=== PATIENT | female | born 1965 | race Caucasian/White ===

== ENCOUNTER → 2017-07-05 | Outpatient (CLI) | payer OTHER ==
[~2017-07-05] MED LIST: AZIT250T PO; CHOL20007 PO; FERROFOOD PO; KRIL1CAP7 PO; MTR600X PO; OXYC5TAB PO; PROB1TAB16 PO; THY/30 PO; [UNRECOGNIZED DRUG - OTHER] PO; [UNRECOGNIZED DRUG - OTHER] PO
[2017-07-05 14:08] LABS: CHOLESTEROL/HDL RATIO 2.6; THYROID STIMULATING HORMONE 2.28 uIu/ml (0.300-4.500)
== END | disposition home or self-care (01) ==
LOC: C.LABBC 11:18
PROVIDERS: ATTEND Physician Assistant Medical
DX: Z00.00 Encounter for general adult medical examination without abnormal findings (principal); E03.9 Hypothyroidism, unspecified; E06.3 Autoimmune thyroiditis; E04.2 Nontoxic multinodular goiter

== ENCOUNTER 2024-01-28 09:20 | Inpatient (IN) ==
--- NOTE | 2024-01-28 09:41 | Emergency Department Note ---
Impression & Plan Atrial fibrillation with rapid ventricular response, Anemia, Atrial flutter ED Provider Note NAME: DAHLIA WONG AGE: 58 SEX: F : 1965 ARRIVES VIA: Ambulance INFORMANT: [Patient][, ] ED PROVIDER(S): [Isaiah Dominique MD] CHIEF COMPLAINT: Elevated heart rate MEDICAL DECISION MAKING: Patient presents due to concern for palpitations and elevated heart rate. Patient was noted to be in a likely atrial flutter. IV was established and blood work was obtained. Patient was ordered Cardizem bolus and IV fluids. The patient did appear to have improvement in symptoms briefly but then returned to tachycardic likely flutter. Patient's blood work showed a normal white count mild anemia hemoglobin of 10. Patient does have known history of fibroids but states that she does not have any active bleeding denies any bright red blood per rectum or melenic stool. Platelet count is unremarkable with normal kidney function. Mild hyponatremia at 134. Magnesium normal. Patient's LFTs are unremarkable with negative troponin TSH is elevated but free T4 normal. Patient was started on a diltiazem drip and I did speak with the on-call hospital service Dr. Trevino and the patient was admitted to the medicine service. Current [id number] score of 1. Critical Care: I have personally spent 75 minutes of critical care time in direct management of this patient. This includes bedside care, interpretation of diagnostic studies, and testing, discussion with consultants, patient, and family members, and other require inpatient management activities. This 75 minutes is in excess of all separately billable procedures. Discussion w/ other healthcare providers: Dr. Trevino inpatient medicine service Prior /Outside records reviewed: [none] Differential diagnosis: Premature contractions, electrolyte abnormality, cardiac dysrhythmia, thyroid dysfunction, infection, toxicologic, anxiety among others were considered. Diagnostics, as interpreted by me: ECG: Possible atrial flutter rate of 159 with normal QRS and normal axis. No ST elevations. Repeat EKG interpreted by myself A-fib with RVR rate of 108, normal QRS, normal axis no ST elevations. Cardiac monitoring: An order was placed for continuous cardiac monitoring. The monitor shows a rate of 155 with tachycardic and regular rhythm. [Patient was placed on pulse oximetry] Medical decision rules: [id number] score Imaging studies: [I informally interpreted the patient's CT of the abdomen pelvis which does not show obvious bowel obstruction with formal report to follow.] [] HPI: [facility] Patient was reportedly presenting due to concern for elevated heart rate. Patient denies any chest pains or shortness of breath. Patient denies any recent medication changes. Patient did think that her heart rate was up as well as her blood pressure as she did have some associated palpitations. Patient does admit to being up all last night and has not slept in about 28 hours. Patient did receive some Zofran and route due to some nausea. Patient states that she is on antibiotics for a recent foot infection. Patient denies any chest pains or shortness of breath. Patient denies any known history of arrhythmia. PAST MEDICAL HISTORY: [See Below] PAST SURGICAL HISTORY: [See Below] SOCIAL HISTORY: [See Below] HOME MEDICATIONS: [See Below] ALLERGIES: [See Below] VITALS: [See Below] PHYSICAL EXAMINATION: GENERAL: NAD, non-toxic. EYE EXAM: Normal conjunctiva. PERRL, no anisocoria and EOM's grossly intact w/o pain. OROPHARYNX: Moist mucus membranes, grossly normal dentition. NECK: Trachea midline, no stridor. [Supple, no nuchal rigidity, no adenopathy, non-tender. No signs of meningismus. FROM of the neck with good chin to chest and neck extension.] LUNGS: Clear to auscultation. Normal chest wall mechanics. HEART: NSR, no MRG. ABDOMEN: Abdomen soft, non-tender, no masses, no rebound or guarding. BACK: No CVA TTP. SKIN: No rashes and no bruising. UPPER EXTREMITIES: Upper extremities are grossly normal. LOWER EXTREMITIES: Grossly normal, no edema. NEURO EXAM: A&O x3, cranial nerves II-XII grossly intact, normal speech, moves all 4 extremities. Past Med/Surg History Problem List (Updated 01/31/24 @ 17:46 by Isaiah Dominique MD) Atrial flutter (Acute) Atrial fibrillation with rapid ventricular response (Acute) Fever Patent foramen ovale PAF (paroxysmal atrial fibrillation) Acute on chronic anemia New onset atrial flutter Depression Fibroid (Acute) Hypothyroid (Acute) Thyroid nodule (Acute) Bronchitis (Acute) Goiter (Acute) Iron deficiency anemia (Acute) Abnormal uterine bleeding (AUB) Anemia (Acute) Elevated troponin (Acute) Fibroid uterus Left sided numbness (Acute 07/08/14) Paresthesia (Acute) Surgical History History of total abdominal hysterectomy History of induced Family History Father Amyotrophic lateral sclerosis Mother Colorectal cancer DCIS (ductal carcinoma in situ) Breast cancer Brother Multiple sclerosis Sister Multiple sclerosis Grandmother (Maternal) Diabetes Grandfather (Maternal) Lung cancer Denies family history of Ovarian cancer Social History Smoking Status: Never smoker Second Hand Exposure: No; Do You Dip or Chew Tobacco: No; Hx Alcohol Use: No Hx Substance Use: No Preferred Language: Korean Communication Ability: Effective Visual Impairment: Limited Hearing Ability: Normal Enrollment Nurse Required: No Beliefs That Will Affect Care: None marital status: Single Current Living Situation: Alone current occupational status: unemployed How many Children do You have: 0 Childhood Exposure to Second-Hand Smoke: Yes Diet: gluten free caffeine: Yes Dental Care, Regularly: No Physical Activity Frequency: 5-6 Times per Week Seatbelt Use: always Sunscreen Use: No Gender Identity: Male Assistive Devices: Glasses Assistive Devices Comment: glasses are not with pt Allergies Allergies Allergy/AdvReac Type Severity Reaction Status Date / Time acetaminophen [From Tylenol] Allergy Unknown Makes me Unverified 01/28/24 12:22 feel loopy and out of sorts corn Allergy Unknown CORN Verified 01/28/24 12:22 SENSITIVITY-FACE PUFFY,TIRED,GAINS WT gluten Allergy Unknown WHEAT Verified 01/28/24 12:22 SENSITIVITY-WT GAIN, PUFFY FACE ibuprofen [From Advil] Allergy Unknown Makes me Unverified 01/28/24 12:22 feel loopy and out of sorts levothyroxine Allergy Unknown HEART Verified 01/28/24 12:22 PALPITATIONS peanut Allergy Unknown HIVES, Verified 01/28/24 12:22 FACIAL SWELLING,LIPS AND TONGUE penicillin V Allergy Unknown Unknown Unverified 01/28/24 12:22 soy Allergy Unknown SOY Verified 01/28/24 12:22 SENSITIVITY-PUFFY FACE WT GAIN naproxen AdvReac Intermediate Disorientat Verified 01/28/24 12:22 ion NSAIDS (Non-Steroidal AdvReac Unknown Disorientat Unverified 01/28/24 12:22 Anti-Inflamma ion Home Meds Home Medications Medication Instructions Recorded Confirmed acetaminophen 325 mg tablet 650 mg PO Q6H PRN Pain 01/28/24 01/28/24 (Tylenol) calcium carbonate 1,000 mg PO TID PRN Gastric 01/28/24 01/28/24 Distress cephalexin 250 mg capsule 250 mg PO Q8H 01/28/24 01/28/24 diphenhydramine HCl 50 mg capsule 50 mg PO HS psychosis 01/28/24 01/28/24 diphenhydramine HCl 50 mg capsule 50 mg PO Q8H PRN EPS 01/28/24 01/28/24 docusate sodium 100 mg capsule 200 mg PO DAILY hard stools 01/28/24 01/28/24 (Colace) multivitamin with minerals 1 tab PO DAILY Poor intake 01/28/24 01/28/24 olanzapine 5 mg disintegrating 15 mg PO BID 01/28/24 01/28/24 tablet Previous Rx's Medication Instructions Recorded epinephrine 0.3 mg/0.3 mL 0.3 ml IM ONCE PRN anaphylaxis #2 10/03/23 injection, auto-injector ea digoxin 125 mcg (0.125 mg) tablet 0.125 mg PO DAILY@1600 #30 tabs 01/30/24 (Digitek) metoprolol succinate 50 mg 50 mg PO DAILY #30 tabs 01/30/24 tablet,extended release 24 hr Results & Data (ED) Vital Signs Vital Signs - 24 hr 01/28/24 09:09 Temperature 36.6 C Temperature Source Oral Pulse Rate 156 H Pulse Rhythm Regular Pulse Strength Strong Respiratory Rate 22 Respiratory Effort / Characteristics Non-Labored Spontaneous Respiratory Depth Normal Respiratory Pattern Regular Blood Pressure 103/63 Blood Pressure Mean 76 Blood Pressure Position Sitting Pulse Oximetry 96 Oxygen Delivery Method Room Air Sepsis Recent Fever Within 48 Hours No Sepsis New/Unexplained Change in Mental Status No Sepsis Action Taken by Nursing No Action Required Home Medications Current Medication List: was personally reviewed by me Laboratory Data Attestation: I reviewed the patient's lab results. 01/31/24 05:59 01/31/24 05:59 Lab Results 01/28/24 01/28/24 01/28/24 Range/Units 09:40 11:38 11:49 WBC 8.55 (4.8-10.8) K/ul RBC 3.39 L (4.20-5.40) M/uL Hgb 10.1 L 10.3 L (12.0-16.0) g/dl POC Hgb 10.5 L (12.0-16.0) g/dl Hct 30.3 L 31.2 L (37.0-47.0) % POC Hct 31 L (37-47) % MCV 89.4 (80.0-100.0) fL MCH 29.8 (25.0-34.0) pg MCHC 33.3 (32.0-36.0) g/dL RDW Std Deviation 49.3 H (36.4-46.3) fL RDW Coeff of Guillermo 15.0 H (11.5-14.5) % Plt Count 356 (130-400) K/uL MPV 9.2 L (9.4-12.4) fL Immature Gran % (Auto) 1.2 % Neut % (Auto) 65.5 % Lymph % (Auto) 10.6 % Winston % (Auto) 8.4 % Eos % (Auto) 13.2 % Baso % (Auto) 1.1 % Neut # (Auto) 5.60 (1.40-6.50) K/uL Lymph # (Auto) 0.91 L (1.20-3.40) K/uL Winston # (Auto) 0.72 H (0.11-0.59) K/uL Eos # (Auto) 1.13 H (0.00-0.50) K/uL Baso # (Auto) 0.09 (0.00-0.20) K/uL Immature Gran # (Auto) 0.10 (0.01-0.20) K/uL PT 10.9 (9.0-12.0) Seconds INR 1.0 (0.9-1.1) APTT 27 (21-31) Seconds PTT Ratio 1.0 POC Sodium 135 (135-144) mmol/L Sodium 134 L (136-145) mmol/L POC Potassium 4.0 (3.3-5.0) mmol/L Potassium 4.0 (3.5-5.1) mmol/L POC Chloride 101 (101-112) mmol/L Chloride 101 (98-107) mmol/L Carbon Dioxide 26 (21-32) mmol/L POC Total CO2 23 L (24-31) mmol/L Anion Gap 7 (3-11) POC Anion Gap 16.0 (16-25) mmol/L POC BUN 11 (7-18) mg/dl BUN 13 (6-23) mg/dl Creatinine 0.79 (0.6-1.2) mg/dl POC Creatinine 0.8 (0.6-1.3) mg/dl Est Cr Clr Drug Dosing 81.4 ml/min Est GFR ( Amer) 94.3 ml/min Est GFR (Non-Af Amer) 81.4 ml/min BUN/Creatinine Ratio 16.5 (10-20) Glucose 101 H (70-99(Fasting)) mg/dl POC Glucose (other) 90 (70-99) mg/dl Calcium 9.0 (8.6-10.3) mg/dl POC Ioniz Calcium Karthikeyan 1.23 (1.12-1.32) mmol/l Magnesium 1.9 (1.7-2.4) mg/dl Iron 40 (35-150) mcg/dl TIBC 220 L (250-450) mcg/dl Unsaturated IBC 180 (155-355) mcg/dl Transferrin % Sat 18 (15-50) % Ferritin 61.7 (8-388) ng/ml Total Bilirubin 0.4 (0.2-1.0) mg/dl AST 13 (13-39) U/L ALT 17 (7-52) U/L Alkaline Phosphatase 79 (34-104) U/L Troponin I High Sens 10.1 (0-14) pg/ml Total Protein 5.7 L (6.0-8.3) gm/dl Albumin 3.1 L (3.4-5.0) gm/dl Globulin 2.6 (2.5-4.0) gm/dl Albumin/Globulin Ratio 1.2 (0.9-2) Vitamin B12 340 (180-914) pg/ml Folate 10.62 (>5.38) ng/ml TSH 6.580 H (0.300-4.500) uIu/ml Free T4 1.18 (0.61-1.60) ng/dl Blood Type A Positive Antibody Screen NEGATIVE Crossmatch See Detail Administered Medications Acetaminophen (Acetaminophen 325 Mg Tab) 650 mg PO Q4H PRN PRN Reason: pain or fever Stop: 02/28/24 19:40 Last Admin: 01/31/24 04:52 Dose: 650 mg Documented By: Admin: 01/30/24 18:22 Dose: 650 mg Documented By: Admin: 01/30/24 05:07 Dose: 650 mg Documented By: ENID Dextrose (Dextrose 50% 50 Ml Syringe) 25 - 50 ml IV UD PRN; Protocol PRN Reason: Hypoglycemia Protocol Stop: 02/27/24 17:45 Last Admin: 01/28/24 17:59 Dose: 25 ml Documented By: SHERLYN Amiodarone HCl/Dextrose (Nexterone / D5w) 360 mg in 200 mls @ 33.333 mls/hr IV ONE ONE Stop: 01/31/24 18:10 Last Admin: 01/31/24 12:27 Dose: 1 mg/min, 33.3 mls/hr Documented By: AIDEN Co-signed By: ANAYELI Metoprolol Tartrate (Metoprolol Tartrate 1 Mg/Ml Vial) 5 mg IV Q4 PRN PRN Reason: sbp > 185, dbp >95, HR >120 Stop: 02/28/24 07:51 Last Admin: 01/31/24 00:52 Dose: 5 mg Documented By: Admin: 01/30/24 00:38 Dose: 5 mg Documented By: ENID Metoprolol Tartrate (Metoprolol Tartrate 25 Mg Tab) 25 mg PO BID [facility] Stop: 02/28/24 20:59 Last Admin: 01/31/24 08:29 Dose: 25 mg Documented By: Admin: 01/30/24 19:56 Dose: 25 mg Documented By: Admin: 01/30/24 08:45 Dose: 25 mg Documented By: Admin: 01/29/24 19:48 Dose: 25 mg Documented By: JARED Olanzapine (Olanzapine Zydis 5 Mg Orally Dis. Tab) 15 mg PO BID [facility] Stop: 02/27/24 20:59 Last Admin: 01/31/24 08:29 Dose: 15 mg Documented By: Admin: 01/30/24 19:56 Dose: 15 mg Documented By: Admin: 01/30/24 08:45 Dose: 15 mg Documented By: Admin: 01/29/24 19:48 Dose: 15 mg Documented By: Admin: 01/29/24 08:08 Dose: 15 mg Documented By: Admin: 01/28/24 21:34 Dose: 15 mg Documented By: PJ Discontinued Medications Acetaminophen (Acetaminophen 325 Mg Tab) 650 mg PO NOW STA Stop: 01/28/24 22:11 Last Admin: 01/28/24 22:25 Dose: 650 mg Documented By: PJ Acetaminophen (Acetaminophen 325 Mg Tab) Confirm Administered Dose 650 mg .ROUTE .STK-MED ONE Stop: 01/29/24 19:47 Last Admin: 01/29/24 19:47 Dose: 650 mg Documented By: JARED Digoxin (Digoxin 0.125 Mg Tab) 0.25 mg PO NOW STA Stop: 01/28/24 12:55 Last Admin: 01/28/24 13:13 Dose: Not Given Documented By: RODDY Digoxin (Digoxin 0.125 Mg Tab) 0.125 mg PO DAILY@1600 ANAY Stop: 02/28/24 15:59 Last Admin: 01/30/24 16:46 Dose: 0.125 mg Documented By: Admin: 01/29/24 16:38 Dose: 0.125 mg Documented By: VIRIDIANA Diltiazem HCl (Diltiazem Hcl 5 Mg/Ml 5 Ml Vial) 20 mg IV NOW STA Stop: 01/28/24 10:26 Last Admin: 01/28/24 10:54 Dose: 20 mg Documented By: RODDY Co-signed By: DEREK Sodium Chloride (Nss) 1,000 mls @ 999 mls/hr IV .Q1H1M STA Stop: 01/28/24 11:08 Last Infusion: 01/28/24 13:16 Dose: Infused Documented By: Admin: 01/28/24 10:54 Dose: 999 mls/hr Documented By: RODDY Diltiazem HCl 125 mg/ Dextrose 125 mls @ 0 mls/hr IV .Q0M ANAY; Protocol Stop: 02/27/24 11:14 Last Titration: 01/29/24 07:00 Dose: Infused Documented By: VIRIDIANA Co-signed By: PJ Titration: 01/28/24 12:29 Dose: 0 mg/hr, 0 mls/hr Documented By: MONICA Co-signed By: TEZ Admin: 01/28/24 11:26 Dose: 5 mg/hr, 5 mls/hr Documented By: MONICA Co-signed By: ANNE Digoxin 250 mcg/ Syringe 10 mls @ 2 mls/min IV NOW STA Stop: 01/28/24 14:05 Last Admin: 01/28/24 15:31 Dose: 2 mls/min Documented By: ASHIA Dextrose/Lactated Ringer's (D5w And Lactated Ringers) 1,000 mls @ 80 mls/hr IV .[id number] ANAY Stop: 02/27/24 17:59 Last Infusion: 01/29/24 14:50 Dose: Infused Documented By: Admin: 01/29/24 06:18 Dose: 80 mls/hr Documented By: Infusion: 01/29/24 06:18 Dose: Infused Documented By: Admin: 01/28/24 17:53 Dose: 80 mls/hr Documented By: SHERLYN Digoxin 250 mcg/ Syringe 10 mls @ 2 mls/min IV Q6H ANAY Stop: 01/29/24 08:34 Last Admin: 01/29/24 07:29 Dose: 2 mls/min Documented By: Admin: 01/29/24 04:32 Dose: 2 mls/min Documented By: Admin: 01/28/24 20:42 Dose: 2 mls/min Documented By: PJ Azithromycin 500 mg/ Dextrose 255 mls @ 127.5 mls/hr IV Q24H ANAY Stop: 02/05/24 21:32 Last Infusion: 01/31/24 00:39 Dose: Infused Documented By: Admin: 01/30/24 22:26 Dose: 127.5 mls/hr Documented By: Infusion: 01/30/24 01:26 Dose: Infused Documented By: Admin: 01/29/24 22:51 Dose: 127.5 mls/hr Documented By: ALJeniffer Ceftriaxone Sodium (Rocephin) 2,000 mg in 50 mls @ 100 mls/hr IV Q24H ANAY Stop: 02/05/24 21:44 Last Infusion: 01/31/24 01:17 Dose: Infused Documented By: Admin: 01/31/24 00:41 Dose: 100 mls/hr Documented By: Infusion: 01/29/24 22:51 Dose: Infused Documented By: Admin: 01/29/24 22:05 Dose: 100 mls/hr Documented By: JARED Amiodarone HCl/Dextrose (Nexterone / D5w) 150 mg in 100 mls @ 600 mls/hr IV NOW STA Stop: 01/31/24 09:00 Last Admin: 01/31/24 09:46 Dose: Not Given Documented By: AIDEN Magnesium Sulfate/Dextrose (Magnesium Sulfate / D5w) 1 gm in 100 mls @ 50 mls/hr IV ONE ONE Stop: 01/31/24 11:15 Last Infusion: 01/31/24 12:57 Dose: Infused Documented By: Admin: 01/31/24 09:47 Dose: 50 mls/hr Documented By: AIDEN Amiodarone HCl/Dextrose (Nexterone / D5w) 150 mg in 100 mls @ 600 mls/hr IV NOW STA Stop: 01/31/24 12:10 Last Infusion: 01/31/24 17:30 Dose: Infused Documented By: AIDEN Co-signed By: ANAYELI Admin: 01/31/24 12:12 Dose: 600 mls/hr Documented By: AIDEN Co-signed By: BARBI Ioversol (Optiray 320 125ml) 120 ml IV ONCE ONE Stop: 01/28/24 14:35 Last Admin: 01/28/24 14:41 Dose: 120 ml Documented By: KATARZYNA Ioversol (Optiray 320 125ml) 112 ml IV ONCE ONE Stop: 01/31/24 10:10 Last Admin: 01/31/24 10:09 Dose: 112 ml Documented By: XIMENA Metoprolol Tartrate (Metoprolol Tartrate 25 Mg Tab) 12.5 mg PO NOW ONE Stop: 01/29/24 13:46 Last Admin: 01/29/24 14:33 Dose: 12.5 mg Documented By: VIRIDIANA Miscellaneous (Stat Iv Infusion Titration Per Protocol) 1 each N/A NOW STA Stop: 01/28/24 11:13 Last Admin: 01/28/24 13:14 Dose: Not Given Documented By: SWLesley Imaging Data Radiologist's Impression: Abdomen CTA 01/28/24 12:00 CT angio abdomen w con CLINICAL HISTORY: abdominal pain, hgb 15-->10 TECHNIQUE: Multidetector row helical CT of the abdomen was performed, following intravenous administration of iodinated contrast. No oral contrast was administered. Automated dose lowering techniques and/or adjustment according to patient size were utilized for this exam. Coronal and sagittal reformations were obtained. MIP and 3D volume rendered reconstructions were obtained. Helical axial images of the abdomen were obtained. CT DOSE: 386.86 mGy.cm Comparison: Comparison is made to ultrasound abdomen 02/16/2023 FINDINGS: Lower chest: Bibasilar atelectasis versus scarring is seen. Cardiomegaly is partially seen. Interlobular septal thickening may represent interstitial Liver: Hepatic cysts are seen. Gallbladder and biliary tree: No calcified gallstones. Normal caliber wall. No intra- or extrahepatic biliary ductal dilation. Pancreas: Unremarkable, no focal lesions. Spleen: Unremarkable. Adrenals: Unremarkable. Kidneys and ureters: Unremarkable. Bowel: Unremarkable. Lymph nodes Retroperitoneal: Unremarkable. Mesenteric: Unremarkable. Peritoneum: Normal. Vessels: Unremarkable. Abdominal wall: Unremarkable. Bones: Degenerative changes in the visualized spine. IMPRESSION: No acute abnormality and in particular no evidence of hematoma in this patient with falling hematocrit. ACT 112: Negative or not required by law. Electronically signed by: Yobany Smith M.D. 01/28/2024 3:04 PM Discharge Plan Visit Data Chief Complaint: Tachycardia Stated Complaint: TACHYCARDIA ED Provider: Isaiah Dominique Discharge Problem: Atrial fibrillation with rapid ventricular response, Anemia, Atrial flutter Patient Disposition: Admitted As Inpatient Discharge Instructions Interventions: ED Discharge Assessment Last Done: 01/28/24 18:31 Discharge Problem: Anemia Qualifiers: Anemia type: unspecified type Qualified Code(s): D64.9 - Anemia, unspecified Atrial flutter Qualifiers: Atrial flutter type: unspecified Qualified Code(s): I48.92 - Unspecified atrial flutter
[2024-01-28 10:20] LABS: Basophils # (auto) 0.09 K/uL (0.00-0.20); Basophils % (auto) 1.1 %; Eosinophils # (auto) 1.13 K/uL (0.00-0.50); Eosinophils % (auto) 13.2 %; Hematocrit (blood only) 30.3 % (37.0-47.0); Hemoglobin 10.1 g/dl (12.0-16.0); Immature Granulocytes % (auto) 1.2 %; Lymphocytes # (auto) 0.91 K/uL (1.20-3.40); Lymphocytes % (auto) 10.6 %; Mean Corpuscular Hemoglobin 29.8 pg (25.0-34.0); Mean Corpuscular Hgb Conc 33.3 g/dL (32.0-36.0); Mean Corpuscular Volume 89.4 fL (80.0-100.0); Mean Platelet Volume 9.2 fL (9.4-12.4); Monocytes # (auto) 0.72 K/uL (0.11-0.59); Monocytes % (auto) 8.4 %; Neutrophils % (auto) 65.5 %; Platelet Count 356 K/uL (130-400); RDW Standard Deviation 49.3 fL (36.4-46.3); Red Blood Count 3.39 M/uL (4.20-5.40); White Blood Count 8.55 K/ul (4.8-10.8)
[2024-01-28 10:36] LABS: Albumin Globulin Ratio 1.2 (0.9-2); Albumin Level 3.1 gm/dl (3.4-5.0); BUN Creatinine Ratio 16.5 (10-20); Bilirubin,Total 0.4 mg/dl (0.2-1.0); Creatinine Clr Calc Pharmacy 81.4 ml/min; Est GFR (African American) 94.3 ml/min; Est GFR (Non-African American) 81.4 ml/min; Globulin 2.6 gm/dl (2.5-4.0); Magnesium 1.9 mg/dl (1.7-2.4); Total Protein 5.7 gm/dl (6.0-8.3)
[2024-01-28 10:44] LABS: Troponin I High Sensitivity 10.1 pg/ml (0-14)
[2024-01-28 10:46] LABS: Partial Thromboplastin Time 27 Seconds (21-31); Prothrombin Time 10.9 Seconds (9.0-12.0)
[2024-01-28 10:51] LABS: Thyroid Stimulating Hormone 6.58 uIu/ml (0.300-4.500)
[2024-01-28] MEDS: SODIUM CHLORIDE 0.9% 1,000 ML IV STA (10:54)
[2024-01-28] MEDS: dilTIAZem HCl 5 MG/ML 5 ML VIAL IV STA (10:54)
[2024-01-28] MEDS: dilTIAZem HCL 125 MG in DEXTROSE 5% 100 ML IV SCH (11:26)
[2024-01-28 11:28] LABS: T4 Free Thyroxine 1.18 ng/dl (0.61-1.60)
[2024-01-28] MEDS ORDERED: SODIUM CHLORIDE 0.9% 250 ML IV PRN ×2 (11:31→12:01)
--- NOTE | 2024-01-28 11:39 | History & Physical Report ---
Date of Service January 28, 2024 Assessment & Plan (1) New onset atrial flutter: Plan: New onset atrial flutter Patient has had palpitations since earlier this morning and was found to have a heart rate of the 150s while at the [facility]. No prior history of a flutter/a trial fibrillation Denies sleep apnea. Has history of hypothyroidism, free T4 is normal on admission. Magnesium is 1.9. Does not use tobacco or alcohol products. Denies other substance use No chest pain, chest pressure. No lightheadedness dizziness, syncope, presyncope. Troponin is normal. EKG suspicious for 2-1 flutter Anticoagulation contraindicated in the setting of tensional bleeding/acute hemoglobin drop Patient received 20 mg of diltiazem followed by gtt. at 5. Hypotensive in the 90s on this and rate transiently improved to 110s increased back to 150s. Will treat potential anemia with 1 unit of transfusion and transition to digoxin due to hypotension. Cardiology is consulted, did discuss with cards and are aware of new onset atrial flutter and underlying anemia Will pursue digoxin load. To 50 mcg ordered. May give an additional 250 mcg on repeat followed by 250 mcg every 6 hours up to 3 doses; if heart rate decreases below 110 hold and transition to once daily dosing. Echo pending. No history of cardiomyopathy/CHF/GA, has had bilateral lower extremity lymphedema worse in the last month however has had no shortness of breath, orthopnea, or history of pulmonary edema Free T4 is normal Addendum: - Pt converted to nsr ~1300hrs on monitor. While EKG pending to confirm patient did convert back to A-fib which was captured on next EKG. Has intermittently transitioned from apparent sinus on rhythm strip to A-fib with varying rates from [id number]. BP remains improved following blood transfusion. Digoxin load continued (2) Acute on chronic anemia: Plan: Past history of iron deficiency anemia related to abnormal uterine bleeding with fibroids. She had a hysterectomy 8 years ago with no bleeding since Endorses some bilateral low right greater than left abdominal discomfort in the last day. No rebound/guarding. No melena, hematochezia, hematemesis and BUN is normal. No epigastric pain Hemoglobin acutely decreased from 151 month ago down to 10.1. [id number] H&H was repeated which confirms hemoglobin 10.1 as patient is tachycardic, hypotensive with attempted rate control in the ER, and has had a acute hemoglobin drop of 5 points compared to baseline 1 month ago risks/benefits of empiric transfusion with hemoglobin greater than 8 were discussed. On shared decision making and due to hypotension will transfuse 1 unit of blood for potential symptomatic anemia while CTA and lab work is completed. H&H to be repeated after 1 unit is complete. Ferritin, transferrin saturation, TIBC, UIBC, B12, folate ordered Addendum: CT angiography of the pelvis does not show any acute abnormality/bleeding/hematoma. Patient's blood pressure normalized following bl ood transfusion. H&H trended. (3) Hypothyroid: Plan: Free T4 is normal Plan Chronic/resolved issues: Recent cellulitis: Patient completed 5 days of antibiotics with Keflex no signs of ongoing cellulitis at time of admission. Follow clinically History of depression: Olanzapine continued. Patient feels she is doing well and improved prior to coming to the hospital. No SI/HI. DVT prophylaxis: SCDs, pharmacal prophylaxis contraindicated while evaluating for potential bleeding Diet: N.p.o. Disposition: PCU Code Status: Full code. She reports that unfortunately most of her family has in the last few years. In the event of a catastrophe she would want her surrogate decision maker to be a [id number] Jacquelyn Polanco. She does not know the number of the top of her head and her cell phone is at the [facility], Jacquelyn lives in [place] and has a 505 area code. Will attempt to have phone dropped off so we can clarify a next contact phone number. History of Present Illness Primary Care Provider: DO Jen Gates is a 58-year-old female with a past medical history of iron deficiency anemia, leg edema, abnormal uterine bleeding with fibroids, hypothyroidism, depression, and left-sided paresthesias presented to the ER with hypotension and tachycardia approximately 150 bpm suspected to be due to 1 atrial flutter on EKG. patient is hypotensive and tachycardic on reassessment, has received 20 mg of Cardizem and subsequent Cardizem gtt. at 5 mg/h while in the ER. Last hemoglobin 1 month ago was 15, hemoglobin on admission 10.1. Jen is seen at the bedside. She reports she was at the [facility] after being seen for depression with psychotic features 1 months ago and was actually doing very well. She reports that she was evaluated this morning for palpitations and was found to have a heart rate in the 150s and was referred to the ER. She denies chest pain, chest pressure, lightheadedness, dizziness, syncope, presyncope, noticeable change in fatigue. She has had some lower extremity swelling which improves putting her legs up but has not had any orthopnea. She has not had any bleeding to her knowledge, and specifically denies black/bloody bowel movements, vomiting. She has had a little right lower quadrant abdominal discomfort today which she attributed to having to pee. After voiding 1800 cc she reports she continues to have a little bit of pain in her right lower abdomen. Otherwise denies pain. Denies falls. He is not on any aspirin or blood thinners. She has been on an antibiotic (Keflex) for cellulitis in the last week. She reports her legs are little bit red bilaterally, but are not tender or warm. She has not had fever, chills, sweats. s/p hysterectomy 8 years ago for uterine bleeding/fibroids. No vaginal or rectal bleedign since Bowel movements have been soft, dark brown. nothing tarry or black. Mild abdominal discomfor previously from urinary retention in the past month, but that resolved. No abdominal pain currently. BP normal 1teens-140s, is not usually low for her No chest pain at any point. Endorses palpitations new since today. No chest pressure. No shortness of breath Has been at the [facility] and has not noticed any fatigue or unusual dyspnea on exertion. Iron deficient in the past, has not had problems in several years. Eats lots of red meat. Medical History: Reviewed Medications: Reviewed Surgical History: Reviewed Family history: Reviewed Allergies: Reviewed Social History: No tobacco/etoh use Code Status: Full code. She reports that unfortunately most of her family has in the last few years. In the event of a catastrophe she would want her surrogate decision maker to be a [id number] Jacquelyn Polanco. She does not know the number of the top of her head and her cell phone is at the [facility], Jacquelyn lives in [place] and has a 505 area code. Will attempt to have phone dropped off so we can clarify a next contact phone number. Allergies Allergy/AdvReac Type Severity Reaction Status Date / Time acetaminophen [From Tylenol] Allergy Unknown Makes me Unverified 01/28/24 12:22 feel loopy and out of sorts corn Allergy Unknown CORN Verified 01/28/24 12:22 SENSITIVITY-FACE PUFFY,TIRED,GAINS WT gluten Allergy Unknown WHEAT Verified 01/28/24 12:22 SENSITIVITY-WT GAIN, PUFFY FACE ibuprofen [From Advil] Allergy Unknown Makes me Unverified 01/28/24 12:22 feel loopy and out of sorts levothyroxine Allergy Unknown HEART Verified 01/28/24 12:22 PALPITATIONS peanut Allergy Unknown HIVES, Verified 01/28/24 12:22 FACIAL SWELLING,LIPS AND TONGUE penicillin V Allergy Unknown Unknown Unverified 01/28/24 12:22 soy Allergy Unknown SOY Verified 01/28/24 12:22 SENSITIVITY-PUFFY FACE WT GAIN naproxen AdvReac Intermediate Disorientat Verified 01/28/24 12:22 ion NSAIDS (Non-Steroidal AdvReac Unknown Disorientat Unverified 01/28/24 12:22 Anti-Inflamma ion Home Medications Medication Instructions Recorded Confirmed Type epinephrine 0.3 mg/0.3 mL 0.3 ml IM ONCE PRN anaphylaxis #2 10/03/23 01/28/24 Rx injection, auto-injector ea acetaminophen 325 mg tablet 650 mg PO Q6H PRN Pain 01/28/24 01/28/24 History (Tylenol) calcium carbonate 1,000 mg PO TID PRN Gastric 01/28/24 01/28/24 History Distress cephalexin 250 mg capsule 250 mg PO Q8H 01/28/24 01/28/24 History diphenhydramine HCl 50 mg capsule 50 mg PO HS psychosis 01/28/24 01/28/24 History diphenhydramine HCl 50 mg capsule 50 mg PO Q8H PRN EPS 01/28/24 01/28/24 History docusate sodium 100 mg capsule 200 mg PO DAILY hard stools 01/28/24 01/28/24 History (Colace) multivitamin with minerals 1 tab PO DAILY Poor intake 01/28/24 01/28/24 History olanzapine 5 mg disintegrating 15 mg PO BID 01/28/24 01/28/24 History tablet Past Med/Surg History Problem List Acute on chronic anemia New onset atrial flutter Depression Fibroid (Acute) Hypothyroid (Acute) Thyroid nodule (Acute) Bronchitis (Acute) Goiter (Acute) Iron deficiency anemia (Acute) Abnormal uterine bleeding (AUB) Anemia Elevated troponin (Acute) Fibroid uterus Left sided numbness (Acute 07/08/14) Paresthesia (Acute) Surgical History History of total abdominal hysterectomy History of induced Family History Father Amyotrophic lateral sclerosis Mother Colorectal cancer DCIS (ductal carcinoma in situ) Breast cancer Brother Multiple sclerosis Sister Multiple sclerosis Grandmother (Maternal) Diabetes Grandfather (Maternal) Lung cancer Denies family history of Ovarian cancer Social History Smoking Status: Never smoker Second Hand Exposure: No; Do You Dip or Chew Tobacco: No; Hx Alcohol Use: No Hx Substance Use: No Preferred Language: Azerbaijani Communication Ability: Effective Visual Impairment: Limited Hearing Ability: Normal marital status: Single Current Living Situation: Alone current occupational status: unemployed How many Children do You have: 0 Feels Safe at Home: Declines to Answer Childhood Exposure to Second-Hand Smoke: Yes Diet: gluten free caffeine: Yes Dental Care, Regularly: No Physical Activity Frequency: 5-6 Times per Week Seatbelt Use: always Sunscreen Use: No Gender Identity: Male Assistive Devices: Glasses Physical Exam Physical Exam: General: A&Ox3. NAD. Cooperative. Slight pallor. HEENT: Atraumatic, normocephalic. Vision/hearing grossly intact Pulm: CTAB A&P. -wheezes, -rales, -rhonchi. Symmetrical chest rise. No increased work of breathing. No respiratory distress. Cardiac: tachycardic, irir. -mrg. Radial pulses intact and symmetrical. Abdominal: Mild TTP RLQ and R suprapubic TTP. No rebound/guarding. No contusions .No CVA tenderness. No retroperitoneal hematoma Ext: Bilateral lower extremity pitting edema 2+. Mild bilateral erythema without tenderness/warmth. Right lateral fifth digit with healing ulceration, no purulence/discharge/warmth/tenderness. Results & Data Results & Data Vital Signs (Past 12 Hours) Vital Signs Temp Pulse Resp BP Pulse Ox O2 Del Method 01/28/24 11:26 94/63 L 01/28/24 11:26 154 H 17 98 01/28/24 11:07 99/63 L 01/28/24 11:07 100 H 14 98 01/28/24 11:01 91/57 L 01/28/24 11:01 94 H 24 99 01/28/24 11:00 91/60 L 01/28/24 11:00 159 H 26 H 99 01/28/24 10:30 96/63 L 01/28/24 10:30 153 H 19 99 01/28/24 10:29 90/61 L 01/28/24 10:29 152 H 24 100 01/28/24 10:21 126 H 01/28/24 10:05 160 H 01/28/24 10:00 91/54 L 01/28/24 10:00 120 H 19 97 01/28/24 09:56 162 H 21 98 01/28/24 09:30 96 Room Air 01/28/24 09:09 36.6 C 156 H 22 103/63 96 Room Air PG Care Time/CCT Total # of Minutes Spent Total Time Spent with Patient: Total time spent is greater than 50% in coordination of care (as documented) at patient's floor/unit and/or counseling patient: Coding Level of Care Code 82498 INT INP/OBS CARE 3/75MIN Diagnoses New onset atrial flutter I48.92 Acute on chronic anemia D64.9 Hypothyroid E03.9
[2024-01-28 11:40] LABS: Appearance Urine Clear (Clear); Bilirubin Urine Negative (Negative); Blood Urine Negative (Negative); Color Urine Yellow; Glucose Urine UA Negative (Negative); Ketones Urine Negative (Negative); Leukocyte Esterase Urine Negative (Negative); Nitrite Urine Negative (Negative); Protein Urine Negative (Negative); Specific Gravity Urine 1.005 (1.000-1.030); Urobilinogen Urine Negative (Negative); pH Urine 6.5 (4.5-7.5)
[2024-01-28 12:01] LABS: Hematocrit (blood only) 31.2 % (37.0-47.0); Hemoglobin 10.3 g/dl (12.0-16.0)
[2024-01-28 12:02] LABS: iSTAT Creatinine 0.8 mg/dl (0.6-1.3); iSTAT Hemoglobin 10.5 g/dl (12.0-16.0); iSTAT Ionized Calcium 1.23 mmol/l (1.12-1.32)
[2024-01-28 12:38] LABS: Ferritin 61.7 ng/ml (8-388)
[2024-01-28 12:44] LABS: Folate (Folic Acid),Ser orPlas 10.62 ng/ml (>5.38)
[2024-01-28] MEDS: DIGOXIN 0.125 MG TAB PO STA (13:13)
[2024-01-28] MEDS: STAT IV Infusion **Titration per Protocol STA (13:14)
[2024-01-28] MEDS: OPTIRAY 320 125ml IV ONE (14:41)
--- NOTE | 2024-01-28 15:05 | CT Scan Report ---
CT angio abdomen w con CLINICAL HISTORY: abdominal pain, hgb 15-->10 TECHNIQUE: Multidetector row helical CT of the abdomen was performed, following intravenous administr ation of iodinated contrast. No oral contrast was administered. Automated dose lowering techniques an d/or adjustment according to patient size were utilized for this exam. Coronal and sagittal reformati ons were obtained. MIP and 3D volume rendered reconstructions were obtained. Helical axial images of the abdomen were obtained. CT DOSE: 386.86 mGy.cm Comparison: Comparison is made to ultrasound abdomen 02/16/2023 FINDINGS: Lower chest: Bibasilar atelectasis versus scarring is seen. Cardiomegaly is partially seen. Interlob ular septal thickening may represent interstitial Liver: Hepatic cysts are seen. Gallbladder and biliary tree: No calcified gallstones. Normal caliber wall. No intra- or extrahepatic biliary ductal dilation. Pancreas: Unremarkable, no focal lesions. Spleen: Unremarkable. Adrenals: Unremarkable. Kidneys and ureters: Unremarkable. Bowel: Unremarkable. Lymph nodes Retroperitoneal: Unremarkable. Mesenteric: Unremarkable. Peritoneum: Normal. Vessels: Unremarkable. Abdominal wall: Unremarkable. Bones: Degenerative changes in the visualized spine. IMPRESSION: No acute abnormality and in particular no evidence of hematoma in this patient with falling hematocri t. ACT 112: Negative or not required by law. Electronically signed by: Yobany Smith M.D. 01/28/2024 3:04 PM
[2024-01-28] MEDS: DIGOXIN 250 MCG in SYRINGE 9 ML IV STA (15:31)
--- NOTE | 2024-01-28 15:32 | XCELERA ---
[id number]
--- NOTE | 2024-01-28 16:12 | Electrocardiogram Report ---
Test Reason : Blood Pressure : / mmHG Vent. Rate : 159 BPM Atrial Rate : 318 BPM P-R Int : 000 ms QRS Dur : 076 ms QT Int : 288 ms P-R-T Axes : 256 -13 -02 degrees QTc Int : 468 ms Probable Sinus tachycardia Septal infarct , age undetermined Nonspecific ST abnormality Abnormal ECG When compared with ECG of 15-DEC-2023 22:36, Vent. rate has increased BY 66 BPM Septal infarct is now Present ST now depressed in Inferior leads Confirmed by Hiren Alva ([id number]) on 01/28/2024 4:11:32 PM Referred By: REFERRED SELF Confirmed By:Hiren Alva
--- NOTE | 2024-01-28 16:25 | Electrocardiogram Report ---
Test Reason : Blood Pressure : / mmHG Vent. Rate : 154 BPM Atrial Rate : 308 BPM P-R Int : 000 ms QRS Dur : 068 ms QT Int : 238 ms P-R-T Axes : 242 -13 015 degrees QTc Int : 381 ms Probable Sinus tachycardia Septal infarct (cited on or before 28-JAN-2024) Abnormal ECG When compared with ECG of 28-JAN-2024 09:27, (unconfirmed) No significant change was found Confirmed by Hiren Alva ([id number]) on 01/28/2024 4:24:35 PM Referred By: REFERRED SELF Confirmed By:Hiren Alva
--- NOTE | 2024-01-28 16:35 | Electrocardiogram Report ---
Test Reason : Blood Pressure : / mmHG Vent. Rate : 111 BPM Atrial Rate : 000 BPM P-R Int : 000 ms QRS Dur : 080 ms QT Int : 312 ms P-R-T Axes : 000 -17 023 degrees QTc Int : 424 ms Atrial fibrillation with rapid ventricular response Abnormal ECG When compared with ECG of 28-JAN-2024 13:33, (unconfirmed) No significant change was found Confirmed by Hiren Alva ([id number]) on 01/28/2024 4:35:29 PM Referred By: REFERRED SELF Confirmed By:Hiren Alva
[2024-01-28] MEDS: D5W AND LACTATED RINGERS 1,000 ML IV SCH (17:53)
[2024-01-28] MEDS: DEXTROSE 50% 50 ML SYRINGE IV PRN (17:59)
[2024-01-28] MEDS: DIGOXIN 250 MCG in SYRINGE 9 ML IV SCH (20:42)
[2024-01-28] MEDS: OLANZapine ZYDIS 5 MG ORALLY DIS. TAB PO SCH (21:34)
[2024-01-28] MEDS: ACETAMINOPHEN 325 MG TAB PO STA (22:25)
[2024-01-29 07:50] LABS: Basophils # (auto) 0.07 K/uL (0.00-0.20); Basophils % (auto) 1.1 %; Eosinophils # (auto) 0.73 K/uL (0.00-0.50); Eosinophils % (auto) 11.6 %; Hematocrit (blood only) 35.1 % (37.0-47.0); Hemoglobin 11.6 g/dl (12.0-16.0); Immature Granulocytes # (auto) 0.06 K/uL (0.01-0.20); Lymphocytes # (auto) 0.63 K/uL (1.20-3.40); Mean Corpuscular Hemoglobin 30.1 pg (25.0-34.0); Mean Corpuscular Volume 91.2 fL (80.0-100.0); Mean Platelet Volume 9.2 fL (9.4-12.4); Neutrophils # (auto) 4.28 K/uL (1.40-6.50); Neutrophils % (auto) 68.3 %; Platelet Count 321 K/uL (130-400); RDW Coefficient of Variation 15.3 % (11.5-14.5); RDW Standard Deviation 50.7 fL (36.4-46.3); Red Blood Count 3.85 M/uL (4.20-5.40); White Blood Count 6.27 K/ul (4.8-10.8)
--- NOTE | 2024-01-29 07:56 | Hospitalist Progress Note ---
Date of Service January 29, 2024 Assessment & Plan (1) New onset atrial flutter: Plan: New onset atrial flutter RVR No prior history of a flutter/atrial fibrillation Currently is an inpatient at the [facility] History of hypothyroidism, free T4 is normal on admission. Magnesium is 1.9. Does not use tobacco or alcohol products. Denies other substance use No chest pain, Troponin is normal. EKG suspicious for 2-1 flutter Anticoagulation contraindicated in the setting of acute hemoglobin drop, did receive one unit and had appropriate rise in hgb, no continued active bleedind suspected Patient received 20 mg of diltiazem followed by gtt. at 5. with subsequent Hypotension, transition to digoxin due to hypotension. Cardiology is consulted, will try to add in some doses of metoprolol Echo shows preserved EF, suspected PFO, no RWMA , has had bilateral lower extremity lymphedema worse in the last month however has had no shortness of breath, orthopnea, or history of pulmonary edema Free T4 is normal (2) Acute on chronic anemia: Plan: Past history of iron deficiency anemia related to abnormal uterine bleeding with fibroids. She had a hysterectomy 8 years ago with no bleeding since Hemoglobin acutely decreased from 151 month ago down to 10.1. risks/benefits of empiric transfusion with hemoglobin greater than 8 were discussed. Did transfuse 1 unit of blood for potential symptomatic anemia CT abdomen and pelvis without acute abnormalities . IRon, B12, folate normal (3) Hypothyroid: Plan: Free T4 is normal (4) Depression: Plan: History of depression: Olanzapine continued. Patient feels she is doing well and improved prior to coming to the hospital. No SI/HI. Plan DVT prophylaxis: SCDs, pharmacal prophylaxis contraindicated while evaluating for potential bleeding Code Status: Full code. She reports that unfortunately most of her family has in the last few years. In the event of a catastrophe she would want her surrogate decision maker to be a [id number] Jacquelyn Polanco. Admission and Anticipated Discharge Date Admission Date: January 28, 2024 Subjective intermittent conversion to nsr, with digoxin and metoprolol low grade temp and blood pressure is controlled Physical Exam Physical Exam: Pt without distress, no cardiac murmurs, lungs diminshed Results & Data Results & Data Vital Signs (Past 12 Hours) Vital Signs Temp Pulse Resp BP Pulse Ox O2 Del Method 01/29/24 07:29 135 H 01/29/24 04:32 130 H 01/29/24 04:07 98.2 F 16 99/62 L 97 Room Air 01/28/24 23:29 99.7 F H 16 91/47 L 94 Room Air 01/28/24 22:46 94 H 01/28/24 21:56 100.2 F H 01/28/24 21:40 101.3 F H 01/28/24 20:42 145 H Laboratory Results reviewed cbc reviewed chemistry PG Care Time/CCT Total # of Minutes Spent Total Time Spent with Patient: Total time spent is greater than 50% in coordination of care (as documented) at patient's floor/unit and/or counseling patient: Coding Level of Care Code 26353 SUB INP/OBS CARE 3/50MIN Diagnoses New onset atrial flutter I48.92 Acute on chronic anemia D64.9 Hypothyroid E03.9 Depression F32.A
[2024-01-29 08:21] LABS: BUN Creatinine Ratio 11.1 (10-20); Calcium 8.8 mg/dl (8.6-10.3); Creatinine Clr Calc Pharmacy 87.2 ml/min; Est GFR (African American) 105.5 ml/min; Potassium 4.3 mmol/L (3.5-5.1)
--- NOTE | 2024-01-29 13:15 | Cardiology Consultation ---
Date of Consultation January 29, 2024 Assessment & Plan (1) PAF (paroxysmal atrial fibrillation): -paroxysms noted on telemetry. -presenting rhythm may have been atrial flutter with 2-1 conduction (versus sinus tachycardia). -consider low-dose beta-blockade. -CHADSVasc score is 1 for gender. -long-term anticoagulation not indicated until she turns 63. (2) Patent foramen ovale: -suspected on echocardiogram currently, and back in June 2014. -no therapy indicated at this time. History of Present Illness Attending Physician: Spencer Rao MD History of Present Illness Mrs. Rey is a 58-year-old female admitted yesterday with new onset atrial dysrhythmias. This consultation was ordered to assist in her cardiac management. The patient's recent history began yesterday while an inpatient at the [facility]. She complained of sustained palpitations and she was found have a heart rate of 150 beats per minute. An ambulance was summoned and she was brought to the emergency room for further evaluation. On arrival here, the initial EKG revealed a tachycardia at 159 beats per minute and the rhythm was felt to be sinus tachycardia versus atrial flutter. A 2nd tracing was similar at a heart rate of 154 beats per minute. A 3rd tracing done 2 hours later noted atrial fibrillation with a rapid ventricular response of 108 beats per minute. The patient has noted intermittent episodes sinus rhythm and atrial fibrillation since her admission. She does recall feeling intermittent palpitations numerous times over the last several years. She has never been diagnosed with an atrial dysrhythmia previously. Currently, patient is resting comfortably in bed and without complaints. Past medical and surgical history 1. Paroxysmal atrial fibrillation-January 2024 2. Of iron deficiency anemia 3. Depression 4. Unspecified psychosis 5. Uterine fibroids 6. Total abdominal hysterectomy-2016 Social history Single, lives alone No tobacco alcohol Family history No early coronary artery disease Review of systems A 10 point review of systems was undertaken and negative except that described above. Allergies Allergy/AdvReac Type Severity Reaction Status Date / Time acetaminophen [From Tylenol] Allergy Unknown Makes me Unverified 01/28/24 12:22 feel loopy and out of sorts corn Allergy Unknown CORN Verified 01/28/24 12:22 SENSITIVITY-FACE PUFFY,TIRED,GAINS WT gluten Allergy Unknown WHEAT Verified 01/28/24 12:22 SENSITIVITY-WT GAIN, PUFFY FACE ibuprofen [From Advil] Allergy Unknown Makes me Unverified 01/28/24 12:22 feel loopy and out of sorts levothyroxine Allergy Unknown HEART Verified 01/28/24 12:22 PALPITATIONS peanut Allergy Unknown HIVES, Verified 01/28/24 12:22 FACIAL SWELLING,LIPS AND TONGUE penicillin V Allergy Unknown Unknown Unverified 01/28/24 12:22 soy Allergy Unknown SOY Verified 01/28/24 12:22 SENSITIVITY-PUFFY FACE WT GAIN naproxen AdvReac Intermediate Disorientat Verified 01/28/24 12:22 ion NSAIDS (Non-Steroidal AdvReac Unknown Disorientat Unverified 01/28/24 12:22 Anti-Inflamma ion Home Medications Medication Instructions Recorded Confirmed Type epinephrine 0.3 mg/0.3 mL 0.3 ml IM ONCE PRN anaphylaxis #2 10/03/23 01/28/24 Rx injection, auto-injector ea acetaminophen 325 mg tablet 650 mg PO Q6H PRN Pain 01/28/24 01/28/24 History (Tylenol) calcium carbonate 1,000 mg PO TID PRN Gastric 01/28/24 01/28/24 History Distress cephalexin 250 mg capsule 250 mg PO Q8H 01/28/24 01/28/24 History diphenhydramine HCl 50 mg capsule 50 mg PO HS psychosis 01/28/24 01/28/24 History diphenhydramine HCl 50 mg capsule 50 mg PO Q8H PRN EPS 01/28/24 01/28/24 History docusate sodium 100 mg capsule 200 mg PO DAILY hard stools 01/28/24 01/28/24 History (Colace) multivitamin with minerals 1 tab PO DAILY Poor intake 01/28/24 01/28/24 History olanzapine 5 mg disintegrating 15 mg PO BID 01/28/24 01/28/24 History tablet Patient History Surgical History History of total abdominal hysterectomy History of induced Family History Father Amyotrophic lateral sclerosis Mother Colorectal cancer DCIS (ductal carcinoma in situ) Breast cancer Brother Multiple sclerosis Sister Multiple sclerosis Grandmother (Maternal) Diabetes Grandfather (Maternal) Lung cancer Denies family history of Ovarian cancer Social History Smoking Status: Never smoker Second Hand Exposure: No; Do You Dip or Chew Tobacco: No; Hx Alcohol Use: No Hx Substance Use: No Preferred Language: Telugu Communication Ability: Effective Visual Impairment: Limited Hearing Ability: Normal Letterpress Setter Required: No Beliefs That Will Affect Care: None marital status: Single Current Living Situation: Alone current occupational status: unemployed How many Children do You have: 0 Childhood Exposure to Second-Hand Smoke: Yes Diet: gluten free caffeine: Yes Dental Care, Regularly: No Physical Activity Frequency: 5-6 Times per Week Seatbelt Use: always Sunscreen Use: No Gender Identity: Male Assistive Devices: Glasses Assistive Devices Comment: glasses are not with pt Physical Exam Physical Exam: In general this is a well-developed well-nourished white female in no acute distress. HEENT exam is negative. Neck is supple with full carotid upstrokes. There are no carotid bruits. Jugular venous pressure is flat at 90. There is no thyromegaly. Cardiovascular exam reveals a regular rhythm with a normal S1 and S2. No S3, S4, or murmurs are noted. Lungs are clear without rales, rhonchi, or wheezes. Abdomen is soft and nontender without bruits. Extremities reveal intact radial artery and posterior tibial pulses bilaterally. There is no peripheral edema. Results & Data Vital Signs (Past 12 Hours) Vital Signs Temp Pulse Pulse Resp BP Pulse Ox O2 Del Method 01/29/24 11:15 37.5 C 86 18 107/67 97 Room Air 01/29/24 08:00 101 H 01/29/24 07:56 37.1 C 113 H 18 102/63 94 Room Air 01/29/24 07:29 135 H 01/29/24 04:32 130 H 01/29/24 04:07 36.8 C 16 99/62 L 97 Room Air Laboratory Results CBC reveals a Hemoglobin of 11.6, hematocrit 35.1, white count 6.3, and platelet count 321 1000. Electrolytes note a sodium of 137, potassium 4.3, chloride 106, bicarb 27, BUN 8, creatinine 0.72, and glucose of 87. Magnesium level is 1.9. Free T4 is normal at 1.18. Diagnostic Findings Echocardiogram notes normal ventricular systolic function with ejection fraction of 60-65%. There was mild tricuspid regurgitation and suspected PFO. Compared with study performed in June 2014, no significant change. EKGs are described above. 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 PG Care Time/CCT Total # of Minutes Spent Total Time Spent with Patient: Total time spent is greater than 50% in coordination of care (as documented) at patient's floor/unit and/or counseling patient: Coding Level of Care Code 27994 IN/OBS CONSULT LVL 4,60M Diagnoses PAF (paroxysmal atrial fibrillation) I48.0 Patent foramen ovale Q21.12
[2024-01-29] MEDS: METOPROLOL TARTRATE 25 MG TAB PO ONE (14:33)
--- NOTE | 2024-01-29 16:28 | Electrocardiogram Report ---
Test Reason : Blood Pressure : / mmHG Vent. Rate : 108 BPM Atrial Rate : 000 BPM P-R Int : 000 ms QRS Dur : 076 ms QT Int : 328 ms P-R-T Axes : 000 -09 026 degrees QTc Int : 439 ms Atrial fibrillation with rapid ventricular response Low voltage QRS Abnormal ECG When compared with ECG of 28-JAN-2024 11:21, Atrial fibrillation has replaced Sinus rhythm Confirmed by Hiren Alva ([id number]) on 01/29/2024 4:28:00 PM Referred By: REFERRED SELF Confirmed By:Hiren Alva
--- NOTE | 2024-01-29 16:28 | Electrocardiogram Report ---
Test Reason : Blood Pressure : / mmHG Vent. Rate : 087 BPM Atrial Rate : 087 BPM P-R Int : 162 ms QRS Dur : 080 ms QT Int : 334 ms P-R-T Axes : 066 -22 048 degrees QTc Int : 401 ms Normal sinus rhythm Normal ECG When compared with ECG of 28-JAN-2024 16:01, Sinus rhythm has replaced Atrial fibrillation Confirmed by Hiren Alva ([id number]) on 01/29/2024 4:28:13 PM Referred By: REFERRED SELF Confirmed By:Hiren Alva
[2024-01-29] MEDS: DIGOXIN 0.125 MG TAB PO SCH (16:38)
[2024-01-29] MEDS: ACETAMINOPHEN 325 MG TAB ONE (19:47)
[2024-01-29] MEDS: METOPROLOL TARTRATE 25 MG TAB PO SCH (19:48)
--- NOTE | 2024-01-29 21:16 | Communication Note ---
Date of Service: January 29, 2024 Notified at 1930 that patient had developed a fever (38.8 C). Of note, patient had fever last evening as well (38.5 C) which resolved with Tylenol. Patient examined at bedside. She notes that she feels warm, but denies chills. She denies dyspnea or pleuritic pain. She denies cough, rhinorrhea, or PND. Patient is noted to have no history of asthma or COPD. Vitals indicate persistent O2 saturations of 91-92% on room air. Patient remains tachycardic in NSR. Physical exam indicative of bilateral lower lobe crackles, right moreso than left, with scattered inspiratory wheezing throughout the right lobe only. Heart regular rate and rhythm (but noted to have been in A Fib on telemetry within the last hour). CXR obtained, and concerning for RLL PNA. Aware that patient's plan was to discharge to [facility] tomorrow. Patient with known penicillin allergy. Will start empiric treatment with third generation cephalosporin via IV (Ceftriaxone 1 g daily for 5-7 days) and macrolide via IV (Azithromycin 500 mg daily for 3 -5 days). Supplemental O2 at 2L via NC provided to support O2 saturation of 95%. MRSA nares ordered. Procal added to AM labs. Could transition to Cefdinir and Azithromycin PO as outpatient upon discharge. Potential exists that patient's new onset A Fib is driven by acute infection. Of note, patient has significant lower extremity edema, which is noted by patient to be chronic, she has been told she has lymphedema in the past. No evidence of JVD on examination, patient appears otherwise euvolemic. LVEF on 01/27 preserved. No acute need for diuresis at this time. Resident Activity Tracking Resident Involvement: Resident Care Provided Care Provided: Adult Hospital Medicine (Night)
[2024-01-29] MEDS ORDERED: cefTRIAXone SODIUM 1,000 MG/50 ML BAG IV SCH (21:45)
[2024-01-29] MEDS: cefTRIAXone SODIUM 2,000 MG/50 ML BAG IV SCH (22:05)
[2024-01-29] MEDS: AZITHROMYCIN 500 MG in DEXTROSE 5% 250 ML IV SCH (22:51)
[2024-01-30] MEDS: METOPROLOL TARTRATE 1 MG/ML VIAL IV PRN (00:38)
[2024-01-30] MEDS: ACETAMINOPHEN 325 MG TAB PO PRN (05:07)
[2024-01-30 07:20] LABS: Hematocrit (blood only) 33.7 % (37.0-47.0); Hemoglobin 11.3 g/dl (12.0-16.0); Mean Corpuscular Hgb Conc 33.5 g/dL (32.0-36.0); Mean Corpuscular Volume 89.4 fL (80.0-100.0); Mean Platelet Volume 9.1 fL (9.4-12.4); Platelet Count 280 K/uL (130-400); RDW Coefficient of Variation 14.9 % (11.5-14.5); RDW Standard Deviation 49.1 fL (36.4-46.3); Red Blood Count 3.77 M/uL (4.20-5.40); White Blood Count 5.26 K/ul (4.8-10.8)
--- NOTE | 2024-01-30 07:22 | XRay Report ---
XR chest 1V portable HISTORY: 58 years-old Female fever, crackles on exam acute shortness breath with fever COMPARISON: 12/15/2023 TECHNIQUE: AP view of the chest FINDINGS: Cardiac silhouette is enlarged. Pulmonary vascular congestion with interstitial coarsening. Small ple ural effusions with mild bibasilar consolidation. No pneumothorax. Bones appear grossly intact. IMPRESSION: 1. Cardiomegaly with pulmonary edema. 2. Small pleural effusions with mild bibasilar consolidation likely representing atelectasis. ACT 112: Negative or not required by law. The above report was generated using voice recognition software. It may contain grammatical, syntax o r spelling errors. Electronically signed by: Darren Villatoro M.D. 01/30/2024 7:20 AM
[2024-01-30 07:39] LABS: BUN Creatinine Ratio 13.9 (10-20); Calcium 8.4 mg/dl (8.6-10.3); Creatinine Clr Calc Pharmacy 87.7 ml/min; Est GFR (African American) 105.5 ml/min; Magnesium 1.9 mg/dl (1.7-2.4); Potassium 4.1 mmol/L (3.5-5.1)
[2024-01-30 07:57] LABS: Basophils # (auto) 0.07 K/uL (0.00-0.20); Basophils % (auto) 1.3 %; Eosinophils # (auto) 0.38 K/uL (0.00-0.50); Eosinophils % (auto) 7.2 %; Immature Granulocytes % (auto) 1.9 %; Lymphocytes # (auto) 0.62 K/uL (1.20-3.40); Lymphocytes % (auto) 11.8 %; Monocytes % (auto) 5.7 %; Neutrophils # (auto) 3.79 K/uL (1.40-6.50); Neutrophils % (auto) 72.1 %
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
[2024-01-31 07:06] LABS: Hematocrit (blood only) 36.7 % (37.0-47.0); Hemoglobin 12.3 g/dl (12.0-16.0); Mean Corpuscular Hemoglobin 29.8 pg (25.0-34.0); Mean Corpuscular Hgb Conc 33.5 g/dL (32.0-36.0); Mean Corpuscular Volume 88.9 fL (80.0-100.0); Mean Platelet Volume 9.4 fL (9.4-12.4); Platelet Count 263 K/uL (130-400); RDW Coefficient of Variation 15.1 % (11.5-14.5); Red Blood Count 4.13 M/uL (4.20-5.40); White Blood Count 5.28 K/ul (4.8-10.8)
[2024-01-31 07:31] LABS: BUN Creatinine Ratio 16.4 (10-20); Calcium 8.4 mg/dl (8.6-10.3); Creatinine Clr Calc Pharmacy 86.5 ml/min; Est GFR (African American) 103.8 ml/min; Est GFR (Non-African American) 89.5 ml/min; Potassium 4.2 mmol/L (3.5-5.1)
[2024-01-31 07:43] LABS: Basophils # (auto) 0.06 K/uL (0.00-0.20); Basophils % (auto) 1.1 %; Eosinophils # (auto) 0.42 K/uL (0.00-0.50); Immature Granulocytes # (auto) 0.11 K/uL (0.01-0.20); Immature Granulocytes % (auto) 2.1 %; Monocytes # (auto) 0.36 K/uL (0.11-0.59); Monocytes % (auto) 6.8 %; Neutrophils # (auto) 3.43 K/uL (1.40-6.50)
[2024-01-31] MEDS ORDERED: 0.2 MICRON FILTER SET 1 EACH IV STA ×2 (08:51→12:01)
[2024-01-31] MEDS ORDERED: STAT IV Infusion **Titration per Protocol STA ×2 (08:51→12:01)
[2024-01-31] MEDS ORDERED: AMIODARONE IV BOLUS & DRIP IV STA ×2 (08:51→12:01)
[2024-01-31] MEDS: AMIODARONE / D5W 150 MG/100 ML BAG IV STA ×2 (09:46→12:12)
[2024-01-31] MEDS: MAGNESIUM SULFATE / D5W 1 GM/100 ML BAG IV ONE (09:47)
[2024-01-31] MEDS: OPTIRAY 320 125ml IV ONE (10:09)
--- NOTE | 2024-01-31 11:03 | CT Scan Report ---
CT angio chest PE protocol CT DOSE: 326.83 mGy.cm HISTORY: 58 years-old Female with PE. Acute shortness of breath TECHNIQUE: Multiple CTA images of the chest were obtained after the intravenous administration of 112 ml Optiray. Coronal and sagittal MIPS were obtained from the axial data set and were submitted for review. All measurements were obtained according to NASCET criteria. A dose lowering technique was u tilized adhering to the principles of ALARA. COMPARISON: Chest radiograph of same day FINDINGS: CTA: Moderate cardiomegaly. Trace pericardial effusion. No thoracic aortic aneurysm or dissection. No pulm onary emboli identified. CT CHEST: Multinodular thyroid with nodules on the left measuring up to 1.8 cm. There is diffuse body wall and mediastinal edema. Nonspecific mediastinal and hilar lymphadenopathy with subcarinal lymph node measu ring up to 1.3 cm in short axis. No pneumothorax. Intralobular and bronchial wall thickening with dependent bibasilar groundglass and consolidative opacities. Low clinical suspicion fissural nodules measure up to 5 mm within the right middle lobe suggestive of lymph nodes. Mild left basilar predominant mucous plugging. No acute upper abdominal abnormality identified. The spleen and liver appear prominent in size. Proba ble cysts of the left hepatic lobe, 7 mm. No acute fracture. IMPRESSION: 1. No pulmonary emboli identified. 2. Cardiomegaly with interstitial pulmonary edema redemonstrated. 3. Small pleural effusions with dependent bibasilar consolidation again noted favoring atelectasis. P neumonia could appear similarly. 4. Nonspecific mediastinal and hilar lymphadenopathy. ACT 112: Negative or not required by law. The above report was generated using voice recognition software. It may contain grammatical, syntax o r spelling errors. Electronically signed by: Darren Villatoro M.D. 01/31/2024 11:00 AM
[2024-01-31] MEDS: AMIODARONE / D5W 360 MG/200 ML BAG IV ONE (12:27)
--- NOTE | 2024-01-31 12:49 | XRay Report ---
SINGLE VIEW CHEST CLINICAL HISTORY: Cough FINDINGS: An AP, portable, upright chest radiograph is compared to study dated 01/29/2024. The heart i s enlarged. There is mild pulmonary vascular congestion. There are small pleural effusions with depen dent consolidation. No pneumothorax is seen. The skeletal structures are osteopenic. The bony thorax is grossly intact. IMPRESSION: 1. Cardiomegaly with pulmonary vascular congestion. 2. Small pleural effusions with dependent consolidation ACT 112: Negative or not required by law. Electronically signed by: Dustin Newman M.D. 01/31/2024 12:47 PM
[2024-01-31 12:56] LABS: Appearance Urine Clear (Clear); Bacteria Urine Automated None Seen (None Seen); Bilirubin Urine Negative (Negative); Blood Urine Negative (Negative); Cast Urine Automated 0-2 /lpf (0-2); Color Urine Yellow; Epithelial Cell Urine Auto 0-2 /hpf (0-2); Glucose Urine UA Negative (Negative); Ketones Urine Negative (Negative); Leukocyte Esterase Urine Negative (Negative); Nitrite Urine Negative (Negative); Protein Urine Trace (Negative); Specific Gravity Urine > 1.045 (1.000-1.030); Urobilinogen Urine Negative (Negative); WBC Urine Automated 0-5 /hpf (0-5)
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
[2024-01-31] MEDS ORDERED: AMIODARONE / D5W 360 MG/200 ML BAG IV SCH (15:00)
[2024-01-31] MEDS ORDERED: DIGOXIN 0.125 MG TAB PO SCH (16:00)
[2024-01-31] MEDS: AMIODARONE / D5W 360 MG/200 ML BAG IV SCH (18:03)
[2024-01-31] MEDS: DOXYCYCLINE HYCLATE 100 MG CAP PO SCH (21:58)
[2024-02-01] MEDS: METOPROLOL SUCC 25MG EXT REL TAB PO SCH (09:25)
--- NOTE | 2024-02-01 12:41 | Psychiatric Consultation ---
Date of Consultation February 01, 2024 Impression / Recommendations Impression Diagnostically consistent with unspecified mood disorder, no clear psychosis endorsed on assessment today but don't doubt this was likely present before titration of olanzapine given her self-report and [facility] documentation. Much of her history remains unclear, including why she has a guardian and why office is aging is involved, unclear if this is due to long standing primary psychotic disorder or if she has other underlying conditions that impair her decision making and ability to independently care for her needs for which psychiatric treatment is not accepted to resolve. Quite tangential so suspect there may be a component of lukas though also appears this is likely improving with olanzapine. Agree with use of olanzapine, she is above FDA recommended maximum dosage of 20mg, however QTc is <500ms and studies have shown that many individuals can tolerate and benefit from higher doses of olanzapine. Agree with plan for return to inpatient psychiatric treatment at the [facility] once medically stable. Acute risk of self-harm is low given denial of SI and agreeable to continuing with inpatient psychiatric treatment once medically stable. Overall, I spent a total of 60 minutes with this case including review of chart records, review of labwork, review of EKG QTc, direct evaluation of the patient at bedside, counseling the patient, discussion with the psychiatric liason during clinical rounds and documentation in the electronic health record. (1) Depression: (2) Unspecified mood [affective] disorder: (3) Atrial flutter: Atrial flutter type: unspecified Qualified Code(s): I48.92 - Unspecified atrial flutter Plan -Continue olanzapine as ordered. -Agree with plan for return to [facility] for inpatient psychiatric treatment once medically stable and she is agreeable to this Psych History Identifying Data 58 yo woman with a legal guardian, her [id number], and a history of depression, unspecified psychosis, and admitted medically from [facility], where she had been for the last month, for new onset atrial flutter. Psychiatry consulted for "prior SI". Chief Complaint "I'm more exasperated than usual"". History of Present Illness Jen was admitted medically after developing new onset aflutter while receiving inpatient psychiatric treatment at the [facility] for about the last month. Unclear why she was admitted to the [facility] but seems it may have been on a 302 commitment due to concern for depression with SI? vs psychosis?. Diagnosis listed on transfer documents from the [facility] notes: "unspecified psychosis, generalized depression". ED notes report poor sleep at times while at the [facility] and while there she was started on olanzapine which she has found very helpful. She recalls her [id number] having concerns about her suddenly deciding to auction off her house but believes her concern was due to her selecting an auction agency rather than a relator the family knows. History and recent symptoms are challenged by her propensity to weave current information with events from the past. She is very tangential and has been documenting notes about everything that happens each day in an almost stream of consciousness type manner. Appears plan has been for her to return to the [facility] once medically stable for further psychiatric treatment. Per CM notes, office of aging has been involved (unclear why). Jen feels the olanzapine has been very helpful for her mood and denies any current side effects. She describes history of significant trauma. Hospitalized psychiatrically one other time, in 2001 at [facility] following a suicide attempt via acetaminophen overdose. She reports being treated at the [facility] for major depression and confirms that she still feels depressed but denies SI. She expresses additional feelings of exasperation, attributing them to others not understanding her situation. She details the stress related to selling her house through an auction, which was a necessity due to having no close relatives alive. She cannot tell me why her [id number] was appointed as her guardian or when this occurred. She admits to occasional difficulty in distinguishing reality.She also discusses her living situation post-house sale and her plans to purchase another house using the proceeds. She feels capable of living alone, as she has managed household tasks independently all her life. Her sleep is described as variable, with some nights being restless. She has been seeing Mechelle Hopper for therapy since August. Allergies Allergy/AdvReac Type Severity Reaction Status Date / Time acetaminophen [From Tylenol] Allergy Unknown Makes me Unverified 01/28/24 12:22 feel loopy and out of sorts corn Allergy Unknown CORN Verified 01/28/24 12:22 SENSITIVITY-FACE PUFFY,TIRED,GAINS WT gluten Allergy Unknown WHEAT Verified 01/28/24 12:22 SENSITIVITY-WT GAIN, PUFFY FACE ibuprofen [From Advil] Allergy Unknown Makes me Unverified 01/28/24 12:22 feel loopy and out of sorts levothyroxine Allergy Unknown HEART Verified 01/28/24 12:22 PALPITATIONS peanut Allergy Unknown HIVES, Verified 01/28/24 12:22 FACIAL SWELLING,LIPS AND TONGUE penicillin V Allergy Unknown Unknown Unverified 01/28/24 12:22 soy Allergy Unknown SOY Verified 01/28/24 12:22 SENSITIVITY-PUFFY FACE WT GAIN naproxen AdvReac Intermediate Disorientat Verified 01/28/24 12:22 ion NSAIDS (Non-Steroidal AdvReac Unknown Disorientat Unverified 01/28/24 12:22 Anti-Inflamma ion Home Medications Medication Instructions Recorded Confirmed Type epinephrine 0.3 mg/0.3 mL 0.3 ml IM ONCE PRN anaphylaxis #2 10/03/23 01/28/24 Rx injection, auto-injector ea acetaminophen 325 mg tablet 650 mg PO Q6H PRN Pain 01/28/24 01/28/24 History (Tylenol) calcium carbonate 1,000 mg PO TID PRN Gastric 01/28/24 01/28/24 History Distress cephalexin 250 mg capsule 250 mg PO Q8H 01/28/24 01/28/24 History diphenhydramine HCl 50 mg capsule 50 mg PO HS psychosis 01/28/24 01/28/24 History diphenhydramine HCl 50 mg capsule 50 mg PO Q8H PRN EPS 01/28/24 01/28/24 History docusate sodium 100 mg capsule 200 mg PO DAILY hard stools 01/28/24 01/28/24 History (Colace) multivitamin with minerals 1 tab PO DAILY Poor intake 01/28/24 01/28/24 History olanzapine 5 mg disintegrating 15 mg PO BID 01/28/24 01/28/24 History tablet digoxin 125 mcg (0.125 mg) tablet 0.125 mg PO DAILY@1600 #30 tabs 01/30/24 Rx (Digitek) metoprolol succinate 50 mg 50 mg PO DAILY #30 tabs 01/30/24 Rx tablet,extended release 24 hr Patient History Surgical History History of total abdominal hysterectomy History of induced Family History Father Amyotrophic lateral sclerosis Mother Colorectal cancer DCIS (ductal carcinoma in situ) Breast cancer Brother Multiple sclerosis Sister Multiple sclerosis Grandmother (Maternal) Diabetes Grandfather (Maternal) Lung cancer Denies family history of Ovarian cancer Social History Smoking Status: Never smoker Second Hand Exposure: No; Do You Dip or Chew Tobacco: No; Hx Alcohol Use: No Hx Substance Use: No Preferred Language: Scottish Communication Ability: Effective Visual Impairment: Limited Hearing Ability: Normal [employer] Required: No Beliefs That Will Affect Care: None marital status: Single Current Living Situation: Alone current occupational status: unemployed How many Children do You have: 0 Childhood Exposure to Second-Hand Smoke: Yes Diet: gluten free caffeine: Yes Dental Care, Regularly: No Physical Activity Frequency: 5-6 Times per Week Seatbelt Use: always Sunscreen Use: No Gender Identity: Male Assistive Devices: Glasses Assistive Devices Comment: glasses are not with pt Physical Exam 2 Psychiatric: Orientation: alert and oriented x 3 Apperance: appropriately dressed and appropriately groomed Eye Contact: good eye contact Motor Behavior: no abnormal motor movements Speech: normal rate/rhythm/volume of speech Affect: + labile affect Mood: + depressed mood and + anxious mood Thought Process: + tangential thought process Thought Content: + preoccupation and reality based without delusions Suicidal Thoughts: denies suicidal thoughts, denies suicidal plan and denies suicidal intent Homicidal Thoughts: denies homicidal thoughts Hallucinations: no auditory hallucinations and no visual hallucinations Cognition: recent memory grossly intact, remote memory grossly intact, attention grossly intact and language grossly intact Insight: + limited insight Judgment: + limited judgement Vital Signs (Past 24 Hours): Last Vital Signs Temp 37.0 C 02/01/24 11:26 Pulse 123 H 02/01/24 11:26 Resp 20 02/01/24 11:26 BP 102/66 02/01/24 11:26 Pulse Ox 96 02/01/24 11:26 O2 Del Method Room Air 02/01/24 11:26 O2 Flow Rate 2 02/01/24 02:56 Results & Data (PSY) Medications Administered Acetaminophen (Acetaminophen 325 Mg Tab) 650 mg PO Q4H PRN PRN Reason: pain or fever Stop: 02/28/24 19:40 Last Admin: 01/31/24 04:52 Dose: 650 mg Documented By: Admin: 01/30/24 18:22 Dose: 650 mg Documented By: Admin: 01/30/24 05:07 Dose: 650 mg Documented By: ENID Dextrose (Dextrose 50% 50 Ml Syringe) 25 - 50 ml IV UD PRN; Protocol PRN Reason: Hypoglycemia Protocol Stop: 02/27/24 17:45 Last Admin: 01/28/24 17:59 Dose: 25 ml Documented By: SHERLYN Doxycycline Hyclate (Doxycycline Hyclate 100 Mg Cap) 100 mg PO BID ANAY Stop: 02/07/24 20:59 Last Admin: 02/01/24 09:25 Dose: 100 mg Documented By: Admin: 01/31/24 21:58 Dose: 100 mg Documented By: RADHA Amiodarone HCl/Dextrose (Nexterone / D5w) 360 mg in 200 mls @ 16.667 mls/hr IV .Q12H [facility] Stop: 03/01/24 18:14 Last Admin: 02/01/24 06:03 Dose: 0.5 mg/min, 16.7 mls/hr Documented By: RADHA Co-signed By: TARYN Infusion: 02/01/24 06:02 Dose: Infused Documented By: RADHA Co-signed By: TARYN Admin: 01/31/24 18:03 Dose: 0.5 mg/min, 16.7 mls/hr Documented By: AIDEN Co-signed By: ANAYELI Metoprolol Succinate (Metoprolol Succ 25mg Ext Rel Tab) 25 mg PO QAM [facility] Stop: 03/02/24 08:59 Last Admin: 02/01/24 09:25 Dose: 25 mg Documented By: VIRIDIANA Metoprolol Tartrate (Metoprolol Tartrate 1 Mg/Ml Vial) 5 mg IV Q4 PRN PRN Reason: sbp > 185, dbp >95, HR >120 Stop: 02/28/24 07:51 Last Admin: 01/31/24 00:52 Dose: 5 mg Documented By: Admin: 01/30/24 00:38 Dose: 5 mg Documented By: ENID Olanzapine (Olanzapine Zydis 5 Mg Orally Dis. Tab) 15 mg PO BID ANAY Stop: 02/27/24 20:59 Last Admin: 02/01/24 09:25 Dose: 15 mg Documented By: Admin: 01/31/24 21:59 Dose: 15 mg Documented By: Admin: 01/31/24 08:29 Dose: 15 mg Documented By: Admin: 01/30/24 19:56 Dose: 15 mg Documented By: Admin: 01/30/24 08:45 Dose: 15 mg Documented By: Admin: 01/29/24 19:48 Dose: 15 mg Documented By: ALJeniffer Admin: 01/29/24 08:08 Dose: 15 mg Documented By: VIRIDIANA(2) Admin: 01/28/24 21:34 Dose: 15 mg Documented By: ASM Coding Level of Care Code 46795 IN/OBS CONSULT LVL 4,60M Diagnoses Depression F32.A Unspecified mood [affective] disorder F39 Atrial flutter I48.92 Atrial flutter type: unspecified
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
--- NOTE | 2024-02-02 11:36 | Cardiology Progress Note ---
Date of Service February 02, 2024 Assessment & Plan (1) Atrial fibrillation with rapid ventricular response: (2) Anticoagulation adequate: Plan 1. Atrial fibrillation: Probably of recent onset although perhaps she had asymptomatic episodes in the past. I cannot tell if it is really symptomatic, it probably is at times. On her current regimen she has fairly good control of her arrhythmia considering the brief duration of amiodarone therapy. Options include rate control (which could be problematic with her blood pressure but could be tried) versus rhythm control. She is on IV amiodarone, she is relatively young to be on long-term amiodarone but it may not be unreasonable for the time being. At this point I think we should transition her to oral amiodarone, I would like to overlap for 24 hours. Since she is having breakthrough on amiodarone I do not know that other antiarrhythmics would be very effective. Ablation is a possibility but I would not do that as yet. Pulmonary vein isolation to control A-fib would be a possibility, or AV block and a pacemaker although that would not be preferred. These would be future considerations. 2. Anticoagulation: Agree that she probably does not need long-term anticoagulation, currently she is not anticoagulated. Admission and Anticipated Discharge Date Admission Date: January 28, 2024 Subjective Events of this admission reviewed. She seems to have developed paroxysmal atrial fibrillation although she could have had it before and it may not have been discovered. She notes that her heart rate is fast at times but does not seem to have much in the way of other symptoms, although she does have some fluid retention and has not been on a diuretic. At the moment she is resting in bed and tells me that her heart rate is fast (although it is not). She is on IV amiodarone and seems to be tolerating it well, she has been on IV amiodarone for 2 days I believe. Physical Exam Physical Exam: Constitutional: Alert, cooperative and in no distress. Pulmonary: Clear to auscultation bilaterally. Cardiac: Regular rhythm with no murmur, gallop or rub. Abdomen: Soft, nontender with normal bowel sounds. Extremities: Trace bilateral edema although her legs look heavy. Skin: No rash, ecchymoses or petechiae. Results & Data Vital Signs (Past 12 Hours) Vital Signs Temp Pulse Resp BP Pulse Ox O2 Del Method O2 Flow Rate 02/02/24 11:15 36.6 C 70 18 132/81 98 Nasal Cannula 2 02/02/24 08:28 36.7 C 70 20 101/61 93 Room Air 02/02/24 04:34 36.7 C 66 18 96/58 L 97 Room Air Laboratory Results Intake and Output 02/01/24 02/02/24 02/02/24 22:59 06:59 14:59 Intake Total 695.668 / 1567.718 872.05 / 1567.718 Output Total 750 / 3700 1300 / 3700 500 / 500 Balance -54.332 / -2132.282 -427.95 / -2132.282 -500 / -500 Intake: IV 195.668 / 387.718 192.05 / 387.718 Amiodarone / D5w 360 mg In 200 195.668 / 387.718 192.05 / 387.718 ml @ 0.5 MG/MIN 16.667 mls/hr IV .Q12H [facility] Rx#:[id number] Oral 500 / 1180 680 / 1180 Output: Urine 750 / 3700 1300 / 3700 500 / 500 Other: Weight 81.5 kg Weight Measurement Method Built in [facility] Diagnostic Findings Telemetry: Sinus rhythm for the most part since yesterday, occasional brief episodes of atrial fibrillation, not much since nighttime. PG Care Time/CCT Total # of Minutes Spent Total Time Spent with Patient: Total time spent is greater than 50% in coordination of care (as documented) at patient's floor/unit and/or counseling patient: Coding Level of Care Code 87886 SUB INP/OBS CARE 2/35MIN Diagnoses Atrial fibrillation with rapid ventricular response I48.91 Anticoagulation adequate Z79.01
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
[2024-02-02] MEDS: AMIODARONE 200 MG TAB PO SCH (17:01)
--- NOTE | 2024-02-03 08:52 | Cardiology Progress Note ---
Date of Service February 03, 2024 Assessment & Plan (1) Atrial fibrillation with rapid ventricular response: (2) Anticoagulation adequate: Plan 1. Atrial fibrillation: She also appears to have had atrial flutter at the time of admission. He seems to be doing well on metoprolol and amiodarone. I think she could be safely discharged on oral amiodarone in her current dose of metoprolol succinate. I will continue amiodarone 400 mg twice daily for another week and then reduce the dose to 200 mg daily. In the long run she may be a good candidate for catheter based therapy. Both a CTI and PVI ablation. This can be addressed in the outpatient setting. 2. Anticoagulation: Low chads Vasc score. No anticoagulation indicated. Admission and Anticipated Discharge Date Admission Date: January 28, 2024 Subjective This morning the patient claims to be feeling well. She has not noticed any additional palpitations. She denies breathing difficulty. She has been ambulatory around her room and the [facility]erson. She did not report any specific symptoms other than feeling tired. Review of Systems Review of Systems: Per HPI Physical Exam Physical Exam: Constitutional: Alert, cooperative and in no distress. Pulmonary: Clear to auscultation bilaterally. Cardiac: Regular rhythm with no murmur, gallop or rub. Extremities: No cyanosis or clubbing. Skin: No rash, ecchymoses or petechiae. Results & Data Vital Signs (Past 12 Hours) Vital Signs Temp Pulse Pulse Pulse Resp BP Pulse Ox 02/03/24 07:20 36.9 C 58 L 18 106/67 100 02/03/24 03:00 36.5 C 60 18 116/65 97 02/02/24 22:45 36.7 C 62 18 115/67 95 02/02/24 22:00 64 O2 Del Method O2 Flow Rate 02/03/24 07:20 Room Air 02/03/24 03:00 Nasal Cannula 2 02/02/24 22:45 Room Air 02/02/24 22:00 Diagnostic Findings Dated 01/28/2024: Normal LV systolic function with ejection fraction of 60-65%. Probable PFO. No significant valvular heart disease PG Care Time/CCT Total # of Minutes Spent Total Time Spent with Patient: Total time spent is greater than 50% in coordination of care (as documented) at patient's floor/unit and/or counseling patient: Coding Level of Care Code 49006 SUB INP/OBS CARE 235MIN Diagnoses Atrial fibrillation with rapid ventricular response I48.91 Anticoagulation adequate Z79.01
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
[2024-02-04] MEDS: AMIODARONE / D5W 360 MG/200 ML BAG IV ONE (02:25)
[2024-02-04 07:43] LABS: BUN Creatinine Ratio 16.9 (10-20); Calcium 8.8 mg/dl (8.6-10.3); Creatinine Clr Calc Pharmacy 88.9 ml/min; Est GFR (African American) 107.3 ml/min; Est GFR (Non-African American) 92.6 ml/min; Magnesium 1.9 mg/dl (1.7-2.4); Potassium 4.2 mmol/L (3.5-5.1)
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
[2024-02-05 06:47] LABS: Hematocrit (blood only) 36.9 % (37.0-47.0); Hemoglobin 12.2 g/dl (12.0-16.0); Mean Corpuscular Hemoglobin 29.5 pg (25.0-34.0); Mean Corpuscular Hgb Conc 33.1 g/dL (32.0-36.0); Mean Corpuscular Volume 89.3 fL (80.0-100.0); Mean Platelet Volume 9.9 fL (9.4-12.4); Platelet Count 395 K/uL (130-400); RDW Coefficient of Variation 14.8 % (11.5-14.5); RDW Standard Deviation 49.3 fL (36.4-46.3); Red Blood Count 4.13 M/uL (4.20-5.40); White Blood Count 7.79 K/ul (4.8-10.8)
[2024-02-05 06:59] LABS: BUN Creatinine Ratio 18.2 (10-20); Creatinine Clr Calc Pharmacy 95.6 ml/min; Est GFR (African American) 111.3 ml/min; Magnesium 1.9 mg/dl (1.7-2.4); Potassium 4.4 mmol/L (3.5-5.1)
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
[2024-02-06] MEDS: AMIODARONE 200 MG TAB PO SCH (07:55)
[2024-02-06 08:00] LABS: BUN Creatinine Ratio 10.7 (10-20); Calcium 8.9 mg/dl (8.6-10.3); Creatinine Clr Calc Pharmacy 72.2 ml/min; Est GFR (African American) 87.6 ml/min; Est GFR (Non-African American) 75.5 ml/min; Magnesium 2.1 mg/dl (1.7-2.4); Potassium 4.5 mmol/L (3.5-5.1)
--- NOTE | 2024-02-06 10:18 | Psychiatric Progress Note ---
Date of Service February 06, 2024 Impression / Recommendations Impression 58 yo woman with history of depression and likely past episodes of lukas admitted medically for aflutter/afib which has now resolved. Diagnostically she continues to demonstrate symptoms of acute lukas with tangential thought process, flight of ideas, extensive note writing and drawing. She is taking her medications. Collateral information from office of aging notable for no current guardianship, previously this was due to need for brief emergency guardianship related to sale of her house per [facility]. She is expected to get a significant sum of money from selling her home that can be used to secure new housing once she is psychiatrically stable per [facility]. Seems office of aging has been involved due to her age of >58. No current symptoms or known evidence nor history of any type of neurocognitive disorder. Given ongoing symptoms of acute lukas she is in need of inpatient psychiatric treatment and is voluntary for this and medically stable so bed search is ongoing. She is agreeable to medication changes for lukas and consents to this. Given olanzapine dose is optimized will start Depakote for additional mood stabilization. Baseline labs of CBC with diff, LFTs, electrolytes reviewed and stable for Depakote trial. Acute risk of self-harm is low given denial of SI and agreeable to continuing with inpatient psychiatric treatment. Overall, I spent a total of 45 minutes with this case including review of chart records, review of labwork, review of EKG QTc, direct evaluation of the patient at bedside, counseling the patient, discussion with the psychiatric liason during clinical rounds, discussion with hospitalist provider, ordering medication and documentation in the electronic health record. (1) Bipolar I disorder with lukas: Plan -Voluntary for inpatient psychiatric hospitalization, bed search ongoing -May not leave AMA as would likely meet 302 criteria due to acute lukas with concerns for ability to care for her basic needs -Continue olanzapine 15mg BID (will switch from ODT to po) -Start Depakote DR laurent (selected over ER due to her peanut allergy and other hospital formulary depakote options have peanut oil) 500mg HS Interval History Identifying Information 58 yo woman with a history of depression, unspecified psychosis, and admitted medically from [facility], where she had been for the last month, for new onset atrial flutter. Psychiatry consulted for recommendations. Chief Complaint "I'm quite good". Subjective Subjective Patient was seen & assessed and interval progress reviewed. No behavioral issues, has been pleasant with providers and RNs. Continues be adherent with scheduled olanzapine and denies any side effects from this. She is agreeable to further medication adjustments. She understands she is now medically stable, is agreeable with taking her cardiac medications for her HR, and is agreeable to ongoing inpatient psychiatric treatment once a facility is found. She shows us various note pages and coloring pages she has completed for various providers and staff. Shows evidence of significant flight of ideas, clanging, tangential. Yesterday told psychiatric liason she wishes to adopt a child. Physical Exam Psychiatric Orientation: alert and oriented x 3 Apperance: appropriately dressed and appropriately groomed Eye Contact: good eye contact Motor Behavior: no abnormal motor movements Speech: + abnormal rate/rhythm/volume of speech (rapid but interruptable) Affect: + elated affect Mood: no depressed mood and no anxious mood Thought Process: + tangential thought process, + flight of ideas and + clanging Thought Content: + preoccupation and reality based without delusions Suicidal Thoughts: denies suicidal thoughts, denies suicidal plan and denies suicidal intent Homicidal Thoughts: denies homicidal thoughts Hallucinations: no auditory hallucinations and no visual hallucinations Cognition: recent memory grossly intact, remote memory grossly intact, attention grossly intact and language grossly intact Insight: + limited insight Judgment: + limited judgement Vital Signs (Past 24 Hours) Last Vital Signs Temp 36.6 C 02/06/24 07:38 Pulse 57 L 02/06/24 07:38 Resp 18 02/06/24 07:38 BP 125/74 02/06/24 07:38 Pulse Ox 98 02/06/24 07:38 O2 Del Method Room Air 02/06/24 07:38 O2 Flow Rate 2 02/03/24 03:00 Results & Data ([facility]) Laboratory Results Laboratory Results - last 24 hr 02/06/24 07:17 Sodium 139 Potassium 4.5 Chloride 105 Carbon Dioxide 30 Anion Gap 4 BUN 9 Creatinine 0.84 Est Cr Clr Drug Dosing 72.2 Est GFR ( Amer) 87.6 Est GFR (Non-Af Amer) 75.5 BUN/Creatinine Ratio 10.7 Glucose 81 Calcium 8.9 Magnesium 2.1 Current Inpatient Medications Current Inpatient Medications: Current Inpatient Medications Acetaminophen (Acetaminophen 325 Mg Tab) 650 mg PO Q4H PRN PRN Reason: pain or fever Stop: 02/28/24 19:40 Last Admin: 01/31/24 04:52 Dose: 650 mg Amiodarone HCl (Amiodarone 200 Mg Tab) 400 mg PO 0800 [facility] Stop: 03/07/24 07:59 Last Admin: 02/06/24 07:55 Dose: 400 mg Dextrose (Dextrose 50% 50 Ml Syringe) 25 - 50 ml IV UD PRN; Protocol PRN Reason: Hypoglycemia Protocol Stop: 02/27/24 17:45 Last Admin: 01/28/24 17:59 Dose: 25 ml Doxycycline Hyclate (Doxycycline Hyclate 100 Mg Cap) 100 mg PO BID [facility] Stop: 02/07/24 20:59 Last Admin: 02/06/24 07:56 Dose: 100 mg Metoprolol Succinate (Metoprolol Succ 25mg Ext Rel Tab) 25 mg PO QAM [facility] Stop: 03/02/24 08:59 Last Admin: 02/06/24 07:56 Dose: 25 mg Metoprolol Tartrate (Metoprolol Tartrate 1 Mg/Ml Vial) 5 mg IV Q4 PRN PRN Reason: sbp > 185, dbp >95, HR >120 Stop: 02/28/24 07:51 Last Admin: 01/31/24 00:52 Dose: 5 mg Olanzapine (Olanzapine Zydis 5 Mg Orally Dis. Tab) 15 mg PO BID [facility] Stop: 02/27/24 20:59 Last Admin: 02/06/24 07:57 Dose: 15 mg
--- NOTE | 2024-02-06 16:15 | Cardiology Progress Note ---
Date of Service February 06, 2024 Assessment & Plan (1) Atrial fibrillation with rapid ventricular response: (2) Anticoagulation adequate: Plan 1. Atrial fibrillation: She also appears to have had atrial flutter at the time of admission. Continuing on amiodarone and metoprolol. Metoprolol dose to be reduced gradually over the next few weeks to a target dose of 200 mg daily. In the long run she may be a good candidate for catheter based therapy. Both a CTI and PVI ablation. This can be addressed in the outpatient setting. 2. Anticoagulation: Low chads Vasc score. No anticoagulation indicated. 3. Bradycardia: No symptoms. Adequate heart rate response with activity. There was some concern about two-to-one heart block. However, do not think there is any evidence of heart block. Twelve lead EKG can be obtained for evaluation. Admission and Anticipated Discharge Date Admission Date: January 28, 2024 Subjective This afternoon the patient claimed he feeling well. She reported ambulating around her room as well as around the anderson. She did not report any sense of palpitation or dizziness. Review of Systems Review of Systems: Per HPI Physical Exam Physical Exam: Constitutional: Alert, cooperative and in no distress. Normal respiratory effort Extremities: No cyanosis or clubbing. Skin: No rash, ecchymoses or petechiae. Results & Data Vital Signs (Past 12 Hours) Vital Signs Temp Pulse Resp BP Pulse Ox O2 Del Method 02/06/24 15:10 36.8 C 150 H 18 125/76 98 Room Air 02/06/24 11:22 36.4 C L 53 L 18 127/68 97 Room Air 02/06/24 07:38 36.6 C 57 L 18 125/74 98 Room Air Laboratory Results Abnormal Lab Results 02/06/24 07:17 Sodium 139 Potassium 4.5 Chloride 105 Carbon Dioxide 30 Anion Gap 4 BUN 9 Creatinine 0.84 Est Cr Clr Drug Dosing 72.2 Est GFR ( Amer) 87.6 Est GFR (Non-Af Amer) 75.5 BUN/Creatinine Ratio 10.7 Glucose 81 Calcium 8.9 Magnesium 2.1 PG Care Time/CCT Total # of Minutes Spent Total Time Spent with Patient: Total time spent is greater than 50% in coordination of care (as documented) at patient's floor/unit and/or counseling patient: Coding Level of Care Code 90259 SUB INP/OBS CARE 2/35MIN Diagnoses Atrial fibrillation with rapid ventricular response I48.91 Anticoagulation adequate Z79.01
[2024-02-06] MEDS: DIVALPROEX SODIUM SPRINKLE/DEL-REL 125 MG CAP PO SCH (20:43)
[2024-02-06] MEDS: OLANZapine 5 MG TABLET PO SCH (20:45)
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
[2024-02-07 07:19] LABS: Hematocrit (blood only) 36.5 % (37.0-47.0); Hemoglobin 11.6 g/dl (12.0-16.0); Mean Corpuscular Hgb Conc 31.8 g/dL (32.0-36.0); Mean Corpuscular Volume 91.3 fL (80.0-100.0); Mean Platelet Volume 9.9 fL (9.4-12.4); Platelet Count 423 K/uL (130-400); RDW Coefficient of Variation 15.1 % (11.5-14.5); RDW Standard Deviation 50.6 fL (36.4-46.3); White Blood Count 7.34 K/ul (4.8-10.8)
[2024-02-07 07:49] LABS: BUN Creatinine Ratio 13.8 (10-20); Calcium 9.1 mg/dl (8.6-10.3); Creatinine Clr Calc Pharmacy 70.3 ml/min; Est GFR (African American) 83.9 ml/min; Est GFR (Non-African American) 72.4 ml/min; Potassium 4.2 mmol/L (3.5-5.1)
--- NOTE | 2024-02-07 08:24 | Electrocardiogram Report ---
Test Reason : Blood Pressure : / mmHG Vent. Rate : 054 BPM Atrial Rate : 054 BPM P-R Int : 216 ms QRS Dur : 092 ms QT Int : 352 ms P-R-T Axes : 041 -24 027 degrees QTc Int : 333 ms Poor data quality, interpretation may be adversely affected Sinus bradycardia with 1st degree A-V block Abnormal ECG When compared with ECG of 28-JAN-2024 18:19, [place] interval has increased Vent. rate has decreased BY 33 BPM Confirmed by Kenyon Elena ([id number]) on 02/07/2024 8:24:18 AM Referred By: REFERRED SELF Confirmed By:Kenyon Elena
[2024-02-07 16:32] VITALS: RESP 18
[2024-02-07 19:59] VITALS: TEMP 97.7; O2SAT 98
[2024-02-07 21:26] VITALS: BP 131/81; PULSE 59
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
== END 2024-02-07 21:27 | DRG 309 ==
LOC: ED 09:20 → 2S 16:13 → SUATTDRO 16:13 → 2S 18:31

== ENCOUNTER 2024-09-26 11:40 | Observation (INO) ==
[2024-09-26 13:14] LABS: Basophils # (auto) 0.04 K/uL (0.00-0.20); Basophils % (auto) 1.2 %; Eosinophils # (auto) 0.09 K/uL (0.00-0.50); Eosinophils % (auto) 2.6 %; Hematocrit (blood only) 34.2 % (37.0-47.0); Hemoglobin 11.5 g/dl (12.0-16.0); Immature Granulocytes # (auto) 0.01 K/uL (0.01-0.20); Immature Granulocytes % (auto) 0.3 %; Lymphocytes # (auto) 0.86 K/uL (1.20-3.40); Lymphocytes % (auto) 24.9 %; Mean Corpuscular Hemoglobin 32.9 pg (25.0-34.0); Mean Corpuscular Hgb Conc 33.6 g/dL (32.0-36.0); Mean Corpuscular Volume 97.7 fL (80.0-100.0); Mean Platelet Volume 10.3 fL (9.4-12.4); Monocytes # (auto) 0.39 K/uL (0.11-0.59); Monocytes % (auto) 11.3 %; Neutrophils # (auto) 2.07 K/uL (1.40-6.50); Neutrophils % (auto) 59.7 %; Platelet Count 149 K/uL (130-400); RDW Coefficient of Variation 12.8 % (11.5-14.5); White Blood Count 3.46 K/ul (4.8-10.8)
[2024-09-26 13:26] LABS: Appearance Urine Clear (Clear); Bacteria Urine Automated None Seen (None Seen); Bilirubin Urine Negative (Negative); Blood Urine Negative (Negative); Cast Urine Automated 0-2 /lpf (0-2); Color Urine Yellow; Epithelial Cell Urine Auto 0-2 /hpf (0-2); Glucose Urine UA Negative (Negative); Ketones Urine Trace (Negative); Leukocyte Esterase Urine 1+ (Negative); Nitrite Urine Negative (Negative); Protein Urine Negative (Negative); RBC Urine Automated 0-2 /hpf (0-2); Specific Gravity Urine 1.034 (1.000-1.030); Urobilinogen Urine Negative (Negative)
[2024-09-26 13:27] LABS: Albumin Globulin Ratio 1.5 (0.9-2); Albumin Level 3.2 gm/dl (3.4-5.0); BUN Creatinine Ratio 15.3 (10-20); Bilirubin,Total 0.4 mg/dl (0.2-1.0); Calcium 8.8 mg/dl (8.6-10.3); Globulin 2.2 gm/dl (2.5-4.0); Magnesium 1.8 mg/dl (1.7-2.4); Potassium 3.8 mmol/L (3.5-5.1); Total Protein 5.4 gm/dl (6.0-8.3)
--- NOTE | 2024-09-26 13:37 | Emergency Department Note ---
Impression & Plan Gait instability, Weakness ED Provider Note NAME: DAHLIA WONG AGE: 59 SEX: F : 1965 ARRIVES VIA: Ambulance INFORMANT: Patient, ED PROVIDER(S): Taina Sloan MD CHIEF COMPLAINT: Gait instability HPI: This is a 59-year-old female presenting for gait instability. Patient has had significant difficulty with ambulating over the past few weeks. She notes she is in urinary incontinence for the past 6 months. She notes she fell yesterday after being discharged here and was seen for weakness and back pain. She had CT imaging of her head on 09/20 for dizziness as well as CT ab/pelvis yesterday. These all revealed no acute findings. Patient continues to fall at home. ROS: See above HPI for pertinent positives & negatives. A total of 10 systems reviewed and were otherwise negative. PAST MEDICAL HISTORY: See Below PAST SURGICAL HISTORY: See Below FAMILY HISTORY: See Below SOCIAL HISTORY: See Below HOME MEDICATIONS: See Below ALLERGIES: See Below VITALS: See Below PHYSICAL EXAMINATION: General: resting comfortably in no acute distress Head: Normocephalic and atraumatic Eyes: Normal inspection, extraocular muscles intact Ear, nose, throat: Normal external exam Neck: Normal range of motion Respiratory: lungs clear to auscultation bilaterally Cardiovascular: Regular rate/rhythm, no murmur GI: soft, nontender, no guarding or rebound Extremities: nontender, moves all extremities Neuro: The patient awake and alert, appropriately conversive, no focal deficits, symmetric faces, shuffling gait, somewhat left leaning otherwise no cranial nerve deficits or motor weakness in any 1 extremity Skin: Warm, dry, and intact MEDICAL DECISION MAKING: This is a 59-year-old female present for gait instability and falls we will do head CT to evaluate for fall. The CT of the head neck to assess for dissection/LVO -Patient at this time his head longstanding history of instability but acutely worsening and now unable to care for self at home due to multiple falls. She was just here last evening with negative workup. -Patient is comfortable with admission at this time -CT head, CTA head and neck reveals no acute intracranial process -Bloodwork is reviewed showing no significant leukocytosis, anemia, electrolyte or creatinine abnormality -Will admit for instability, PT and further workup. -Discussed care with Dr. Trevino for admission Differential diagnosis: Stroke, CVA, spinal stenosis, dissection, Diagnostics interpreted by me: ECG: ECG independently interpreted by me with sinus bradycardia rate of 50, normal axis, normal PA, normal QRS, normal QTc, no ST segment elevations consistent with STEMI criteria Cardiac Monitoring: An order was placed for continuous cardiac monitoring. The monitor shows a rate of 49 with sinus bradycardia rhythm. Past Med/Surg History Problem List (Updated 09/26/24 @ 15:38 by Taina Sloan MD) Weakness (Acute) Gait instability (Acute) Weakness Lumbar strain (Acute) Dehydration (Acute) Dizziness (Acute) Dehydration (Acute) Dizziness (Acute) White matter abnormality on MRI of brain On amiodarone therapy Atrial fibrillation Bipolar I disorder with lukas Anticoagulation adequate Unspecified mood [affective] disorder Atrial flutter (Acute) Atrial fibrillation with rapid ventricular response (Acute) Fever Patent foramen ovale PAF (paroxysmal atrial fibrillation) Acute on chronic anemia New onset atrial flutter Depression Paresthesia (Acute) Left sided numbness (Acute 07/08/14) Fibroid uterus Elevated troponin (Acute) Anemia (Acute) Abnormal uterine bleeding (AUB) Iron deficiency anemia (Acute) Goiter (Acute) Bronchitis (Acute) Thyroid nodule (Acute) Hypothyroid (Acute) Fibroid (Acute) Medical History MRI of brain abnormal ? abnormal: Results known: some spots on white matter ? aging or inactive MS per pt. Upcoming Neuro Jul 06 2024. Had MRI to rule out MS. Pt reports family hx MS. Unspecified mood [affective] disorder just the bipolar depression per pt. Elevated troponin level pt not sure if this was in her hx. Denies hx [place]. 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 Bipolar 1 disorder History of migraine hx migraines. Left sided numbness hx - told complex migraine. Quickly resolved after d/c use of liquid b 12 and red dye per pt. [facility]. Ventricular septal defect dx 2001. PFO (patent foramen ovale) pt never heard this term. History of atrial flutter First episode January or February 2024 during psych hospitalization. Pt reports she doesn't think entirely resolved. Dr Ndiaye upcoming May 05 2024. History of atrial fibrillation first episode occured January or February 2024 during psych hospitalization. Pt reports she doesn't feel this is totally resolved. Dr. Ndiaye 05/05/24. Hypothyroid Multiple thyroid nodules Bronchitis hx Snores History of bronchitis Surgical History H/O colonoscopy 04/23/24, repeat 5 years in 2028 History of elective x2 History of total abdominal hysterectomy Family History Father Amyotrophic lateral sclerosis Mother Colorectal cancer DCIS (ductal carcinoma in situ) Breast cancer Brother Multiple sclerosis Prostate cancer Sister Multiple sclerosis Grandmother (Maternal) Diabetes Grandfather (Maternal) Lung cancer Denies family history of Ovarian cancer Social History Smoking Status: Never smoker Second Hand Exposure: No; Do You Dip or Chew Tobacco: No; Hx Alcohol Use: No Hx Substance Use: No Preferred Language: Citizen Of [place] Communication Ability: Effective Visual Impairment: No Limitations Hearing Ability: Normal In Service Educator Required: No Beliefs That Will Affect Care: None marital status: Single Current Living Situation: Alone and Homeless Current Living Situation Comment: current transitional housing current occupational status: unemployed How many Children do You have: 0 Feels Safe at Home: Yes Childhood Exposure to Second-Hand Smoke: Yes Diet: low carbohydrate caffeine: Yes Dental Care, Regularly: No Physical Activity Frequency: 5-6 Times per Week Seatbelt Use: always Sunscreen Use: No Gender Identity: Male Assistive Devices: None Allergies Allergies Allergy/AdvReac Type Severity Reaction Status Date / Time levothyroxine Allergy Unknown HEART Verified 09/08/24 13:31 PALPITATIONS peanut Allergy Unknown HIVES, Verified 09/08/24 13:31 FACIAL SWELLING,LIPS AND TONGUE penicillin V Allergy Unknown pt does Verified 09/08/24 13:31 not know reaction acetaminophen [From Tylenol] AdvReac Unknown Makes me Verified 09/08/24 13:31 feel loopy and out of sorts ibuprofen [From Advil] AdvReac Unknown Makes me Verified 09/08/24 13:31 feel loopy and out of sorts naproxen AdvReac Unknown Disorientat Verified 09/08/24 13:31 ion NSAIDS (Non-Steroidal AdvReac Unknown Disorientat Verified 09/08/24 13:31 Anti-Inflamma ion Home Meds Home Medications Medication Instructions Recorded Confirmed divalproex 500 mg tablet,extended 1,500 mg PO HS 03/06/24 09/26/24 release 24 hr epinephrine 0.3 mg/0.3 mL 0.3 ml IM ONCE PRN Anaphylaxis 09/20/24 09/26/24 injection, auto-injector risperidone 2 mg tablet 2 mg PO HS 09/20/24 09/26/24 trazodone 50 mg tablet 25 - 50 mg PO DAILY 09/26/24 09/26/24 Previous Rx's Medication Instructions Recorded amiodarone 100 mg tablet 100 mg PO DAILY #90 tabs 09/03/24 Results & Data (ED) Vital Signs Vital Signs - 24 hr 09/26/24 11:44 09/26/24 11:49 09/26/24 12:00 Temperature 36.7 C Temperature Source Oral Pulse Rate 57 L Pulse Rate from SpO2 Sensor Respiratory Rate 16 Respiratory Effort / Characteristics Non-Labored Spontaneous Respiratory Depth Normal Respiratory Pattern Regular Blood Pressure 123/60 123/60 97/61 L Blood Pressure Mean 80 81 68 Pulse Oximetry 96 Oxygen Delivery Method Room Air Sepsis Recent Fever Within 48 Hours No Sepsis New/Unexplained Change in Mental Status N/A Sepsis Action Taken by Nursing No Action Required 09/26/24 12:08 09/26/24 12:18 09/26/24 12:21 Temperature Temperature Source Pulse Rate 52 L 50 L 52 L Pulse Rate from SpO2 Sensor 50 L 51 L Respiratory Rate 11 L 12 Respiratory Effort / Characteristics Respiratory Depth Respiratory Pattern Blood Pressure Blood Pressure Mean Pulse Oximetry 96 97 Oxygen Delivery Method Sepsis Recent Fever Within 48 Hours Sepsis New/Unexplained Change in Mental Status Sepsis Action Taken by Nursing 09/26/24 12:30 09/26/24 12:33 09/26/24 12:39 Temperature Temperature Source Pulse Rate 51 L 51 L Pulse Rate from SpO2 Sensor 51 L Respiratory Rate 11 L Respiratory Effort / Characteristics Respiratory Depth Respiratory Pattern Blood Pressure 100/60 Blood Pressure Mean 75 Pulse Oximetry 96 96 Oxygen Delivery Method Room Air Sepsis Recent Fever Within 48 Hours Sepsis New/Unexplained Change in Mental Status Sepsis Action Taken by Nursing 09/26/24 13:21 09/26/24 13:57 09/26/24 14:00 Temperature Temperature Source Pulse Rate 48 L 54 L Pulse Rate from SpO2 Sensor 48 L 54 L Respiratory Rate 14 Respiratory Effort / Characteristics Respiratory Depth Respiratory Pattern Blood Pressure 110/60 Blood Pressure Mean 88 Pulse Oximetry 98 100 Oxygen Delivery Method Sepsis Recent Fever Within 48 Hours Sepsis New/Unexplained Change in Mental Status Sepsis Action Taken by Nursing 09/26/24 14:00 09/26/24 14:00 09/26/24 14:09 Temperature Temperature Source Pulse Rate 52 L 51 L Pulse Rate from SpO2 Sensor 52 L 51 L Respiratory Rate 15 14 Respiratory Effort / Characteristics Respiratory Depth Respiratory Pattern Blood Pressure 110/60 Blood Pressure Mean 88 Pulse Oximetry 96 98 Oxygen Delivery Method Sepsis Recent Fever Within 48 Hours Sepsis New/Unexplained Change in Mental Status Sepsis Action Taken by Nursing 09/26/24 14:30 09/26/24 14:39 09/26/24 14:57 Temperature Temperature Source Pulse Rate 52 L 50 L Pulse Rate from SpO2 Sensor 52 L 50 L Respiratory Rate 11 L 15 Respiratory Effort / Characteristics Respiratory Depth Respiratory Pattern Blood Pressure 105/73 Blood Pressure Mean 80 Pulse Oximetry 97 99 Oxygen Delivery Method Sepsis Recent Fever Within 48 Hours Sepsis New/Unexplained Change in Mental Status Sepsis Action Taken by Nursing 09/26/24 15:00 09/26/24 15:03 Temperature Temperature Source Pulse Rate 49 L Pulse Rate from SpO2 Sensor 50 L Respiratory Rate 16 Respiratory Effort / Characteristics Respiratory Depth Respiratory Pattern Blood Pressure 114/76 Blood Pressure Mean 86 Pulse Oximetry 98 Oxygen Delivery Method Sepsis Recent Fever Within 48 Hours Sepsis New/Unexplained Change in Mental Status Sepsis Action Taken by Nursing Laboratory Data 09/26/24 11:50 09/26/24 11:50 Lab Results 09/26/24 09/26/24 09/26/24 Range/Units 11:50 12:44 13:03 WBC 3.46 L (4.8-10.8) K/ul RBC 3.50 L (4.20-5.40) M/uL Hgb 11.5 L (12.0-16.0) g/dl Hct 34.2 L (37.0-47.0) % MCV 97.7 (80.0-100.0) fL MCH 32.9 (25.0-34.0) pg MCHC 33.6 (32.0-36.0) g/dL RDW Std Deviation 46.0 (36.4-46.3) fL RDW Coeff of Guillermo 12.8 (11.5-14.5) % Plt Count 149 (130-400) K/uL MPV 10.3 (9.4-12.4) fL Immature Gran % (Auto) 0.3 % Neut % (Auto) 59.7 % Lymph % (Auto) 24.9 % Haakon % (Auto) 11.3 % Eos % (Auto) 2.6 % Baso % (Auto) 1.2 % Neut # (Auto) 2.07 (1.40-6.50) K/uL Lymph # (Auto) 0.86 L (1.20-3.40) K/uL Haakon # (Auto) 0.39 (0.11-0.59) K/uL Eos # (Auto) 0.09 (0.00-0.50) K/uL Baso # (Auto) 0.04 (0.00-0.20) K/uL Immature Gran # (Auto) 0.01 (0.01-0.20) K/uL Sodium 138 (136-145) mmol/L Potassium 3.8 (3.5-5.1) mmol/L Chloride 105 (98-107) mmol/L Carbon Dioxide 27 (21-32) mmol/L Anion Gap 6 (3-11) BUN 15 (6-23) mg/dl Creatinine 0.98 (0.6-1.2) mg/dl Est Cr Clr Drug Dosing 62.0 ml/min eGFR 65.67 BUN/Creatinine Ratio 15.3 (10-20) Glucose 115 H (70-99(Fasting)) mg/dl Lactate 1.8 (0.4-2.0) mmol/L Calcium 8.8 (8.6-10.3) mg/dl Magnesium 1.8 (1.7-2.4) mg/dl Total Bilirubin 0.4 (0.2-1.0) mg/dl AST 18 (13-39) U/L ALT 10 (7-52) U/L Alkaline Phosphatase 30 L (34-104) U/L Total Protein 5.4 L (6.0-8.3) gm/dl Albumin 3.2 L (3.4-5.0) gm/dl Globulin 2.2 L (2.5-4.0) gm/dl Albumin/Globulin Ratio 1.5 (0.9-2) TSH 6.254 H (0.300-4.500) uIu/ml Urine Color Yellow Urine Appearance Clear (Clear) Urine pH 6.0 (4.5-7.5) Ur Specific [place] 1.034 H (1.000-1.030) Urine Protein Negative (Negative) Urine Glucose (UA) Negative (Negative) Urine Ketones Trace H (Negative) Urine Blood Negative (Negative) Urine Nitrite Negative (Negative) Urine Bilirubin Negative (Negative) Urine Urobilinogen Negative (Negative) Ur Leukocyte Esterase 1+ H (Negative) Urine WBC (Auto) 11-20 H (0-5) /hpf Urine RBC (Auto) 0-2 (0-2) /hpf U Hyaline Cast (Auto) 0-2 (0-2) /lpf U Epithel Cells (Auto) 0-2 (0-2) /hpf Urine Bacteria (Auto) None Seen (None Seen) Administered Medications Discontinued Medications Ioversol (Optiray 320 125ml) 112 ml IV ONCE ONE Stop: 09/26/24 13:55 Last Admin: 09/26/24 13:54 Dose: 112 ml Documented By: XIMENA Imaging Data Radiologist's Impression: Chest X-Ray 09/26/24 12:37 EXAM: X-ray chest one-view portable CLINICAL HISTORY: Weakness PRIORS: 09/20/2024 TECHNIQUE: PA and lateral views chest FINDINGS: The chest is well-expanded. No airspace consolidation, effusion or congestive changes. Heart size is normal. No pneumothorax. Trachea is patent. Osseous structures demonstrate no acute abnormality. No radiopaque foreign body. IMPRESSION: No plain film evidence of an acute cardiopulmonary process. Electronically signed by Tish Shrestha 09-26-2024 2:[address] 09/26/24 13:[address] without contrast CT angiogram of the neck CT angiogram of the brain with contrast Provided History: Neuro deficit Comparison: None Technique: HEAD CT: Using multidetector thin collimation helical acquisition technique, axial, coronal and sagittal CT images from the skull base to the vertex were obtained without intravenous contrast. HEAD and NECK CTA: During rapid bolus intravenous injection of nonionic contrast material, axial images were obtained using thin collimation multidetector helical technique from the base of the neck through the Vertex of vertex of the head. This CT angiogram data was reconstructed at thin intervals with mild overlap. 3D reconstructions were obtained. The axial source images, multiplanar reformations, 3D reconstructions in both maximum intensity projection display and volume rendered models were reviewed. Dose reduction techniques were achieved by using automatic exposure control and/or adjustment of mA and/or kV according to patient size and/or use of iterative reconstruction technique. Findings: Head CT: There is no intracranial hemorrhage, mass effect, or midline shift. Duque/white matter differentiation in both cerebral hemispheres is preserved. Ventricles are proportionate to the cerebral sulci. Head CTA demonstrates no aneurysm or stenosis of the major intracranial arteries. Neck CTA demonstrates no stenosis of the major cervical arteries. The origins of the great vessels from the aortic arch are patent. The normal distal right internal carotid artery measures 5 mm. The normal distal left internal carotid artery measures 5 mm. No mass is noted within the visualized portions of the cervical soft tissues or lung apices. Impression: 1. Head CTA demonstrates no aneurysm or stenosis of the major intracranial arteries, 2. Neck CTA demonstrates no stenosis of the major cervical arteries. 3. No intracranial hemorrhage on the noncontrast head CT. The study was analyzed using artificial intelligence software for large vessel occlusion detection. Electronically signed by Anastacio Castellon 09-26-2024 2:15 PM Head CTA 09/26/24 13:[address] without contrast CT angiogram of the neck CT angiogram of the brain with contrast Provided History: Neuro deficit Comparison: None Technique: HEAD CT: Using multidetector thin collimation helical acquisition technique, axial, coronal and sagittal CT images from the skull base to the vertex were obtained without intravenous contrast. HEAD and NECK CTA: During rapid bolus intravenous injection of nonionic contrast material, axial images were obtained using thin collimation multidetector helical technique from the base of the neck through the Vertex of vertex of the head. This CT angiogram data was reconstructed at thin intervals with mild overlap. 3D reconstructions were obtained. The axial source images, multiplanar reformations, 3D reconstructions in both maximum intensity projection display and volume rendered models were reviewed. Dose reduction techniques were achieved by using automatic exposure control and/or adjustment of mA and/or kV according to patient size and/or use of iterative reconstruction technique. Findings: Head CT: There is no intracranial hemorrhage, mass effect, or midline shift. Duque/white matter differentiation in both cerebral hemispheres is preserved. Ventricles are proportionate to the cerebral sulci. Head CTA demonstrates no aneurysm or stenosis of the major intracranial arteries. Neck CTA demonstrates no stenosis of the major cervical arteries. The origins of the great vessels from the aortic arch are patent. The normal distal right internal carotid artery measures 5 mm. The normal distal left internal carotid artery measures 5 mm. No mass is noted within the visualized portions of the cervical soft tissues or lung apices. Impression: 1. Head CTA demonstrates no aneurysm or stenosis of the major intracranial arteries, 2. Neck CTA demonstrates no stenosis of the major cervical arteries. 3. No intracranial hemorrhage on the noncontrast head CT. The study was analyzed using artificial intelligence software for large vessel occlusion detection. Electronically signed by Anastacio Castellon 09-26-2024 2:15 PM Neck CTA 09/26/24 13:[address] without contrast CT angiogram of the neck CT angiogram of the brain with contrast Provided History: Neuro deficit Comparison: None Technique: HEAD CT: Using multidetector thin collimation helical acquisition technique, axial, coronal and sagittal CT images from the skull base to the vertex were obtained without intravenous contrast. HEAD and NECK CTA: During rapid bolus intravenous injection of nonionic contrast material, axial images were obtained using thin collimation multidetector helical technique from the base of the neck through the Vertex of vertex of the head. This CT angiogram data was reconstructed at thin intervals with mild overlap. 3D reconstructions were obtained. The axial source images, multiplanar reformations, 3D reconstructions in both maximum intensity projection display and volume rendered models were reviewed. Dose reduction techniques were achieved by using automatic exposure control and/or adjustment of mA and/or kV according to patient size and/or use of iterative reconstruction technique. Findings: Head CT: There is no intracranial hemorrhage, mass effect, or midline shift. Duque/white matter differentiation in both cerebral hemispheres is preserved. Ventricles are proportionate to the cerebral sulci. Head CTA demonstrates no aneurysm or stenosis of the major intracranial arteries. Neck CTA demonstrates no stenosis of the major cervical arteries. The origins of the great vessels from the aortic arch are patent. The normal distal right internal carotid artery measures 5 mm. The normal distal left internal carotid artery measures 5 mm. No mass is noted within the visualized portions of the cervical soft tissues or lung apices. Impression: 1. Head CTA demonstrates no aneurysm or stenosis of the major intracranial arteries, 2. Neck CTA demonstrates no stenosis of the major cervical arteries. 3. No intracranial hemorrhage on the noncontrast head CT. The study was analyzed using artificial intelligence software for large vessel occlusion detection. Electronically signed by Anastacio Casetllon 09-26-2024 2:15 PM Discharge Plan Visit Data Chief Complaint: Back Injury/Pain Stated Complaint: BACK DISCOMFORT, ARM WEAKNESS, DIFF AMBULATION ED Provider: Taina Sloan Discharge Problem: Gait instability, Weakness Forms Stand Alone Forms: My [facility] Prescriptions Prescriptions: No Action amiodarone 100 mg tablet 100 mg PO DAILY Qty: 90 3RF divalproex 500 mg tablet extended release 24 hr 1,500 mg PO HS risperidone 2 mg tablet 2 mg PO HS epinephrine 0.3 mg/0.3 mL auto-injector 0.3 ml IM ONCE PRN (Reason: Anaphylaxis) trazodone 50 mg tablet 25 - 50 mg PO DAILY Referrals Referrals: Spencer Saeed DO [Primary Care Provider] -
[2024-09-26 13:42] LABS: Thyroid Stimulating Hormone 6.254 uIu/ml (0.300-4.500)
[2024-09-26] MEDS: OPTIRAY 320 125ml IV ONE (13:54)
--- NOTE | 2024-09-26 14:04 | XRay Report ---
EXAM: X-ray chest one-view portable CLINICAL HISTORY: Weakness PRIORS: 09/20/2024 TECHNIQUE: PA and lateral views chest FINDINGS: The chest is well-expanded. No airspace consolidation, effusion or congestive changes. Heart size is normal. No pneumothorax. Trachea is patent. Osseous structures demonstrate no acute abnormality. No radiopaque foreign body. IMPRESSION: No plain film evidence of an acute cardiopulmonary process. Electronically signed by Tish Shrestha 09-26-2024 2:04 PM
--- NOTE | 2024-09-26 14:05 | History & Physical Report ---
Date of Service September 26, 2024 Assessment & Plan (1) Weakness: Plan: Traci is a 59-year-old female with a history of bipolar 1 disorder, ambulatory dysfunction, A-fib not on anticoagulation due to multiple falls generally in sinus and on amiodarone who presents with multiple falls, difficulty rolling in bed, and deconditioning. She does not have focal neurologic symptoms however due to recurrent falls, multiple ER visits, and easy fatigue has been record for PT/OT and possible placement evaluation. On admitting examination she does not have any abnormalities on neurologic examination however does fatigue easily Ambulatory dysfunction Prior MRI 04/2024: Few tiny punctate T2 hyperintensity seen in white matter? Demyelinating lesions versus chronic microvascular ischemic disease. No abnormal enhancement suggestive of active demyelination at that time. No acute findings CThead, CTAhead and neck: No acute findings On exam patient has 5/5 upper and lower extremity strength, no focal neurologic deficits and neurologic exam is normal. She is easily fatigued and has some evidence of deconditioning, no acute indication for repeat MRI PT/OT/CM consulted Bipolar 1 Continue risperidone Resting tremor but no obvious EPS Continue divalproex. takes this for mood, no hx seizure. A-fib Not on anticoagulation due to multiple falls EKG: Sinus bradycardia Continue amiodarone DVT prophylaxis: Lovenox Disposition: MSO Diet: Regular CODE STATUS: Full code (2) Atrial fibrillation: (3) Bipolar I disorder with lukas: History of Present Illness Primary Care Provider: Spencer Saeed DO Traci is a 59-year-old female with a past medical history of atrial flutter/A- fib with RVR, bipolar 1 with lukas, hypothyroidism, ANAY presents to the ER with gait instability, difficulty ambulating for several weeks, urinary incontinence x 6 months, and falls after being recently evaluated and discharged 09/25. She has had progressive back pain. She is recommended for admission for evaluation of ambulatory dysfunction with multiple falls at home and PT/OT Traci reports she sleeps laying on her side and feel she gets stuck in awkward positions, and has been having progressive fatigue and difficulty walking. Denies focal extremity or one sided weakness, but feels globally weak and like she has difficulty walking and has to 'lurch' to walk. No vision change. No sensory change. No aphasia or dysphagia. Did have a fall last night due to weakness. No syncope/presyncope. Just felt to weak, and 'tipped over.' Feels weak in both arms and both legs, and notes her progressive arm weakness makes it hard to adjust herself in bed No chest pain No chest pressure No fevers No chills No sweats No nausea/vomiting No dysuria Back is TTP ~T6. +Mild musclular tension. Medical History: Reviewed Medications: Reviewed Surgical History: Reviewed Family history: Reviewed Allergies: Reviewed Social History: Reviewed Code Status: Full Allergies Allergy/AdvReac Type Severity Reaction Status Date / Time levothyroxine Allergy Unknown HEART Verified 09/08/24 13:31 PALPITATIONS peanut Allergy Unknown HIVES, Verified 09/08/24 13:31 FACIAL SWELLING,LIPS AND TONGUE penicillin V Allergy Unknown pt does Verified 09/08/24 13:31 not know reaction acetaminophen [From Tylenol] AdvReac Unknown Makes me Verified 09/08/24 13:31 feel loopy and out of sorts ibuprofen [From Advil] AdvReac Unknown Makes me Verified 09/08/24 13:31 feel loopy and out of sorts naproxen AdvReac Unknown Disorientat Verified 09/08/24 13:31 ion NSAIDS (Non-Steroidal AdvReac Unknown Disorientat Verified 09/08/24 13:31 Anti-Inflamma ion Home Medications Medication Instructions Recorded Confirmed Type divalproex 500 mg tablet,extended 1,500 mg PO HS 03/06/24 09/26/24 History release 24 hr amiodarone 100 mg tablet 100 mg PO DAILY #90 tabs 09/03/24 09/26/24 Rx epinephrine 0.3 mg/0.3 mL 0.3 ml IM ONCE PRN Anaphylaxis 09/20/24 09/26/24 History injection, auto-injector risperidone 2 mg tablet 2 mg PO HS 09/20/24 09/26/24 History trazodone 50 mg tablet 25 - 50 mg PO DAILY 09/26/24 09/26/24 History Past Med/Surg History Problem List (Updated 09/26/24 @ 15:24 by Inocente Trevion MD) Weakness Lumbar strain (Acute) Dehydration (Acute) Dizziness (Acute) Dehydration (Acute) Dizziness (Acute) White matter abnormality on MRI of brain On amiodarone therapy Atrial fibrillation Bipolar I disorder with lukas Anticoagulation adequate Unspecified mood [affective] disorder Atrial flutter (Acute) Atrial fibrillation with rapid ventricular response (Acute) Fever Patent foramen ovale PAF (paroxysmal atrial fibrillation) Acute on chronic anemia New onset atrial flutter Depression Paresthesia (Acute) Left sided numbness (Acute 07/08/14) Fibroid uterus Elevated troponin (Acute) Anemia (Acute) Abnormal uterine bleeding (AUB) Iron deficiency anemia (Acute) Goiter (Acute) Bronchitis (Acute) Thyroid nodule (Acute) Hypothyroid (Acute) Fibroid (Acute) Medical History MRI of brain abnormal ? abnormal: Results known: some spots on white matter ? aging or inactive MS per pt. Upcoming Neuro Jul 06 2024. Had MRI to rule out MS. Pt reports family hx MS. Unspecified mood [affective] disorder just the bipolar depression per pt. Elevated troponin level pt not sure if this was in her hx. Denies hx MO. 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 Bipolar 1 disorder History of migraine hx migraines. Left sided numbness hx - told complex migraine. Quickly resolved after d/c use of liquid b 12 and red dye per pt. History of psychiatric hospitalization December - February [facility] and [facility]. Ventricular septal defect dx 2001. PFO (patent foramen ovale) pt never heard this term. History of atrial flutter First episode January or February 2024 during psych hospitalization. Pt reports she doesn't think entirely resolved. Dr Ndiaye upcoming May 05 2024. History of atrial fibrillation first episode occured January or February 2024 during psych hospitalization. Pt reports she doesn't feel this is totally resolved. Dr. Ndiaye 05/05/24. Hypothyroid Multiple thyroid nodules Bronchitis hx Snores History of bronchitis Surgical History H/O colonoscopy 04/23/24, repeat 5 years in 2028 History of elective x2 History of total abdominal hysterectomy Family History Father Amyotrophic lateral sclerosis Mother Colorectal cancer DCIS (ductal carcinoma in situ) Breast cancer Brother Multiple sclerosis Prostate cancer Sister Multiple sclerosis Grandmother (Maternal) Diabetes Grandfather (Maternal) Lung cancer Denies family history of Ovarian cancer Social History Smoking Status: Never smoker Second Hand Exposure: No; Do You Dip or Chew Tobacco: No; Hx Alcohol Use: No Hx Substance Use: No Preferred Language: Vietnamese Communication Ability: Effective Visual Impairment: No Limitations Hearing Ability: Normal Government Gauger Required: No Beliefs That Will Affect Care: None marital status: Single Current Living Situation: Alone and Homeless Current Living Situation Comment: current transitional housing current occupational status: unemployed How many Children do You have: 0 Feels Safe at Home: Yes Childhood Exposure to Second-Hand Smoke: Yes Diet: low carbohydrate caffeine: Yes Dental Care, Regularly: No Physical Activity Frequency: 5-6 Times per Week Seatbelt Use: always Sunscreen Use: No Gender Identity: Male Assistive Devices: None Physical Exam Physical Exam: General: A&Ox3. NAD. Cooperative. HEENT: Normocephalic.. Small abrasion on lip/nose. Pulm: CTAB A&P. -wheezes, -rales, -rhonchi. Symmetrical chest rise. No increased work of breathing. No respiratory distress. Cardiac: RRR, -mrg. Radial pulses intact and symmetrical. Abdominal: Nontender, nondistended, soft. BS present. CRANIAL NERVES: II: Pupils equal and reactive, no relative afferent pupillary defect, no VF cuts III, IV, : EOM intact, no gaze preference or deviation, no nystagmus. V: normal sensation in V1, V2, and V3 segments bilaterally VII: no asymmetry, no nasolabial fold flattening VIII: normal hearing to speech IX, X: normal palatal elevation, no uvular deviation XI: 5/5 head turn and 5/5 shoulder shrug bilaterally XII: midline tongue protrusion MOTOR: RUE: 5/5 Shoulder internal rotation, external rotation, flexion, extension, abduction, adduction 5/5 Elbow flexion/extension, wrist flexi on/extension 5/5 ring conductor strength, finger flexion/extens ion, interosseus LUE: 5/5 Shoulder internal rotation, external rotation, flexion, extension, a bduction, adduction 5/5 Elbow flexion/extension, wrist flexi on/extension 5/5 ring conductor strength, finger flexion/extens ion, interosseus RLE: 5/5 to hip flexion, knee flexion/extensi on, ankle dorsiflexion/plantarflexion LLE: 5/5 to hip flexion, knee flexion/extensi on, ankle dorsiflexion/plantarflexion SENSORY: Normal to touch in upper and lower extremities without deficit or asymmetry Results & Data Results & Data Vital Signs (Past 12 Hours) Vital Signs Temp Pulse Resp BP Pulse Ox O2 Del Method 09/26/24 14:00 52 L 15 96 09/26/24 14:00 110/60 09/26/24 13:57 54 L 100 09/26/24 13:21 48 L 14 98 09/26/24 12:39 51 L 96 Room Air 09/26/24 12:33 51 L 11 L 96 09/26/24 12:30 100/60 09/26/24 12:21 52 L 12 97 09/26/24 12:18 50 L 11 L 96 09/26/24 12:08 52 L 09/26/24 12:00 97/61 L 09/26/24 11:49 36.7 C 57 L 16 123/60 96 Room Air 09/26/24 11:44 123/60 PG Care Time/CCT Total # of Minutes Spent Total Time Spent with Patient: Total time spent is greater than 50% in coordination of care (as documented) at patient's floor/unit and/or counseling patient: Coding Level of Care Code 76266 INT INP/OBS CARE 2/55MIN Diagnoses Weakness R53.1 Atrial fibrillation I48.91 Bipolar I disorder with lukas F31.10
--- NOTE | 2024-09-26 14:16 | CT Scan Report ---
Head CT without contrast CT angiogram of the neck CT angiogram of the brain with contrast Provided History: Neuro deficit Comparison: None Technique: HEAD CT: Using multidetector thin collimation helical acquisition technique, axial, coronal and sagittal CT images from the skull base to the vertex were obtained without intravenous contrast. HEAD and NECK CTA: During rapid bolus intravenous injection of nonionic contrast material, axial images were obtained using thin collimation multidetector helical technique from the base of the neck through the Vertex of vertex of the head. This CT angiogram data was reconstructed at thin intervals with mild overlap. 3D reconstructions were obtained. The axial source images, multiplanar reformations, 3D reconstructions in both maximum intensity projection display and volume rendered models were reviewed. Dose reduction techniques were achieved by using automatic exposure control and/or adjustment of mA and/or kV according to patient size and/or use of iterative reconstruction technique. Findings: Head CT: There is no intracranial hemorrhage, mass effect, or midline shift. Duque/white matter differentiation in both cerebral hemispheres is preserved. Ventricles are proportionate to the cerebral sulci. Head CTA demonstrates no aneurysm or stenosis of the major intracranial arteries. Neck CTA demonstrates no stenosis of the major cervical arteries. The origins of the great vessels from the aortic arch are patent. The normal distal right internal carotid artery measures 5 mm. The normal distal left internal carotid artery measures 5 mm. No mass is noted within the visualized portions of the cervical soft tissues or lung apices. Impression: 1. Head CTA demonstrates no aneurysm or stenosis of the major intracranial arteries, 2. Neck CTA demonstrates no stenosis of the major cervical arteries. 3. No intracranial hemorrhage on the noncontrast head CT. The study was analyzed using artificial intelligence software for large vessel occlusion detection. Electronically signed by Anastacio Castellon 09-26-2024 2:15 PM
[2024-09-26 16:16] LABS: T4 Free Thyroxine 1.23 ng/dl (0.61-1.60)
[2024-09-26] MEDS ORDERED: ACETAMINOPHEN 325 MG TAB PO PRN (17:24)
[2024-09-26] MEDS ORDERED: POLYETHYLENE (MIRALAX) 17 GM PACK PO PRN (17:24)
[2024-09-26] MEDS ORDERED: ONDANSETRON INJ 2 MG/ML 2 ML VIAL IV PRN (17:24)
[2024-09-26] MEDS: LEVOTHYROXINE SODIUM 25 MCG TABLET PO SCH (18:02)
[2024-09-26] MEDS: ENOXAPARIN INJ 40 MG/0.4 ML SYR SQ SCH (18:38)
[2024-09-26] MEDS: DIVALPROEX EXTENDED RELEASE 500 MG TAB PO SCH (21:02)
[2024-09-26] MEDS: risperiDONE 2 MG TABLET PO SCH (21:03)
[2024-09-26] MEDS ORDERED: Nursing to Pharmacy Communication SCH (21:15)
[2024-09-27 06:34] LABS: Basophils # (auto) 0.05 K/uL (0.00-0.20); Basophils % (auto) 1.2 %; Eosinophils # (auto) 0.11 K/uL (0.00-0.50); Eosinophils % (auto) 2.7 %; Hematocrit (blood only) 34.2 % (37.0-47.0); Hemoglobin 11.4 g/dl (12.0-16.0); Immature Granulocytes # (auto) 0.01 K/uL (0.01-0.20); Immature Granulocytes % (auto) 0.2 %; Lymphocytes % (auto) 38.6 %; Mean Corpuscular Hemoglobin 32.9 pg (25.0-34.0); Mean Corpuscular Hgb Conc 33.3 g/dL (32.0-36.0); Mean Corpuscular Volume 98.8 fL (80.0-100.0); Mean Platelet Volume 10.2 fL (9.4-12.4); Monocytes # (auto) 0.39 K/uL (0.11-0.59); Monocytes % (auto) 9.4 %; Neutrophils # (auto) 1.98 K/uL (1.40-6.50); Neutrophils % (auto) 47.9 %; Platelet Count 152 K/uL (130-400); RDW Coefficient of Variation 12.9 % (11.5-14.5); RDW Standard Deviation 46.6 fL (36.4-46.3); Red Blood Count 3.46 M/uL (4.20-5.40); White Blood Count 4.14 K/ul (4.8-10.8)
[2024-09-27 06:41] LABS: BUN Creatinine Ratio 14.9 (10-20); Calcium 8.7 mg/dl (8.6-10.3); Creatinine Clr Calc Pharmacy 62.2 ml/min; Potassium 3.9 mmol/L (3.5-5.1)
--- NOTE | 2024-09-27 07:24 | Electrocardiogram Report ---
Test Reason : Blood Pressure : */* mmHG Vent. Rate : 50 BPM Atrial Rate : 50 BPM P-R Int : 182 ms QRS Dur : 88 ms QT Int : 428 ms P-R-T Axes : 32 -2 28 degrees QTcB Int : 390 ms Sinus bradycardia Nonspecific T wave abnormality Abnormal ECG When compared with ECG of 25-Sep-2024 19:22, No significant change was found Confirmed by Anastacio Ramos ([id number]) on 09/27/2024 7:24:15 AM Referred By: REFERRED SELF Confirmed By: Anastacio Ramos
[2024-09-27] MEDS: AMIODARONE 200 MG TAB PO SCH (08:44)
[2024-09-27] MEDS ORDERED: traZODone HCL 50 MG TAB PO SCH (09:00)
--- NOTE | 2024-09-27 14:27 | Hospitalist Progress Note ---
Date of Service September 27, 2024 Assessment & Plan (1) Weakness: Plan: Traci is a 59-year-old female with a history of bipolar 1 disorder, ambulatory dysfunction, A-fib not on anticoagulation due to multiple falls generally in sinus and on amiodarone who presents with multiple falls, difficulty rolling in bed, and deconditioning. She does not have focal neurologic symptoms however due to recurrent falls, multiple ER visits, and easy fatigue has been record for PT/OT and possible placement evaluation. On admitting examination she does not have any abnormalities on neurologic examination however does fatigue easily Ambulatory dysfunction,? Deconditioning +/-. Prior MRI 04/2024: Few tiny punctate T2 hyperintensity seen in white matter? Demyelinating lesions versus chronic microvascular ischemic disease. No abnormal enhancement suggestive of active demyelination at that time. No acute findings CThead, CTAhead and neck: No acute findings On exam patient has 5/5 upper and lower extremity strength, no focal neurologic deficits and neurologic exam is normal. She is easily fatigued and has some evidence of deconditioning, no acute indication for repeat MRI PT/OT/CM consulted, pending evaluation Due to ongoing weakness patient not feel safe yet for return home and is pending physical therapy evaluations Bradycardia Patient with bradycardia overnight, borderline hypotension. Amiodarone has been held. Denies any B/presyncope but has not been up to ambulate yet with PT. No lightheadedness/dizziness/chest pain at time of assessment Bipolar 1 Continue risperidone Resting tremor but no obvious EPS Continue divalproex. takes this for mood, no hx seizure. A-fib Not on anticoagulation due to multiple falls EKG: Sinus bradycardia Amiodarone temporarily held as noted. Once rate improves will increase by 50%. No heart block noted DVT prophylaxis: Lovenox Disposition: MSO Diet: Regular CODE STATUS: Full code (2) Atrial fibrillation: (3) Bipolar I disorder with lukas: Admission and Anticipated Discharge Date Admission Date: September 26, 2024 Subjective Remains fatigued, bradycardic overnight. Borderline hypotensive. Tolerating a diet at time of assessment. Amiodarone was to be cut by half, this is held for bradycardia with borderline hypotension. Patient denies chest pain, chest pressure, fever, chills, sweats but feels globally weak and tired without focal extremity weakness/sensory change. Denies lightheadedness, CV, presyncope but has not yet been up to work with PT Physical Exam Physical Exam: General: Awakens easily at the bedside. Flat affect. Cooperative HEENT: Normocephalic.. Small abrasion on lip/nose. Pulm: CTAB A&P. -wheezes, -rales, -rhonchi. Symmetrical chest rise. No increased work of breathing. No respiratory distress. Cardiac: RRR, -mrg. Radial pulses intact and symmetrical. Abdominal: Nontender, nondistended, soft. BS present. Results & Data Results & Data Vital Signs (Past 12 Hours) Vital Signs Temp Pulse Resp BP Pulse Ox O2 Del Method 09/27/24 07:36 36.4 C L 48 L 14 101/60 94 Room Air PG Care Time/CCT Total # of Minutes Spent Total Time Spent with Patient: Total time spent is greater than 50% in coordination of care (as documented) at patient's floor/unit and/or counseling patient: Coding Level of Care Code 11826 SUB INP/OBS CARE 2/35MIN Diagnoses Weakness R53.1 Atrial fibrillation I48.91 Bipolar I disorder with lukas F31.10
[2024-09-27] MEDS: SODIUM CHLORIDE 0.9% 1,000 ML IV ONE (17:37)
[2024-09-27] MEDS: traZODone HCL 50 MG TAB PO SCH (20:32)
[2024-09-28 06:34] LABS: Basophils # (auto) 0.03 K/uL (0.00-0.20); Basophils % (auto) 0.7 %; Eosinophils # (auto) 0.08 K/uL (0.00-0.50); Eosinophils % (auto) 1.8 %; Hemoglobin 12.2 g/dl (12.0-16.0); Immature Granulocytes # (auto) 0.01 K/uL (0.01-0.20); Immature Granulocytes % (auto) 0.2 %; Lymphocytes % (auto) 38.8 %; Mean Corpuscular Hemoglobin 33.1 pg (25.0-34.0); Mean Corpuscular Hgb Conc 33.9 g/dL (32.0-36.0); Mean Corpuscular Volume 97.6 fL (80.0-100.0); Mean Platelet Volume 9.9 fL (9.4-12.4); Monocytes # (auto) 0.38 K/uL (0.11-0.59); Monocytes % (auto) 8.7 %; Neutrophils # (auto) 2.18 K/uL (1.40-6.50); Neutrophils % (auto) 49.8 %; Platelet Count 162 K/uL (130-400); RDW Coefficient of Variation 12.9 % (11.5-14.5); RDW Standard Deviation 46.2 fL (36.4-46.3); Red Blood Count 3.69 M/uL (4.20-5.40); White Blood Count 4.38 K/ul (4.8-10.8)
[2024-09-28 06:52] LABS: BUN Creatinine Ratio 12.5 (10-20); Calcium 8.9 mg/dl (8.6-10.3); Creatinine Clr Calc Pharmacy 66.5 ml/min; Potassium 4.1 mmol/L (3.5-5.1)
[2024-09-28 07:22] VITALS: RESP 16
[2024-09-28] MEDS: AMIODARONE 200 MG TAB PO SCH (10:28)
--- NOTE | 2024-09-28 13:02 | Discharge Summary ---
Discharge Summary Date of Service September 29, 2024 Principal Dx & Hospital Course #1 = Principal Diagnosis (1) Weakness: Traci is a 59-year-old female with a history of bipolar 1 disorder, ambulatory dysfunction, A-fib not on anticoagulation due to multiple falls generally in sinus and on amiodarone who presents with multiple falls, difficulty rolling in bed, and deconditioning. She does not have focal neurologic symptoms however due to recurrent falls, multiple ER visits, and easy fatigue has been record for PT/OT and possible placement evaluation. On admitting examination she does not have any abnormalities on neurologic examination however does fatigue easily. in the ER she was noted to have bradycardia with intact but slightly impaired chronotropic response overnight. Her amiodarone was held and both resting heart rate and chronotropic response increased. If symptoms improved, her blood pressure was normal x 24 hours, and she was seen by PT/OT and was recommended for return home with home health services. Rehab was not recommended. she was discharged to resume amiodarone at half dose (50 mg) after holding for another day, then follow-up with her PCP for further care. Her mood symptoms were stable on divalproex and risperidone. She was in sinus rhythm during admission To do as outpatient: 1. Follow-up with PCP, reassessment of heart rates and further adjustment of amiodarone as needed. Dose was decreased to 50 mg on discharge. Heart rate 70s60s on discharge, greatly improved 2. Home health services (2) Atrial fibrillation: (3) Bipolar I disorder with lukas: Admission HPI Per Admitting Provider Traci is a 59-year-old female with a past medical history of atrial flutter/A- fib with RVR, bipolar 1 with lukas, hypothyroidism, ANAY presents to the ER with gait instability, difficulty ambulating for several weeks, urinary incontinence x 6 months, and falls after being recently evaluated and discharged 09/25. She has had progressive back pain. She is recommended for admission for evaluation of ambulatory dysfunction with multiple falls at home and PT/OT Traci reports she sleeps laying on her side and feel she gets stuck in awkward positions, and has been having progressive fatigue and difficulty walking. Denies focal extremity or one sided weakness, but feels globally weak and like she has difficulty walking and has to 'lurch' to walk. No vision change. No sensory change. No aphasia or dysphagia. Did have a fall last night due to weakness. No syncope/presyncope. Just felt to weak, and 'tipped over.' Feels weak in both arms and both legs, and notes her progressive arm weakness makes it hard to adjust herself in bed No chest pain No chest pressure No fevers No chills No sweats No nausea/vomiting No dysuria Back is TTP ~T6. +Mild musclular tension. Medical History: Reviewed Medications: Reviewed Surgical History: Reviewed Family history: Reviewed Allergies: Reviewed Social History: Reviewed Code Status: Full Discharge Exam General: A&Ox3. NAD. Cooperative. HEENT: Atraumatic, normocephalic. Vision/hearing intact Pulm: CTAB A&P. -wheezes, -rales, -rhonchi. Symmetrical chest rise. No increased work of breathing. No respiratory distress. Cardiac: Rate 60s. , -mrg. Radial pulses intact and symmetrical. Abdominal: Nontender, nondistended, soft. BS present. Discharge Plan Discharge Items Patient Disposition: Home - Home Health Services Reason For Visit: WEAKNESS Discharge Diagnosis: Weakness, bradycardia Activity: Resume your previous activity Non-emergency contact: Primary Care Provider Call non-emergency contact if: you have any medication questions, your symptoms worsen and your pain is not controlled Follow-up/Referrals: Spencer Saeed DO [Primary Care Provider] - 10/05/24 9:30 am Diet: Regular Addtl Attending Provider Instructions: You are seen in the hospital for weakness. Your heart rate was noted to be slow while in the hospital, this improved after holding your amiodarone. Amiodarone can slow down your heart rate, and you would good strength ambulating with PT after this was helped. This does help control your history of A-fib.Your blood pressure was stable and was normal at time of discharge. When you return home you may resume taking amiodarone 50 mg daily on 09/30/2024. A follow-up appointment for you with your primary care provider for additional adjustments as needed is being scheduled. If you develop any new or worsening symptoms including fever, chills, sweats, chest pain, chest pressure, difficulty breathing, uncontrolled nausea/vomiting, rash, wheezing, passing out or nearly passing out, bleeding, black/bloody bowel movements, or other new or concerning symptoms please call your primary care physician, or call 911 for re-evaluation in the emergency department if you are very concerned. Pending Studies at Discharge: No Stand-Alone Forms: My [facility], Smoking Cessation Medications and DC Order Prescriptions: New amiodarone 200 mg Tablet 50 mg PO DAILY Qty: 30 0RF Continued divalproex 500 mg tablet extended release 24 hr 1,500 mg PO HS risperidone 2 mg tablet 2 mg PO HS epinephrine 0.3 mg/0.3 mL auto-injector 0.3 ml IM ONCE PRN (Reason: Anaphylaxis) trazodone 50 mg tablet 25 - 50 mg PO DAILY Discontinued amiodarone 100 mg tablet 100 mg PO DAILY Qty: 90 3RF Admission Data Admit Date/Time: 09/26/24 15:29 Attending Provider: Inocente Trevino Admit Provider: Inocente Trevino Primary Care Provider: Spencer Saeed Other Providers: Inocente Trevino Other Interventions: Discharge Summary Assessment (RN) Last Done: 09/29/24 09:56 Hospital Stay Data Consultations 09/26/24 14:19 ED Decision to Admit Stat Diagnostic Imagining Performed 09/26/24 13:19 CT head/brain wo con Stat 09/26/24 13:31 CTA head w con [CT angio head w con] Stat CTA neck with con [CT angio neck with con] Stat Discharge Instructions Given to Patient (Per Discharging Provider) You are seen in the hospital for weakness. Your heart rate was noted to be slow while in the hospital, this improved after holding your amiodarone. Amiodarone can slow down your heart rate, and you would good strength ambulating with PT after this was helped. This does help control your history of A-fib.Your blood pressure was stable and was normal at time of discharge. When you return home you may resume taking amiodarone 50 mg daily on 09/30/2024. A follow-up appointment for you with your primary care provider for additional adjustments as needed is being scheduled. If you develop any new or worsening symptoms including fever, chills, sweats, chest pain, chest pressure, difficulty breathing, uncontrolled nausea/vomiting, rash, wheezing, passing out or nearly passing out, bleeding, black/bloody bowel movements, or other new or concerning symptoms please call your primary care physician, or call 911 for re-evaluation in the emergency department if you are very concerned. Total Time Total Time Spent Total Time Spent (In Minutes): Time spend day of discharge 40 minutes including direct patient care, documentation, review of labs and images, and coordination of care. Coding Level of Care Code 60355 INP/OBS DISCH >30 MIN Diagnoses Weakness R53.1 Atrial fibrillation I48.91 Bipolar I disorder with lukas F31.10
--- NOTE | 2024-09-28 17:20 | Hospitalist Progress Note ---
Date of Service September 28, 2024 Assessment & Plan (1) Weakness: Plan: Traci is a 59-year-old female with a history of bipolar 1 disorder, ambulatory dysfunction, A-fib not on anticoagulation due to multiple falls generally in sinus and on amiodarone who presents with multiple falls, difficulty rolling in bed, and deconditioning. She does not have focal neurologic symptoms however due to recurrent falls, multiple ER visits, and easy fatigue has been record for PT/OT and possible placement evaluation. On admitting examination she does not have any abnormalities on neurologic examination however does fatigue easily. Patient was unable to access her apartment [place] and he was not able to be located with her belongings. Attempts to contact her manager web application unsuccessful, as she is not able to access a safe home environment evening of the holiday discharge subsequently held for following morning. She remains stable at the bedside, pulse 50s with chronotropic response. (2) Atrial fibrillation: (3) Bipolar I disorder with lukas: Admission and Anticipated Discharge Date Admission Date: September 26, 2024 Subjective Seen the bedside. Energy improved. No specific complaints today. Was set up for discharge and with outpatient follow-up. Patient's apartment keys were not able to be located with security, and on attempts to contact her apartment complex they are closed for the holiday and patient has no way to access her home apartment. Unsuccessful in obtaining access if the evening at 5 PM, DC held until the following morning. Physical Exam Physical Exam: General: A&Ox3. NAD. Cooperative. HEENT: Atraumatic, normocephalic. Vision/hearing intact Pulm: CTAB A&P. -wheezes, -rales, -rhonchi. Symmetrical chest rise. No increased work of breathing. No respiratory distress. Cardiac: Rate 50-60s. , -mrg. Radial pulses intact and symmetrical. Abdominal: Nontender, nondistended, soft. BS present. Results & Data Results & Data Vital Signs (Past 12 Hours) Vital Signs Temp Pulse Pulse Resp BP BP Pulse Ox 09/28/24 15:37 36.5 C 51 L 52 L 16 130/78 145/82 H 97 09/28/24 07:21 36.5 C 52 L 16 130/78 97 O2 Del Method 09/28/24 15:37 09/28/24 07:21 Room Air PG Care Time/CCT Total # of Minutes Spent Total Time Spent with Patient: Total time spent is greater than 50% in coordination of care (as documented) at patient's floor/unit and/or counseling patient: Coding Level of Care Code 68293 SUB INP/OBS CARE 2/35MIN Diagnoses Weakness R53.1 Atrial fibrillation I48.91 Bipolar I disorder with lukas F31.10
[2024-09-29 07:12] LABS: Basophils # (auto) 0.03 K/uL (0.00-0.20); Basophils % (auto) 0.7 %; Eosinophils # (auto) 0.06 K/uL (0.00-0.50); Eosinophils % (auto) 1.4 %; Hematocrit (blood only) 34.1 % (37.0-47.0); Hemoglobin 11.6 g/dl (12.0-16.0); Immature Granulocytes # (auto) 0.01 K/uL (0.01-0.20); Immature Granulocytes % (auto) 0.2 %; Lymphocytes # (auto) 1.88 K/uL (1.20-3.40); Mean Corpuscular Hemoglobin 33.1 pg (25.0-34.0); Mean Corpuscular Volume 97.4 fL (80.0-100.0); Mean Platelet Volume 9.9 fL (9.4-12.4); Monocytes # (auto) 0.42 K/uL (0.11-0.59); Monocytes % (auto) 9.8 %; Neutrophils # (auto) 1.87 K/uL (1.40-6.50); Neutrophils % (auto) 43.9 %; Platelet Count 160 K/uL (130-400); RDW Coefficient of Variation 12.8 % (11.5-14.5); RDW Standard Deviation 45.9 fL (36.4-46.3); White Blood Count 4.27 K/ul (4.8-10.8)
[2024-09-29 07:35] VITALS: BP 114/74; PULSE 61; TEMP 98.6; O2SAT 97
[2024-09-29 07:57] LABS: BUN Creatinine Ratio 18.9 (10-20); Creatinine Clr Calc Pharmacy 61.6 ml/min; Potassium 4.1 mmol/L (3.5-5.1)
== END 2024-09-29 11:41 | disposition home health service (06) ==
LOC: 3E 11:40 → ED 11:40 → 3E 17:15

== ENCOUNTER 2024-10-04 12:11 | Inpatient (IN) ==
--- OUTSIDE RECORDS SUMMARY | 2024-10-04 12:15 | External Medical Summary | Summary of Care ---
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 Name Role Phone Kortney Olivo MD Primary Care Provider [phone] Encounter Details Date Type Department Care Team (Late st Contact Info) Description 09/28/2024 Population Health External Data Unspecified Department Allergies Active Allergy Reactions Criticality Noted Date Comments Naproxen Sodium Other (Please comment) 03/02/2013 Headache and disorientation Peanut-Containing Drug Products Edema face/lips/tongue High 02/07/2024 documented as of this encounter (statuses as of 09/28/2024) Medications IRON 66 MG PO TABS two pills by mouth daily Active MAGNESIUM 500 MG PO TABS one pill by mouth daily Active FISH OIL 1200 MG PO CAPS two pills by mouth daily Active EPINEPHrine 0.3 MG/0.3ML Injection Solution Auto-injector (Autoinjector) Inject 0.3 mg into a large muscle as needed (anaphylaxis). For a severe reaction: Inject in outer thigh following instructions on package and go to the Emergency room. Active Amiodarone HCl 200 MG Oral Tablet (Cordarone) Take 1 Tablet by mouth daily with breakfast. 30 Tablet 4 Active Metoprolol Succinate ER 25 MG Oral Tablet Extended Release 24 Hour (toPROL XL) Take 1 Tablet by mouth in the morning. 30 Tablet 4 Active Vitamin D3 25 MCG (1000 UT) Oral Tablet (Vitamin D3) Take 1 Tablet by mouth in the morning. 30 Tablet 4 Active Divalproex Sodium ER 500 MG Oral Tablet Extended Release 24 Hour (Depakote ER) Take 3 Tablets by mouth every night at bedtime. 48 Tablet 4 Active risperiDONE 3 MG Oral Tablet (Risperdal) Take 1 Tablet by mouth every night at bedtime. 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 Atrial flutter 02/08/2024 Lymphedema 02/08/2024 Chronic anemia 02/08/2024 Bipolar 1 disorder 02/08/2024 documented as of this encounter (statuses as of 09/28/2024) Resolved Problems Problem Noted Date Diagnosed Date Resolved Date Isabel 02/08/2024 02/27/2024 documented as of this encounter (statuses as of 09/28/2024) Social History Tobacco Use Types Packs/Day Years Used Date Smoking Tobacco: Never Smokeless Tobacco: Never Alcohol Use Standard Drinks/Week Comments No 0 (1 standard drink = 0.6 oz pur e alcohol) Personal Safety Answer Date Recorded Do you feel unsafe or have concerns for your saf ety? Yes 02/07/2024 Do you have concerns for you r family's safety? (Household - for ages 0-17 years) Not on file 02/07/2024 Utilities Answer Date Recorded Do you have trouble paying y our heating, water, or electric bill? Yes 02/07/2024 Is your family able to pay t he heat, water, or electric bill? (Household - for ages 0-17 years) Not on file 02/07/2024 Does your family have access to good internet? (Household - for ages 0-17 years) Not on file 02/07/2024 Transportation Needs Answer Date Record ed READ ONLY Do you have troubl e getting a ride to medical visits or work? Sometimes True 02/07/2024 Does your family have a hard time getting a ride to doctors visits? (Household - for ages 0-17 years) Not on file 02/07/2024 Has lack of transportation k ept you from medical appointments, meetings, work, or from getting things needed for daily living? Check all that apply. (Adult - for ages 18 years and over) Not on file 02/07/2024 Do you (or your family) have trouble finding or paying for a ride (transportation)? (Household - for ages 0-17 years) Not on file 02/07/2024 Housing Stability Answer Date Recorded Do you currently live in a s helter or have no steady place to sleep at night? (Adult - for ages 18 years and over) Not on file 02/07/2024 READ ONLY Do you think you a re at risk of becoming homeless? Yes 02/07/2024 Does your family worry about paying for your home or becoming homeless? (Household - for ages 0-17 years) Not on file 0 02/07/2024 Are you homeless or worried that you might be in the future? (Adult - for ages 18 years and over) Not on file Are you (or your family) swapnil eless or worried that you might be in the future? (Household - for ages 0-17 years) Not on file Food Insecurity Answer Date Recorded Do you need food for this week? Yes 02/07/2024 Are you able to get enough f ood for your family? (Household - for ages 0-17 years) Not on file 02/07/2024 Does your family need food t his week? (Household - for ages 0-17 years) Not on file 02/07/2024 Do you always have enough fo od for your family? (Household - for ages 0-17 years) Not on file 02/07/2024 Comments No Sex and Gender Information Value Date Recorded Sex Assigned at Not on file Legal Sex Female 5:11 AM EST Gender Identity Not on file Sexual Orientation Not on file documented as of this encounter Plan of Treatment Health Maintenance Due Date Last Done Comments HIV Screening 1978 Hepatitis C Screening 1981 Pap Smear 1984 Cervical Cancer Screening 1993 HPV/Co-Test 1993 Mammogram 2003 Cologuard 2008 Colonoscopy 2008 Colorectal Cancer Screening 2008 Fecal Occult Blood Test 2008 Sigmoidoscopy 2008 Pneumococcal Vaccine: 50+ Years (1 of 1 - PCV) 2013 Zoster Vaccines (1 of 2) 2013 COVID-19 Vaccine (3 - 2023-2 5 season) 2024 02/09/2021, 01/17/2021 Influenza Vaccine (FLU shot) (#1) 2024 DTap/Tdap Vaccines (2 - Td o r Tdap) 06/19/2026 06/19/2016 Diabetes Screening 02/06/2027 02/07/2024, 02/07/2024 Lipid Panel 02/06/2029 02/07/2024 HPV (Gardasil) Vaccine Aged Out No lo nger eligible based on patient's age to complete this topic Hepatitis B Vaccine Aged Out No longe r eligible based on patient's age to complete this topic MENINGOCOCCAL (MENACTRA/MENVEO) Aged Out No longer eligible b ased on patient's age to complete this topic documented as of this encounter Medical Devices Not on filedocumented as of this encounter Advance Directives * Full Code (Latest Code Status on File) Date Activated Date Inactivated Comments 02/07/2024 11:16 PM 02/28/2024 2:37 PM This order reflects the patients wishes and were consensually agreed upon. Question Answer Comments Discussion of Advance Directives occurred with: Patient Does the patient have a Living Will? No Does the patient have Health Care Power of Attor otis? No Care Teams Brim Stretching 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 Relationship Specialty Start Date End Date Kortney Olivo MD PCP - General Internal Medicine 01/25/14 documented as of this encounter
[2024-10-04 13:31] LABS: Basophils # (auto) 0.03 K/uL (0.00-0.20); Basophils % (auto) 0.6 %; Eosinophils # (auto) 0.01 K/uL (0.00-0.50); Eosinophils % (auto) 0.2 %; Hematocrit (blood only) 38.1 % (37.0-47.0); Hemoglobin 13.1 g/dl (12.0-16.0); Immature Granulocytes # (auto) 0.01 K/uL (0.01-0.20); Immature Granulocytes % (auto) 0.2 %; Lymphocytes # (auto) 1.13 K/uL (1.20-3.40); Lymphocytes % (auto) 23.9 %; Mean Corpuscular Hemoglobin 33.1 pg (25.0-34.0); Mean Corpuscular Hgb Conc 34.4 g/dL (32.0-36.0); Mean Corpuscular Volume 96.2 fL (80.0-100.0); Mean Platelet Volume 10.1 fL (9.4-12.4); Monocytes # (auto) 0.44 K/uL (0.11-0.59); Monocytes % (auto) 9.3 %; Neutrophils # (auto) 3.11 K/uL (1.40-6.50); Neutrophils % (auto) 65.8 %; Platelet Count 163 K/uL (130-400); RDW Coefficient of Variation 12.8 % (11.5-14.5); RDW Standard Deviation 45.5 fL (36.4-46.3); Red Blood Count 3.96 M/uL (4.20-5.40); White Blood Count 4.73 K/ul (4.8-10.8)
[2024-10-04 13:33] LABS: Appearance Urine Clear (Clear); Bilirubin Urine Negative (Negative); Blood Urine Negative (Negative); Color Urine Yellow; Glucose Urine UA Negative (Negative); Ketones Urine 1+ (Negative); Leukocyte Esterase Urine Negative (Negative); Nitrite Urine Negative (Negative); Protein Urine Negative (Negative); Specific Gravity Urine 1.024 (1.000-1.030); Urobilinogen Urine Negative (Negative)
[2024-10-04 13:43] LABS: Albumin Globulin Ratio 1.6 (0.9-2); Albumin Level 3.6 gm/dl (3.4-5.0); BUN Creatinine Ratio 24.1 (10-20); Bilirubin,Total 0.5 mg/dl (0.2-1.0); Calcium 9.2 mg/dl (8.6-10.3); Creatinine Clr Calc Pharmacy 51.9 ml/min; Globulin 2.3 gm/dl (2.5-4.0); Potassium 4.4 mmol/L (3.5-5.1); Total Protein 5.9 gm/dl (6.0-8.3)
[2024-10-04 13:47] LABS: Acetaminophen < 3 ug/ml (10-30); Salicylate < 3.0 mg/dl (3.0-30)
[2024-10-04 13:59] LABS: Thyroid Stimulating Hormone 4.019 uIu/ml (0.300-4.500)
[2024-10-04 14:12] LABS: Amphetamines+Metham, Urine Neg (Neg); Barbiturates, Urine Neg (Neg); Benzodiazepine, Urine Neg (Neg); Cocaine, Urine Neg (Neg); Fentanyl, Urine Neg (Neg); MDMA (Ecstacy), Urine Pos (Neg); Marijuana, Urine Neg (Neg); Methadone, Urine Neg (Neg); Opiate, Urine Neg (Neg); Phencyclidine, Urine Neg (Neg)
--- NOTE | 2024-10-04 14:16 | Emergency Department Note ---
Impression & Plan Episode of generalized weakness, Adult failure to thrive ED Provider Note NAME: DAHLIA WONG AGE: 59 SEX: F : 1965 ARRIVES VIA: Ambulance INFORMANT: Patient, ED PROVIDER(S): Hiren Navarro DO CHIEF COMPLAINT: Weakness HPI: The patient is a 59-year-old female who lives at home. She is manage at home through [facility]. She has been to our facility multiple times recently for various complaints such as weakness as well as falling. The patient has a follow-up appoint with her doctor tomorrow. Her case management rn was trying to call her to check on her to make sure she was going to go for this appointment. She did not answer the phone. The police were called and sent to the home for a wellness check. They found the house in disarray. They do not feel the patient is able to care for herself. She was sent to the emergency department for further evaluation. There was a 302 petition sworn out by police. ROS: See above HPI for pertinent positives & negatives. A total of 10 systems reviewed and were otherwise negative. PAST MEDICAL HISTORY: See Below PAST SURGICAL HISTORY: See Below FAMILY HISTORY: See Below SOCIAL HISTORY: See Below HOME MEDICATIONS: See Below ALLERGIES: See Below VITALS: See Below PHYSICAL EXAMINATION: GENERAL: The patient is awake and alert. She is resting comfortably. EYES: The conjunctivae are clear. The pupils are round and reactive. EARS, NOSE, MOUTH AND THROAT: The nose is without any evidence of any deformity. Mucous membranes are dry. NECK: The neck is nontender and supple. RESPIRATORY: Normal respiratory effort is noted there is no evidence of wheezing rhonchi or rales CARDIOVASCULAR: Regular rate and rhythm noted there no murmurs rubs or gallops normal S1 normal S2. GASTROINTESTINAL: The abdomen is soft. Abdomen is nontender. MUSCULOSKELETAL/EXTREMITIES: There is no evidence of gross deformity full range of motion is noted in the hips and shoulders. SKIN: There is no obvious evidence of any rash. There are no petechiae, pallor or cyanosis noted. NEUROLOGIC: Patient is awake alert and oriented x3. Strength was symmetric but diminished. PSYCH: The patient makes good eye contact. Her affect is flat. She is currently denying any suicidal homicidal ideation. MEDICAL DECISION MAKING: The patient is a 59-year-old female who presented to the emergency department with police. The patient had a well check ordered by heather albarran. The patient was not doing well and her house was in disarray. It appears the patient has not been caring for herself. She was sent to the emergency department initially as a 302 evaluation but ultimately this does appear to be more consistent with a medical issue. The patient had further medical testing ordered. I discussed the patient's laboratory and radiographic studies with her. Ultimately I did discuss her condition with the on-call [facility] hospitalist. I do not feel the patient is safe to be discharged back to her home at this time. She will likely require significant social help. It does not appear she has been very compliant with her outpatient medications. Triage Nursing notes reviewed. Prior medical records reviewed Vital Signs: reviewed and remarkable for no significant abnormalities Differential diagnosis: Infection, dehydration, metabolic abnormality, hypo/hyperglycemia, electrolyte disturbance, anemia, hypoxia, cardiac sources, intracerebral event, toxicologic, neurologic, as well as other pathologies. ER treatment provided: See below Diagnostics interpreted by me: ECG: EKG was obtained in the emergency department. My interpretation is normal sinus rhythm at 67 bpm. There is no ectopy. There is no acute ST segment abnormalities noted. This was compared to a tracing from September 26, 2024. No changes were noted. Laboratory studies: As stated above and show below. Imaging studies: See below. Radiographic imaging was reviewed by myself Consultation(s): I discussed this case with Dr. Uribe [facility] Past Med/Surg History Problem List (Updated 10/04/24 @ 21:11 by Hiren Navarro DO) Adult failure to thrive (Acute) Episode of generalized weakness (Acute) Closed head injury (Acute) Fall (Acute) Weakness (Acute) Gait instability (Acute) Weakness Lumbar strain (Acute) Dehydration (Acute) Dizziness (Acute) Dehydration (Acute) Dizziness (Acute) White matter abnormality on MRI of brain On amiodarone therapy Atrial fibrillation Bipolar I disorder with lukas Anticoagulation adequate Unspecified mood [affective] disorder Atrial flutter (Acute) Atrial fibrillation with rapid ventricular response (Acute) Fever Patent foramen ovale PAF (paroxysmal atrial fibrillation) Acute on chronic anemia New onset atrial flutter Depression Paresthesia (Acute) Left sided numbness (Acute 07/08/14) Fibroid uterus Elevated troponin (Acute) Anemia (Acute) Abnormal uterine bleeding (AUB) Iron deficiency anemia (Acute) Goiter (Acute) Bronchitis (Acute) Thyroid nodule (Acute) Hypothyroid (Acute) Fibroid (Acute) Medical History (Updated 10/04/24 @ 21:11 by Hiren Navarro DO) Failure to thrive in adult MRI of brain abnormal ? abnormal: Results known: some spots on white matter ? aging or inactive MS per pt. Upcoming Neuro Jul 06 2024. Had MRI to rule out MS. Pt reports family hx MS. Unspecified mood [affective] disorder just the bipolar depression per pt. Elevated troponin level pt not sure if this was in her hx. Denies hx [place]. 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 Bipolar 1 disorder History of migraine hx migraines. Left sided numbness hx - told complex migraine. Quickly resolved after d/c use of liquid b 12 and red dye per pt. History of psychiatric hospitalization December - February [facility] and [facility]. Ventricular septal defect dx 2001. PFO (patent foramen ovale) pt never heard this term. History of atrial flutter First episode January or February 2024 during psych hospitalization. Pt reports she doesn't think entirely resolved. Dr Ndiaye upcoming May 05 2024. History of atrial fibrillation first episode occured January or February 2024 during psych hospitalization. Pt reports she doesn't feel this is totally resolved. Dr. Ndiaye 05/05/24. Hypothyroid Multiple thyroid nodules Bronchitis hx Snores History of bronchitis Surgical History H/O colonoscopy 04/23/24, repeat 5 years in 2028 History of elective x2 History of total abdominal hysterectomy Family History Father Amyotrophic lateral sclerosis Mother Colorectal cancer DCIS (ductal carcinoma in situ) Breast cancer Brother Multiple sclerosis Prostate cancer Sister Multiple sclerosis Grandmother (Maternal) Diabetes Grandfather (Maternal) Lung cancer Denies family history of Ovarian cancer Social History Smoking Status: Never smoker Second Hand Exposure: No; Do You Dip or Chew Tobacco: No; Hx Alcohol Use: No Hx Substance Use: No Preferred Language: Spanish Communication Ability: Effective Visual Impairment: No Limitations Hearing Ability: Normal Tipping 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 Required: No Beliefs That Will Affect Care: None marital status: Single Current Living Situation: Alone Current Living Situation Comment: current transitional housing current occupational status: unemployed How many Children do You have: 0 Feels Safe at Home: Yes and No Is there a partner from a previous relationship who is making you feel unsafe now?: No Childhood Exposure to Second-Hand Smoke: Yes Diet: low carbohydrate caffeine: Yes Dental Care, Regularly: No Physical Activity Frequency: 5-6 Times per Week Seatbelt Use: always Sunscreen Use: No Gender Identity: Male Assistive Devices: None Allergies Allergies Allergy/AdvReac Type Severity Reaction Status Date / Time levothyroxine Allergy Unknown HEART Verified 09/08/24 13:31 PALPITATIONS peanut Allergy Unknown HIVES, Verified 09/08/24 13:31 FACIAL SWELLING,LIPS AND TONGUE penicillin V Allergy Unknown pt does Verified 09/08/24 13:31 not know reaction acetaminophen [From Tylenol] AdvReac Unknown Makes me Verified 09/08/24 13:31 feel loopy and out of sorts ibuprofen [From Advil] AdvReac Unknown Makes me Verified 09/08/24 13:31 feel loopy and out of sorts naproxen AdvReac Unknown Disorientat Verified 09/08/24 13:31 ion NSAIDS (Non-Steroidal AdvReac Unknown Disorientat Verified 09/08/24 13:31 Anti-Inflamma ion Home Meds Home Medications Medication Instructions Recorded Confirmed divalproex 500 mg tablet,extended 1,500 mg PO HS 03/06/24 10/04/24 release 24 hr epinephrine 0.3 mg/0.3 mL 0.3 ml IM ONCE PRN Anaphylaxis 09/20/24 10/04/24 injection, auto-injector risperidone 2 mg tablet 2 mg PO HS 09/20/24 10/04/24 trazodone 50 mg tablet 25 - 50 mg PO DAILY 09/26/24 10/04/24 Previous Rx's Medication Instructions Recorded amiodarone 200 mg tablet 50 mg (1/4 x 200 mg) PO DAILY #30 09/28/24 tabs Results & Data (ED) Vital Signs Vital Signs - 24 hr 10/04/24 12:39 10/04/24 15:29 Temperature 36.9 C Temperature Source Oral Pulse Rate 67 Pulse Rate [Apical] 67 Respiratory Rate 16 16 Respiratory Effort / Characteristics Non-Labored Spontaneous Non-Labored Respiratory Depth Normal Normal Blood Pressure 128/81 Blood Pressure [Right Arm] 125/72 Blood Pressure Mean 96 Blood Pressure Mean [Right Arm] 89 Blood Pressure Position Sitting Pulse Oximetry 99 97 Oxygen Delivery Method Room Air Room Air Sepsis Recent Fever Within 48 Hours No Sepsis New/Unexplained Change in Mental Status N/A Sepsis Action Taken by Nursing No Action Required Home Medications Current Medication List: was personally reviewed by me Laboratory Data Attestation: I reviewed the patient's lab results. 10/04/24 12:44 10/04/24 12:44 Lab Results 10/04/24 10/04/24 10/04/24 Range/Units 12:44 14:17 14:30 WBC 4.73 L (4.8-10.8) K/ul RBC 3.96 L (4.20-5.40) M/uL Hgb 13.1 (12.0-16.0) g/dl Hct 38.1 (37.0-47.0) % MCV 96.2 (80.0-100.0) fL MCH 33.1 (25.0-34.0) pg MCHC 34.4 (32.0-36.0) g/dL RDW Std Deviation 45.5 (36.4-46.3) fL RDW Coeff of Guillermo 12.8 (11.5-14.5) % Plt Count 163 (130-400) K/uL MPV 10.1 (9.4-12.4) fL Immature Gran % (Auto) 0.2 % Neut % (Auto) 65.8 % Lymph % (Auto) 23.9 % Hemphill % (Auto) 9.3 % Eos % (Auto) 0.2 % Baso % (Auto) 0.6 % Neut # (Auto) 3.11 (1.40-6.50) K/uL Lymph # (Auto) 1.13 L (1.20-3.40) K/uL Hemphill # (Auto) 0.44 (0.11-0.59) K/uL Eos # (Auto) 0.01 (0.00-0.50) K/uL Baso # (Auto) 0.03 (0.00-0.20) K/uL Immature Gran # (Auto) 0.01 (0.01-0.20) K/uL VBG pH 7.40 (7.36-7.41) VBG pCO2 50 (38-50) mmHg VBG pO2 36 mmHg VBG HCO3 31 mmol/L VBG O2 Saturation < 60.0 % VBG Base Excess 5.1 mEq/L Sodium 134 L (136-145) mmol/L Potassium 4.4 (3.5-5.1) mmol/L Chloride 99 (98-107) mmol/L Carbon Dioxide 29 (21-32) mmol/L Anion Gap 6 (3-11) BUN 28 H (6-23) mg/dl Creatinine 1.16 (0.6-1.2) mg/dl Est Cr Clr Drug Dosing 51.9 ml/min eGFR 53.64 BUN/Creatinine Ratio 24.1 H (10-20) Glucose 75 (70-99(Fasting)) mg/dl Calcium 9.2 (8.6-10.3) mg/dl Phosphorus 3.7 (2.5-4.9) mg/dl Magnesium 2.0 (1.7-2.4) mg/dl Total Bilirubin 0.5 (0.2-1.0) mg/dl Direct Bilirubin 0.1 (0-0.2) mg/dl AST 25 (13-39) U/L ALT 15 (7-52) U/L Alkaline Phosphatase 36 (34-104) U/L Ammonia 22.0 (18-72) umol/L Total Creatine Kinase 118 (26-192) U/L Troponin I High Sens 19.8 H (0-14) pg/ml Total Protein 5.9 L (6.0-8.3) gm/dl Albumin 3.6 (3.4-5.0) gm/dl Globulin 2.3 L (2.5-4.0) gm/dl Albumin/Globulin Ratio 1.6 (0.9-2) TSH 4.019 (0.300-4.500) uIu/ml Random Cortisol 12.83 mcg/dl Urine Color Yellow Urine Appearance Clear (Clear) Urine pH 6.0 (4.5-7.5) Ur Specific [place] 1.024 (1.000-1.030) Urine Protein Negative (Negative) Urine Glucose (UA) Negative (Negative) Urine Ketones 1+ H (Negative) Urine Blood Negative (Negative) Urine Nitrite Negative (Negative) Urine Bilirubin Negative (Negative) Urine Urobilinogen Negative (Negative) Ur Leukocyte Esterase Negative (Negative) Salicylates < 3.0 L (3.0-30) mg/dl Urine Opiates Screen Neg (Neg) Ur Methadone, Qual Neg (Neg) Urine Fentanyl Screen Neg (Neg) Acetaminophen < 3 L (10-30) ug/ml Urine Barbiturates Neg (Neg) Valproic Acid (50-100) mcg/ml Ur Phencyclidine (PCP) Neg (Neg) U Amphetamin/Meth Scrn Neg (Neg) MDMA (Ecstasy) Screen Pos H (Neg) U Benzodiazepines Scrn Neg (Neg) Ur Cocaine Metabolite Neg (Neg) U Marijuana (THC) Screen Neg (Neg) Ethyl Alcohol mg/dL < 10.0 (<10.0) mg/dl Adenovirus (PCR) Not Detected (NotDetected) B. pertussis DNA (PCR) Not Detected (NotDetected) B.parapertussis DNA PCR Not Detected (NotDetected) C. pneumoniae DNA (PCR) Not Detected (NotDetected) Coronavirus OC43 (PCR) Not Detected (NotDetected) Coronavirus HKU1 (PCR) Not Detected (NotDetected) Coronavirus 229E (PCR) Not Detected (NotDetected) SARS-CoV-2 (PCR) Not Detected (NotDetected) Coronavirus NL63 (PCR) Not Detected (NotDetected) Human Metapneumovir PCR Not Detected (NotDetected) Influenza Type A (PCR) Not Detected (NotDetected) Influenza Type B (PCR) Not Detected (NotDetected) M. pneumoniae (PCR) Not Detected (NotDetected) Parainfluenza 1 (PCR) Not Detected (NotDetected) Parainfluenza 2 (PCR) Not Detected (NotDetected) Parainfluenza 3 (PCR) Not Detected (NotDetected) Parainfluenza 4 (PCR) Not Detected (NotDetected) RSV (PCR) Not Detected (NotDetected) Entero/Rhino (PCR) Not Detected (NotDetected) SARS-CoV-2, RNA, NAAT NEGATIVE (NEGATIVE) 10/04/24 Range/Units 15:02 WBC (4.8-10.8) K/ul RBC (4.20-5.40) M/uL Hgb (12.0-16.0) g/dl Hct (37.0-47.0) % MCV (80.0-100.0) fL MCH (25.0-34.0) pg MCHC (32.0-36.0) g/dL RDW Std Deviation (36.4-46.3) fL RDW Coeff of Guillermo (11.5-14.5) % Plt Count (130-400) K/uL MPV (9.4-12.4) fL Immature Gran % (Auto) % Neut % (Auto) % Lymph % (Auto) % Hemphill % (Auto) % Eos % (Auto) % Baso % (Auto) % Neut # (Auto) (1.40-6.50) K/uL Lymph # (Auto) (1.20-3.40) K/uL Hemphill # (Auto) (0.11-0.59) K/uL Eos # (Auto) (0.00-0.50) K/uL Baso # (Auto) (0.00-0.20) K/uL Immature Gran # (Auto) (0.01-0.20) K/uL VBG pH (7.36-7.41) VBG pCO2 (38-50) mmHg VBG pO2 mmHg VBG HCO3 mmol/L VBG O2 Saturation % VBG Base Excess mEq/L Sodium (136-145) mmol/L Potassium (3.5-5.1) mmol/L Chloride (98-107) mmol/L Carbon Dioxide (21-32) mmol/L Anion Gap (3-11) BUN (6-23) mg/dl Creatinine (0.6-1.2) mg/dl Est Cr Clr Drug Dosing ml/min eGFR BUN/Creatinine Ratio (10-20) Glucose (70-99(Fasting)) mg/dl Calcium (8.6-10.3) mg/dl Phosphorus (2.5-4.9) mg/dl Magnesium (1.7-2.4) mg/dl Total Bilirubin (0.2-1.0) mg/dl Direct Bilirubin (0-0.2) mg/dl AST (13-39) U/L ALT (7-52) U/L Alkaline Phosphatase (34-104) U/L Ammonia (18-72) umol/L Total Creatine Kinase (26-192) U/L Troponin I High Sens (0-14) pg/ml Total Protein (6.0-8.3) gm/dl Albumin (3.4-5.0) gm/dl Globulin (2.5-4.0) gm/dl Albumin/Globulin Ratio (0.9-2) TSH (0.300-4.500) uIu/ml Random Cortisol mcg/dl Urine Color Urine Appearance (Clear) Urine pH (4.5-7.5) Ur Specific [place] (1.000-1.030) Urine Protein (Negative) Urine Glucose (UA) (Negative) Urine Ketones (Negative) Urine Blood (Negative) Urine Nitrite (Negative) Urine Bilirubin (Negative) Urine Urobilinogen (Negative) Ur Leukocyte Esterase (Negative) Salicylates (3.0-30) mg/dl Urine Opiates Screen (Neg) Ur Methadone, Qual (Neg) Urine Fentanyl Screen (Neg) Acetaminophen (10-30) ug/ml Urine Barbiturates (Neg) Valproic Acid 103 H (50-100) mcg/ml Ur Phencyclidine (PCP) (Neg) U Amphetamin/Meth Scrn (Neg) MDMA (Ecstasy) Screen (Neg) U Benzodiazepines Scrn (Neg) Ur Cocaine Metabolite (Neg) U Marijuana (THC) Screen (Neg) Ethyl Alcohol mg/dL (<10.0) mg/dl Adenovirus (PCR) (NotDetected) B. pertussis DNA (PCR) (NotDetected) B.parapertussis DNA PCR (NotDetected) C. pneumoniae DNA (PCR) (NotDetected) Coronavirus OC43 (PCR) (NotDetected) Coronavirus HKU1 (PCR) (NotDetected) Coronavirus 229E (PCR) (NotDetected) SARS-CoV-2 (PCR) (NotDetected) Coronavirus NL63 (PCR) (NotDetected) Human Metapneumovir PCR (NotDetected) Influenza Type A (PCR) (NotDetected) Influenza Type B (PCR) (NotDetected) M. pneumoniae (PCR) (NotDetected) Parainfluenza 1 (PCR) (NotDetected) Parainfluenza 2 (PCR) (NotDetected) Parainfluenza 3 (PCR) (NotDetected) Parainfluenza 4 (PCR) (NotDetected) RSV (PCR) (NotDetected) Entero/Rhino (PCR) (NotDetected) SARS-CoV-2, RNA, NAAT (NEGATIVE) Administered Medications Divalproex Sodium (Divalproex Extended Release 500 Mg Tab) 1,500 mg PO HS ANAY Stop: 11/03/24 20:59 Last Admin: 10/04/24 20:57 Dose: 1,500 mg Documented By: JANA Enoxaparin Sodium (Enoxaparin Inj 40 Mg/0.4 Ml Syr) 40 mg SQ QPM ANAY Stop: 11/03/24 20:59 Last Admin: 10/04/24 20:57 Dose: Not Given Documented By: JANA Risperidone (Risperidone 2 Mg Tablet) 2 mg PO HS ANAY Stop: 11/03/24 20:59 Last Admin: 10/04/24 20:57 Dose: 2 mg Documented By: JANA Discontinued Medications Sodium Chloride (Nss) 1,000 mls @ 999 mls/hr IV .Q1H1M ONE Stop: 10/04/24 18:32 Last Infusion: 10/04/24 18:57 Dose: Infused Documented By: Admin: 10/04/24 17:38 Dose: 999 mls/hr Documented By: RA Imaging Data Attestation: I personally reviewed and interpreted this imaging study as follows: My Impression: 1 view chest x-ray was obtained in the emergency department. My interpretation is no free air or definite filtrate, final report below. Radiologist's Impression: Chest X-Ray 10/04/24 14:10 INDICATION: Weakness TECHNIQUE: Frontal radiograph of the chest. COMPARISON: Radiograph from 09/26/2024. FINDINGS: The cardiomediastinal silhouette and pulmonary vasculature appear within normal limits. Subsegmental atelectasis in the lung bases. No infiltrate, pleural effusion or pneumothorax. No acute osseous abnormality evident. IMPRESSION: No acute cardiopulmonary process. Electronically signed by Bartolo Harrison 10-04-2024 3:07 PM Discharge Plan Visit Data Chief Complaint: Mental Health Evaluation ED Provider: Hiren Navarro Discharge Problem: Episode of generalized weakness, Adult failure to thrive Patient Disposition: Admitted As Inpatient Discharge Instructions Interventions: ED Discharge Assessment Last Done: 10/04/24 17:52
[2024-10-04 14:37] LABS: Base Excess VBG 5.1 mEq/L; HCO3 VBG 31 mmol/L; Oxygen Saturation VBG < 60.0 %; PCO2 VBG 50 mmHg (38-50); PO2 VBG 36 mmHg
--- NOTE | 2024-10-04 15:07 | XRay Report ---
INDICATION: Weakness TECHNIQUE: Frontal radiograph of the chest. COMPARISON: Radiograph from 09/26/2024. FINDINGS: The cardiomediastinal silhouette and pulmonary vasculature appear within normal limits. Subsegmental atelectasis in the lung bases. No infiltrate, pleural effusion or pneumothorax. No acute osseous abnormality evident. IMPRESSION: No acute cardiopulmonary process. Electronically signed by Bartolo Harrison 10-04-2024 3:07 PM
[2024-10-04 15:11] LABS: Bilirubin Direct 0.1 mg/dl (0-0.2)
[2024-10-04 15:18] LABS: Troponin I High Sensitivity 19.8 pg/ml (0-14)
[2024-10-04 15:58] LABS: Phosphorus 3.7 mg/dl (2.5-4.9)
[2024-10-04 15:59] LABS: Adenovirus PCR Not Detected (NotDetected); Bordetella parapertussis PCR Not Detected (NotDetected); Bordetella pertussis PCR Not Detected (NotDetected); Chlamydia pneumoniae PCR Not Detected (NotDetected); Coronavirus 229E PCR Not Detected (NotDetected); Coronavirus CoV-2 (COVID19)PCR Not Detected (NotDetected); Coronavirus HKU1 PCR Not Detected (NotDetected); Coronavirus NL63 PCR Not Detected (NotDetected); Coronavirus OC43PCR Not Detected (NotDetected); Human Metapneumovirus PCR Not Detected (NotDetected); Influenza A PCR Not Detected (NotDetected); Influenza B PCR Not Detected (NotDetected); Mycoplasma pneumoniae PCR Not Detected (NotDetected); Parainfluenza Virus 1 PCR Not Detected (NotDetected); Parainfluenza Virus 2 PCR Not Detected (NotDetected); Parainfluenza Virus 3 PCR Not Detected (NotDetected); Parainfluenza Virus 4 PCR Not Detected (NotDetected); Respiratory Syncytial VirusPCR Not Detected (NotDetected); Rhinovirus/Enterovirus PCR Not Detected (NotDetected)
[2024-10-04] MEDS ORDERED: ACETAMINOPHEN 325 MG TAB PO PRN (16:32)
--- NOTE | 2024-10-04 16:34 | History & Physical Report ---
Date of Service October 04, 2024 Assessment & Plan (1) Failure to thrive in adult: (2) Weakness: Plan This is a 59 year old female with past medical history of depression, iron deficiency anemia, hypothyroidism, atrial flutter, bipolar who presented to the ED on 10/04/24 after being brought in by the police. #weakness/failure to thrive CXR negative; respiratory biofire negative; urinalysis negative Recent Head CT 09/30 - negative TSH 4.019 CBC/BMP stable Troponin 19.8, repeat pending CK pending Patient does not currently have decisional making capabilities Consult Case management - patient will likely need placement upon discharge as she is currently not safe to live alone at home. Chronic conditions: Atrial flutter: amiodarone Bipolar: risperidone and divalproex Insomnia: trazodone Case discussed w/ Dr. Uribe at time of admission who also agrees that she does not have decisional making capabilities at time of admission. Code status: full DVT prophylaxis: Lovenox History of Present Illness Primary Care Provider: Spencer Saeed DO This is a 59 year old female with past medical history of depression, iron deficiency anemia, hypothyroidism, atrial flutter, bipolar who presented to the ED on 10/04/24 after being brought in by the police. Patient's bilingual patient support caseworker tried to contact the patient to make her aware that she has an appointment with her PCP tomorrow and she did not answer any of the phone calls. The police was then sent to the patient's house and she was found to be in disarray. She was then brought in the ED for further care. Patient's biggest complaint is that she feels weak. She feels it is difficult to take care of herself. She denies CP, SOB, urinary symptoms, N/V, abdominal pain. States she has constipation but unsure of her last bowel movement. States she lives alone but does have cats. Per bilingual patient support caseworker in ED, the police found her oven on in her house. Unsure of how long this has been on but the police did turn it off. Patient has been in our ED 5 times this month and was most recently admitted to the hospital on 09/26 and discharged on 09/28 with home health follow up. Per patient she does not believe home health has had a chance to establish care at her home. Allergies Allergy/AdvReac Type Severity Reaction Status Date / Time levothyroxine Allergy Unknown HEART Verified 09/08/24 13:31 PALPITATIONS peanut Allergy Unknown HIVES, Verified 09/08/24 13:31 FACIAL SWELLING,LIPS AND TONGUE penicillin V Allergy Unknown pt does Verified 09/08/24 13:31 not know reaction acetaminophen [From Tylenol] AdvReac Unknown Makes me Verified 09/08/24 13:31 feel loopy and out of sorts ibuprofen [From Advil] AdvReac Unknown Makes me Verified 09/08/24 13:31 feel loopy and out of sorts naproxen AdvReac Unknown Disorientat Verified 09/08/24 13:31 ion NSAIDS (Non-Steroidal AdvReac Unknown Disorientat Verified 09/08/24 13:31 Anti-Inflamma ion Home Medications Medication Instructions Recorded Confirmed Type divalproex 500 mg tablet,extended 1,500 mg PO HS 03/06/24 10/04/24 History release 24 hr epinephrine 0.3 mg/0.3 mL 0.3 ml IM ONCE PRN Anaphylaxis 09/20/24 10/04/24 History injection, auto-injector risperidone 2 mg tablet 2 mg PO HS 09/20/24 10/04/24 History trazodone 50 mg tablet 25 - 50 mg PO DAILY 09/26/24 10/04/24 History amiodarone 200 mg tablet 50 mg (1/4 x 200 mg) PO DAILY #30 09/28/24 10/04/24 Rx tabs Past Med/Surg History Problem List (Updated 10/05/24 @ 00:06 by Background Daemon) Adult failure to thrive (Acute) Episode of generalized weakness (Acute) Closed head injury (Acute) Fall (Acute) Weakness (Acute) Gait instability (Acute) Weakness Lumbar strain (Acute) Dehydration (Acute) Dizziness (Acute) White matter abnormality on MRI of brain On amiodarone therapy Atrial fibrillation Bipolar I disorder with lukas Anticoagulation adequate Unspecified mood [affective] disorder Atrial flutter (Acute) Atrial fibrillation with rapid ventricular response (Acute) Fever Patent foramen ovale PAF (paroxysmal atrial fibrillation) Acute on chronic anemia New onset atrial flutter Depression Paresthesia (Acute) Left sided numbness (Acute 07/08/14) Fibroid uterus Elevated troponin (Acute) Anemia (Acute) Abnormal uterine bleeding (AUB) Iron deficiency anemia (Acute) Goiter (Acute) Bronchitis (Acute) Thyroid nodule (Acute) Hypothyroid (Acute) Fibroid (Acute) Medical History (Updated 10/05/24 @ 00:06 by Background Daemon) Failure to thrive in adult MRI of brain abnormal ? abnormal: Results known: some spots on white matter ? aging or inactive MS per pt. Upcoming Neuro Jul 06 2024. Had MRI to rule out MS. Pt reports family hx MS. Unspecified mood [affective] disorder just the bipolar depression per pt. Elevated troponin level pt not sure if this was in her hx. Denies hx SD. 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 Bipolar 1 disorder History of migraine hx migraines. Left sided numbness hx - told complex migraine. Quickly resolved after d/c use of liquid b 12 and red dye per pt. History of [facility] December - [facility]. Ventricular septal defect dx 2001. PFO (patent foramen ovale) pt never heard this term. History of atrial flutter First episode January or February 2024 during psych hospitalization. Pt reports she doesn't think entirely resolved. Dr Ndiaye upcoming May 05 2024. History of atrial fibrillation first episode occured January or February 2024 during psych hospitalization. Pt reports she doesn't feel this is totally resolved. Dr. Ndiaye 05/05/24. Hypothyroid Multiple thyroid nodules Bronchitis hx Snores History of bronchitis Surgical History H/O colonoscopy 04/23/24, repeat 5 years in 2028 History of elective x2 History of total abdominal hysterectomy Family History Father Amyotrophic lateral sclerosis Mother Colorectal cancer DCIS (ductal carcinoma in situ) Breast cancer Brother Multiple sclerosis Prostate cancer Sister Multiple sclerosis Grandmother (Maternal) Diabetes Grandfather (Maternal) Lung cancer Denies family history of Ovarian cancer Social History Smoking Status: Never smoker Second Hand Exposure: No; Do You Dip or Chew Tobacco: No; Hx Alcohol Use: No Hx Substance Use: No Preferred Language: Latvian Communication Ability: Effective Visual Impairment: No Limitations Hearing Ability: Normal Bilingual Patient Support Caseworker Required: No Beliefs That Will Affect Care: None marital status: Single Current Living Situation: Alone Current Living Situation Comment: current transitional housing current occupational status: unemployed How many Children do You have: 0 Other Information That Helps Us Care for You: No Feels Safe at Home: Yes Safety Concerns: Feels Safe At This Time Childhood Exposure to Second-Hand Smoke: Yes Diet: low carbohydrate caffeine: Yes Dental Care, Regularly: No Physical Activity Frequency: 5-6 Times per Week Seatbelt Use: always Sunscreen Use: No Gender Identity: Male Assistive Devices: Glasses Physical Exam Constitutional: WD/WN, vitals as above Eyes: PERRL, conjunctivae normal, anicteric sclerae Respiratory: normal respiratory effort, lungs clear to auscultation Cardiovascular: RRR, no murmur, no edema Psychiatric: disheveled, flat affect. Results & Data Results & Data Vital Signs (Past 12 Hours) Vital Signs Temp Pulse Pulse Resp BP BP Pulse Ox 10/04/24 15:29 67 16 125/72 97 10/04/24 12:39 36.9 C 67 16 128/81 99 O2 Del Method 10/04/24 15:29 Room Air 10/04/24 12:39 Room Air Supervising Physician Co-Signing Physician Notes I personally saw and examined the patient. I independently reviewed the labs, EKG, imaging, problem list, medication list, past medical history and family history. I verified all lucas points and agree with Christina Hoang PA-C with the following exceptions and/or additions: 59 year old female presents to the ER dishevelled after a welfare check. Denies leaving the oven on and confabulates stories about a couple of weeks ago. Unable to tell me about recent hospitalization although she vaguely remembers being kept here "a couple of weeks ago". She is concerned about her cats at home. She is unsure how she has been eating and drinking. O/E A&Ox3, HS RRR, no murmurs, Chest CTAB, Abdo SNT A/P Failure to thrive, generalized weakness - recently admitted for the same, she currently lacks capacity to make her medical decisions as unable to understand recent events to be able to weigh up risks therefore will currently admit her against her wishes. IV NSS bolus given hypotension. PT/OT evaluations. Suspect she will need longer term residential placement. ER case management have been asked to contact office of aging. PG Care Time/CCT Total # of Minutes Spent Total Time Spent with Patient: Total time spent is greater than 50% in coordination of care (as documented) at patient's floor/unit and/or counseling patient: Coding Level of Care Code 24374 INT INP/OBS CARE 2/MIN Diagnoses Failure to thrive in adult R62.7 Weakness R53.1
[2024-10-04] MEDS ORDERED: ENOXAPARIN INJ 40 MG/0.4 ML SYR SQ SCH (16:45)
[2024-10-04] MEDS: SODIUM CHLORIDE 0.9% 1,000 ML IV ONE (17:38)
[2024-10-04] MEDS: ENOXAPARIN INJ 40 MG/0.4 ML SYR SQ SCH (20:57)
[2024-10-04] MEDS: risperiDONE 2 MG TABLET PO SCH (20:57)
[2024-10-04] MEDS: DIVALPROEX EXTENDED RELEASE 500 MG TAB PO SCH (20:57)
[2024-10-05] MEDS: traZODone HCL 50 MG TAB PO SCH (08:38)
[2024-10-05] MEDS: AMIODARONE 200 MG TAB PO SCH (08:39)
--- NOTE | 2024-10-05 10:35 | Hospitalist Progress Note ---
Date of Service October 05, 2024 Assessment & Plan (1) Gait instability: Plan: This is a 59 year old female with past medical history of depression, iron deficiency anemia, hypothyroidism, atrial flutter, bipolar who presented to the ED on 10/04/24 after being brought in by the police. Patient has afllen a few times in the past, and has been admitted to the [facility] multiple times I think her gait instability stems from bradykinesia, likley from her medications, Risperidon CXR negative; respiratory biofire negative; urinalysis negative Recent Head CT 09/30 - negative TSH 4.019 CBC/BMP stable She also has some mild resting tremor on exam, but no pill rolling type Has been evaluated by neurology for an abnormal MRI brain. No evidence of multiple sclerosis or acute stroke Pt eval pending Patient may benefit from tapering down her Risperidone She is currently on 2mg HS, will lower to 1.5mg and continue to taper over a few days (2) Depression: Plan: Takes Risperidone and Trazodone (3) Atrial fibrillation: Plan: On Amiodarone (4) Failure to thrive in adult: (5) Weakness: (6) White matter abnormality on MRI of brain: Plan Patient is not a safe d/c home, due to frequent falls awaiting PT eval she will need placement Admission and Anticipated Discharge Date Admission Date: October 04, 2024 Subjective patient seen and examined, no new complaints today Review of Systems Review of Systems: All systems reviewed are negative, apart from the ones contained in the history. Physical Exam Physical Exam: The patient is awake, alert and oriented 3, well developed and well nourished, normocephalic and atraumatic, lying in bed and in no acute distress. HEENT--PERRL, EOMI, mucous membranes and oropharynx mildly dry Neck--supple. No JVD. No bruits. Thyroid normal, trachea midline, no adenopathy. Heart--normal S1 and S2. No murmurs, rubs or gallops. Lungs--clear bilaterally, no respiratory distress, no accessory muscle use. Abdomen--normal bowel sounds and soft. Extremities--no cyanosis or clubbing. No edema. Dermatologic--normal skin turgor, normal color, no abnormal lymph nodes, no rash. Neurologic--cranial nerves II through XII grossly intact. coarse rest tremor Rheumatologic--normal range of motion. Psychiatric--normal affect. Results & Data Results & Data Vital Signs (Past 12 Hours) Vital Signs Temp Pulse Resp BP Pulse Ox O2 Del Method 10/05/24 07:33 97.9 F 59 L 16 107/69 96 Room Air PG Care Time/CCT Total # of Minutes Spent Total Time Spent with Patient: Total time spent is greater than 50% in coordination of care (as documented) at patient's floor/unit and/or counseling patient: Coding Level of Care Code 18751 SUB INP/OBS CARE 2/35MIN Diagnoses Gait instability R26.81 Depression F32.A Atrial fibrillation I48.91 Failure to thrive in adult R62.7 Weakness R53.1 White matter abnormality on MRI of brain R90.82 Time Spent (min) 35
--- NOTE | 2024-10-05 11:19 | Electrocardiogram Report ---
Test Reason : Blood Pressure : */* mmHG Vent. Rate : 67 BPM Atrial Rate : * BPM P-R Int : * ms QRS Dur : 82 ms QT Int : 380 ms P-R-T Axes : * 5 58 degrees QTcB Int : 401 ms Normal sinus rhythm Nonspecific ST and T wave abnormality Abnormal ECG When compared with ECG of 26-Sep-2024 12:46, Nonspecific T wave abnormality no longer evident in Lateral leads Confirmed by Hiren Alva ([id number]) on 10/05/2024 11:18:56 AM Referred By: Confirmed By: Hiren Alva
--- NOTE | 2024-10-06 10:32 | Hospitalist Progress Note ---
Date of Service October 06, 2024 Assessment & Plan (1) Gait instability: Plan: This is a 59 year old female with past medical history of depression, iron deficiency anemia, hypothyroidism, atrial flutter, bipolar who presented to the ED on 10/04/24 after being brought in by the police. Patient has fallen a few times in the past, and has been admitted to the hospital multiple times I think her gait instability stems from bradykinesia, likely from her medications, Risperidon CXR negative; respiratory biofire negative; urinalysis negative Recent Head CT 09/30 - negative TSH 4.019 CBC/BMP stable She also has some mild resting tremor on exam, but no pill rolling type Has been evaluated by neurology for an abnormal MRI brain. No evidence of multiple sclerosis or acute stroke Patient may benefit from tapering down her Risperidone, on admission, was on 2mg HS, now on 1.5mg will continue to taper over the next few days (2) Depression: Plan: Takes Risperidone and Trazodone (3) Atrial fibrillation: Plan: On Amiodarone (4) Failure to thrive in adult: Plan: unable to take care of herself at home Probably has some mild cognitive disorder or autism (5) Weakness: (6) White matter abnormality on MRI of brain: Plan Patient is not a safe d/c home, due to frequent falls she will need placement Admission and Anticipated Discharge Date Admission Date: October 04, 2024 Subjective patient seen and examined, no new complaints today Review of Systems Review of Systems: All systems reviewed are negative, apart from the ones contained in the history. Physical Exam Physical Exam: The patient is awake, alert and oriented 3, well developed and well nourished, normocephalic and atraumatic, lying in bed and in no acute distress. HEENT--PERRL, EOMI, mucous membranes and oropharynx mildly dry Neck--supple. No JVD. No bruits. Thyroid normal, trachea midline, no adenopathy. Heart--normal S1 and S2. No murmurs, rubs or gallops. Lungs--clear bilaterally, no respiratory distress, no accessory muscle use. Abdomen--normal bowel sounds and soft. Extremities--no cyanosis or clubbing. No edema. Dermatologic--normal skin turgor, normal color, no abnormal lymph nodes, no rash. Neurologic--cranial nerves II through XII grossly intact. coarse rest tremor Rheumatologic--normal range of motion. Psychiatric--normal affect. Results & Data Results & Data Vital Signs (Past 12 Hours) Vital Signs Temp Pulse Resp BP Pulse Ox O2 Del Method 10/06/24 07:28 97.7 F 62 18 146/87 H 96 Room Air 10/05/24 23:32 138/84 PG Care Time/CCT Total # of Minutes Spent Total Time Spent with Patient: Total time spent is greater than 50% in coordination of care (as documented) at patient's floor/unit and/or counseling patient: Coding Level of Care Code 33938 SUB INP/OBS CARE 2/35MIN Diagnoses Gait instability R26.81 Depression F32.A Atrial fibrillation I48.91 Failure to thrive in adult R62.7 Weakness R53.1 White matter abnormality on MRI of brain R90.82 Time Spent (min) 35
[2024-10-06] MEDS: risperiDONE 0.5 MG TABLET PO SCH (20:29)
[2024-10-07 09:19] LABS: Hematocrit (blood only) 42.3 % (37.0-47.0); Hemoglobin 14.5 g/dl (12.0-16.0); Mean Corpuscular Hgb Conc 34.3 g/dL (32.0-36.0); Mean Corpuscular Volume 96.4 fL (80.0-100.0); Mean Platelet Volume 9.8 fL (9.4-12.4); Platelet Count 146 K/uL (130-400); RDW Coefficient of Variation 12.9 % (11.5-14.5); RDW Standard Deviation 46.1 fL (36.4-46.3); Red Blood Count 4.39 M/uL (4.20-5.40); White Blood Count 3.53 K/ul (4.8-10.8)
[2024-10-07 09:35] LABS: BUN Creatinine Ratio 15.4 (10-20); Calcium 10.1 mg/dl (8.6-10.3); Creatinine Clr Calc Pharmacy 57.9 ml/min; Potassium 4.2 mmol/L (3.5-5.1)
--- NOTE | 2024-10-07 10:53 | Hospitalist Progress Note ---
Date of Service October 07, 2024 Assessment & Plan (1) Gait instability: Plan: This is a 59 year old female with past medical history of depression, iron deficiency anemia, hypothyroidism, atrial flutter, bipolar who presented to the ED on 10/04/24 after being brought in by the police. Patient has fallen a few times in the past, and has been admitted to the hospital multiple times I think part of her gait instability stems from bradykinesia, likely from her medications, Risperidone CXR negative; respiratory biofire negative; urinalysis negative Recent Head CT 09/30 - negative labs are ok She also has some mild resting tremor on exam, but no pill rolling type Has been evaluated by neurology for an abnormal MRI brain. No evidence of multiple sclerosis or acute stroke Patient may benefit from tapering down her Risperidone, on admission, was on 2mg HS, now on 1.5mg will continue to taper over the next few days Continue to work with PT (2) Depression: Plan: Takes Risperidone and Trazodone (3) Atrial fibrillation: Plan: On Amiodarone (4) Failure to thrive in adult: Plan: unable to take care of herself at home Probably has some mild cognitive disorder or autism, will need placement (5) Weakness: (6) White matter abnormality on MRI of brain: Plan Patient is not a safe d/c home, due to frequent falls she will need placement Admission and Anticipated Discharge Date Admission Date: October 04, 2024 Subjective patient seen and examined, no new complaints today, sitting up in the chair, tolerating diet Review of Systems Review of Systems: All systems reviewed are negative, apart from the ones contained in the history. Physical Exam Physical Exam: The patient is awake, alert and oriented 3, well developed and well nourished, normocephalic and atraumatic, lying in bed and in no acute distress. HEENT--PERRL, EOMI, mucous membranes and oropharynx mildly dry Neck--supple. No JVD. No bruits. Thyroid normal, trachea midline, no adenopathy. Heart--normal S1 and S2. No murmurs, rubs or gallops. Lungs--clear bilaterally, no respiratory distress, no accessory muscle use. Abdomen--normal bowel sounds and soft. Extremities--no cyanosis or clubbing. No edema. Dermatologic--normal skin turgor, normal color, no abnormal lymph nodes, no rash. Neurologic--cranial nerves II through XII grossly intact. coarse rest tremor Rheumatologic--normal range of motion. Psychiatric--normal affect. Results & Data Results & Data Vital Signs (Past 12 Hours) Vital Signs Temp Pulse Resp BP Pulse Ox O2 Del Method 10/07/24 07:06 98.1 F 55 L 18 121/75 95 Room Air PG Care Time/CCT Total # of Minutes Spent Total Time Spent with Patient: Total time spent is greater than 50% in coordination of care (as documented) at patient's floor/unit and/or counseling patient: Coding Level of Care Code 95085 SUB INP/OBS CARE 2/35MIN Diagnoses Gait instability R26.81 Depression F32.A Atrial fibrillation I48.91 Failure to thrive in adult R62.7 Weakness R53.1 White matter abnormality on MRI of brain R90.82 Time Spent (min) 35
--- NOTE | 2024-10-08 11:18 | Hospitalist Progress Note ---
Date of Service October 08, 2024 Assessment & Plan (1) Gait instability: Plan: This is a 59 year old female with past medical history of depression, iron deficiency anemia, hypothyroidism, atrial flutter, bipolar who presented to the ED on 10/04/24 after being brought in by the police. Patient has fallen a few times in the past, and has been admitted to the hospital multiple times I think part of her gait instability stems from bradykinesia, likely from her medications, Risperidone CXR negative; respiratory biofire negative; urinalysis negative Recent Head CT 09/30 - negative labs are ok She also has some mild resting tremor on exam, but no pill rolling type Has been evaluated by neurology for an abnormal MRI brain. No evidence of multiple sclerosis or acute stroke Patient may benefit from tapering down her Risperidone, on admission, was on 2mg HS, now on 1.5mg will continue to taper over the next few days Continue to work with PT (2) Depression: Plan: Takes Risperidone and Trazodone (3) Atrial fibrillation: Plan: On Amiodarone (4) Failure to thrive in adult: Plan: unable to take care of herself at home Probably has some mild cognitive disorder or autism, will need placement or will go home with a waiver program where many of her needs will be met (5) Weakness: (6) White matter abnormality on MRI of brain: Plan Patient is not a safe d/c home, due to frequent falls she will need placement or will go home with a waiver program where many of her needs will be met Admission and Anticipated Discharge Date Admission Date: October 04, 2024 Subjective patient seen and examined, no new complaints today, sitting up in the chair, tolerating diet Review of Systems Review of Systems: All systems reviewed are negative, apart from the ones contained in the history. Physical Exam Physical Exam: The patient is awake, alert and oriented 3, well developed and well nourished, normocephalic and atraumatic, lying in bed and in no acute distress. HEENT--PERRL, EOMI, mucous membranes and oropharynx mildly dry Neck--supple. No JVD. No bruits. Thyroid normal, trachea midline, no a denopathy. Heart--normal S1 and S2. No murmurs, rubs or gallops. Lungs--clear bilaterally, no respiratory distress, no accessory muscle use. Abdomen--normal bowel sounds and soft. Extremities--no cyanosis or clubbing. No edema. Dermatologic--normal skin turgor, normal color, no abnormal lymph nodes, no rash. Neurologic--cranial nerves II through XII grossly intact. coarse rest tremor Rheumatologic--normal range of motion. Psychiatric--normal affect. Results & Data Results & Data Vital Signs (Past 12 Hours) Vital Signs Temp Pulse Resp BP Pulse Ox O2 Del Method 10/08/24 07:27 98.2 F 55 L 16 98/62 L 96 Room Air PG Care Time/CCT Total # of Minutes Spent Total Time Spent with Patient: Total time spent is greater than 50% in coordination of care (as documented) at patient's floor/unit and/or counseling patient: Coding Level of Care Code 85625 SUB INP/OBS CARE 2/35MIN Diagnoses Gait instability R26.81 Depression F32.A Atrial fibrillation I48.91 Failure to thrive in adult R62.7 Weakness R53.1 White matter abnormality on MRI of brain R90.82 Time Spent (min) 35
[2024-10-08 13:37] LABS: MDA negative; MDEA negative; MDMA (Ecstasy) Urine, Confirm negative
[2024-10-08] MEDS: bisacodyL 10 MG SUPP PR STA (14:38)
[2024-10-09 08:45] LABS: Hematocrit (blood only) 36.2 % (37.0-47.0); Hemoglobin 12.4 g/dl (12.0-16.0); Mean Corpuscular Hemoglobin 33.4 pg (25.0-34.0); Mean Corpuscular Hgb Conc 34.3 g/dL (32.0-36.0); Mean Corpuscular Volume 97.6 fL (80.0-100.0); Platelet Count 139 K/uL (130-400); RDW Coefficient of Variation 12.8 % (11.5-14.5); RDW Standard Deviation 45.6 fL (36.4-46.3); Red Blood Count 3.71 M/uL (4.20-5.40); White Blood Count 3.56 K/ul (4.8-10.8)
[2024-10-09 08:52] LABS: BUN Creatinine Ratio 18.8 (10-20); Calcium 9.4 mg/dl (8.6-10.3); Creatinine Clr Calc Pharmacy 59.7 ml/min; Potassium 4.4 mmol/L (3.5-5.1)
[2024-10-09] MEDS: POLYETHYLENE (MIRALAX) 17 GM PACK PO SCH (09:26)
--- NOTE | 2024-10-09 10:23 | Hospitalist Progress Note ---
Date of Service October 09, 2024 Assessment & Plan (1) Gait instability: Plan: This is a 59 year old female with past medical history of depression, iron deficiency anemia, hypothyroidism, atrial flutter, bipolar who presented to the ED on 10/04/24 after being brought in by the police. Patient has fallen a few times in the past, and has been admitted to the hospital multiple times I think part of her gait instability stems from bradykinesia, likely from her medications, Risperidone CXR negative; respiratory biofire negative; urinalysis negative Recent Head CT 09/30 - negative labs are ok She also has some mild resting tremor on exam, but no pill rolling type Has been evaluated by neurology for an abnormal MRI brain. No evidence of multiple sclerosis or acute stroke Patient has benefited from tapering down her Risperidone, on admission, was on 2mg HS, now on 1.5mg, will taper down to 1mg HS today,10/09 will continue to taper over the next few days Continue to work with PT (2) Depression: Plan: Takes Risperidone and Trazodone (3) Atrial fibrillation: Plan: On Amiodarone (4) Failure to thrive in adult: Plan: unable to take care of herself at home Probably has some mild cognitive disorder or autism, will need placement or will go home with a waiver program where many of her needs will be met (5) Weakness: (6) White matter abnormality on MRI of brain: Plan: No evidence of MS Plan Patient is not a safe d/c home, due to frequent falls she will need placement or will go home with a waiver program where many of her needs will be met Admission and Anticipated Discharge Date Admission Date: October 04, 2024 Subjective patient seen and examined, no new complaints today, sitting up in the chair, tolerating diet Review of Systems Review of Systems: All systems reviewed are negative, apart from the ones contained in the history. Physical Exam Physical Exam: The patient is awake, alert and oriented 3, well developed and well nourished, normocephalic and atraumatic, lying in bed and in no acute distress. HEENT--PERRL, EOMI, mucous membranes and oropharynx mildly dry Neck--supple. No JVD. No bruits. Thyroid normal, trachea midline, no adenopathy. Heart--normal S1 and S2. No murmurs, rubs or gallops. Lungs--clear bilaterally, no respiratory distress, no accessory muscle use. Abdomen--normal bowel sounds and soft. Extremities--no cyanosis or clubbing. No edema. Dermatologic--normal skin turgor, normal color, no abnormal lymph nodes, no rash. Neurologic--cranial nerves II through XII grossly intact. coarse rest tremor Rheumatologic--normal range of motion. Psychiatric--normal affect. Results & Data Results & Data Vital Signs (Past 12 Hours) Vital Signs Temp Pulse Resp BP Pulse Ox O2 Del Method 10/09/24 07:20 97.9 F 50 L 20 99/62 L 96 Room Air PG Care Time/CCT Total # of Minutes Spent Total Time Spent with Patient: Total time spent is greater than 50% in coordination of care (as documented) at patient's floor/unit and/or counseling patient: Coding Level of Care Code 87518 SUB INP/OBS CARE 2/35MIN Diagnoses Gait instability R26.81 Depression F32.A Atrial fibrillation I48.91 Failure to thrive in adult R62.7 Weakness R53.1 White matter abnormality on MRI of brain R90.82 Time Spent (min) 35
[2024-10-09] MEDS: risperiDONE 1 MG TABLET PO SCH (22:07)
[2024-10-10 07:49] LABS: Hematocrit (blood only) 35.6 % (37.0-47.0); Hemoglobin 11.9 g/dl (12.0-16.0); Mean Corpuscular Hemoglobin 32.6 pg (25.0-34.0); Mean Corpuscular Hgb Conc 33.4 g/dL (32.0-36.0); Mean Corpuscular Volume 97.5 fL (80.0-100.0); Mean Platelet Volume 9.9 fL (9.4-12.4); Platelet Count 149 K/uL (130-400); RDW Coefficient of Variation 12.9 % (11.5-14.5); RDW Standard Deviation 46.4 fL (36.4-46.3); Red Blood Count 3.65 M/uL (4.20-5.40); White Blood Count 3.74 K/ul (4.8-10.8)
--- NOTE | 2024-10-10 08:00 | Hospitalist Progress Note ---
Date of Service October 10, 2024 Assessment & Plan (1) Gait instability: Plan: This is a 59 year old female with past medical history of major depressive disorder with psychotic features , iron deficiency anemia, hypothyroidism, atrial flutter, bipolar who presented to the ED on 10/04/24 after being brought in by the police as was having difficulty walking. Patient has been admitted to the hospital multiple times due to falls and injury her gait instability stems from bradykinesia, and medications, likely Risperidone CXR negative; respiratory biofire negative; urinalysis negative Recent Head CT 09/30 - negative She also has some mild resting tremor on exam, Has been evaluated by neurology for an abnormal MRI brain. No evidence of multiple sclerosis, Parkinson disease or acute stroke Patient has benefited from tapering down her Risperidone, on admission, was on 2mg HS, now on 1.5mg, will taper down to 1mg HS 10/09 will continue to taper over the next few days Continue to work with PT (2) Depression: Plan: Takes Risperidone and Trazodone (3) Atrial fibrillation: Plan: rate controlled On Amiodarone, not on anticoagulation because of frequent falls sinus bradycardia on admission (4) Failure to thrive in adult: Plan: unable to take care of herself at home Probably has some mild cognitive disorder or autism, will need placement or will go home with a waiver program where many of her needs will be met (5) White matter abnormality on MRI of brain: Plan: No evidence of MS, per neurology visit 07/02 Plan Patient is not a safe d/c home, due to frequent falls she will need placement or will go home with a waiver program where many of her needs will be met Admission and Anticipated Discharge Date Admission Date: October 04, 2024 Subjective patient seen and examined, no new complaints today, sitting up in the chair, tolerating diet discussed home with help or rehab pt states feels much better, but cannot cite what different at the hospital vs home Physical Exam Physical Exam: pleasant, smiles, makes eye contact endorses depresssion cardiac is regular lungs are clear Results & Data Results & Data Laboratory Results review cbc review chemistry PG Care Time/CCT Total # of Minutes Spent Total Time Spent with Patient: Total time spent is greater than 50% in coordination of care (as documented) at patient's floor/unit and/or counseling patient: Coding Level of Care Code 64939 SUB INP/OBS CARE 2/35MIN Diagnoses Gait instability R26.81 Depression F32.A Atrial fibrillation I48.91 Failure to thrive in adult R62.7 White matter abnormality on MRI of brain R90.82
[2024-10-10 08:02] LABS: BUN Creatinine Ratio 20.8 (10-20); Calcium 9.5 mg/dl (8.6-10.3); Creatinine Clr Calc Pharmacy 59.7 ml/min; Potassium 4.4 mmol/L (3.5-5.1)
--- NOTE | 2024-10-11 07:50 | Hospitalist Progress Note ---
Date of Service October 11, 2024 Assessment & Plan (1) Gait instability: Plan: This is a 59 year old female with past medical history of major depressive disorder with psychotic features , iron deficiency anemia, hypothyroidism, atrial flutter, bipolar who presented to the ED on 10/04/24 after being brought in by the police as was having difficulty walking. Patient has been admitted to the hospital multiple times due to falls and injury her gait instability stems from bradykinesia, and medications, likely Risperidone( which we are reducing) CXR negative; respiratory biofire negative; urinalysis negative Recent Head CT 09/30 - negative She also has some mild resting tremor on exam, Has been evaluated by neurology for an abnormal MRI brain. No evidence of multiple sclerosis, Parkinson disease or acute stroke Patient has benefited from tapering down her Risperidone, on admission, was on 2mg HS, taper down to 1mg HS 10/09 Continue to work with PT (2) Depression: Plan: Takes Risperidone and Trazodone, does not seem worse since tapering resperidone (3) Atrial fibrillation: Plan: rate controlled On Amiodarone, not on anticoagulation because of frequent falls sinus bradycardia on admission (4) Failure to thrive in adult: Plan: unable to take care of herself at home Probably has some mild cognitive disorder or autism, will need placement or will go home with a waiver program where many of her needs will be met (5) White matter abnormality on MRI of brain: Plan: No evidence of MS, per neurology visit 07/02 Plan Patient is not a safe d/c home, due to frequent falls she will need placement or will go home with a waiver program where many of her needs will be met Admission and Anticipated Discharge Date Admission Date: October 04, 2024 Subjective patient seen and examined, no new complaints 10/11, sitting up in the chair, tolerating diet discussed home with help or rehab pt states feels much better, but cannot cite what different at the hospital vs home Physical Exam Physical Exam: pleasant, smiles, makes eye contact continues to endorse depression cardiac is regular lungs are clear Results & Data Results & Data Vital Signs (Past 12 Hours) Vital Signs Temp Pulse Resp BP Pulse Ox O2 Del Method 10/10/24 20:36 97.7 F 53 L 20 99/62 L 97 Room Air PG Care Time/CCT Total # of Minutes Spent Total Time Spent with Patient: Total time spent is greater than 50% in coordination of care (as documented) at patient's floor/unit and/or counseling patient: Coding Level of Care Code 22771 SUB INP/OBS CARE 2/35MIN Diagnoses Gait instability R26.81 Depression F32.A Atrial fibrillation I48.91 Failure to thrive in adult R62.7 White matter abnormality on MRI of brain R90.82
--- NOTE | 2024-10-12 12:47 | Hospitalist Progress Note ---
Date of Service October 12, 2024 Assessment & Plan (1) Gait instability: Plan: This is a 59 year old female with past medical history of major depressive disorder with psychotic features , iron deficiency anemia, hypothyroidism, atrial flutter, bipolar who presented to the ED on 10/04/24 after being brought in by the police as was having difficulty walking. Patient has been admitted to the hospital multiple times due to falls and injury her gait instability stems from bradykinesia, and medications, likely Risperidone( which we are reducing) CXR negative; respiratory biofire negative; urinalysis negative Recent Head CT 09/30 - negative She also has some mild resting tremor on exam, Has been evaluated by neurology for an abnormal MRI brain. No evidence of multiple sclerosis, Parkinson disease or acute stroke Patient has benefited from tapering down her Risperidone, on admission, was on 2mg HS, s/p dosage change to 1mg HS on 10/09. Continue to work with PT (2) Depression: Plan: Takes Risperidone and Trazodone, does not seem worse since tapering risperidone Psych consulted 2/3, appreciate recommendations. consult requested by Jem Chávez (3) Failure to thrive in adult: Plan: unable to take care of herself at home will need placement or will go home with a waiver program where many of her needs will be met Plan Chronic conditions: A fib: amiodarone. No anticoagulation due to frequent falls Patient medically stable for discharge pending placement. DVT prophylaxis: Lovenox Code: full Admission and Anticipated Discharge Date Admission Date: October 04, 2024 Subjective Patient seen and examined this morning. Patient w/ complaints of constipation but states she is going to take a laxative this morning. She denies any additional complaints Physical Exam Constitutional: WD/WN, vitals as above Eyes: PERRL, conjunctivae normal, anicteric sclerae Respiratory: breathing unlabored Cardiovascular: well perfused Psychiatric: Affect: + flat affect Mood: + depressed mood Results & Data Results & Data Vital Signs (Past 12 Hours) Vital Signs Temp Pulse Resp BP Pulse Ox O2 Del Method 10/12/24 08:17 71 122/67 96 Room Air 10/12/24 07:41 36.5 C 54 L 15 99/63 L 96 Room Air PG Care Time/CCT Total # of Minutes Spent Total Time Spent with Patient: Total time spent is greater than 50% in coordination of care (as documented) at patient's floor/unit and/or counseling patient: Coding Level of Care Code 82938 SUB INP/OBS CARE Diagnoses Gait instability R26.81 Depression F32.A Failure to thrive in adult R62.7
--- NOTE | 2024-10-12 15:15 | Psychiatric Consultation ---
Date of Consultation October 12, 2024 Impression / Recommendations Impression Diagnostically consistent with likely depressive episode in context of bipolar affective disorder vs side effects from risperidone and Depakote. No evidence for catatonia currently but this should remain on the differential if she develops increased muscle stiffness and rigidity or slowed movements despite changes in risperidone. Some speech latency, suspect possibly due to depression. At this time given her dizziness and weakness as most prominent symptoms agree with discontinuation of risperidone. Would also consider tapering Depakote slightly given level was >100 and this can contribute to dizziness. Ammonia was normal on admission. If depression symptoms worsen an SSRI such as sertraline could be added to help with symptoms. Acute risk of self-harm is low given denial of SI, future-oriented and feels well supported with multiple outpatient providers. Overall, I spent a total of 60 minutes with this case including review of chart records, review of labwork, direct evaluation of the patient at bedside, counseling the patient, discussion of the patient with the hospitalist provider, discussion with the psychiatric liason during clinical rounds and documentation in the electronic health record. (1) Episode of generalized weakness: (2) Gait instability: (3) Weakness: (4) Bipolar affective disorder, currently depressed, mild: Plan -Discontinue risperidone after tonight's dose -Consider decreasing Depakote ER to 1000mg HS -SSRI should be considered in the future if depression symptoms worsen or persist after weakness/dizziness improves -Psych liason attempting further collateral from outpatient CM -Psych liasons to continue rounding to offer support as needed Psych History Identifying Data 59 yo woman with a history of bipolar affective disorder admitted for increased weakness, falls, failure to thrive at home. Psychiatry consulted for bipolar disorder, depression and per Jem Chávez CM request. Chief Complaint "I've been dizzy and weak". History of Present Illness Traci is known to the service from previous consultations when she was experiencing an episode of lukas. Currently she endorses some depression as well worsened weakness and fatigue in recent months. She was struggling to have energy and strength to go to the grocery store and was running low on food. She feels her apartment is in disarray because it's hard for her to keep it clean. Hasn't been sleeping well due to back pain because her bed frame is missing the slats to support her mattress. Reports she is also struggling to get in touch with her rep payee who helps to manage her finances. Feels well supported by her outpatient providers including her therapist (Mechelle Hopper), Psychiatric provider (Avinash Briggs) and CM (Ayo). She is in support of the plan to get some physical rehab to get stronger. She denies any hx of catatonia nor inability to move or speak in recent weeks. Speech is latent at times. She denies SI. Denies any substance use. Reviewed chart and her report of meeting with neurology this fall who ruled out MS (she has family history). At that time she was noted to have bradykinesia and some possible pseudo Parkinsonism side effects presumed to be due to her antipsychotic treatment with risperidone. APS remains involved. Allergies Allergy/AdvReac Type Severity Reaction Status Date / Time levothyroxine Allergy Unknown HEART Verified 09/08/24 13:31 PALPITATIONS peanut Allergy Unknown HIVES, Verified 09/08/24 13:31 FACIAL SWELLING,LIPS AND TONGUE penicillin V Allergy Unknown pt does Verified 09/08/24 13:31 not know reaction acetaminophen [From Tylenol] AdvReac Unknown Makes me Verified 09/08/24 13:31 feel loopy and out of sorts ibuprofen [From Advil] AdvReac Unknown Makes me Verified 09/08/24 13:31 feel loopy and out of sorts naproxen AdvReac Unknown Disorientat Verified 09/08/24 13:31 ion NSAIDS (Non-Steroidal AdvReac Unknown Disorientat Verified 09/08/24 13:31 Anti-Inflamma ion Home Medications Medication Instructions Recorded Confirmed Type divalproex 500 mg tablet,extended 1,500 mg PO HS 03/06/24 10/04/24 History release 24 hr epinephrine 0.3 mg/0.3 mL 0.3 ml IM ONCE PRN Anaphylaxis 09/20/24 10/04/24 History injection, auto-injector risperidone 2 mg tablet 2 mg PO HS 09/20/24 10/04/24 History trazodone 50 mg tablet 25 - 50 mg PO DAILY 09/26/24 10/04/24 History amiodarone 200 mg tablet 50 mg (1/4 x 200 mg) PO DAILY #30 09/28/24 10/04/24 Rx tabs Patient History Medical History (Updated 10/12/24 @ 16:18 by Diandra Duron MD) Weakness Failure to thrive in adult MRI of brain abnormal ? abnormal: Results known: some spots on white matter ? aging or inactive MS per pt. Upcoming Neuro Jul 06 2024. Had MRI to rule out MS. Pt reports family hx MS. Unspecified mood [affective] disorder just the bipolar depression per pt. Elevated troponin level pt not sure if this was in her hx. Denies hx VT. 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 Bipolar 1 disorder History of migraine hx migraines. Left sided numbness hx - told complex migraine. Quickly resolved after d/c use of liquid b 12 and red dye per pt. History of psychiatric hospitalization December - [facility] [address] [facility]. Ventricular septal defect dx 2001. PFO (patent foramen ovale) pt never heard this term. History of atrial flutter First episode January or February 2024 during psych hospitalization. Pt reports she doesn't think entirely resolved. Dr Ndiaye upcoming May 05 2024. History of atrial fibrillation first episode occured January or February 2024 during psych hospitalization. Pt reports she doesn't feel this is totally resolved. Dr. Ndiaye 05/05/24. Hypothyroid Multiple thyroid nodules Bronchitis hx Snores History of bronchitis Surgical History H/O colonoscopy 04/23/24, repeat 5 years in 2028 History of elective x2 History of total abdominal hysterectomy Family History Father Amyotrophic lateral sclerosis Mother Colorectal cancer DCIS (ductal carcinoma in situ) Breast cancer Brother Multiple sclerosis Prostate cancer Sister Multiple sclerosis Grandmother (Maternal) Diabetes Grandfather (Maternal) Lung cancer Denies family history of Ovarian cancer Social History Smoking Status: Never smoker Second Hand Exposure: No; Do You Dip or Chew Tobacco: No; Hx Alcohol Use: No Hx Substance Use: No Preferred Language: Mozambican Communication Ability: Effective Visual Impairment: No Limitations Hearing Ability: Normal Systems Test Technician Required: No Beliefs That Will Affect Care: None marital status: Single Current Living Situation: Alone Current Living Situation Comment: current transitional housing current occupational status: unemployed How many Children do You have: 0 Feels Safe at Home: Yes Childhood Exposure to Second-Hand Smoke: Yes Diet: low carbohydrate caffeine: Yes Dental Care, Regularly: No Physical Activity Frequency: 5-6 Times per Week Seatbelt Use: always Sunscreen Use: No Gender Identity: Male Assistive Devices: Glasses Physical Exam Psychiatric: Orientation: alert, oriented x 3 and cooperative Apperance: appropriately dressed and appropriately groomed Eye Contact: good eye contact Motor Behavior: + tremor (hands ) Speech: + abnormal rate/rhythm/volume of speech (slightly latent) Affect: + constricted affect Mood: + depressed mood Thought Process: goal directed thought process Thought Content: reality based without delusions Suicidal Thoughts: denies suicidal thoughts Homicidal Thoughts: denies homicidal thoughts Hallucinations: no auditory hallucinations and no visual hallucinations Cognition: recent memory grossly intact, remote memory grossly intact, attention grossly intact and language grossly intact Insight: + fair insight Judgment: + limited judgement Vital Signs (Past 24 Hours): Last Vital Signs Temp 37.1 C 10/12/24 14:40 Pulse 61 10/12/24 14:40 Resp 16 10/12/24 14:40 BP 103/64 10/12/24 14:40 Pulse Ox 96 10/12/24 14:40 O2 Del Method Room Air 10/12/24 14:40 Results & Data (PSY) Medications Administered Amiodarone HCl (Amiodarone 200 Mg Tab) 50 mg PO DAILY ANAY Stop: 11/04/24 08:59 Last Admin: 10/12/24 08:04 Dose: 50 mg Documented By: Admin: 10/11/24 08:05 Dose: 50 mg Documented By: Admin: 10/10/24 08:37 Dose: 50 mg Documented By: Admin: 10/09/24 08:36 Dose: 50 mg Documented By: Admin: 10/08/24 07:38 Dose: Not Given Documented By: Admin: 10/07/24 08:07 Dose: 50 mg Documented By: Admin: 10/06/24 08:37 Dose: 50 mg Documented By: Admin: 10/05/24 08:39 Dose: 50 mg Documented By: JUSTIN Enoxaparin Sodium (Enoxaparin Inj 40 Mg/0.4 Ml Syr) 40 mg SQ QPM ANAY Stop: 11/03/24 20:59 Last Admin: 10/11/24 20:33 Dose: 40 mg Documented By: Admin: 10/10/24 20:26 Dose: 40 mg Documented By: Admin: 10/09/24 22:07 Dose: 40 mg Documented By: Admin: 10/08/24 21:00 Dose: 40 mg Documented By: Admin: 10/07/24 21:18 Dose: 40 mg Documented By: Admin: 10/06/24 20:29 Dose: 40 mg Documented By: Admin: 10/05/24 20:17 Dose: Not Given Documented By: Admin: 10/04/24 20:57 Dose: Not Given Documented By: BLM Polyethylene Glycol (Polyethylene (Miralax) 17 Gm Pack) 17 gm PO DAILY ANAY Stop: 11/08/24 09:14 Last Admin: 10/12/24 08:09 Dose: 17 gm Documented By: Admin: 10/11/24 08:04 Dose: 17 gm Documented By: Admin: 10/10/24 08:36 Dose: 17 gm Documented By: Admin: 10/09/24 09:26 Dose: 17 gm Documented By: PRATIMA Trazodone HCl (Trazodone Hcl 50 Mg Tab) 25 mg PO DAILY ANAY Stop: 11/04/24 08:59 Last Admin: 10/12/24 08:06 Dose: 25 mg Documented By: Admin: 10/11/24 08:04 Dose: 25 mg Documented By: Admin: 10/10/24 08:36 Dose: 25 mg Documented By: Admin: 10/09/24 08:36 Dose: 25 mg Documented By: Admin: 10/08/24 07:35 Dose: 25 mg Documented By: Admin: 10/07/24 08:07 Dose: 25 mg Documented By: Admin: 10/06/24 08:37 Dose: 25 mg Documented By: Admin: 10/05/24 08:38 Dose: 25 mg Documented By: ED Coding Level of Care Code 09509 IN/OBS CONSULT LVL 4,60M Diagnoses Episode of generalized weakness R53.1 Gait instability R26.81 Weakness R53.1 Bipolar affective disorder, currently depressed, mild F31.31
[2024-10-12] MEDS: DIVALPROEX EXTENDED RELEASE 500 MG TAB PO SCH (19:54)
[2024-10-13 05:55] LABS: Hemoglobin 12.1 g/dl (12.0-16.0); Mean Corpuscular Hemoglobin 33.1 pg (25.0-34.0); Mean Corpuscular Hgb Conc 33.6 g/dL (32.0-36.0); Mean Corpuscular Volume 98.4 fL (80.0-100.0); Mean Platelet Volume 9.7 fL (9.4-12.4); Platelet Count 175 K/uL (130-400); RDW Coefficient of Variation 13.1 % (11.5-14.5); RDW Standard Deviation 47.3 fL (36.4-46.3); Red Blood Count 3.66 M/uL (4.20-5.40); White Blood Count 4.33 K/ul (4.8-10.8)
[2024-10-13 06:07] LABS: BUN Creatinine Ratio 20.2 (10-20); Creatinine Clr Calc Pharmacy 52.8 ml/min; Potassium 4.2 mmol/L (3.5-5.1)
--- NOTE | 2024-10-13 13:44 | Hospitalist Progress Note ---
Date of Service October 13, 2024 Assessment & Plan (1) Gait instability: Plan: This is a 59 year old female with past medical history of major depressive disorder with psychotic features , iron deficiency anemia, hypothyroidism, atrial flutter, bipolar who presented to the ED on 10/04/24 after being brought in by the police as was having difficulty walking. Patient has been admitted to the hospital multiple times due to falls and injury her gait instability stems from bradykinesia and medications CXR negative; respiratory biofire negative; urinalysis negative Recent Head CT 09/30 - negative She also has some mild resting tremor on exam, Has been evaluated by neurology for an abnormal MRI brain. No evidence of multiple sclerosis, Parkinson disease or acute stroke Continue to work with PT (2) Depression: Plan: Takes Risperidone and Trazodone, does not seem worse since tapering risperidone Psych consulted 2 - recommending decrease Depakote to 1000mg HS and discontinuing risperidone. If depressed mood doesn't improve consider SSRI. (3) Failure to thrive in adult: Plan: unable to take care of herself at home will need placement or will go home with a waiver program where many of her needs will be met Plan Chronic conditions: A fib: amiodarone. No anticoagulation due to frequent falls Patient medically stable for discharge pending placement. DVT prophylaxis: Lovenox Code: full Admission and Anticipated Discharge Date Admission Date: October 04, 2024 Subjective Patient seen and examined today. Patient reports improvement in her dizziness. she denied any additional complaints. Physical Exam Constitutional: WD/WN, vitals as above Eyes: PERRL, conjunctivae normal, anicteric sclerae Respiratory: breathing unlabored Cardiovascular: well perfused Psychiatric: Affect: + depressed affect Mood: + depressed mood Results & Data Results & Data Vital Signs (Past 12 Hours) Vital Signs Temp Pulse Resp BP Pulse Ox O2 Del Method 10/13/24 07:53 36.5 C 64 16 97/58 L 98 Room Air PG Care Time/CCT Total # of Minutes Spent Total Time Spent with Patient: Total time spent is greater than 50% in coordination of care (as documented) at patient's floor/unit and/or counseling patient: Coding Level of Care Code 71360 SUB INP/OBS CARE 2/35MIN Diagnoses Gait instability R26.81 Depression F32.A Failure to thrive in adult R62.7
--- NOTE | 2024-10-14 13:02 | Hospitalist Progress Note ---
Date of Service October 14, 2024 Assessment & Plan (1) Gait instability: Plan: This is a 59 year old female with past medical history of major depressive disorder with psychotic features , iron deficiency anemia, hypothyroidism, atrial flutter, bipolar who presented to the ED on 10/04/24 after being brought in by the police as was having difficulty walking. Patient has been admitted to the hospital multiple times due to falls and injury her gait instability stems from bradykinesia and medications CXR negative; respiratory biofire negative; urinalysis negative Recent Head CT 09/30 - negative Has been evaluated by neurology for an abnormal MRI brain. No evidence of multiple sclerosis, Parkinson disease or acute stroke Continue to work with PT (2) Depression: Plan: Takes Risperidone and Trazodone, does not seem worse since discontinuing risperidone Psych consulted 2/3 - recommending decrease Depakote to 1000mg HS and discontinuing risperidone. If depressed mood doesn't improve consider SSRI. (3) Failure to thrive in adult: Plan: unable to take care of herself at home will need placement or will go home with a waiver program where many of her needs will be met Plan Chronic conditions: A fib: amiodarone. No anticoagulation due to frequent falls Patient medically stable for discharge pending placement. DVT prophylaxis: Lovenox Code: full Admission and Anticipated Discharge Date Admission Date: October 04, 2024 Subjective Patient seen and examined this morning. Patient reports her dizziness has resolved and she feels that she is getting stronger each day. She denied any additional complaints today. Physical Exam Constitutional: WD/WN, vitals as above Eyes: PERRL, conjunctivae normal, anicteric sclerae Respiratory: breathing unlabored Cardiovascular: well perfused Psychiatric: Affect: + flat affect Mood: + depressed mood Results & Data Results & Data Vital Signs (Past 12 Hours) Vital Signs Temp Pulse Resp BP Pulse Ox O2 Del Method 10/14/24 08:37 60 106/64 10/14/24 07:47 36.5 C 55 L 16 112/68 98 Room Air PG Care Time/CCT Total # of Minutes Spent Total Time Spent with Patient: Total time spent is greater than 50% in coordination of care (as documented) at patient's floor/unit and/or counseling patient: Coding Level of Care Code 99853 SUB INP/OBS CARE 2/35MIN Diagnoses Gait instability R26.81 Depression F32.A Failure to thrive in adult R62.7
--- NOTE | 2024-10-15 14:06 | Hospitalist Progress Note ---
Date of Service October 15, 2024 Assessment & Plan (1) Gait instability: Plan: This is a 59 year old female with past medical history of major depressive disorder with psychotic features , iron deficiency anemia, hypothyroidism, atrial flutter, bipolar who presented to the ED on 10/04/24 after being brought in by the police as was having difficulty walking. Patient has been admitted to the hospital multiple times due to falls and injury her gait instability stems from bradykinesia and medications CXR negative; respiratory biofire negative; urinalysis negative Recent Head CT 09/30 - negative Has been evaluated by neurology for an abnormal MRI brain. No evidence of multiple sclerosis, Parkinson disease or acute stroke Continue to work with PT (2) Depression: Plan: Takes Risperidone and Trazodone, does not seem worse since discontinuing risperidone Psych consulted 2/3 - recommending decrease Depakote to 1000mg HS and discontinuing risperidone. If depressed mood doesn't improve consider SSRI. Patient appears to be responding well to the changes in her psych medications. (3) Failure to thrive in adult: Plan: unable to take care of herself at home will need placement or will go home with a waiver program where many of her needs will be met Plan Chronic conditions: A fib: amiodarone. No anticoagulation due to frequent falls Patient medically stable for discharge pending placement. DVT prophylaxis: Lovenox Code: full Admission and Anticipated Discharge Date Admission Date: October 04, 2024 Subjective Patient seen and examined this morning. Patient reports to be doing well today. She denies any complaints. Physical Exam Constitutional: WD/WN, vitals as above Eyes: PERRL, conjunctivae normal, anicteric sclerae Respiratory: breathing unlabored Cardiovascular: well perfused Psychiatric: flat affect. depressed mood. Results & Data Results & Data Vital Signs (Past 12 Hours) Vital Signs Temp Pulse Resp BP Pulse Ox O2 Del Method 10/15/24 08:19 66 141/81 H 10/15/24 07:15 36.9 C 59 L 18 126/81 96 Room Air PG Care Time/CCT Total # of Minutes Spent Total Time Spent with Patient: Total time spent is greater than 50% in coordination of care (as documented) at patient's floor/unit and/or counseling patient: Coding Level of Care Code 51172 SUB INP/OBS CARE 10/03MIN Diagnoses Gait instability R26.81 Depression F32.A Failure to thrive in adult R62.7
--- NOTE | 2024-10-16 14:09 | Hospitalist Progress Note ---
Date of Service October 16, 2024 Assessment & Plan (1) Gait instability: Plan: This is a 59 year old female with past medical history of major depressive disorder with psychotic features , iron deficiency anemia, hypothyroidism, atrial flutter, bipolar who presented to the ED on 10/04/24 after being brought in by the police as was having difficulty walking. Patient has been admitted to the hospital multiple times due to falls and injury her gait instability stems from bradykinesia and medications CXR negative; respiratory biofire negative; urinalysis negative Recent Head CT 09/30 - negative Has been evaluated by neurology for an abnormal MRI brain. No evidence of multiple sclerosis, Parkinson disease or acute stroke Continue to work with PT (2) Depression: Plan: Takes Risperidone and Trazodone, does not seem worse since discontinuing risperidone Psych consulted 2/3 - recommending decrease Depakote to 1000mg HS and discontinuing risperidone. If depressed mood doesn't improve consider SSRI. Patient appears to be responding well to the changes in her psych medications. (3) Failure to thrive in adult: Plan: unable to take care of herself at home will need placement or will go home with a waiver program where many of her needs will be met Plan Chronic conditions: A fib: amiodarone. No anticoagulation due to frequent falls Patient medically stable for discharge pending placement. DVT prophylaxis: Lovenox Code: full Admission and Anticipated Discharge Date Admission Date: October 04, 2024 Subjective Patient seen and examined this morning. patient denied any complaints at time of encounter. She was resting comfortably in bed. She is agreeable to rehab when available. Physical Exam Constitutional: WD/WN, vitals as above Eyes: PERRL, conjunctivae normal, anicteric sclerae Respiratory: breathing unlabored Cardiovascular: well perfused Psychiatric: flat affect. depressed mood Results & Data Results & Data Vital Signs (Past 12 Hours) Vital Signs Temp Pulse Pulse Resp BP Pulse Ox O2 Del Method 10/16/24 12:06 36.9 C 56 L 12 102/60 95 Room Air 10/16/24 08:32 37.1 C 56 L 12 126/78 95 Room Air 10/16/24 07:15 Room Air 10/16/24 07:12 36.6 C 54 L 20 121/69 96 Room Air PG Care Time/CCT Total # of Minutes Spent Total Time Spent with Patient: Total time spent is greater than 50% in coordination of care (as documented) at patient's floor/unit and/or counseling patient: Coding Level of Care Code 73055 SUB INP/OBS CARE Diagnoses Gait instability R26.81 Depression F32.A Failure to thrive in adult R62.7
--- NOTE | 2024-10-17 23:34 | Hospitalist Progress Note ---
Date of Service October 17, 2024 Assessment & Plan (1) Gait instability: Plan: This is a 59 year old female with past medical history of major depressive disorder with psychotic features , iron deficiency anemia, hypothyroidism, atrial flutter, bipolar who presented to the ED on 10/04/24 after being brought in by the police as was having difficulty walking. Patient has been admitted to the hospital multiple times due to falls and injury her gait instability stems from bradykinesia and medications CXR negative; respiratory biofire negative; urinalysis negative Recent Head CT 09/30 - negative Has been evaluated by neurology for an abnormal MRI brain. No evidence of multiple sclerosis, Parkinson disease or acute stroke Continue to work with PT vitals and labs stable on 10/17 (2) Depression: Plan: Takes Risperidone and Trazodone, does not seem worse since discontinuing risperidone Psych consulted 10/12 - recommending decrease Depakote to 1000mg HS and discontinuing risperidone. If depressed mood doesn't improve consider SSRI. Patient appears to be responding well to the changes in her psych medications. (3) Failure to thrive in adult: Plan: unable to take care of herself at home will need placement or will go home with a waiver program where many of her needs will be met Plan Chronic conditions: A fib: amiodarone. No anticoagulation due to frequent falls Patient medically stable for discharge pending placement. DVT prophylaxis: Lovenox Code: full Admission and Anticipated Discharge Date Admission Date: October 04, 2024 Subjective Patient reports no new symptoms. Physical Exam Constitutional: WD/WN, vitals as above Eyes: PERRL, conjunctivae normal, anicteric sclerae Respiratory: breathing unlabored Cardiovascular: well perfused Psychiatric: flat affect. depressed mood Results & Data Results & Data Vital Signs (Past 12 Hours) Vital Signs Temp Pulse Resp BP Pulse Ox O2 Del Method 10/17/24 20:11 36.8 C 53 L 16 113/66 98 Room Air 10/17/24 15:40 36.8 C 74 16 120/72 98 Room Air PG Care Time/CCT Total # of Minutes Spent Total Time Spent with Patient: Total time spent is greater than 50% in coordination of care (as documented) at patient's floor/unit and/or counseling patient: Coding Level of Care Code 35260 SUB INP/OBS CARE 2/35MIN Diagnoses Gait instability R26.81 Depression F32.A Failure to thrive in adult R62.7
[2024-10-18 05:50] LABS: Hematocrit (blood only) 37.5 % (37.0-47.0); Hemoglobin 13.1 g/dl (12.0-16.0); Mean Corpuscular Hemoglobin 34.1 pg (25.0-34.0); Mean Corpuscular Hgb Conc 34.9 g/dL (32.0-36.0); Mean Corpuscular Volume 97.7 fL (80.0-100.0); Mean Platelet Volume 9.5 fL (9.4-12.4); Platelet Count 195 K/uL (130-400); RDW Coefficient of Variation 12.9 % (11.5-14.5); RDW Standard Deviation 46.4 fL (36.4-46.3); Red Blood Count 3.84 M/uL (4.20-5.40); White Blood Count 5.56 K/ul (4.8-10.8)
[2024-10-18 06:02] LABS: Calcium 9.6 mg/dl (8.6-10.3)
[2024-10-18 06:08] LABS: BUN Creatinine Ratio 24.7 (10-20); Creatinine Clr Calc Pharmacy 70.9 ml/min
--- NOTE | 2024-10-18 23:30 | Hospitalist Progress Note ---
Date of Service October 18, 2024 Assessment & Plan (1) Gait instability: Plan: This is a 59 year old female with past medical history of major depressive disorder with psychotic features , iron deficiency anemia, hypothyroidism, atrial flutter, bipolar who presented to the ED on 10/04/24 after being brought in by the police as was having difficulty walking. Patient has been admitted to the hospital multiple times due to falls and injury her gait instability stems from bradykinesia and medications CXR negative; respiratory biofire negative; urinalysis negative Recent Head CT 09/30 - negative Has been evaluated by neurology for an abnormal MRI brain. No evidence of multiple sclerosis, Parkinson disease or acute stroke Continue to work with PT vitals and labs stable on 10/18 (2) Depression: Plan: Takes Risperidone and Trazodone, does not seem worse since discontinuing risperidone Psych consulted 10/12 - recommending decrease Depakote to 1000mg HS and discontinuing risperidone. If depressed mood doesn't improve consider SSRI. Patient appears to be responding well to the changes in her psych medications. (3) Failure to thrive in adult: Plan: unable to take care of herself at home will need placement or will go home with a waiver program where many of her needs will be met Plan Chronic conditions: A fib: amiodarone. No anticoagulation due to frequent falls Patient medically stable for discharge pending placement. DVT prophylaxis: Lovenox Code: full Admission and Anticipated Discharge Date Admission Date: October 04, 2024 Subjective Patient reports no new symptoms. Physical Exam Constitutional: WD/WN, vitals as above Eyes: PERRL, conjunctivae normal, anicteric sclerae Results & Data Results & Data Vital Signs (Past 12 Hours) Vital Signs Temp Pulse Resp BP Pulse Ox O2 Del Method 10/18/24 21:00 37.1 C 57 L 14 128/77 99 Room Air 10/18/24 15:47 36.7 C 74 16 118/74 98 Room Air PG Care Time/CCT Total # of Minutes Spent Total Time Spent with Patient: Total time spent is greater than 50% in coordination of care (as documented) at patient's floor/unit and/or counseling patient: Coding Level of Care Code 66798 SUB INP/OBS CARE 2/35MIN Diagnoses Gait instability R26.81 Depression F32.A Failure to thrive in adult R62.7
--- NOTE | 2024-10-19 08:09 | Hospitalist Progress Note ---
Date of Service October 19, 2024 Assessment & Plan (1) Gait instability: (2) Depression: Plan: (3) Failure to thrive in adult: Plan This is a 59 year old female with past medical history of major depressive dis order with psychotic features , iron deficiency anemia, hypothyroidism, atrial flutter, bipolar who presented to the ED on 10/04/24 after being brought in by the police as was having difficulty walking. Patient has been admitted to the hospital multiple times due to falls and injury her gait instability stems from bradykinesia and medications CXR negative; respiratory biofire negative; urinalysis negative Recent Head CT 09/30 - negative Has been evaluated by neurology for an abnormal MRI brain. No evidence of multiple sclerosis, Parkinson disease or acute stroke Depression, does not seem worse since discontinuing risperidone Psych consulted 10/12 - recommending decrease Depakote to 1000mg HS and discontinuing risperidone. If depressed mood doesn't improve early SSRI. Patient appears to be responding well to the changes in her psych medications. Chronic conditions: A fib: amiodarone. No anticoagulation due to frequent falls Patient medically stable for discharge pending placement,, snf needs to guardianship, previous retirement confirms that this is not an issue DVT prophylaxis: Lovenox Code: full Admission and Anticipated Discharge Date Admission Date: October 04, 2024 Subjective pt has no complaints, does not watch TV, does not want books/seek a work et just wants to lie and think Physical Exam Physical Exam: pleasant in no distress cardiac is regular, lungs are clear Results & Data Results & Data Vital Signs (Past 12 Hours) Vital Signs Temp Pulse Pulse Resp BP Pulse Ox O2 Del Method 10/19/24 08:02 98.8 F 74 18 110/70 97 Room Air 10/18/24 21:00 98.8 F 57 L 14 128/77 99 Room Air PG Care Time/CCT Total # of Minutes Spent Total Time Spent with Patient: Total time spent is greater than 50% in coordination of care (as documented) at patient's floor/unit and/or counseling patient: Coding Level of Care Code 95970 SUB INP/OBS CARE 2/35MIN Diagnoses Gait instability R26.81 Depression F32.A Failure to thrive in adult R62.7
[2024-10-19] MEDS: traZODone HCL 50 MG TAB PO ONE (21:01)
--- NOTE | 2024-10-20 11:09 | Hospitalist Progress Note ---
Date of Service October 20, 2024 Assessment & Plan (1) Gait instability: (2) Depression: Plan: (3) Failure to thrive in adult: Plan This is a 59 year old female with past medical history of major depressive dis order with psychotic features , iron deficiency anemia, hypothyroidism, atrial flutter, bipolar who presented to the ED on 10/04/24 after being brought in by the police as was having difficulty walking. No new changes to her medical care on 10/20/2024 Patient has been admitted to the hospital multiple times due to falls and injury her gait instability stems from bradykinesia and medications CXR negative; respiratory biofire negative; urinalysis negative Recent Head CT 09/30 - negative Has been evaluated by neurology for an abnormal MRI brain. No evidence of multiple sclerosis, Parkinson disease or acute stroke Depression, does not seem worse since discontinuing risperidone Psych consulted 10/12 - recommending decrease Depakote to 1000mg HS and discontinuing risperidone. If depressed mood doesn't improve early SSRI. Patient appears to be responding well to the changes in her psych medications. Chronic conditions: A fib: amiodarone. No anticoagulation due to frequent falls Patient medically stable for discharge pending placement,, snf needs to guardianship, previous shelter confirms that this is not an issue DVT prophylaxis: Lovenox Code: full Admission and Anticipated Discharge Date Admission Date: October 04, 2024 Subjective No new changes on Miss Hernandez on 10/20/2023. She has no physical complaints is satisfied to awaiting her eventual disposition Physical Exam Physical Exam: pleasant in no distress cardiac is regular, lungs are clear Results & Data Results & Data Vital Signs (Past 12 Hours) Vital Signs Temp Pulse Resp BP Pulse Ox O2 Del Method 10/20/24 07:24 98.1 F 51 L 16 104/68 98 Room Air PG Care Time/CCT Total # of Minutes Spent Total Time Spent with Patient: Total time spent is greater than 50% in coordination of care (as documented) at patient's floor/unit and/or counseling patient: Coding Level of Care Code 77941 SUB INP/OBS CARE 10/03MIN Diagnoses Gait instability R26.81 Depression F32.A Failure to thrive in adult R62.7
[2024-10-20] MEDS: traZODone HCL 50 MG TAB PO SCH (21:48)
--- NOTE | 2024-10-21 15:58 | Hospitalist Progress Note ---
Date of Service October 21, 2024 Assessment & Plan (1) Gait instability: (2) Depression: Plan: (3) Failure to thrive in adult: Plan This is a 59 year old female with past medical history of major depressive dis order with psychotic features , iron deficiency anemia, hypothyroidism, atrial flutter, bipolar who presented to the ED on 10/04/24 after being brought in by the police as was having difficulty walking. No new changes to her medical care on 10/20/2024 Patient has been admitted to the hospital multiple times due to falls and injury her gait instability stems from bradykinesia and medications CXR negative; respiratory biofire negative; urinalysis negative Recent Head CT 09/30 - negative Has been evaluated by neurology for an abnormal MRI brain. No evidence of multiple sclerosis, Parkinson disease or acute stroke Depression, does not seem worse since discontinuing risperidone Psych consulted 10/12 - recommending decrease Depakote to 1000mg HS and discontinuing risperidone. If depressed mood doesn't improve early SSRI. Patient appears to be responding well to the changes in her psych medications. Chronic conditions: A fib: amiodarone. No anticoagulation due to frequent falls Patient medically stable for discharge pending placement,, snf needs to guardianship, previous intermediate confirms that this is not an issue DVT prophylaxis: Lovenox Code: full Admission and Anticipated Discharge Date Admission Date: October 04, 2024 Subjective No new changes on Miss Hernandez on 10/21/2023. She has no physical complaints is satisfied to awaiting her eventual disposition Physical Exam Physical Exam: pleasant in no distress cardiac is regular, lungs are clear Results & Data Results & Data Vital Signs (Past 12 Hours) Vital Signs Temp Pulse Pulse Resp BP Pulse Ox O2 Del Method 10/21/24 15:20 98.1 F 48 L 15 92/60 L 97 Room Air 10/21/24 13:04 97.7 F 61 15 126/76 98 Room Air 10/21/24 07:50 97.7 F 56 L 14 124/76 97 Room Air PG Care Time/CCT Total # of Minutes Spent Total Time Spent with Patient: Total time spent is greater than 50% in coordination of care (as documented) at patient's floor/unit and/or counseling patient: Coding Level of Care Code 03094 SUB INP/OBS CARE 10/03MIN Diagnoses Gait instability R26.81 Depression F32.A Failure to thrive in adult R62.7
--- NOTE | 2024-10-22 11:09 | Hospitalist Progress Note ---
Date of Service October 22, 2024 Assessment & Plan (1) Gait instability: (2) Depression: Plan: (3) Failure to thrive in adult: Plan This is a 59 year old female with past medical history of major depressive dis order with psychotic features , iron deficiency anemia, hypothyroidism, atrial flutter, bipolar who presented to the ED on 10/04/24 after being brought in by the police as was having difficulty walking. No new changes to her medical care Patient has been admitted to the hospital multiple times due to falls and injury her gait instability stems from bradykinesia and medications CXR negative; respiratory biofire negative; urinalysis negative Recent Head CT 09/30 - negative Has been evaluated by neurology for an abnormal MRI brain. No evidence of multiple sclerosis, Parkinson disease or acute stroke Depression, does not seem worse since discontinuing risperidone Psych consulted 10/12 - recommending decrease Depakote to 1000mg HS and discontinuing risperidone (this has been done). If depressed mood doesn't improve early SSRI. Patient appears to be responding well to the changes in her psych medications. Chronic conditions: A fib: amiodarone. No anticoagulation due to frequent falls Patient medically stable for discharge pending placement,, snf needs to guardianship, previous prison confirms that this is not an issue DVT prophylaxis: Lovenox Code: full Admission and Anticipated Discharge Date Admission Date: October 04, 2024 Subjective patient seen and examined, says she feels fine, awaiting placement Review of Systems Review of Systems: All systems reviewed are negative, apart from the ones contained in the history. Physical Exam Physical Exam: The patient is awake, alert and oriented 3, well developed and well nourished, normocephalic and atraumatic, lying in bed and in no acute distress. HEENT--PERRL, EOMI, mucous membranes and oropharynx mildly dry Neck--supple. No JVD. No bruits. Thyroid normal, trachea midline, no adenopathy. Heart--normal S1 and S2. No murmurs, rubs or gallops. Lungs--clear bilaterally, no respiratory distress, no accessory muscle use. Abdomen--normal bowel sounds and soft. Extremities--no cyanosis or clubbing. No edema. Dermatologic--normal skin turgor, normal color, no abnormal lymph nodes, no rash. Neurologic--cranial nerves II through XII grossly intact. coarse rest tremor Rheumatologic--normal range of motion. Psychiatric--normal affect. Results & Data Results & Data Vital Signs (Past 12 Hours) Vital Signs Temp Pulse Pulse Resp BP Pulse Ox O2 Del Method 10/22/24 07:37 42 L 10/22/24 07:19 97.9 F 47 L 14 100/62 98 Room Air PG Care Time/CCT Total # of Minutes Spent Total Time Spent with Patient: Total time spent is greater than 50% in coordination of care (as documented) at patient's floor/unit and/or counseling patient: Coding Level of Care Code 24568 SUB INP/OBS CARE 2/35MIN Diagnoses Gait instability R26.81 Depression F32.A Failure to thrive in adult R62.7 Time Spent (min) 35
--- NOTE | 2024-10-23 11:13 | Hospitalist Progress Note ---
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 No new changes to her medical care Vital signs have been stable Patient has been admitted to the hospital multiple times due to falls and injury her gait instability stems from bradykinesia and medications CXR negative; respiratory biofire negative; urinalysis negative Recent Head CT 09/30 - negative Has been evaluated by neurology for an abnormal MRI brain. No evidence of multiple sclerosis, Parkinson disease or acute stroke Depression, does not seem worse since discontinuing risperidone Psych consulted 10/12 - recommending decrease Depakote to 1000mg HS and discontinuing risperidone (this has been done). If depressed mood doesn't improve early SSRI. Patient appears to be responding well to the changes in her psych medications. Chronic conditions: A fib: amiodarone. No anticoagulation due to frequent falls Patient medically stable for discharge pending placement,, snf needs to guardianship, previous senior living confirms that this is not an issue DVT prophylaxis: Lovenox Code: full Admission and Anticipated Discharge Date Admission Date: October 04, 2024 Subjective patient seen and examined, says she feels fine, awaiting placement Review of Systems Review of Systems: All systems reviewed are negative, apart from the ones contained in the history. Physical Exam Physical Exam: The patient is awake, alert and oriented 3, well developed and well nourished, normocephalic and atraumatic, lying in bed and in no acute distress. HEENT--PERRL, EOMI, mucous membranes and oropharynx mildly dry Neck--supple. No JVD. No bruits. Thyroid normal, trachea midline, no adenopathy. Heart--normal S1 and S2. No murmurs, rubs or gallops. Lungs--clear bilaterally, no respiratory distress, no accessory muscle use. Abdomen--normal bowel sounds and soft. Extremities--no cyanosis or clubbing. No edema. Dermatologic--normal skin turgor, normal color, no abnormal lymph nodes, no rash. Neurologic--cranial nerves II through XII grossly intact. coarse rest tremor Rheumatologic--normal range of motion. Psychiatric--normal affect. Results & Data Results & Data Vital Signs (Past 12 Hours) Vital Signs Temp Pulse Resp BP Pulse Ox O2 Del Method 10/23/24 07:26 97.9 F 49 L 18 103/67 98 Room Air PG Care Time/CCT Total # of Minutes Spent Total Time Spent with Patient: Total time spent is greater than 50% in coordination of care (as documented) at patient's floor/unit and/or counseling patient: Coding Level of Care Code 13135 SUB INP/OBS CARE 2/35MIN Diagnoses Gait instability R26.81 Depression F32.A Failure to thrive in adult R62.7 Time Spent (min) 35
--- NOTE | 2024-10-24 11:27 | Hospitalist Progress Note ---
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 No new changes to her medical care Vital signs have been stable Patient has been admitted to the hospital multiple times due to falls and injury her gait instability stems from bradykinesia and medications CXR negative; respiratory biofire negative; urinalysis negative Recent Head CT 09/30 - negative Has been evaluated by neurology for an abnormal MRI brain. No evidence of multiple sclerosis, Parkinson disease or acute stroke Depression, does not seem worse since discontinuing risperidone Psych consulted 10/12 - recommending decrease Depakote to 1000mg HS and discontinuing risperidone (this has been done). If depressed mood doesn't improve early SSRI. Patient appears to be responding well to the changes in her psych medications. Chronic conditions: A fib: amiodarone. No anticoagulation due to frequent falls Cardiology is also aware of her bradycardia Outpatient follow up Patient medically stable for discharge pending placement,, snf needs to guardianship, previous care home confirms that this is not an issue DVT prophylaxis: Loveisaurox Code: full Admission and Anticipated Discharge Date Admission Date: October 04, 2024 Subjective patient seen and examined, says she feels fine, awaiting placement Review of Systems Review of Systems: All systems reviewed are negative, apart from the ones contained in the history. Physical Exam Physical Exam: The patient is awake, alert and oriented 3, well developed and well nourished, normocephalic and atraumatic, lying in bed and in no acute distress. HEENT--PERRL, EOMI, mucous membranes and oropharynx mildly dry Neck--supple. No JVD. No bruits. Thyroid normal, trachea midline, no adenopathy. Heart--normal S1 and S2. No murmurs, rubs or gallops. Lungs--clear bilaterally, no respiratory distress, no accessory muscle use. Abdomen--normal bowel sounds and soft. Extremities--no cyanosis or clubbing. No edema. Dermatologic--normal skin turgor, normal color, no abnormal lymph nodes, no rash. Neurologic--cranial nerves II through XII grossly intact. coarse rest tremor Rheumatologic--normal range of motion. Psychiatric--normal affect. Results & Data Results & Data Vital Signs (Past 12 Hours) Vital Signs Temp Pulse Resp BP Pulse Ox O2 Del Method 10/24/24 07:50 98.1 F 44 L 20 95/58 L 98 Room Air 10/24/24 07:05 Room Air PG Care Time/CCT Total # of Minutes Spent Total Time Spent with Patient: Total time spent is greater than 50% in coordination of care (as documented) at patient's floor/unit and/or counseling patient: Coding Level of Care Code 03043 SUB INP/OBS CARE 2/35MIN Diagnoses Gait instability R26.81 Depression F32.A Failure to thrive in adult R62.7 Time Spent (min) 35
--- NOTE | 2024-10-25 11:15 | Hospitalist Progress Note ---
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 No new changes to her medical care Vital signs have been stable Patient has been admitted to the hospital multiple times due to falls and injury her gait instability stems from bradykinesia and medications CXR negative; respiratory biofire negative; urinalysis negative Recent Head CT 09/30 - negative Has been evaluated by neurology for an abnormal MRI brain. No evidence of multiple sclerosis, Parkinson disease or acute stroke Depression, does not seem worse since discontinuing risperidone Psych consulted 10/12 - recommending decrease Depakote to 1000mg HS and discontinuing risperidone (this has been done). If depressed mood doesn't improve early SSRI. Patient appears to be responding well to the changes in her psych medications. Chronic conditions: A fib: amiodarone. No anticoagulation due to frequent falls Cardiology is also aware of her bradycardia (although HR was in the 80's today 10/25) Outpatient follow up Patient medically stable for discharge pending placement,, snf needs to guardianship, previous [facility] confirms that this is not an issue DVT prophylaxis: Lovenox Code: full Admission and Anticipated Discharge Date Admission Date: October 04, 2024 Subjective patient seen and examined, says she feels fine, awaiting placement Review of Systems Review of Systems: All systems reviewed are negative, apart from the ones contained in the history. Physical Exam Physical Exam: The patient is awake, alert and oriented 3, well developed and well nourished, normocephalic and atraumatic, lying in bed and in no acute distress. HEENT--PERRL, EOMI, mucous membranes and oropharynx mildly dry Neck--supple. No JVD. No bruits. Thyroid normal, trachea midline, no adenopathy. Heart--normal S1 and S2. No murmurs, rubs or gallops. Lungs--clear bilaterally, no respiratory distress, no accessory muscle use. Abdomen--normal bowel sounds and soft. Extremities--no cyanosis or clubbing. No edema. Dermatologic--normal skin turgor, normal color, no abnormal lymph nodes, no rash. Neurologic--cranial nerves II through XII grossly intact. coarse rest tremor Rheumatologic--normal range of motion. Psychiatric--normal affect. Results & Data Results & Data Vital Signs (Past 12 Hours) Vital Signs Temp Pulse Resp BP Pulse Ox O2 Del Method 10/25/24 08:03 97.9 F 85 20 100/58 L 98 Room Air 10/25/24 07:00 Room Air PG Care Time/CCT Total # of Minutes Spent Total Time Spent with Patient: Total time spent is greater than 50% in coordination of care (as documented) at patient's floor/unit and/or counseling patient: Coding Level of Care Code 40565 SUB INP/OBS CARE 2/35MIN Diagnoses Gait instability R26.81 Depression F32.A Failure to thrive in adult R62.7 Time Spent (min) 35
--- NOTE | 2024-10-26 10:44 | Hospitalist Progress Note ---
Date of Service October 26, 2024 Assessment & Plan (1) Gait instability: (2) Depression: Plan: (3) Failure to thrive in adult: (4) Bradycardia: Plan This is a 59 year old female with past medical history of major depressive disorder with psychotic features, iron deficiency anemia, hypothyroidism, atrial flutter, bipolar who presented to the ED on 10/04/24 after being brought in by the police after a wellfare check - with weakness and falling. Much of her care is managed through [facility]. Workup on admission without acute cause of her weakness (CXR, biofire, UA, Head CT, TSH, CK). Prolonged stay awaiting waivers prior to rehab so she is able to have more care at home. #Weakness Patient has been admitted to the hospital multiple times due to falls and injury. Her gait instability stems from bradykinesia and medications. Has been evaluated by neurology in the past for abnormal brain MRI - no MS or Parkinsons. No further neuro workup indicated. PT/OT recommending rehab, CM following #Depression Psych consulted 2/3 - recommending decrease Depakote to 1000mg HS and discontinuing risperidone (this has been done). If depressed mood doesn't improve early SSRI. Patient appears to be responding well to the changes in her psych medications. #A fib/Bradycardia Continue amiodarone. No anticoagulation due to frequent falls Bradycardia is chronic - outpatient followup. Dispo: medically stable for discharge DVT prophylaxis: Lovenox Admission and Anticipated Discharge Date Admission Date: October 04, 2024 Subjective patient resting in bed, reports feeling tired today Review of Systems Review of Systems: All systems reviewed & are unremarkable except as noted in Subjective Physical Exam Physical Exam: General: NAD, vitals as above, lying in bed Pulm: breathing unlabored CV: well perfused extremities: moves all extremities Results & Data Results & Data Vital Signs (Past 12 Hours) Vital Signs Temp Pulse Resp BP Pulse Ox O2 Del Method 10/26/24 07:45 97.9 F 48 L 16 114/62 98 Room Air PG Care Time/CCT Total # of Minutes Spent Total Time Spent with Patient: Total time spent is greater than 50% in coordination of care (as documented) at patient's floor/unit and/or counseling patient: Coding Level of Care Code 84157 SUB INP/OBS CARE 10/03MIN Diagnoses Gait instability R26.81 Depression F32.A Failure to thrive in adult R62.7 Bradycardia R00.1
--- NOTE | 2024-10-27 13:34 | Hospitalist Progress Note ---
Date of Service October 27, 2024 Assessment & Plan (1) Gait instability: (2) Depression: Plan: (3) Failure to thrive in adult: (4) Bradycardia: Plan This is a 59 year old female with past medical history of major depressive disorder with psychotic features, iron deficiency anemia, hypothyroidism, atrial flutter, bipolar who presented to the ED on 10/04/24 after being brought in by the police after a wellfare check - with weakness and falling. Much of her care is managed through [facility]. Workup on admission without acute cause of her weakness (CXR, biofire, UA, Head CT, TSH, CK). Prolonged stay awaiting waivers prior to rehab so she is able to have more care at home. #Weakness Patient has been admitted to the hospital multiple times due to falls and injury. Her gait instability stems from bradykinesia and medications. Has been evaluated by neurology in the past for abnormal brain MRI - no MS or Parkinsons. No further neuro workup indicated. PT/OT recommending rehab, CM following #Depression Psych consulted 2/3 - recommending decrease Depakote to 1000mg HS and discontinuing risperidone (this has been done). If depressed mood doesn't improve early SSRI. Patient appears to be responding well to the changes in her psych medications. #A fib/Bradycardia Continue amiodarone. No anticoagulation due to frequent falls Bradycardia is chronic - outpatient followup. Dispo: medically stable for discharge DVT prophylaxis: Lovenox Admission and Anticipated Discharge Date Admission Date: October 04, 2024 Subjective Patient seen and examined this morning. patient denied complaints at time of encounter. She was resting comfortably in bed. Physical Exam Constitutional: WD/WN, vitals as above Eyes: PERRL, conjunctivae normal, anicteric sclerae Respiratory: normal respiration Cardiovascular: well perfused Results & Data Results & Data Vital Signs (Past 12 Hours) Vital Signs Temp Pulse Resp BP Pulse Ox O2 Del Method 10/27/24 08:01 36.7 C 58 L 16 113/74 98 Room Air PG Care Time/CCT Total # of Minutes Spent Total Time Spent with Patient: Total time spent is greater than 50% in coordination of care (as documented) at patient's floor/unit and/or counseling patient: Coding Level of Care Code 86297 SUB INP/OBS CARE 10/03MIN Diagnoses Gait instability R26.81 Depression F32.A Failure to thrive in adult R62.7 Bradycardia R00.1
--- NOTE | 2024-10-28 14:04 | Hospitalist Progress Note ---
Date of Service October 28, 2024 Assessment & Plan (1) Gait instability: (2) Depression: Plan: (3) Failure to thrive in adult: (4) Bradycardia: Plan This is a 59 year old female with past medical history of major depressive disorder with psychotic features, iron deficiency anemia, hypothyroidism, atrial flutter, bipolar who presented to the ED on 10/04/24 after being brought in by the police after a wellfare check - with weakness and falling. Much of her care is managed through [facility]. Workup on admission without acute cause of her weakness (CXR, biofire, UA, Head CT, TSH, CK). Prolonged stay awaiting waivers prior to rehab so she is able to have more care at home. #Weakness Patient has been admitted to the hospital multiple times due to falls and injury. Her gait instability stems from bradykinesia and medications. Has been evaluated by neurology in the past for abnormal brain MRI - no MS or Parkinsons. No further neuro workup indicated. PT/OT recommending rehab, CM following #Depression Psych consulted 2/3 - recommending decrease Depakote to 1000mg HS and discontinuing risperidone (this has been done). If depressed mood doesn't improve early SSRI. Patient appears to be responding well to the changes in her psych medications. Psych to re-eval patient to see if she has medical decision capabilities. #A fib/Bradycardia Continue amiodarone. No anticoagulation due to frequent falls Bradycardia is chronic - outpatient followup. Dispo: medically stable for discharge DVT prophylaxis: Lovenox Discussed extensively w/ CM 10/28. Admission and Anticipated Discharge Date Admission Date: October 04, 2024 Subjective Patient seen and examined this morning. Patient's geriatric social work professor present at time of encounter. Patient denied complaints today. She is aware that she is in the hospital for recurrent falls and dizziness. Also aware she has a hx of A fib. Patient not aware of having any mental health conditions. Physical Exam Constitutional: WD/WN, vitals as above Eyes: PERRL, conjunctivae normal, anicteric sclerae Respiratory: breathing unlabored Cardiovascular: well perfused Results & Data Results & Data Vital Signs (Past 12 Hours) Vital Signs Temp Pulse Resp BP Pulse Ox O2 Del Method 10/28/24 11:53 36.2 C L 86 18 128/88 97 Room Air 10/28/24 07:48 36.9 C 69 17 116/82 98 Room Air PG Care Time/CCT Total # of Minutes Spent Total Time Spent with Patient: Total time spent is greater than 50% in coordination of care (as documented) at patient's floor/unit and/or counseling patient: Coding Level of Care Code 06474 SUB INP/OBS CARE 2/35MIN Diagnoses Gait instability R26.81 Depression F32.A Failure to thrive in adult R62.7 Bradycardia R00.1
--- NOTE | 2024-10-29 10:55 | Psychiatric Progress Note ---
Date of Service October 29, 2024 Impression / Recommendations Impression She is fully oriented, can speak to recent events, understands plan moving forward and there is no evidence for delirium or acute psychiatric symptoms influencing her decision making. In terms of decision making capacity it is foremost critical to emphasis that this assessment is task specific and dimensional. Assessment of Decision-Making Capacity Criterion (X=present) Patient Task YES Communicates a choice Patient is able to clearly indicate preferred treatment option in a clear and consistent manner YES Understands information provided Patient understands their condition and treatment options YES Appreciates consequences Patient shows appropriately nuanced appreciation for the risks & benefits associated with available treatment options, including no treatment YES Manipulates relevant information Patient able to rationally weigh risks & benefits, as well as offer reasons for their decision At this time she is felt to have medical and dispositional decision making [facility]. She is stable from a psychiatric standpoint for placement once available. Overall, I spent a total of 45 minutes with this case including review of chart records, review of labwork, direct evaluation of the patient at bedside, counseling the patient, discussion of the patient with the hospitalist provider, discussion with the psychiatric liason during clinical rounds and documentation in the electronic health record. (1) Encounter for evaluation of ability to make decisions regarding care: (2) Episode of generalized weakness: (3) Gait instability: (4) Weakness: (5) Bipolar affective disorder, currently depressed, mild: Plan -She is felt to have dispositional and medical decision making capacity -Continue current psych medications as ordered, stable from a psychiatric standpoint Interval History Identifying Information 59 yo woman with a history of bipolar affective disorder admitted for increased weakness, falls, failure to thrive at home. Psychiatry consulted for bipolar disorder, depression and per [facility] CM request. Reconsulted for decision making capacity. Chief Complaint "I'm alright". Subjective Subjective Patient was seen & assessed and interval progress reviewed. Has been participating with PT, no behavioral issues, adherent with medications. Today she is pleasant, lying in bed, reports her mood is "alright". She's been trying to do some word puzzles, discussed trying to eat her meals in her chair and moving around more to build her strength. Assessed her decision making capacity regarding her medical conditions and disposition options. She is fully oriented to place, date, city, person. She can speak to her reason for hospitalization "I was weak and falling down and dizzy", changes made during this hospitalization/discuss of her condition "they're not sure but we've changed my heart medication", and plan for "rehab to get some strength" and then increased support at home "someone to help with shopping, cooking and cleaning". Discussed her cat who her outpatient CM is helping to care for. She denies any SI. Denies any medication side effects. Physical Exam Psychiatric Orientation: alert and oriented x 3 Apperance: appropriately dressed and appropriately groomed Eye Contact: good eye contact Motor Behavior: no abnormal motor movements Speech: normal rate/rhythm/volume of speech Affect: euthymic affect Thought Process: linear/logical thought process Thought Content: reality based without delusions Suicidal Thoughts: denies suicidal thoughts Homicidal Thoughts: denies homicidal thoughts Hallucinations: no auditory hallucinations and no visual hallucinations Cognition: recent memory grossly intact, remote memory grossly intact, attention grossly intact and language grossly intact Estimated Intelligence: consistent with education level Insight: + fair insight Judgment: + fair judgement Vital Signs (Past 24 Hours) Last Vital Signs Temp 36.7 C 10/29/24 07:28 Pulse 56 L 10/29/24 07:28 Resp 16 10/29/24 07:28 BP 101/65 10/29/24 07:28 Pulse Ox 100 10/29/24 07:28 O2 Del Method Room Air 10/29/24 07:28 Results & Data ([facility]) Current Inpatient Medications Current Inpatient Medications: Current Inpatient Medications Acetaminophen (Acetaminophen 325 Mg Tab) 650 mg PO Q4H PRN PRN Reason: pain/fever Stop: 11/03/24 16:31 Amiodarone HCl (Amiodarone 200 Mg Tab) 50 mg PO DAILY ANAY Stop: 11/04/24 08:59 Last Admin: 10/29/24 08:42 Dose: 50 mg Divalproex Sodium (Divalproex Extended Release 500 Mg Tab) 1,000 mg PO HS ANAY Stop: 11/11/24 20:59 Last Admin: 10/28/24 20:05 Dose: 1,000 mg Enoxaparin Sodium (Enoxaparin Inj 40 Mg/0.4 Ml Syr) 40 mg SQ QPM ANAY Stop: 11/03/24 20:59 Last Admin: 10/28/24 20:06 Dose: 40 mg Polyethylene Glycol (Polyethylene (Miralax) 17 Gm Pack) 17 gm PO BID PRN PRN Reason: constipation Stop: 11/27/24 08:21 Trazodone HCl (Trazodone Hcl 50 Mg Tab) 25 mg PO [facility] Stop: 11/19/24 21:29 Last Admin: 10/28/24 20:05 Dose: 25 mg
--- NOTE | 2024-10-29 13:54 | Hospitalist Progress Note ---
Date of Service October 29, 2024 Assessment & Plan (1) Gait instability: (2) Depression: Plan: (3) Failure to thrive in adult: (4) Bradycardia: Plan This is a 59 year old female with past medical history of major depressive disorder with psychotic features, iron deficiency anemia, hypothyroidism, atrial flutter, bipolar who presented to the ED on 10/04/24 after being brought in by the police after a wellfare check - with weakness and falling. Much of her care is managed through [facility]. Workup on admission without acute cause of her weakness (CXR, biofire, UA, Head CT, TSH, CK). Prolonged stay awaiting waivers prior to rehab so she is able to have more care at home. #Weakness Patient has been admitted to the hospital multiple times due to falls and injury. Her gait instability stems from bradykinesia and medications. Has been evaluated by neurology in the past for abnormal brain MRI - no MS or Parkinsons. No further neuro workup indicated. PT/OT recommending rehab, CM following #Depression Medication adjustments: Depakote 1000mg HS. Risperidone discontinued. Melatonin added for insomnia on 10/29. Psych re-eval patient 10/29 - deems she does have decision making capacity regarding disposition and desires rehab to get stronger If depression doesn't improve consider SSRI Patient appears to be responding well to the changes in her psych medications. #A fib/Bradycardia Continue amiodarone. No anticoagulation due to frequent falls Bradycardia is chronic - outpatient followup. Dispo: medically stable for discharge DVT prophylaxis: Lovenox Discussed w/ CM 10/29 Admission and Anticipated Discharge Date Admission Date: October 04, 2024 Subjective Patient seen and examined this morning. Patient reports having issues with insomnia. States she was more active during the day yesterday but still did not sleep well overnight. She is agreeable to try melatonin to see if this helps her this evening. Aside from insomnia, she denies any additional complaints. Physical Exam Constitutional: WD/WN, vitals as above Eyes: PERRL, conjunctivae normal, anicteric sclerae Respiratory: normal respiratory effort, lungs clear to auscultation Cardiovascular: RRR, no murmur, no edema Results & Data Results & Data Vital Signs (Past 12 Hours) Vital Signs Temp Pulse Resp BP Pulse Ox O2 Del Method 10/29/24 07:28 36.7 C 56 L 16 101/65 100 Room Air PG Care Time/CCT Total # of Minutes Spent Total Time Spent with Patient: Total time spent is greater than 50% in coordination of care (as documented) at patient's floor/unit and/or counseling patient: Coding Level of Care Code 03217 SUB INP/OBS CARE 2/35MIN Diagnoses Gait instability R26.81 Depression F32.A Failure to thrive in adult R62.7 Bradycardia R00.1
[2024-10-29] MEDS: MELATONIN 3 MG TAB PO SCH (20:04)
--- NOTE | 2024-10-30 16:06 | Hospitalist Progress Note ---
Date of Service October 30, 2024 Assessment & Plan (1) Gait instability: (2) Depression: Plan: (3) Failure to thrive in adult: (4) Bradycardia: Plan This is a 59 year old female with past medical history of major depressive disorder with psychotic features, iron deficiency anemia, hypothyroidism, atrial flutter, bipolar who presented to the ED on 10/04/24 after being brought in by the police after a wellfare check - with weakness and falling. Much of her care is managed through [facility]. Workup on admission without acute cause of her weakness (CXR, biofire, UA, Head CT, TSH, CK). Prolonged stay awaiting waivers prior to rehab so she is able to have more care at home. #Weakness Patient has been admitted to the hospital multiple times due to falls and injury. Her gait instability stems from bradykinesia and medications. Has been evaluated by neurology in the past for abnormal brain MRI - no MS or Parkinsons. No further neuro workup indicated. Encourage ambulation as much as possible. Encourage sitting in chair for meals. PT/OT recommending rehab, CM following #Depression Medication adjustments: Depakote 1000mg HS. Risperidone discontinued. Melatonin increased to 6mg 10/30. Psych re-eval patient 10/29 - deems she does have decision making capacity regarding disposition and desires rehab to get stronger If depression doesn't improve consider SSRI Patient appears to be responding well to the changes in her psych medications. #A fib/Bradycardia Continue amiodarone. No anticoagulation due to frequent falls Bradycardia is chronic - outpatient followup. AM CBC, BMP - consider checking labs weekly while patient awaits placement Dispo: medically stable for discharge DVT prophylaxis: Lovenox Admission and Anticipated Discharge Date Admission Date: October 04, 2024 Subjective Patient seen and examined this morning. Patient reports she did not sleep well again last night. She states that she forgot to eat meals out of her bed yesterday but will try to do that today. Physical Exam Constitutional: WD/WN, vitals as above Eyes: PERRL, conjunctivae normal, anicteric sclerae Respiratory: breathing unlabored Cardiovascular: well perfused Psychiatric: Affect: + depressed affect and + flat affect Mood: + depressed mood Results & Data Results & Data Vital Signs (Past 12 Hours) Vital Signs Temp Pulse Resp BP Pulse Ox O2 Del Method 02/21/25 15:20 36.8 C 50 L 16 110/71 98 Room Air 10/30/24 07:23 36.3 C L 45 L 16 90/56 L 97 Room Air PG Care Time/CCT Total # of Minutes Spent Total Time Spent with Patient: Total time spent is greater than 50% in coordination of care (as documented) at patient's floor/unit and/or counseling patient: Coding Level of Care Code 54171 SUB INP/OBS CARE 2/35MIN Diagnoses Gait instability R26.81 Depression F32.A Failure to thrive in adult R62.7 Bradycardia R00.1
[2024-10-30] MEDS: MELATONIN 3 MG TAB PO SCH (20:32)
[2024-10-31] MEDS: CALCIUM CARBONATE 500 MG CHEWABLE TAB PO PRN (00:15)
[2024-10-31] MEDS: ONDANSETRON INJ 2 MG/ML 2 ML VIAL IV PRN (00:27)
[2024-10-31 06:01] LABS: Hematocrit (blood only) 40.8 % (37.0-47.0); Hemoglobin 13.7 g/dl (12.0-16.0); Mean Corpuscular Hemoglobin 33.3 pg (25.0-34.0); Mean Corpuscular Hgb Conc 33.6 g/dL (32.0-36.0); Mean Platelet Volume 10.4 fL (9.4-12.4); Platelet Count 147 K/uL (130-400); RDW Standard Deviation 47.4 fL (36.4-46.3); Red Blood Count 4.12 M/uL (4.20-5.40); White Blood Count 2.51 K/ul (4.8-10.8)
[2024-10-31 06:20] LABS: BUN Creatinine Ratio 30.4 (10-20); Calcium 9.1 mg/dl (8.6-10.3); Creatinine Clr Calc Pharmacy 65.5 ml/min; Potassium 5.5 mmol/L (3.5-5.1)
--- NOTE | 2024-10-31 14:09 | Hospitalist Progress Note ---
<Statement entered by Janie Villalobos MD - 10/31/24 19:31> on labs today she has leukopenia with white blood count 2.51, no anemia or thrombocytopenia. She has had leukopenia on labs throughout the stay though not this much and I wonder if it is nutritional her potassium was 5.5 I do not see any reason she should have this and I wonder if it is lab error or hemolysis. Creatinine was normal at 0.92 ordered a.m. labs including repeat CBC, repeat chemistry panel - CMP, vitamin B1 and vitamin B12 Date of Service October 31, 2024 Assessment & Plan (1) Gait instability: (2) Depression: Plan: (3) Failure to thrive in adult: (4) Bradycardia: Plan This is a 59 year old female with past medical history of major depressive disorder with psychotic features, iron deficiency anemia, hypothyroidism, atrial flutter, bipolar who presented to the ED on 10/04/24 after being brought in by the police after a wellfare check - with weakness and falling. Much of her care is managed through [facility]. Workup on admission without acute cause of her weakness (CXR, biofire, UA, Head CT, TSH, CK). Prolonged stay awaiting waivers prior to rehab so she is able to have more care at home. #Weakness Patient has been admitted to the hospital multiple times due to falls and injury. Her gait instability stems from bradykinesia and medications. Has been evaluated by neurology in the past for abnormal brain MRI - no MS or Parkinsons. No further neuro workup indicated. Encourage ambulation as much as possible. Encourage sitting in chair for meals. PT/OT recommending rehab, CM following #Depression Medication adjustments: Depakote 1000mg HS. Risperidone discontinued. Melatonin increased to 6mg 10/30. Psych re-eval patient 10/29 - deems she does have decision making capacity regarding disposition and desires rehab to get stronger If depression doesn't improve consider SSRI Patient appears to be responding well to the changes in her psych medications. #A fib/Bradycardia Continue amiodarone. No anticoagulation due to frequent falls Bradycardia is chronic - outpatient followup. AM CBC, BMP - consider checking labs weekly while patient awaits placement Dispo: medically stable for discharge DVT prophylaxis: Lovenox Admission and Anticipated Discharge Date Admission Date: October 04, 2024 Subjective Patient seen and examined this morning. Patient reports that she actually was able to sleep some last night, and she would like to sleep some more today. She is feeling better today since she was able to sleep. Has not had anything to eat yet because she slept through breakfast. Review of Systems Constitutional: + fatigue; no fever and no chills Respiratory: no cough, no chest congestion and no dyspnea Cardiovascular: no chest pain Gastrointestinal: no abdominal pain, no nausea and no vomiting Genitourinary: no dysuria and no urinary frequency Physical Exam Constitutional: WD/WN, vitals as above Eyes: PERRL, conjunctivae normal, anicteric sclerae Neck: trachea midline Respiratory: normal respiratory effort; no respiratory distress and no labored breathing Psychiatric: Orientation: alert and oriented x 3 Affect: + flat affect Mood: + depressed mood Results & Data Results & Data Vital Signs (Past 12 Hours) Vital Signs Temp Pulse Resp BP Pulse Ox O2 Del Method 10/31/24 07:28 36.4 C L 60 16 94/61 L 97 Room Air Laboratory Results 10/31/24 Range/Units 05:36 WBC 2.51 L (4.8-10.8) K/ul RBC 4.12 L (4.20-5.40) M/uL Hgb 13.7 (12.0-16.0) g/dl Hct 40.8 (37.0-47.0) % MCV 99.0 (80.0-100.0) fL MCH 33.3 (25.0-34.0) pg MCHC 33.6 (32.0-36.0) g/dL RDW Std Deviation 47.4 H (36.4-46.3) fL RDW Coeff of Guillermo 13.0 (11.5-14.5) % Plt Count 147 (130-400) K/uL MPV 10.4 (9.4-12.4) fL Sodium 139 (136-145) mmol/L Potassium 5.5 H (3.5-5.1) mmol/L Chloride 106 (98-107) mmol/L Carbon Dioxide 30 (21-32) mmol/L Anion Gap 3 (3-11) BUN 28 H (6-23) mg/dl Creatinine 0.92 (0.6-1.2) mg/dl Est Cr Clr Drug Dosing 65.5 ml/min eGFR 70.84 BUN/Creatinine Ratio 30.4 H (10-20) Glucose 92 (70-99(Fasting)) mg/dl Calcium 9.1 (8.6-10.3) mg/dl PG Care Time/CCT Total # of Minutes Spent Total Time Spent with Patient: Total time spent is greater than 50% in coordination of care (as documented) at patient's floor/unit and/or counseling patient: Coding [place] [address] SUB INP/OBS CARE 2/35MIN Patient Type Established History Expanded Problem Focused Exam Expanded Problem Focused Medical Decision Making Moderate Complexity Diagnoses Gait instability R26.81 Depression F32.A Failure to thrive in adult R62.7 Bradycardia R00.1
[2024-10-31] MEDS: POLYETHYLENE (MIRALAX) 17 GM PACK PO PRN (16:30)
[2024-11-01 06:34] LABS: Basophils # (auto) 0.01 K/uL (0.00-0.20); Basophils % (auto) 0.4 %; Eosinophils # (auto) 0.02 K/uL (0.00-0.50); Eosinophils % (auto) 0.8 %; Hematocrit (blood only) 37.4 % (37.0-47.0); Hemoglobin 12.8 g/dl (12.0-16.0); Immature Granulocytes # (auto) 0.01 K/uL (0.01-0.20); Immature Granulocytes % (auto) 0.4 %; Lymphocytes # (auto) 0.67 K/uL (1.20-3.40); Lymphocytes % (auto) 27.9 %; Mean Corpuscular Hemoglobin 33.6 pg (25.0-34.0); Mean Corpuscular Hgb Conc 34.2 g/dL (32.0-36.0); Mean Corpuscular Volume 98.2 fL (80.0-100.0); Mean Platelet Volume 10.6 fL (9.4-12.4); Monocytes # (auto) 0.42 K/uL (0.11-0.59); Monocytes % (auto) 17.5 %; Neutrophils # (auto) 1.27 K/uL (1.40-6.50); Platelet Count 140 K/uL (130-400); RDW Coefficient of Variation 13.1 % (11.5-14.5); RDW Standard Deviation 47.1 fL (36.4-46.3); Red Blood Count 3.81 M/uL (4.20-5.40)
[2024-11-01 07:00] LABS: Albumin Globulin Ratio 1.4 (0.9-2); Bilirubin,Total 0.4 mg/dl (0.2-1.0); Calcium 8.9 mg/dl (8.6-10.3); Creatinine Clr Calc Pharmacy 78.2 ml/min; Globulin 2.1 gm/dl (2.5-4.0); Potassium 4.1 mmol/L (3.5-5.1); Total Protein 5.1 gm/dl (6.0-8.3)
--- NOTE | 2024-11-01 13:29 | Hospitalist Progress Note ---
<Statement entered by Janie Villalobos MD - 11/01/24 18:50> Leukopenia - reproduced on CBC this AM. Pesent since 03/2024 but recently worsening. WBC was in 4's, some 3's in 09/2024, now 2s Diff with low neutrophil and lymphocyte counts otherwise unremarkable RBC and Plt normal B12 and TSH normal -get blood smear, check folate --> normal 7.9 -B1 pending, replace empirically po. B6 25 mg daily x 2 weeks ordered -I am concerned that this could be caused by the depakote -discuss with psychiatry albumin 3.[address] is consulted Oral intake has been poor because of severe depression Date of Service November 01, 2024 Assessment & Plan (1) Gait instability: (2) Depression: Plan: (3) Failure to thrive in adult: (4) Bradycardia: Plan This is a 59 year old female with past medical history of major depressive disorder with psychotic features, iron deficiency anemia, hypothyroidism, atrial flutter, bipolar who presented to the ED on 10/04/24 after being brought in by the police after a wellfare check - with weakness and falling. Much of her care is managed through [facility]. Workup on admission without acute cause of her weakness (CXR, biofire, UA, Head CT, TSH, CK). Prolonged stay awaiting waivers prior to rehab so she is able to have more care at home. #Weakness Patient has been admitted to the hospital multiple times due to falls and injury. Her gait instability stems from bradykinesia and medications. Has been evaluated by neurology in the past for abnormal brain MRI - no MS or Parkinsons. No further neuro workup indicated. Encourage ambulation as much as possible. Encourage sitting in chair for meals. PT/OT recommending rehab, CM following #Depression Medication adjustments: Depakote 1000mg HS. Risperidone discontinued. Melatonin increased to 6mg 10/30. Psych re-eval patient 10/29 - deems she does have decision making capacity regarding disposition and desires rehab to get stronger If depression doesn't improve consider SSRI Patient appears to be responding well to the changes in her psych medications. #A fib/Bradycardia Continue amiodarone. No anticoagulation due to frequent falls Bradycardia is chronic - outpatient followup. AM CBC, BMP - consider checking labs weekly while patient awaits placement #Decreased appetite - diet changed from heart healthy to regular. Encouraged PO intake. Monitor weights. Could consider low doses Remeron for mood and appetite. Weight 66.5kg (down from 76kg although initial weight was bedscale vs. standing scale, bedscale not as accurate) - would continue to weigh every few days and monitor. Dispo: medically stable for discharge DVT prophylaxis: Lovenox Admission and Anticipated Discharge Date Admission Date: October 04, 2024 Subjective Patient seen and examined this morning. Patient reports that she actually was able to sleep some last night, and that makes her feel better. She says her mood is "okay". She is feeling better today since she was able to sleep. Has not been eating as much, states she isn't that hungry. Review of Systems Constitutional: + fatigue and + problem reported (Decrea sed appetite); no fever and no chills Respiratory: no cough, no chest congestion and no dyspnea Cardiovascular: no chest pain Gastrointestinal: no abdominal pain, no nausea and no vomiting Genitourinary: no dysuria and no urinary frequency Physical Exam Constitutional: WD/WN, vitals as above Eyes: PERRL, conjunctivae normal, anicteric sclerae Neck: trachea midline Respiratory: normal respiratory effort; no respiratory distress and no labored breathing Cardiovascular: RRR, no murmur, no edema Gastrointestinal (Abdomen): normal bowel sounds, soft, nontender, no hepatosplenomegaly Psychiatric: Orientation: alert and oriented x 3 Affect: + flat affect Mood: + depressed mood Results & Data Results & Data Vital Signs (Past 12 Hours) Vital Signs Temp Pulse Resp BP Pulse Ox O2 Del Method 11/01/24 08:05 65 98/65 L 96 Room Air 11/01/24 07:16 36.8 C 56 L 16 93/58 L 95 Room Air Laboratory Results 11/01/24 Range/Units 05:56 WBC 2.40 L (4.8-10.8) K/ul RBC 3.81 L (4.20-5.40) M/uL Hgb 12.8 (12.0-16.0) g/dl Hct 37.4 (37.0-47.0) % MCV 98.2 (80.0-100.0) fL MCH 33.6 (25.0-34.0) pg MCHC 34.2 (32.0-36.0) g/dL RDW Std Deviation 47.1 H (36.4-46.3) fL RDW Coeff of Guillermo 13.1 (11.5-14.5) % Plt Count 140 (130-400) K/uL MPV 10.6 (9.4-12.4) fL Immature Gran % (Auto) 0.4 % Neut % (Auto) 53.0 % Lymph % (Auto) 27.9 % Early % (Auto) 17.5 % Eos % (Auto) 0.8 % Baso % (Auto) 0.4 % Neut # (Auto) 1.27 L (1.40-6.50) K/uL Lymph # (Auto) 0.67 L (1.20-3.40) K/uL Early # (Auto) 0.42 (0.11-0.59) K/uL Eos # (Auto) 0.02 (0.00-0.50) K/uL Baso # (Auto) 0.01 (0.00-0.20) K/uL Immature Gran # (Auto) 0.01 (0.01-0.20) K/uL Sodium 137 (136-145) mmol/L Potassium 4.1 D (3.5-5.1) mmol/L Chloride 102 (98-107) mmol/L Carbon Dioxide 30 (21-32) mmol/L Anion Gap 5 (3-11) BUN 20 (6-23) mg/dl Creatinine 0.77 (0.6-1.2) mg/dl Est Cr Clr Drug Dosing 78.2 ml/min eGFR 87.71 BUN/Creatinine Ratio 26.0 H (10-20) Glucose 85 (70-99(Fasting)) mg/dl Calcium 8.9 (8.6-10.3) mg/dl Total Bilirubin 0.4 (0.2-1.0) mg/dl AST 17 (13-39) U/L ALT 12 (7-52) U/L Alkaline Phosphatase 34 (34-104) U/L Total Protein 5.1 L (6.0-8.3) gm/dl Albumin 3.0 L (3.4-5.0) gm/dl Globulin 2.1 L (2.5-4.0) gm/dl Albumin/Globulin Ratio 1.4 (0.9-2) Whole Bld Vitamin B1 Pending Vitamin B12 768 (180-914) pg/ml PG Care Time/CCT Total # of Minutes Spent Total Time Spent with Patient: Total time spent is greater than 50% in coordination of care (as documented) at patient's floor/unit and/or counseling patient: C[place] [address] SUB INP/OBS CARE 2/35MIN Patient Type Established History Expanded Problem Focused Exam Expanded Problem Focused Medical Decision Making Moderate Complexity Diagnoses Gait instability R26.81 Depression F32.A Failure to thrive in adult R62.7 Bradycardia R00.1
[2024-11-01 16:33] LABS: Folate (Folic Acid),Ser orPlas 7.93 ng/ml (>5.38)
[2024-11-01] MEDS: THIAMINE HCL 100 MG TAB PO SCH (20:20)
[2024-11-02] MEDS: PYRIDOXINE HCL 50 MG TAB PO SCH (10:08)
--- NOTE | 2024-11-02 12:42 | Hospitalist Progress Note ---
Date of Service November 02, 2024 Assessment & Plan (1) Gait instability: (2) Depression: Plan: (3) Failure to thrive in adult: (4) Bradycardia: Plan This is a 59 year old female with past medical history of major depressive disorder with psychotic features, iron deficiency anemia, hypothyroidism, atrial flutter, bipolar who presented to the ED on 10/04/24 after being brought in by the police after a wellfare check - with weakness and falling. Much of her care is managed through [facility]. Workup on admission without acute cause of her weakness (CXR, biofire, UA, Head CT, TSH, CK). Prolonged stay awaiting waivers prior to rehab so she is able to have more care at home. #Weakness Patient has been admitted to the hospital multiple times due to falls and injury. Her gait instability stems from bradykinesia and medications. Has been evaluated by neurology in the past for abnormal brain MRI - no MS or Parkinsons. No further neuro workup indicated. Encourage ambulation as much as possible. Encourage sitting in chair for meals. - discussed w/ nursing 11/02 PT/OT recommending rehab, CM following #Depression Medication adjustments: Depakote 1000mg HS. Risperidone discontinued. Melatonin increased to 6mg 10/30. Psych re-eval patient 10/29 - deems she does have decision making capacity regarding disposition and desires rehab to get stronger If depression doesn't improve consider SSRI Patient appears to be responding well to the changes in her psych medications. #A fib/Bradycardia Continue amiodarone. No anticoagulation due to frequent falls Bradycardia is chronic - outpatient followup. AM CBC, BMP - consider checking labs weekly while patient awaits placement #Decreased appetite - diet changed from heart healthy to regular. Encouraged PO intake. Monitor weights. Could consider low doses Remeron for mood and appetite. Weight 66.5kg (down from 76kg although initial weight was bedscale vs. standing scale, bedscale not as accurate) - would continue to weigh every few days and monitor. Dispo: medically stable for discharge DVT prophylaxis: Lovenox Admission and Anticipated Discharge Date Admission Date: October 04, 2024 Subjective Patient seen and examined this morning. Patient reports to be tired today. She denies any additional symptoms. She states she has been ambulating recently and will try to sit up more for meals. Physical Exam Constitutional: WD/WN, vitals as above Eyes: PERRL, conjunctivae normal, anicteric sclerae Respiratory: breathing unlabored Cardiovascular: well perfused Psychiatric: flat affect Results & Data Results & Data Vital Signs (Past 12 Hours) Vital Signs Temp Pulse Resp BP Pulse Ox O2 Del Method 11/02/24 07:35 36.5 C 53 L 16 92/61 L 96 Room Air PG Care Time/CCT Total # of Minutes Spent Total Time Spent with Patient: Total time spent is greater than 50% in coordination of care (as documented) at patient's floor/unit and/or counseling patient: Coding Level of Care Code 83958 SUB INP/OBS CARE 10/03MIN Diagnoses Gait instability R26.81 Depression F32.A Failure to thrive in adult R62.7 Bradycardia R00.1
--- NOTE | 2024-11-03 19:18 | Hospitalist Progress Note ---
Date of Service November 03, 2024 Assessment & Plan (1) Gait instability: (2) Depression: Plan: (3) Failure to thrive in adult: (4) Bradycardia: Plan This is a 59 year old female with past medical history of major depressive disorder with psychotic features, iron deficiency anemia, hypothyroidism, atrial flutter, bipolar who presented to the ED on 10/04/24 after being brought in by the police after a wellfare check - with weakness and falling. Much of her care is managed through [facility]. Workup on admission without acute cause of her weakness (CXR, biofire, UA, Head CT, TSH, CK). Prolonged stay awaiting waivers prior to rehab so she is able to have more care at home. #Weakness Patient has been admitted to the hospital multiple times due to falls and injury. Her gait instability stems from bradykinesia and medications. Has been evaluated by neurology in the past for abnormal brain MRI - no MS or Parkinsons. No further neuro workup indicated. Encourage ambulation as much as possible. Encourage sitting in chair for meals, proper sleep-wake cycles PT/OT recommending rehab, CM following #Depression Medication adjustments: Depakote 1000mg HS. Risperidone discontinued. Melatonin increased to 6mg 10/30. Psych re-eval patient 10/29 - deems she does have decision making capacity regarding disposition and desires rehab to get stronger If depression doesn't improve consider SSRI Patient appears to be responding well to the changes in her psych medications. #A fib/Bradycardia Continue amiodarone. No anticoagulation due to frequent falls Bradycardia is chronic - outpatient followup. AM CBC, BMP - consider checking labs weekly while patient awaits placement #Decreased appetite - diet changed from heart healthy to regular. Encouraged PO intake. Monitor weights. Could consider low doses Remeron for mood and appetite. Weight 66.5kg (down from 76kg although initial weight was bedscale vs. standing scale, bedscale not as accurate) - would continue to weigh every few days and monitor. RN reports patient has been eating her meals completely, continue to monitor. Dispo: medically stable for discharge. Awaiting rehab placement, case management following DVT prophylaxis: Lovenox Admission and Anticipated Discharge Date Admission Date: October 04, 2024 Subjective Patient seen and evaluated at bedside. She denies any acute complaints or concerns at this time. Continued to encourage proper sleep-wake cycles. RN reports patient ate all of her meals, to the lab in the hallway, and sat in bedside chair with breakfast. She does continue to doze off throughout the day. Physical Exam Physical Exam: General: No acute distress, nondiaphoretic. Lying in bed. Cooperative. Cardiac: Bradycardic rate in the 50s. Well-perfused. Pulm: Normal respiratory effort. 96% on room air. Neuro: A&O x3. No focal neurological deficits. Results & Data Results & Data Vital Signs (Past 12 Hours) Vital Signs Temp Pulse Resp BP Pulse Ox O2 Del Method 11/03/24 15:15 93/55 L 11/03/24 15:04 98.1 F 51 L 16 89/56 L 96 Room Air 11/03/24 07:30 54 L PG Care Time/CCT Total # of Minutes Spent Total Time Spent with Patient: Total time spent is greater than 50% in coordination of care (as documented) at patient's floor/unit and/or counseling patient: Coding Level of Care Code 94529 SUB INP/OBS CARE 10/03MIN Diagnoses Gait instability R26.81 Depression F32.A Failure to thrive in adult R62.7 Bradycardia R00.1
--- NOTE | 2024-11-04 09:48 | Hospitalist Progress Note ---
Date of Service November 04, 2024 Assessment & Plan (1) Gait instability: (2) Depression: Plan: (3) Failure to thrive in adult: (4) Bradycardia: (5) Constipation: Plan This is a 59 year old female with past medical history of major depressive disorder with psychotic features, iron deficiency anemia, hypothyroidism, atrial flutter, bipolar who presented to the ED on 10/04/24 after being brought in by the police after a wellfare check - with weakness and falling. Much of her care is managed through [facility]. Workup on admission without acute cause of her weakness (CXR, biofire, UA, Head CT, TSH, CK). Prolonged stay awaiting waivers prior to rehab so she is able to have more care at home. #Weakness Patient has been admitted to the hospital multiple times due to falls and injury. Her gait instability stems from bradykinesia and medications. Has been evaluated by neurology in the past for abnormal brain MRI - no MS or Parkinsons. No further neuro workup indicated. Encourage ambulation as much as possible. Encourage sitting in chair for meals, proper sleep-wake cycles PT/OT recommending rehab, CM following #Depression Medication adjustments: Depakote 1000mg HS. Risperidone discontinued. Melatonin increased to 6mg 10/30. Psych re-eval patient 10/29 - deems she does have decision making capacity regarding disposition and desires rehab to get stronger If depression doesn't improve consider SSRI Patient appears to be responding well to the changes in her psych medications. #Constipation / Decreased appetite Continue bowel regimen - scheduled MiraLAX daily, with additional daily PRN dose available. Senna x 1 provided 11/04 Continue to encourage ambulation, activity, OOB for meals, etc. Diet changed from heart healthy to regular. Encouraged PO intake. Monitor weights, would continue to weigh every few days and monitor Could consider low doses Remeron for mood and appetite. RN reports patient has been eating her meals completely, continue to monitor #A fib/Bradycardia Continue amiodarone. No anticoagulation due to frequent falls Bradycardia is chronic - outpatient followup. AM CBC, BMP - consider checking labs weekly while patient awaits placement Dispo: medically stable for discharge. Awaiting rehab placement, case management following DVT prophylaxis: Lovenox Admission and Anticipated Discharge Date Admission Date: October 04, 2024 Subjective Patient seen and evaluated at bedside. She reports feeling well and states she slept intermittently last night, which is an improvement. Positive feedback and further encouragement for proper sleep-wake cycles provided. Patient reports feeling constipated, believes her last BM was ~3-4 days ago. Will provide laxative dose. No additional complaints or concerns at this time. Physical Exam Physical Exam: General: No acute distress, nondiaphoretic. Lying in bed. Cooperative. Cardiac: Bradycardic rate in the 50s. Well-perfused. Pulm: Normal respiratory effort. 99% on room air. Abdominal: Soft, nontender, nondistended. Hypoactive bowel sounds. Neuro: A&O x3. No focal neurological deficits. Results & Data Results & Data Vital Signs (Past 12 Hours) Vital Signs Temp Pulse Resp BP Pulse Ox O2 Del Method 11/04/24 08:05 97.3 F L 50 L 16 100/58 L 99 Room Air PG Care Time/CCT Total # of Minutes Spent Total Time Spent with Patient: Total time spent is greater than 50% in coordination of care (as documented) at patient's floor/unit and/or counseling patient: Coding Level of Care Code 80856 SUB INP/OBS CARE 2/35MIN Diagnoses Gait instability R26.81 Depression F32.A Failure to thrive in adult R62.7 Bradycardia R00.1 Constipation K59.00
[2024-11-04] MEDS: SENNA 8.6 MG TAB PO ONE (11:22)
[2024-11-05] MEDS: POLYETHYLENE (MIRALAX) 17 GM PACK PO SCH (07:37)
--- NOTE | 2024-11-05 17:04 | Hospitalist Progress Note ---
Date of Service November 05, 2024 Assessment & Plan (1) Gait instability: (2) Depression: Plan: (3) Failure to thrive in adult: (4) Bradycardia: (5) Constipation: Plan This is a 59 year old female with past medical history of major depressive disorder with psychotic features, iron deficiency anemia, hypothyroidism, atrial flutter, bipolar who presented to the ED on 10/04/24 after being brought in by the police after a wellfare check - with weakness and falling. Much of her care is managed through [facility]. Workup on admission without acute cause of her weakness (CXR, biofire, UA, Head CT, TSH, CK). Prolonged stay awaiting waivers prior to rehab so she is able to have more care at home. #Weakness Patient has been admitted to the hospital multiple times due to falls and injury. Her gait instability stems from bradykinesia and medications. Has been evaluated by neurology in the past for abnormal brain MRI - no MS or Parkinsons. No further neuro workup indicated. Encourage ambulation as much as possible. Encourage sitting in chair for meals, proper sleep-wake cycles PT/OT recommending rehab, CM following #Depression Medication adjustments: Depakote 1000mg HS. Risperidone discontinued. Melatonin increased to 6mg 10/30. Psych re-eval patient 10/29 - deems she does have decision making capacity regarding disposition and desires rehab to get stronger If depression doesn't improve consider SSRI Patient appears to be responding well to the changes in her psych medications. #Constipation / Decreased appetite Continue bowel regimen - scheduled MiraLAX daily, with additional daily PRN dose available. Last BM 11/05 Continue to encourage ambulation, activity, OOB for meals, etc. Diet changed from heart healthy to regular. Encouraged PO intake. Monitor weights, would continue to weigh every few days and monitor Could consider low doses Remeron for mood and appetite. RN reports patient has been eating her meals completely, continue to monitor #A fib/Bradycardia Continue amiodarone. No anticoagulation due to frequent falls Bradycardia is chronic - outpatient followup. AM CBC, BMP - consider checking labs weekly while patient awaits placement Dispo: medically stable for discharge. Awaiting rehab placement, case management following DVT prophylaxis: Lovenox Admission and Anticipated Discharge Date Admission Date: October 04, 2024 Subjective Patient seen and evaluated at bedside chair. She had a bowel movement today. She reports getting some sleep last night and feels less tired during the day compared to a few weeks ago. She reports walking during the day, sitting in bedside chair multiple times, and prioritizing protein rich foods. No additional complaints or concerns at this time. Physical Exam Physical Exam: General: No acute distress, nondiaphoretic. Lying in bed. Cooperative. Cardiac: Bradycardic rate in the 50s. Well-perfused. Pulm: Normal respiratory effort. 99% on room air. Neuro: A&O x3. No focal neurological deficits. Results & Data Results & Data Vital Signs (Past 12 Hours) Vital Signs Temp Pulse Resp BP Pulse Ox O2 Del Method 11/05/24 15:11 97.5 F L 51 L 18 95/60 L 97 Room Air 11/05/24 07:17 97.5 F L 52 L 18 99/61 L 99 Room Air PG Care Time/CCT Total # of Minutes Spent Total Time Spent with Patient: Total time spent is greater than 50% in coordination of care (as documented) at patient's floor/unit and/or counseling patient: Coding Level of Care Code 56924 SUB INP/OBS CARE 10/03MIN Diagnoses Gait instability R26.81 Depression F32.A Failure to thrive in adult R62.7 Bradycardia R00.1 Constipation K59.00
--- NOTE | 2024-11-06 17:04 | Hospitalist Progress Note ---
Date of Service November 06, 2024 Assessment & Plan (1) Gait instability: (2) Depression: Plan: (3) Failure to thrive in adult: (4) Bradycardia: (5) Constipation: Plan This is a 59 year old female with past medical history of major depressive disorder with psychotic features, iron deficiency anemia, hypothyroidism, atrial flutter, bipolar who presented to the ED on 10/04/24 after being brought in by the police after a wellfare check - with weakness and falling. Much of her care is managed through [facility]. Workup on admission without acute cause of her weakness (CXR, biofire, UA, Head CT, TSH, CK). Prolonged stay awaiting waivers prior to rehab so she is able to have more care at home. #Weakness Patient has been admitted to the hospital multiple times due to falls and injury. Her gait instability stems from bradykinesia and medications. Has been evaluated by neurology in the past for abnormal brain MRI - no MS or Parkinsons. No further neuro workup indicated. Encourage ambulation as much as possible. Encourage sitting in chair for meals, proper sleep-wake cycles PT/OT recommending rehab, CM following #Depression Medication adjustments: Depakote 1000mg HS. Risperidone discontinued. Melatonin increased to 9 mg 11/06. Psych re-eval patient 10/29 - deems she does have decision making capacity regarding disposition and desires rehab to get stronger If depression doesn't improve consider SSRI Patient appears to be responding well to the changes in her psych medications. #Constipation / Decreased appetite Continue bowel regimen - scheduled MiraLAX daily, with additional daily PRN dose available. Last BM 11/05 Continue to encourage ambulation, activity, OOB for meals, etc. Diet changed from heart healthy to regular. Encouraged PO intake. Monitor weights, would continue to weigh every few days and monitor Could consider low doses Remeron for mood and appetite. RN reports patient has been eating her meals completely, continue to monitor #A fib/Bradycardia Continue amiodarone. No anticoagulation due to low enough [id number] score (hernan menjivar only) Bradycardia is chronic - follows with Dr Saenz outpatient Recommend checking labs (CBC, BMP) weekly while patient awaits placement Dispo: medically stable for discharge. Awaiting rehab placement, case management following DVT prophylaxis: Lovenox Admission and Anticipated Discharge Date Admission Date: October 04, 2024 Supervising Physician Co-Signing Physician Notes PA Supervision Note: I did not personally see or examine the patient today, but I verified all lucas points of PAZ Pablo's assessment and plan with the following exceptions/additions: None Subjective Patient seen and evaluated at bedside. She reports she was awake most of last night so she feels tired today. She denies any other complaints or concerns. Encouraged her to push through her fatigue today so she can sleep tonight and maintain better sleep-wake cycles. Physical Exam Physical Exam: General: No acute distress, nondiaphoretic. Lying in bed. Cooperative. Cardiac: Bradycardic rate in the 50s. Well-perfused. Pulm: Normal respiratory effort. 98% on room air. Neuro: A&O x3. No focal neurological deficits. Results & Data Results & Data Vital Signs (Past 12 Hours) Vital Signs Temp Pulse Pulse Resp BP Pulse Ox O2 Del Method 11/06/24 16:45 53 L 106/65 98 Room Air 11/06/24 16:04 97.3 F L 54 L 16 90/53 L 96 Room Air 11/06/24 07:25 Room Air 11/06/24 07:01 97.5 F L 62 18 101/62 96 Room Air PG Care Time/CCT Total # of Minutes Spent Total Time Spent with Patient: Total time spent is greater than 50% in coordination of care (as documented) at patient's floor/unit and/or counseling patient: Coding Level of Care Code 07997 SUB INP/OBS CARE 10/03MIN Diagnoses Gait instability R26.81 Depression F32.A Failure to thrive in adult R62.7 Bradycardia R00.1 Constipation K59.00
[2024-11-06] MEDS: MELATONIN 3 MG TAB PO SCH (20:08)
--- NOTE | 2024-11-07 14:59 | Hospitalist Progress Note ---
Date of Service November 07, 2024 Assessment & Plan (1) Gait instability: (2) Depression: Plan: (3) Failure to thrive in adult: (4) Bradycardia: (5) Constipation: Plan This is a 59 year old female with past medical history of major depressive disorder with psychotic features, iron deficiency anemia, hypothyroidism, atrial flutter, bipolar who presented to the ED on 10/04/24 after being brought in by the police after a wellfare check - with weakness and falling. Much of her care is managed through [facility]. Workup on admission without acute cause of her weakness (CXR, biofire, UA, Head CT, TSH, CK). Prolonged stay awaiting waivers prior to rehab so she is able to have more care at home. #Weakness Patient has been admitted to the hospital multiple times due to falls and injury. Her gait instability stems from bradykinesia and medications. Has been evaluated by neurology in the past for abnormal brain MRI - no MS or Parkinsons. No further neuro workup indicated. Encourage ambulation as much as possible. Encourage sitting in chair for meals, proper sleep-wake cycles PT/OT recommending rehab, CM following #Depression Medication adjustments: Depakote 1000mg HS. Risperidone discontinued. Melatonin increased to 9 mg 11/06. Psych re-eval patient 10/29 - deems she does have decision making capacity regarding disposition and desires rehab to get stronger If depression doesn't improve consider SSRI Patient appears to be responding well to the changes in her psych medications. #Constipation / Decreased appetite Continue bowel regimen - scheduled MiraLAX daily, with additional daily PRN dose available. Last BM 11/06 Continue to encourage ambulation, activity, OOB for meals, etc. Diet changed from heart healthy to regular. Encouraged PO intake. Monitor weights, would continue to weigh every few days and monitor Could consider low doses Remeron for mood and appetite. RN reports patient has been eating her meals completely, continue to monitor #A fib/Bradycardia Continue amiodarone. No anticoagulation due to low enough [id number] score (hernan menjivar only) Bradycardia is chronic - follows with Dr Saenz outpatient Recommend checking labs (CBC, BMP) weekly while patient awaits placement Dispo: medically stable for discharge. Awaiting rehab placement, case management following DVT prophylaxis: Lovenox Admission and Anticipated Discharge Date Admission Date: October 04, 2024 Subjective Patient seen and evaluated at bedside. Ongoing issues with sleep overnight. She did walk the halls without a walker earlier this afternoon. She is eating her meals. No acute complaints or concerns at this time. Physical Exam Physical Exam: General: No acute distress, nondiaphoretic. Lying in bed. Cooperative. Cardiac: Bradycardic rate in the 50s. Well-perfused. Pulm: Normal respiratory effort. 99% on room air. Neuro: A&O x3. No focal neurological deficits. Results & Data Results & Data Vital Signs (Past 12 Hours) Vital Signs Temp Pulse Resp BP Pulse Ox O2 Del Method 11/07/24 08:45 53 L 97/64 L 99 Room Air 11/07/24 07:39 98.1 F 47 L 18 97/63 L 98 Room Air PG Care Time/CCT Total # of Minutes Spent Total Time Spent with Patient: Total time spent is greater than 50% in coordination of care (as documented) at patient's floor/unit and/or counseling patient: Coding Level of Care Code 75884 SUB INP/OBS CARE 10/03MIN Diagnoses Gait instability R26.81 Depression F32.A Failure to thrive in adult R62.7 Bradycardia R00.1 Constipation K59.00
[2024-11-08 06:10] LABS: Hematocrit (blood only) 37.6 % (37.0-47.0); Hemoglobin 12.4 g/dl (12.0-16.0); Mean Corpuscular Hemoglobin 32.5 pg (25.0-34.0); Mean Corpuscular Volume 98.4 fL (80.0-100.0); Mean Platelet Volume 9.9 fL (9.4-12.4); Platelet Count 184 K/uL (130-400); RDW Coefficient of Variation 12.8 % (11.5-14.5); RDW Standard Deviation 46.3 fL (36.4-46.3); Red Blood Count 3.82 M/uL (4.20-5.40)
[2024-11-08 06:35] LABS: BUN Creatinine Ratio 26.1 (10-20); Calcium 8.7 mg/dl (8.6-10.3); Creatinine Clr Calc Pharmacy 57.8 ml/min; Potassium 4.1 mmol/L (3.5-5.1)
--- NOTE | 2024-11-08 08:32 | Hospitalist Progress Note ---
Date of Service November 08, 2024 Assessment & Plan (1) Gait instability: (2) Depression: Plan: (3) Failure to thrive in adult: (4) Bradycardia: (5) Constipation: Plan This is a 59 year old female with past medical history of major depressive disorder with psychotic features, iron deficiency anemia, hypothyroidism, atrial flutter, bipolar who presented to the ED on 10/04/24 after being brought in by the police after a wellfare check - with weakness and falling. Much of her care is managed through [facility]. Workup on admission without acute cause of her weakness (CXR, biofire, UA, Head CT, TSH, CK). Prolonged stay awaiting waivers prior to discharge so she is able to have more care at home. #Weakness Patient has been admitted to the hospital multiple times due to falls and injury. Her gait instability stems from bradykinesia and medications. Has been evaluated by neurology in the past for abnormal brain MRI - no MS or Parkinsons. No further neuro workup indicated. Encourage ambulation as much as possible. Encourage sitting in chair for meals, proper sleep-wake cycles PT/OT recommending home health, CM following #Depression Medication adjustments: Depakote 1000mg HS. Risperidone discontinued. Melatonin increased to 9 mg 11/06. Psych re-eval patient 10/29 - deems she does have decision making capacity regarding disposition If depression doesn't improve consider SSRI Patient appears to be responding well to the changes in her psych medications. #Constipation / Decreased appetite Continue bowel regimen - scheduled MiraLAX daily, with additional daily PRN dose available. Last BM 11/07 Continue to encourage ambulation, activity, OOB for meals, etc. Diet changed from heart healthy to regular. Encouraged PO intake. Monitor weights, would continue to weigh every few days and monitor Could consider low doses Remeron for mood and appetite. RN reports patient has been eating her meals completely, continue to monitor #A fib/Bradycardia Continue amiodarone. No anticoagulation due to low enough [id number] score (gender only) Bradycardia is chronic - follows with Dr Saenz outpatient Recommend checking labs (CBC, BMP) weekly while patient awaits placement Dispo: medically stable for discharge. Awaiting Medicaid waivers prior to re turn to her apartment. She does not qualify for rehab or SNF. DVT prophylaxis: Lovenox Admission and Anticipated Discharge Date Admission Date: October 04, 2024 Subjective Patient seen and evaluated at bedside. She reports she has been "walking a lot today" and has a good appetite. She reports intermittent sleep overnight. We discussed the results of her normal lab work from this morning. She denies any complaints or concerns at this time. Physical Exam Physical Exam: General: No acute distress, nondiaphoretic. Lying in bed. Cooperative. Cardiac: Bradycardic rate in the 50s. Well-perfused. Pulm: Normal respiratory effort. 100% on room air. Neuro: A&O x3. No focal neurological deficits. Results & Data Results & Data Vital Signs (Past 12 Hours) Vital Signs Temp Pulse Resp BP Pulse Ox O2 Del Method 11/08/24 07:44 97.9 F 56 L 18 116/76 100 Room Air Laboratory Results Reviewed CBC Reviewed BMP PG Care Time/CCT Total # of Minutes Spent Total Time Spent with Patient: Total time spent is greater than 50% in coordination of care (as documented) at patient's floor/unit and/or counseling patient: Coding Level of Care Code 62646 SUB INP/OBS CARE 10/03MIN Diagnoses Gait instability R26.81 Depression F32.A Failure to thrive in adult R62.7 Bradycardia R00.1 Constipation K59.00
--- NOTE | 2024-11-09 13:59 | Hospitalist Progress Note ---
Date of Service November 09, 2024 Assessment & Plan (1) Gait instability: (2) Depression: Plan: (3) Failure to thrive in adult: (4) Bradycardia: (5) Constipation: Plan This is a 59 year old female with past medical history of major depressive disorder with psychotic features, iron deficiency anemia, hypothyroidism, atrial flutter, bipolar who presented to the ED on 10/04/24 after being brought in by the police after a wellfare check - with weakness and falling. Much of her care is managed through [facility]. Workup on admission without acute cause of her weakness (CXR, biofire, UA, Head CT, TSH, CK). Prolonged stay awaiting waivers prior to discharge so she is able to have more care at home. #Weakness Patient has been admitted to the hospital multiple times due to falls and injury. Her gait instability stems from bradykinesia and medications. Has been evaluated by neurology in the past for abnormal brain MRI - no MS or Parkinson's disease. No further neuro workup indicated. Encourage ambulation as much as possible. Encourage sitting in chair for meals, proper sleep-wake cycles PT/OT recommending home health, CM following #Depression Medication adjustments: Depakote 1000mg HS. Risperidone discontinued. Melatonin increased to 9 mg 11/06. Psych re-eval patient 10/29 - deems she does have decision making capacity r egarding disposition If depression doesn't improve consider SSRI Patient appears to be responding well to the changes in her psych medications. #Constipation / Decreased appetite Initially started on scheduled Miralax, patient has been refusing Switch bowel regimen to Colace daily, Miralax prn /3 Last BM 11/09 - continue to monitor Continue to encourage ambulation, activity, OOB for meals, etc. Diet changed from heart healthy to regular. Encouraged PO intake. Monitor weights, would continue to weigh every few days. Prefer standing scale. Could consider low doses Remeron for mood and appetite. RN reports patient has been eating her meals completely, continue to monitor #A fib/Bradycardia Continue amiodarone. No anticoagulation due to low enough [id number] score (gender only) Bradycardia is chronic - follows with Dr Saenz outpatient Recommend checking labs (CBC, BMP) weekly while patient awaits placement Dispo: medically stable for discharge. Awaiting Medicaid waivers prior to return to her apartment. She does not qualify for rehab or SNF. DVT prophylaxis: Lovenox Admission and Anticipated Discharge Date Admission Date: October 04, 2024 Supervising Physician Co-Signing Physician Notes PA Supervision Note: I did not personally see or examine the patient today, but I verified all lucas points of PAZ Ortiz's assessment and plan with the following exceptions/additions: None Subjective Patient seen and examined this morning. Patient reports she was able to sleep last night but got little sleep. She denies any additional complaints. She reports she has been ambulating the halls and sitting in her chair at times during the day. Physical Exam Constitutional: WD/WN, vitals as above Eyes: PERRL, conjunctivae normal, anicteric sclerae Respiratory: breathing unlabored Cardiovascular: well perfused Musculoskeletal: moves all extremities Skin: no rashes, warm and dry Psychiatric: A+Ox3, euthymic affect Results & Data Results & Data Vital Signs (Past 12 Hours) Vital Signs Temp Pulse Resp BP BP Pulse Ox O2 Del Method 11/09/24 11:15 37.0 C 81 18 90/59 L 98 Room Air 11/09/24 08:46 91/57 L 11/09/24 08:43 53 L 91/57 L 11/09/24 07:57 36.5 C 100 H 18 100/62 96 Room Air PG Care Time/CCT Total # of Minutes Spent Total Time Spent with Patient: Total time spent is greater than 50% in coordination of care (as documented) at patient's floor/unit and/or counseling patient: Coding Level of Care Code 65377 SUB INP/OBS CARE 10/03MIN Diagnoses Gait instability R26.81 Depression F32.A Failure to thrive in adult R62.7 Bradycardia R00.1 Constipation K59.00
[2024-11-10] MEDS: DOCUSATE SODIUM 100 MG CAP PO SCH (07:12)
--- NOTE | 2024-11-10 14:48 | Hospitalist Progress Note ---
Date of Service November 10, 2024 Assessment & Plan (1) Gait instability: (2) Depression: Plan: (3) Failure to thrive in adult: (4) Bradycardia: (5) Constipation: Plan This is a 59 year old female with past medical history of major depressive disorder with psychotic features, iron deficiency anemia, hypothyroidism, atrial flutter, bipolar who presented to the ED on 10/04/24 after being brought in by the police after a wellfare check - with weakness and falling. Much of her care is managed through [facility]. Workup on admission without acute cause of her weakness (CXR, biofire, UA, Head CT, TSH, CK). Prolonged stay awaiting waivers prior to discharge so she is able to have more care at home. #Weakness Patient has been admitted to the hospital multiple times due to falls and injury. Her gait instability stems from bradykinesia and medications. Has been evaluated by neurology in the past for abnormal brain MRI - no MS or Parkinson's disease. No further neuro workup indicated. Encourage ambulation as much as possible. Encourage sitting in chair for meals, proper sleep-wake cycles PT/OT recommending home health, CM following #Depression Medication adjustments: Depakote 1000mg HS. Risperidone discontinued. Melatonin increased to 9 mg 11/06. Psych re-eval patient 10/29 - deems she does have decision making capacity r egarding disposition If depression doesn't improve consider SSRI Patient appears to be responding well to the changes in her psych medications. #Constipation / Decreased appetite Initially started on scheduled Miralax, patient has been refusing Switch bowel regimen to Colace daily, Miralax prn 3/3 Last BM 3 - continue to monitor Continue to encourage ambulation, activity, OOB for meals, etc. Diet changed from heart healthy to regular. Encouraged PO intake. Monitor weights, would continue to weigh every few days. Prefer standing scale. Could consider low doses Remeron for mood and appetite. RN reports patient has been eating her meals completely, continue to monitor #A fib/Bradycardia Continue amiodarone. No anticoagulation due to low enough [id number] score (gender only) Bradycardia is chronic - follows with Dr Saenz outpatient Recommend checking labs (CBC, BMP) weekly while patient awaits placement Dispo: medically stable for discharge. Awaiting Medicaid waivers prior to return to her apartment. She does not qualify for rehab or SNF. DVT prophylaxis: Lovenox Admission and Anticipated Discharge Date Admission Date: October 04, 2024 Supervising Physician Co-Signing Physician Notes PA Supervision Note: I did not personally see or examine the patient today, but I verified all lucas points of PAZ Hoang's assessment and plan with the following exceptions/additions: None Subjective Patient seen and examined this morning. Patient states she was able to get sleep last night. She denies any additional complaints. Physical Exam Constitutional: WD/WN, vitals as above Eyes: PERRL, conjunctivae normal, anicteric sclerae Respiratory: breathing unlabored Cardiovascular: well perfused Musculoskeletal: moves all extremities Psychiatric: A+Ox3, euthymic affect Results & Data Results & Data Vital Signs (Past 12 Hours) Vital Signs Temp Pulse Resp BP Pulse Ox O2 Del Method 11/10/24 08:11 37.0 C 51 L 12 98/62 L 98 Room Air PG Care Time/CCT Total # of Minutes Spent Total Time Spent with Patient: Total time spent is greater than 50% in coordination of care (as documented) at patient's floor/unit and/or counseling patient: Coding Level of Care Code 00614 SUB INP/OBS CARE 10/03MIN Diagnoses Gait instability R26.81 Depression F32.A Failure to thrive in adult R62.7 Bradycardia R00.1 Constipation K59.00
--- NOTE | 2024-11-11 14:27 | Hospitalist Progress Note ---
Date of Service November 11, 2024 Assessment & Plan (1) Gait instability: (2) Depression: Plan: (3) Failure to thrive in adult: (4) Bradycardia: (5) Constipation: Plan This is a 59 year old female with past medical history of major depressive disorder with psychotic features, iron deficiency anemia, hypothyroidism, atrial flutter, bipolar who presented to the ED on 10/04/24 after being brought in by the police after a wellfare check - with weakness and falling. Much of her care is managed through [facility]. Workup on admission without acute cause of her weakness (CXR, biofire, UA, Head CT, TSH, CK). Prolonged stay awaiting waivers prior to discharge so she is able to have more care at home. #Weakness Patient has been admitted to the hospital multiple times due to falls and injury. Her gait instability stems from bradykinesia and medications. Has been evaluated by neurology in the past for abnormal brain MRI - no MS or Parkinson's disease. No further neuro workup indicated. Encourage ambulation as much as possible. Encourage sitting in chair for meals, proper sleep-wake cycles PT/OT recommending home health, CM following #Depression Medication adjustments: Depakote 1000mg HS. Risperidone discontinued. Melatonin increased to 9 mg 11/06. Psych re-eval patient 10/29 - deems she does have decision making capacity r egarding disposition If depression doesn't improve consider SSRI Patient appears to be responding well to the changes in her psych medications. #Constipation / Decreased appetite Initially started on scheduled Miralax, patient has been refusing Switch bowel regimen to Colace daily, Miralax prn Continue to encourage ambulation, activity, OOB for meals, etc. Diet changed from heart healthy to regular. Encourage PO intake. Monitor weights, would continue to weigh every few days. Prefer standing scale. Could consider low doses Remeron for mood and appetite. #A fib/Bradycardia Continue amiodarone. No anticoagulation due to low enough [id number] score (gender only) Bradycardia is chronic - follows with Dr Saenz outpatient Recommend checking labs (CBC, BMP) weekly while patient awaits placement Dispo: medically stable for discharge. Awaiting Medicaid waivers prior to return to her apartment. She does not qualify for rehab or SNF. - Office of aging to reevaluate the patient, date for this TBD. DVT prophylaxis: Lovenox Admission and Anticipated Discharge Date Admission Date: October 04, 2024 Supervising Physician Co-Signing Physician Notes PA Supervision Note: I did not personally see or examine the patient today, but I verified all lucas points of PAZ Hoang's assessment and plan with the following exceptions/additions: None Subjective Patient seen and examined this morning. patient reports that she did not sleep well last night. She denied any additional complaints today. Discussed discharge plans with patient - she said she is worried about getting into her bath tub on her own at home. Physical Exam Constitutional: WD/WN, vitals as above Eyes: PERRL, conjunctivae normal, anicteric sclerae Respiratory: breathing unlabored Cardiovascular: well perfused Musculoskeletal: moves all extremities Psychiatric: A+Ox3, euthymic affect Results & Data Results & Data Vital Signs (Past 12 Hours) Vital Signs Temp Pulse Resp BP Pulse Ox O2 Del Method 11/11/24 12:21 36.8 C 67 14 94/60 L 95 Room Air 11/11/24 08:08 36.5 C 58 L 16 85/56 L 98 Room Air PG Care Time/CCT Total # of Minutes Spent Total Time Spent with Patient: Total time spent is greater than 50% in coordination of care (as documented) at patient's floor/unit and/or counseling patient: Coding Level of Care Code 67467 SUB INP/OBS CARE 10/03MIN Diagnoses Gait instability R26.81 Depression F32.A Failure to thrive in adult R62.7 Bradycardia R00.1 Constipation K59.00
--- NOTE | 2024-11-12 10:01 | Hospitalist Progress Note ---
Date of Service November 12, 2024 Assessment & Plan (1) Gait instability: (2) Depression: Plan: (3) Failure to thrive in adult: (4) Bradycardia: (5) Constipation: Plan This is a 59 year old female with past medical history of major depressive disorder with psychotic features, iron deficiency anemia, hypothyroidism, atrial flutter, bipolar who presented to the ED on 10/04/24 after being brought in by the police after a wellfare check - with weakness and falling. Much of her care is managed through [facility]. Workup on admission without acute cause of her weakness (CXR, biofire, UA, Head CT, TSH, CK). Prolonged stay awaiting waivers prior to discharge so she is able to have more care at home. #Weakness Patient has been admitted to the hospital multiple times due to falls and injury. Her gait instability stems from bradykinesia and medications. Has been evaluated by neurology in the past for abnormal brain MRI - no MS or Parkinson's disease. No further neuro workup indicated. Encourage ambulation as much as possible. Encourage sitting in chair for meals, proper sleep-wake cycles, proper hygiene. PT/OT recommending home health, CM following #Hypotension-blood pressures run soft normally. Did have brief hypotension on 11/12 with blood pressure down to 76/40. She received fluid bolus IV and had improvement. She is not on any medications that could cause hypotension. Encouraged her to drink more fluids. Monitor blood pressure #Depression Medication adjustments: Depakote 1000mg HS. Risperidone discontinued. Melatonin increased to 9 mg 11/06. Psych re-eval patient 10/29 - deems she does have decision making capacity regarding disposition If depression doesn't improve consider SSRI Patient appears to be responding well to the changes in her psych medications. #Constipation / Decreased appetite Initially started on scheduled Miralax, patient has been refusing Switch bowel regimen to Colace daily, Miralax prn Continue to encourage ambulation, activity, OOB for meals, etc. Diet changed from heart healthy to regular. Encourage PO intake. Monitor weights, would continue to weigh every few days. Prefer standing scale. Could consider low doses Remeron for mood and appetite. #A fib/Bradycardia Continue amiodarone. No anticoagulation due to low enough [id number] score (gender only) Bradycardia is chronic - follows with Dr Saenz outpatient Recommend checking labs (CBC, BMP) weekly while patient awaits placement Dispo: medically stable for discharge. Awaiting Medicaid waivers prior to return to her apartment. She does not qualify for rehab or SNF. - Office of aging to reevaluate the patient, date for this TBD. DVT prophylaxis: Lovenox Admission and Anticipated Discharge Date Admission Date: October 04, 2024 Supervising Physician Co-Signing Physician Notes PA Supervision Note: I did not personally see or examine the patient today, but I verified all lucas points of PAZ Hoang's assessment and plan with the following exceptions/additions: None Subjective Patient seen and examined this morning. Patient denies any complaints today. She does report she has not showered in several days. She reports she would be agreeable to take a shower today. Physical Exam Constitutional: WD/WN, vitals as above Eyes: PERRL, conjunctivae normal, anicteric sclerae Respiratory: breathing unlabored Cardiovascular: well perfused Results & Data Results & Data Vital Signs (Past 12 Hours) Vital Signs Temp Pulse Pulse Resp BP BP Pulse Ox 11/12/24 08:37 52 L 88/42 L 11/12/24 07:18 36.6 C 50 L 16 91/57 L 99 O2 Del Method 11/12/24 08:37 11/12/24 07:18 Room Air PG Care Time/CCT Total # of Minutes Spent Total Time Spent with Patient: Total time spent is greater than 50% in coordination of care (as documented) at patient's floor/unit and/or counseling patient: Coding Level of Care Code 20250 SUB INP/OBS CARE 10/03MIN Diagnoses Gait instability R26.81 Depression F32.A Failure to thrive in adult R62.7 Bradycardia R00.1 Constipation K59.00
[2024-11-12] MEDS: LACTATED RINGER'S 1,000 ML IV ONE (10:38)
--- NOTE | 2024-11-13 15:57 | Hospitalist Progress Note ---
Date of Service November 13, 2024 Assessment & Plan (1) Gait instability: (2) Depression: Plan: (3) Failure to thrive in adult: (4) Bradycardia: (5) Constipation: Plan This is a 59 year old female with past medical history of major depressive disorder with psychotic features, iron deficiency anemia, hypothyroidism, atrial flutter, bipolar who presented to the ED on 10/04/24 after being brought in by the police after a wellfare check - with weakness and falling. Much of her care is managed through [facility]. Workup on admission without acute cause of her weakness (CXR, biofire, UA, Head CT, TSH, CK). Prolonged stay awaiting waivers prior to discharge so she is able to have more care at home. #Weakness Patient has been admitted to the hospital multiple times due to falls and injury. Her gait instability stems from bradykinesia and medications. Has been evaluated by neurology in the past for abnormal brain MRI - no MS or Parkinson's disease. No further neuro workup indicated. Encourage ambulation as much as possible. Encourage sitting in chair for meals, proper sleep-wake cycles, proper hygiene. (remind patient daily) PT/OT recommending home health, CM following #Hypotension Blood pressures run soft normally. Did have brief hypotension on 11/12 with blood pressure down to 76/40 but remained asymptomatic. She received fluid bolus IV and had improvement. She is not on any medications that could cause hypotension. Encouraged her to drink more fluids. Monitor blood pressure #Depression Medication adjustments: Depakote 1000mg HS. Risperidone discontinued. Melatonin increased to 9 mg 11/06. Psych re-eval patient 10/29 - deems she does have decision making capacity regarding disposition If depression doesn't improve consider SSRI Patient appears to be responding well to the changes in her psych medications. #Constipation / Decreased appetite Initially started on scheduled Miralax, patient has been refusing Switch bowel regimen to Colace daily, Miralax prn Continue to encourage ambulation, activity, OOB for meals, etc. Diet changed from heart healthy to regular. Encourage PO intake. Monitor weights, would continue to weigh every few days. Prefer standing scale. Could consider low doses Remeron for mood and appetite. #A fib/Bradycardia Continue amiodarone. No anticoagulation due to low enough [id number] score (gender only) Bradycardia is chronic - follows with Dr Saenz outpatient Recommend checking labs (CBC, BMP) weekly while patient awaits placement Dispo: medically stable for discharge. Awaiting Medicaid waivers prior to return to her apartment. She does not qualify for rehab or SNF. - Office of aging to reevaluate the patient, date for this TBD. DVT prophylaxis: Lovenox Admission and Anticipated Discharge Date Admission Date: October 04, 2024 Subjective Patient seen and examined this morning. Patient reports that she did have a shower yesterday. reports she would like to be reminded to shower as she can be forgetful. She denies any additional complaints. Physical Exam Constitutional: WD/WN, vitals as above Eyes: PERRL, conjunctivae normal, anicteric sclerae Respiratory: breathing unlabored Cardiovascular: well perfused Results & Data Results & Data Vital Signs (Past 12 Hours) Vital Signs Temp Pulse Pulse Resp BP Pulse Ox O2 Del Method 11/13/24 14:29 36.6 C 56 L 16 98/60 L 96 Room Air 11/13/24 12:46 36.7 C 56 L 15 100/58 L 97 Room Air 11/13/24 07:58 36.5 C 60 14 108/76 98 Room Air PG Care Time/CCT Total # of Minutes Spent Total Time Spent with Patient: Total time spent is greater than 50% in coordination of care (as documented) at patient's floor/unit and/or counseling patient: Coding Level of Care Code 30504 SUB INP/OBS CARE 10/03MIN Diagnoses Gait instability R26.81 Depression F32.A Failure to thrive in adult R62.7 Bradycardia R00.1 Constipation K59.00
[2024-11-14 06:17] LABS: Hematocrit (blood only) 37.1 % (37.0-47.0); Hemoglobin 12.5 g/dl (12.0-16.0); Mean Corpuscular Hemoglobin 33.5 pg (25.0-34.0); Mean Corpuscular Hgb Conc 33.7 g/dL (32.0-36.0); Mean Corpuscular Volume 99.5 fL (80.0-100.0); Mean Platelet Volume 9.9 fL (9.4-12.4); Platelet Count 220 K/uL (130-400); RDW Coefficient of Variation 12.7 % (11.5-14.5); RDW Standard Deviation 46.7 fL (36.4-46.3); Red Blood Count 3.73 M/uL (4.20-5.40); White Blood Count 6.19 K/ul (4.8-10.8)
[2024-11-14 06:36] LABS: BUN Creatinine Ratio 20.2 (10-20); Calcium 9.2 mg/dl (8.6-10.3); Creatinine Clr Calc Pharmacy 44.7 ml/min; Potassium 4.6 mmol/L (3.5-5.1)
--- NOTE | 2024-11-14 14:27 | Hospitalist Progress Note ---
<Statement entered by Janie Villalobos MD - 11/14/24 18:31> Reviewed CBC which is essentially normal no anemia BMP remarkable for BUN/Cr mildly elevated above baseline which is consistent with dehydration - hypotension resolved after IV fluid bolus yesterday. This is surely related to low oral intake. Date of Service November 14, 2024 Assessment & Plan (1) Gait instability: (2) Depression: Plan: (3) Failure to thrive in adult: (4) Bradycardia: (5) Constipation: Plan This is a 59 year old female with past medical history of major depressive disorder with psychotic features, iron deficiency anemia, hypothyroidism, atrial flutter, bipolar who presented to the ED on 10/04/24 after being brought in by the police after a wellfare check - with weakness and falling. Much of her care is managed through [facility]. Workup on admission without acute cause of her weakness (CXR, biofire, UA, Head CT, TSH, CK). Prolonged stay awaiting waivers prior to discharge so she is able to have more care at home. #Weakness Patient has been admitted to the hospital multiple times due to falls and injury. Her gait instability stems from bradykinesia and medications. Has been evaluated by neurology in the past for abnormal brain MRI - no MS or Parkinson's disease. No further neuro workup indicated. Encourage ambulation as much as possible. Encourage sitting in chair for meals, proper sleep-wake cycles, proper hygiene. (remind patient daily) PT/OT recommending home health, CM following #Hypotension Blood pressures run soft normally. Did have brief hypotension on 11/12 with blood pressure down to 76/40 but remained asymptomatic. She received fluid bolus IV and had improvement. She is not on any medications that could cause hypotension. Encouraged her to drink more fluids. Monitor blood pressure #Depression Medication adjustments: Depakote 1000mg HS. Risperidone discontinued. Melatonin increased to 9 mg 11/06. Psych re-eval patient 10/29 - deems she does have decision making capacity regarding disposition If depression doesn't improve consider SSRI Patient appears to be responding well to the changes in her psych medications. #Constipation / Decreased appetite Initially started on scheduled Miralax, patient has been refusing Switch bowel regimen to Colace daily, Miralax prn Continue to encourage ambulation, activity, OOB for meals, etc. Diet changed from heart healthy to regular. Encourage PO intake. Monitor weights, would continue to weigh every few days. Prefer standing scale. Could consider low doses Remeron for mood and appetite. #A fib/Bradycardia Continue amiodarone. No anticoagulation due to low enough [id number] score (gender only) Bradycardia is chronic - follows with Dr Saenz outpatient Recommend checking labs (CBC, BMP) weekly while patient awaits placement --> CBC/BMP /8 stable. Dispo: medically stable for discharge. Awaiting Medicaid waivers prior to return to her apartment. She does not qualify for rehab or SNF. - Office of aging to reevaluate the patient, date for this TBD. DVT prophylaxis: Lovenox Admission and Anticipated Discharge Date Admission Date: October 04, 2024 Subjective Patient seen and examined this morning. Patient denies any complaints today. She was wondering whether the office of aging could come and re-evaluate her so she could return home. Physical Exam Constitutional: WD/WN, vitals as above Eyes: PERRL, conjunctivae normal, anicteric sclerae Respiratory: breathing unlabored Cardiovascular: well perfused Psychiatric: A+Ox3, euthymic affect Results & Data Results & Data Vital Signs (Past 12 Hours) Vital Signs Temp Pulse Resp BP Pulse Ox O2 Del Method 11/14/24 07:14 36.6 C 77 16 97/61 L 95 Room Air PG Care Time/CCT Total # of Minutes Spent Total Time Spent with Patient: Total time spent is greater than 50% in coordination of care (as documented) at patient's floor/unit and/or counseling patient: Coding Level of Care Code 25311 SUB INP/OBS CARE 10/03MIN Diagnoses Gait instability R26.81 Depression F32.A Failure to thrive in adult R62.7 Bradycardia R00.1 Constipation K59.00
--- NOTE | 2024-11-15 14:31 | Hospitalist Progress Note ---
Date of Service November 15, 2024 Assessment & Plan (1) Gait instability: (2) Depression: Plan: (3) Failure to thrive in adult: (4) Bradycardia: (5) Constipation: Plan This is a 59 year old female with past medical history of major depressive disorder with psychotic features, iron deficiency anemia, hypothyroidism, atrial flutter, bipolar who presented to the ED on 10/04/24 after being brought in by the police after a wellfare check - with weakness and falling. Much of her care is managed through [facility]. Workup on admission without acute cause of her weakness (CXR, biofire, UA, Head CT, TSH, CK). Prolonged stay awaiting waivers prior to discharge so she is able to have more care at home. #Weakness Patient has been admitted to the hospital multiple times due to falls and injury. Her gait instability stems from bradykinesia and medications. Has been evaluated by neurology in the past for abnormal brain MRI - no MS or Parkinson's disease. No further neuro workup indicated. Encourage ambulation as much as possible. Encourage sitting in chair for meals, proper sleep-wake cycles, proper hygiene. (remind patient daily) PT/OT recommending home health, CM following #Hypotension Blood pressures run soft normally. Did have brief hypotension on 11/12 with blood pressure down to 76/40 but remained asymptomatic. She received fluid bolus IV and had improvement. She is not on any medications that could cause hypotension. Encouraged her to drink more fluids. Monitor blood pressure #Depression Medication adjustments: Depakote 1000mg HS. Risperidone discontinued. Melatonin increased to 9 mg 11/06. Psych re-eval patient 10/29 - deems she does have decision making capacity regarding disposition If depression doesn't improve consider SSRI Patient appears to be responding well to the changes in her psych medications. #Constipation / Decreased appetite Initially started on scheduled Miralax, patient has been refusing Switch bowel regimen to Colace daily, Miralax prn Continue to encourage ambulation, activity, OOB for meals, etc. Diet changed from heart healthy to regular. Encourage PO intake. Monitor weights, would continue to weigh every few days. Prefer standing scale. Could consider low doses Remeron for mood and appetite. #A fib/Bradycardia Continue amiodarone. No anticoagulation due to low enough [id number] score (gender only) Bradycardia is chronic - follows with Dr Saenz outpatient Recommend checking labs (CBC, BMP) weekly while patient awaits placement --> CBC/BMP 11/14 stable. Dispo: medically stable for discharge. Awaiting Medicaid waivers prior to return to her apartment. She does not qualify for rehab or SNF. - Office of aging to reevaluate the patient, date for this TBD. DVT prophylaxis: Lovenox Admission and Anticipated Discharge Date Admission Date: October 04, 2024 Subjective Patient seen and examined this morning. Patient denied any complaints today at time of encounter. Physical Exam Constitutional: WD/WN, vitals as above Eyes: PERRL, conjunctivae normal, anicteric sclerae Respiratory: breathing unlabored Cardiovascular: well perfused Psychiatric: A+Ox3, euthymic affect Results & Data Results & Data Vital Signs (Past 12 Hours) Vital Signs Temp Pulse Resp BP Pulse Ox O2 Del Method 11/15/24 07:01 36.5 C 47 L 18 91/53 L 98 Room Air PG Care Time/CCT Total # of Minutes Spent Total Time Spent with Patient: Total time spent is greater than 50% in coordination of care (as documented) at patient's floor/unit and/or counseling patient: Coding Level of Care Code 78214 SUB INP/OBS CARE 10/03MIN Diagnoses Gait instability R26.81 Depression F32.A Failure to thrive in adult R62.7 Bradycardia R00.1 Constipation K59.00
[2024-11-16] MEDS ORDERED: DOCUSATE SODIUM 100 MG CAP PO PRN (11:27)
--- NOTE | 2024-11-16 11:28 | Hospitalist Progress Note ---
Date of Service November 16, 2024 Assessment & Plan (1) Gait instability: (2) Depression: Plan: (3) Failure to thrive in adult: (4) Bradycardia: (5) Constipation: Plan This is a 59 year old female with past medical history of major depressive disorder with psychotic features, iron deficiency anemia, hypothyroidism, atrial flutter, bipolar who presented to the ED on 10/04/24 after being brought in by the police after a wellfare check - with weakness and falling. Much of her care is managed through [employer]. Workup on admission without acute cause of her weakness (CXR, biofire, UA, Head CT, TSH, CK). Prolonged stay awaiting waivers prior to discharge so she is able to have more care at home. #Weakness Patient has been admitted to the hospital multiple times due to falls and injury. Her gait instability stems from bradykinesia and medications. Has been evaluated by neurology in the past for abnormal brain MRI - no MS or Parkinson's disease. No further neuro workup indicated. Encourage ambulation as much as possible. Encourage sitting in chair for meals, proper sleep-wake cycles, proper hygiene. (remind patient daily) PT/OT recommending home health, CM following #Hypotension Blood pressures run soft normally. Did have brief hypotension on 11/12 with blood pressure down to 76/40 but remained asymptomatic. She received fluid bolus IV and had improvement. She is not on any medications that could cause hypotension. Encouraged her to drink more fluids. Monitor blood pressure #Depression Medication adjustments: Depakote 1000mg HS. Risperidone discontinued. Melatonin increased to 9 mg 11/06. Psych re-eval patient 10/29 - deems she does have decision making capacity regarding disposition If depression doesn't improve consider SSRI Patient appears to be responding well to the changes in her psych medications. #Constipation / Decreased appetite Patient has refused both scheduled Miralax and Colace. Switched both to prn. Continue to encourage ambulation, activity, OOB for meals, etc. Diet changed from heart healthy to regular. Encourage PO intake. Monitor weights, would continue to weigh every few days. Prefer standing scale. Could consider low doses Remeron for mood and appetite. #A fib/Bradycardia Continue amiodarone. No anticoagulation due to low enough [id number] score (gender only) Bradycardia is chronic - follows with Dr Saenz outpatient Recommend checking labs (CBC, BMP) weekly while patient awaits placement --> CBC/BMP /8 stable. Dispo: medically stable for discharge. Awaiting Medicaid waivers prior to return to her apartment. She does not qualify for rehab or SNF. DVT prophylaxis: Lovenox Admission and Anticipated Discharge Date Admission Date: October 04, 2024 Subjective Patient seen and examined this morning. Patient denied complaints at time of encounter. She was resting comfortably in bed. Physical Exam Constitutional: WD/WN, vitals as above Eyes: PERRL, conjunctivae normal, anicteric sclerae Respiratory: breathing unlabored Cardiovascular: well perfused Results & Data Results & Data Vital Signs (Past 12 Hours) Vital Signs Temp Pulse Resp BP Pulse Ox O2 Del Method 11/16/24 07:21 36.8 C 46 L 18 117/73 94 Room Air PG Care Time/CCT Total # of Minutes Spent Total Time Spent with Patient: Total time spent is greater than 50% in coordination of care (as documented) at patient's floor/unit and/or counseling patient: Coding Level of Care Code 52286 SUB INP/OBS CARE 10/03MIN Diagnoses Gait instability R26.81 Depression F32.A Failure to thrive in adult R62.7 Bradycardia R00.1 Constipation K59.00
--- NOTE | 2024-11-17 14:45 | Hospitalist Progress Note ---
Date of Service November 17, 2024 Assessment & Plan (1) Gait instability: (2) Depression: Plan: (3) Failure to thrive in adult: (4) Bradycardia: (5) Constipation: Plan This is a 59 year old female with past medical history of major depressive disorder with psychotic features, iron deficiency anemia, hypothyroidism, atrial flutter, bipolar who presented to the ED on 10/04/24 after being brought in by the police after a wellfare check - with weakness and falling. Much of her care is managed through [email or web address]. Workup on admission without acute cause of her weakness (CXR, biofire, UA, Head CT, TSH, CK). Prolonged stay awaiting waivers prior to discharge so she is able to have more care at home. #Weakness Patient has been admitted to the hospital multiple times due to falls and injury. Her gait instability stems from bradykinesia and medications. Has been evaluated by neurology in the past for abnormal brain MRI - no MS or Parkinson's disease. No further neuro workup indicated. Encourage ambulation as much as possible. Encourage sitting in chair for meals, proper sleep-wake cycles, proper hygiene. (remind patient daily) PT/OT recommending home health, CM following #Hypotension Blood pressures run soft normally. Did have brief hypotension on 11/12 with blood pressure down to 76/40 but remained asymptomatic. She received fluid bolus IV and had improvement. She is not on any medications that could cause hypotension. Encouraged her to drink more fluids. Monitor blood pressure #Depression Medication adjustments: Depakote 1000mg HS. Risperidone discontinued. Melatonin increased to 9 mg 11/06. Psych re-eval patient 10/29 - deems she does have decision making capacity regarding disposition If depression doesn't improve consider SSRI Patient appears to be responding well to the changes in her psych medications. #Constipation / Decreased appetite Patient has refused both scheduled Miralax and Colace. Switched both to prn. Continue to encourage ambulation, activity, OOB for meals, etc. Diet changed from heart healthy to regular. Encourage PO intake. Monitor weights, would continue to weigh every few days. Prefer standing scale. Could consider low doses Remeron for mood and appetite. #A fib/Bradycardia Continue amiodarone. No anticoagulation due to low enough [id number] score (gender only) Bradycardia is chronic - follows with Dr Saenz outpatient Recommend checking labs (CBC, BMP) weekly while patient awaits placement --> CBC/BMP / stable. Dispo: medically stable for discharge. Awaiting Medicaid waivers prior to return to her apartment. She does not qualify for rehab or SNF. DVT prophylaxis: Lovenox Admission and Anticipated Discharge Date Admission Date: October 04, 2024 Supervising Physician Co-Signing Physician Notes chart reviewed, case d/w S Bev CORDOBA. as above Subjective Patient seen and evaluated at bedside. She reports that overall her sleep has improved. She is now sleeping intermittently throughout the night, she does still nap during the day. She also notes that her appetite is increased overall. She ate all of her lunch today. She reports a good bowel regimen and has not had recent issues with constipation. She does note some anxiety regarding where she is going next and when that will occur. Emotional support provided. No additional complaints or concerns at this time. Physical Exam Physical Exam: General: No acute distress, nondiaphoretic. Lying in bed. Cooperative. Cardiac: Bradycardic rate in the 50s. Well-perfused. Pulm: Normal respiratory effort. 97% on room air. Neuro: A&O x3. No focal neurological deficits. Results & Data Results & Data Vital Signs (Past 12 Hours) Vital Signs Temp Pulse Resp BP Pulse Ox O2 Del Method 11/17/24 07:29 98.4 F 45 L 18 111/73 98 Room Air PG Care Time/CCT Total # of Minutes Spent Total Time Spent with Patient: Total time spent is greater than 50% in coordination of care (as documented) at patient's floor/unit and/or counseling patient: Coding Level of Care Code 58141 SUB INP/OBS CARE 10/03MIN Diagnoses Gait instability R26.81 Depression F32.A Failure to thrive in adult R62.7 Bradycardia R00.1 Constipation K59.00
--- NOTE | 2024-11-18 16:49 | Hospitalist Progress Note ---
Date of Service November 18, 2024 Assessment & Plan (1) Gait instability: (2) Depression: Plan: (3) Failure to thrive in adult: (4) Bradycardia: (5) Constipation: Plan This is a 59 year old female with past medical history of major depressive disorder with psychotic features, iron deficiency anemia, hypothyroidism, atrial flutter, bipolar who presented to the ED on 10/04/24 after being brought in by the police after a wellfare check - with weakness and falling. Much of her care is managed through [facility] [employer]. Workup on admission without acute cause of her weakness (CXR, biofire, UA, Head CT, TSH, CK). Prolonged stay awaiting waivers prior to discharge so she is able to have more care at home. #Weakness Patient has been admitted to the hospital multiple times due to falls and injury. Her gait instability stems from bradykinesia and medications. Has been evaluated by neurology in the past for abnormal brain MRI - no MS or Parkinson's disease. No further neuro workup indicated. Encourage ambulation as much as possible. Encourage sitting in chair for meals, proper sleep-wake cycles, proper hygiene. (remind patient daily) PT/OT recommending home health, CM following #Hypotension Blood pressures run soft normally. Did have brief hypotension on 11/12 with blood pressure down to 76/40 but remained asymptomatic. She received fluid bolus IV and had improvement. She is not on any medications that could cause hypotension. Encouraged her to drink more fluids. Monitor blood pressure #Depression Medication adjustments: Depakote 1000mg HS. Risperidone discontinued. Melatonin increased to 9 mg 11/06. Psych re-eval patient 10/29 - deems she does have decision making capacity regarding disposition If depression doesn't improve consider SSRI Patient appears to be responding well to the changes in her psych medications. #Constipation / Decreased appetite Now with regular bowel movements. Colace and MiraLAX available PRN. Continue to encourage ambulation, activity, OOB for meals, etc. Diet changed from heart healthy to regular. Encourage PO intake. Monitor weights, would continue to weigh every few days. Prefer standing scale. #A fib/Bradycardia Continue amiodarone. No anticoagulation due to low enough [id number] score (gender only) Bradycardia is chronic - follows with Dr Saenz outpatient Recommend checking labs (CBC, BMP) weekly while patient awaits placement --> CBC/BMP 11/14 stable. Dispo: medically stable for discharge. Awaiting Medicaid waivers prior to return to her apartment. She does not qualify for rehab or SNF. DVT prophylaxis: Lovenox Admission and Anticipated Discharge Date Admission Date: October 04, 2024 Supervising Physician Co-Signing Physician Notes chart reviewed, case d/w S Bev CORDOBA. as above Subjective Patient seen and evaluated at bedside. She reports she went for multiple walks throughout the halls today, ate all of her meals, and had intermittent sleep overnight. No acute complaints or concerns at this time. Physical Exam Physical Exam: General: No acute distress, nondiaphoretic. Lying in bed. Cooperative and pleasant. Cardiac: Bradycardic rate in the 50s. Well-perfused. Pulm: Normal respiratory effort. 97% on room air. Neuro: A&O x3. No focal neurological deficits. Results & Data Results & Data Vital Signs (Past 12 Hours) Vital Signs Temp Pulse Resp BP Pulse Ox O2 Del Method 11/18/24 15:55 107/65 11/18/24 15:23 98.1 F 49 L 18 87/51 L 97 Room Air 11/18/24 08:50 98.1 F 61 18 95/55 L 94 Room Air PG Care Time/CCT Total # of Minutes Spent Total Time Spent with Patient: Total time spent is greater than 50% in coordination of care (as documented) at patient's floor/unit and/or counseling patient: Coding Level of Care Code 89196 SUB INP/OBS CARE 10/03MIN Diagnoses Gait instability R26.81 Depression F32.A Failure to thrive in adult R62.7 Bradycardia R00.1 Constipation K59.00
--- NOTE | 2024-11-19 14:58 | Hospitalist Progress Note ---
Date of Service November 19, 2024 Assessment & Plan (1) Gait instability: (2) Depression: Plan: (3) Failure to thrive in adult: (4) Bradycardia: (5) Constipation: Plan This is a 59 year old female with past medical history of major depressive disorder with psychotic features, iron deficiency anemia, hypothyroidism, atrial flutter, bipolar who presented to the ED on 10/04/24 after being brought in by the police after a wellfare check - with weakness and falling. Much of her care is managed through [facility]. Workup on admission without acute cause of her weakness (CXR, biofire, UA, Head CT, TSH, CK). Prolonged stay awaiting waivers prior to discharge so she is able to have more care at home. #Weakness Patient has been admitted to the hospital multiple times due to falls and injury. Her gait instability stems from bradykinesia and medications. Has been evaluated by neurology in the past for abnormal brain MRI - no MS or Parkinson's disease. No further neuro workup indicated. Encourage ambulation as much as possible. Encourage sitting in chair for meals, proper sleep-wake cycles, proper hygiene. (remind patient daily) PT/OT recommending home health, CM following #Hypotension Blood pressures run soft normally. Did have brief hypotension on 11/12 with blood pressure down to 76/40 but remained asymptomatic. She received fluid bolus IV and had improvement. She is not on any medications that could cause hypotension. Encouraged her to drink more fluids. Monitor blood pressure #Depression Medication adjustments: Depakote 1000mg HS. Risperidone discontinued. Melatonin increased to 9 mg 11/06. Psych re-eval patient 10/29 - deems she does have decision making capacity regarding disposition If depression doesn't improve consider SSRI Patient appears to be responding well to the changes in her psych medications. #Constipation / Decreased appetite Now with regular bowel movements. Colace and MiraLAX available PRN. Continue to encourage ambulation, activity, OOB for meals, etc. Diet changed from heart healthy to regular. Encourage PO intake. Monitor weights, would continue to weigh every few days. Prefer standing scale. #A fib/Bradycardia Continue amiodarone. No anticoagulation due to low enough [id number] score (gender only) Bradycardia is chronic - follows with Dr Saenz outpatient Recommend checking labs (CBC, BMP) weekly while patient awaits placement --> CBC/BMP 11/14 stable. Dispo: medically stable for discharge. Awaiting Medicaid waivers prior to return to her apartment. She does not qualify for rehab or SNF. DVT prophylaxis: Lovenox Admission and Anticipated Discharge Date Admission Date: October 04, 2024 Supervising Physician Co-Signing Physician Notes chart reviewed, case d/w S Bev CORDOBA. as above Subjective Patient seen and evaluated at bedside. She reports feeling well. She just finished walking in the halls and is excited to eat some chocolate pudding now. She states she has been trying to drink plenty of water. No acute complaints or concerns at this time. Physical Exam Physical Exam: General: No acute distress, nondiaphoretic. Just finished walking the halls. C ooperative and pleasant. Cardiac: Bradycardic rate in the 50s. Well-perfused. Pulm: Normal respiratory effort. 100% on room air. Neuro: A&O x3. No focal neurological deficits. Results & Data Results & Data Vital Signs (Past 12 Hours) Vital Signs Temp Pulse Resp BP Pulse Ox O2 Del Method 11/19/24 07:56 98.2 F 49 L 18 91/58 L 100 Room Air PG Care Time/CCT Total # of Minutes Spent Total Time Spent with Patient: Total time spent is greater than 50% in coordination of care (as documented) at patient's floor/unit and/or counseling patient: Coding Level of Care Code 22134 SUB INP/OBS CARE 10/03MIN Diagnoses Gait instability R26.81 Depression F32.A Failure to thrive in adult R62.7 Bradycardia R00.1 Constipation K59.00
--- NOTE | 2024-11-20 14:55 | Hospitalist Progress Note ---
Date of Service November 20, 2024 Assessment & Plan (1) Gait instability: (2) Depression: Plan: (3) Failure to thrive in adult: (4) Bradycardia: (5) Constipation: Plan This is a 59 year old female with past medical history of major depressive disorder with psychotic features, iron deficiency anemia, hypothyroidism, atrial flutter, bipolar who presented to the ED on 10/04/24 after being brought in by the police after a wellfare check - with weakness and falling. Much of her care is managed through [employer]. Workup on admission without acute cause of her weakness (CXR, biofire, UA, Head CT, TSH, CK). Prolonged stay awaiting waivers prior to discharge so she is able to have more care at home. #Weakness Patient has been admitted to the hospital multiple times due to falls and injury. Her gait instability stems from bradykinesia and medications. Has been evaluated by neurology in the past for abnormal brain MRI - no MS or Parkinson's disease. No further neuro workup indicated. Encourage ambulation as much as possible. Encourage sitting in chair for meals, proper sleep-wake cycles, proper hygiene. (remind patient daily) PT/OT recommending home health, CM following #Hypotension Blood pressures run soft normally. Did have brief hypotension on 11/12 with blood pressure down to 76/40 but remained asymptomatic. She received fluid bolus IV and had improvement. She is not on any medications that could cause hypotension. Encouraged her to drink more fluids. Monitor blood pressure #Depression Medication adjustments: Depakote 1000mg HS. Risperidone discontinued. Melatonin increased to 9 mg 11/06. Psych re-eval patient 10/29 - deems she does have decision making capacity regarding disposition If depression doesn't improve consider SSRI Patient appears to be responding well to the changes in her psych medications. #Constipation / Decreased appetite Now with regular bowel movements. Colace and MiraLAX available PRN. Continue to encourage ambulation, activity, OOB for meals, etc. Diet changed from heart healthy to regular. Encourage PO intake. Monitor weights, would continue to weigh every few days. Prefer standing scale. #A fib/Bradycardia Continue amiodarone. No anticoagulation due to low enough [id number] score (gender only) Bradycardia is chronic - follows with Dr Saenz outpatient Recommend checking labs (CBC, BMP) weekly while patient awaits placement --> CBC/BMP 3/8 stable. Dispo: medically stable for discharge. Awaiting Medicaid waivers prior to return to her apartment. She does not qualify for rehab or SNF. DVT prophylaxis: Lovenox Admission and Anticipated Discharge Date Admission Date: October 04, 2024 Supervising Physician Co-Signing Physician Notes chart reviewed, case d/w S Bev CORDOBA. as above Subjective Patient seen and evaluated in her room. She is about to walk some laps in the hallway. She states she did not sleep overnight, but is feeling well. She denies any acute complaints or concerns at this time. She reports a good appetite and is eating all of her meals. Physical Exam Physical Exam: General: No acute distress, nondiaphoretic. Cooperative and pleasant. Cardiac: Bradycardic rate in the 50s. Well-perfused. Pulm: Normal respiratory effort. 97% on room air. Neuro: A&O x3. No focal neurological deficits. Results & Data Results & Data Vital Signs (Past 12 Hours) Vital Signs Temp Pulse Resp BP BP Pulse Ox O2 Del Method 11/20/24 11:31 97.7 F 54 L 15 79/44 L 74/48 L 97 Room Air 11/20/24 07:57 97.7 F 50 L 15 97/60 L 97 Room Air PG Care Time/CCT Total # of Minutes Spent Total Time Spent with Patient: Total time spent is greater than 50% in coordination of care (as documented) at patient's floor/unit and/or counseling patient: Coding Level of Care Code 50169 SUB INP/OBS CARE 10/03MIN Diagnoses Gait instability R26.81 Depression F32.A Failure to thrive in adult R62.7 Bradycardia R00.1 Constipation K59.00
[2024-11-21 06:32] LABS: Hematocrit (blood only) 36.5 % (37.0-47.0); Hemoglobin 12.4 g/dl (12.0-16.0); Mean Corpuscular Hemoglobin 33.2 pg (25.0-34.0); Mean Corpuscular Volume 97.9 fL (80.0-100.0); Platelet Count 200 K/uL (130-400); RDW Coefficient of Variation 12.5 % (11.5-14.5); Red Blood Count 3.73 M/uL (4.20-5.40); White Blood Count 5.51 K/ul (4.8-10.8)
[2024-11-21 07:03] LABS: BUN Creatinine Ratio 21.7 (10-20); Calcium 9.2 mg/dl (8.6-10.3); Creatinine Clr Calc Pharmacy 69.8 ml/min; Potassium 4.2 mmol/L (3.5-5.1)
--- NOTE | 2024-11-21 08:14 | Hospitalist Progress Note ---
Date of Service November 21, 2024 Assessment & Plan (1) Gait instability: (2) Depression: (3) Failure to thrive in adult: (4) Bradycardia: (5) Constipation: Plan This is a 59 year old female with past medical history of major depressive disorder with psychotic features, iron deficiency anemia, hypothyroidism, atrial flutter, bipolar who presented to the ED on 10/04/24 after being brought in by the police after a wellfare check - with weakness and falling. Much of her care is managed through [facility] [employer]. Workup on admission without acute cause of her weakness (CXR, biofire, UA, Head CT, TSH, CK). Prolonged stay awaiting waivers prior to discharge so she is able to have more care at home. #Weakness Patient has been admitted to the hospital multiple times due to falls and injury. Her gait instability stems from bradykinesia and medications. Has been evaluated by neurology in the past for abnormal brain MRI - no MS or Parkinson's disease. No further neuro workup indicated. Encourage ambulation as much as possible. Encourage sitting in chair for meals, proper sleep-wake cycles, proper hygiene. (remind patient daily) PT/OT recommending home health, CM following #Hypotension Blood pressures run soft normally. Did have brief hypotension on 11/12 with blood pressure down to 76/40 but remained asymptomatic. She received fluid bolus IV and had improvement. She is not on any medications that could cause hypotension. Encouraged her to drink more fluids. Monitor blood pressure #Depression Medication adjustments: Depakote 1000mg HS. Risperidone discontinued. Melatonin increased to 9 mg 11/06. Psych re-eval patient 10/29 - deems she does have decision making capacity regarding disposition If depression doesn't improve consider SSRI Patient appears to be responding well to the changes in her psych medications. #Constipation / Decreased appetite Now with regular bowel movements. Colace and MiraLAX available PRN. Continue to encourage ambulation, activity, OOB for meals, etc. Diet changed from heart healthy to regular. Encourage PO intake. Monitor weights, would continue to weigh every few days. Prefer standing scale. #A fib/Bradycardia Continue amiodarone. No anticoagulation due to low enough [id number] score (gender only) Bradycardia is chronic - follows with Dr Saenz outpatient Recommend checking labs (CBC, BMP) weekly while patient awaits placement --> CBC/BMP 11/21 stable. Dispo: medically stable for discharge. Awaiting Medicaid waivers prior to return to her apartment. She does not qualify for rehab or SNF. DVT prophylaxis: Lovenox Admission and Anticipated Discharge Date Admission Date: October 04, 2024 Supervising Physician Co-Signing Physician Notes chart reviewed, case d/w S Bev CORDOBA. as above Subjective Attempted to see patient x 2 but sleeping in bed both times. Reviewed chart, vitals stable, labs stable. No acute concerns at this time. Will allow patient to continue resting. Physical Exam Physical Exam: General: No acute distress, nondiaphoretic, sleeping in bed. Cardiac: Bradycardic rate in the 40-50s. Well-perfused. Pulm: Normal respiratory effort. 98% on room air. Results & Data Results & Data Laboratory Results Reviewed CBC Reviewed [facility] PG Care Time/CCT Total # of Minutes Spent Total Time Spent with Patient: Total time spent is greater than 50% in coordination of care (as documented) at patient's floor/unit and/or counseling patient: Coding Level of Care Code 96216 SUB INP/OBS CARE 10/03MIN Diagnoses Gait instability R26.81 Depression F32.A Failure to thrive in adult R62.7 Bradycardia R00.1 Constipation K59.00
--- NOTE | 2024-11-22 13:48 | Hospitalist Progress Note ---
Date of Service November 22, 2024 Assessment & Plan (1) Gait instability: (2) Depression: Plan: (3) Failure to thrive in adult: (4) Bradycardia: (5) Constipation: Plan This is a 59 year old female with past medical history of major depressive disorder with psychotic features, iron deficiency anemia, hypothyroidism, atrial flutter, bipolar who presented to the ED on 10/04/24 after being brought in by the police after a wellfare check - with weakness and falling. Much of her care is managed through [employer]. Workup on admission without acute cause of her weakness (CXR, biofire, UA, Head CT, TSH, CK). Prolonged stay awaiting waivers prior to discharge so she is able to have more care at home. #Weakness Patient has been admitted to the hospital multiple times due to falls and injury. Her gait instability stems from bradykinesia and medications. Has been evaluated by neurology in the past for abnormal brain MRI - no MS or Parkinson's disease. No further neuro workup indicated. Encourage ambulation as much as possible. Encourage sitting in chair for meals, proper sleep-wake cycles, proper hygiene. (remind patient daily) PT/OT recommending home health, CM following #Hypotension Blood pressures run soft normally. Did have brief hypotension on 11/12 with blood pressure down to 76/40 but remained asymptomatic. She received fluid bolus IV and had improvement. She is not on any medications that could cause hypotension. Encouraged her to drink more fluids. Monitor blood pressure #Depression Medication adjustments: Depakote 1000mg HS. Risperidone discontinued. Melatonin increased to 9 mg 11/06. Psych re-eval patient 10/29 - deems she does have decision making capacity regarding disposition If depression doesn't improve consider SSRI Patient appears to be responding well to the changes in her psych medications. #Constipation / Decreased appetite Now with regular bowel movements. Colace and MiraLAX available PRN. Continue to encourage ambulation, activity, OOB for meals, etc. Diet changed from heart healthy to regular. Encourage PO intake. Monitor weights, would continue to weigh every few days. Prefer standing scale. #A fib/Bradycardia Continue amiodarone. No anticoagulation due to low enough [id number] score (gender only) Bradycardia is chronic - follows with Dr Saenz outpatient Recommend checking labs (CBC, BMP) weekly while patient awaits placement --> CBC/BMP 11/21 stable. Dispo: medically stable for discharge. Awaiting Medicaid waivers prior to return to her apartment. She does not qualify for rehab or SNF. DVT prophylaxis: Lovenox Admission and Anticipated Discharge Date Admission Date: October 04, 2024 Supervising Physician Co-Signing Physician Notes chart reviewed, case d/w S Bev CORDOBA. as above Subjective Patient seen and evaluated at bedside. She reports feeling well and denies any concerns at this time. She states she did not like her green beans with lunch. She plans to walk laps in the [place] soon. Physical Exam Physical Exam: General: No acute distress, nondiaphoretic. Cooperative and pleasant. Cardiac: Bradycardic rate in the 50s. Well-perfused. Pulm: Normal respiratory effort. 97% on room air. Neuro: A&O x3. No focal neurological deficits. Results & Data Results & Data Vital Signs (Past 12 Hours) Vital Signs Temp Pulse Resp BP Pulse Ox O2 Del Method 11/22/24 07:35 98.2 F 49 L 16 94/59 L 96 Room Air PG Care Time/CCT Total # of Minutes Spent Total Time Spent with Patient: Total time spent is greater than 50% in coordination of care (as documented) at patient's floor/unit and/or counseling patient: Coding Level of Care Code 44644 SUB INP/OBS CARE 10/03MIN Diagnoses Gait instability R26.81 Depression F32.A Failure to thrive in adult R62.7 Bradycardia R00.1 Constipation K59.00
[2024-11-22] MEDS: POLYETHYLENE (MIRALAX) 17 GM PACK PO PRN (20:06)
--- NOTE | 2024-11-23 15:19 | Hospitalist Progress Note ---
Date of Service November 23, 2024 Assessment & Plan (1) Gait instability: (2) Depression: Plan: (3) Failure to thrive in adult: (4) Bradycardia: (5) Constipation: Plan This is a 59 year old female with past medical history of major depressive disorder with psychotic features, iron deficiency anemia, hypothyroidism, atrial flutter, bipolar who presented to the ED on 10/04/24 after being brought in by the police after a wellfare check - with weakness and falling. Much of her care is managed through [facility] [employer]. Workup on admission without acute cause of her weakness (CXR, biofire, UA, Head CT, TSH, CK). Prolonged stay awaiting waivers prior to discharge so she is able to have more care at home. #Weakness Patient has been admitted to the hospital multiple times due to falls and injury. Her gait instability stems from bradykinesia and medications. Has been evaluated by neurology in the past for abnormal brain MRI - no MS or Parkinson's disease. No further neuro workup indicated. Encourage ambulation as much as possible. Encourage sitting in chair for meals, proper sleep-wake cycles, proper hygiene. (remind patient daily) PT/OT recommending home health, CM following #Hypotension Blood pressures run soft normally. Did have brief hypotension on 11/12 with blood pressure down to 76/40 but remained asymptomatic. She received fluid bolus IV and had improvement. She is not on any medications that could cause hypotension. Encouraged her to drink more fluids. Monitor blood pressure #Depression Medication adjustments: Depakote 1000mg HS. Risperidone discontinued. Melatonin increased to 9 mg 11/06. Psych re-eval patient 10/29 - deems she does have decision making capacity regarding disposition If depression doesn't improve consider SSRI Patient appears to be responding well to the changes in her psych medications. #Constipation / Decreased appetite Now with regular bowel movements. Colace and MiraLAX available PRN. Continue to encourage ambulation, activity, OOB for meals, etc. Diet changed from heart healthy to regular. Encourage PO intake. Monitor weights, would continue to weigh every few days. Prefer standing scale. #A fib/Bradycardia Continue amiodarone. No anticoagulation due to low enough [id number] score (gender only) Bradycardia is chronic - follows with Dr Saenz outpatient Recommend checking labs (CBC, BMP) weekly while patient awaits placement --> CBC/BMP 11/21 stable. Dispo: medically stable for discharge. Awaiting Medicaid waivers prior to return to her apartment. She does not qualify for rehab or SNF. DVT prophylaxis: Lovenox Admission and Anticipated Discharge Date Admission Date: October 04, 2024 Subjective Patient seen and evaluated at bedside. She reports that she slept well overnight. She ate all of her breakfast, but states she did not care for her lunch due to saltiness. She did eat snacks and denies being hungry at this time. She has no acute complaints or concerns. Physical Exam Physical Exam: General: No acute distress, nondiaphoretic. Cooperative and pleasant. Cardiac: Bradycardic rate in the 50s. Well-perfused. Pulm: Normal respiratory effort. 100% on room air. Neuro: A&O x3. No focal neurological deficits. Results & Data Results & Data Vital Signs (Past 12 Hours) Vital Signs Temp Pulse Resp BP Pulse Ox O2 Del Method 11/23/24 07:46 97.7 F 49 L 16 118/69 100 Room Air PG Care Time/CCT Total # of Minutes Spent Total Time Spent with Patient: Total time spent is greater than 50% in coordination of care (as documented) at patient's floor/unit and/or counseling patient: Coding Level of Care Code 66185 SUB INP/OBS CARE 10/03MIN Diagnoses Gait instability R26.81 Depression F32.A Failure to thrive in adult R62.7 Bradycardia R00.1 Constipation K59.00
--- NOTE | 2024-11-24 15:45 | Hospitalist Progress Note ---
Date of Service November 24, 2024 Assessment & Plan (1) Gait instability: (2) Depression: Plan: (3) Failure to thrive in adult: (4) Bradycardia: (5) Constipation: Plan This is a 59 year old female with past medical history of major depressive disorder with psychotic features, iron deficiency anemia, hypothyroidism, atrial flutter, bipolar who presented to the ED on 10/04/24 after being brought in by the police after a wellfare check - with weakness and falling. Much of her care is managed through [facility]. Workup on admission without acute cause of her weakness (CXR, biofire, UA, Head CT, TSH, CK). Prolonged stay awaiting waivers prior to discharge so she is able to have more care at home. #Weakness Patient has been admitted to the hospital multiple times due to falls and injury. Her gait instability stems from bradykinesia and medications. Has been evaluated by neurology in the past for abnormal brain MRI - no MS or Parkinson's disease. No further neuro workup indicated. Encourage ambulation as much as possible. Encourage sitting in chair for meals, proper sleep-wake cycles, proper hygiene. (remind patient daily) PT/OT recommending home health, CM following #Hypotension Blood pressures run soft normally. Did have brief hypotension on 11/12 with blood pressure down to 76/40 but remained asymptomatic. She received fluid bolus IV and had improvement. She is not on any medications that could cause hypotension. Encouraged her to drink more fluids. Monitor blood pressure #Depression Medication adjustments: Depakote 1000mg HS. Risperidone discontinued. Melatonin increased to 9 mg 11/06. Psych re-eval patient 10/29 - deems she does have decision making capacity regarding disposition If depression doesn't improve consider SSRI Patient appears to be responding well to the changes in her psych medications. #Constipation / Decreased appetite Now with regular bowel movements. Colace and MiraLAX available PRN. Continue to encourage ambulation, activity, OOB for meals, etc. Diet changed from heart healthy to regular. Encourage PO intake. Monitor weights, would continue to weigh every few days. Prefer standing scale. #A fib/Bradycardia Continue amiodarone. No anticoagulation due to low enough [id number] score (gender only) Bradycardia is chronic - follows with Dr Saenz outpatient, appointment made sooner than 02/2025 on discharge. Patient asymptomatic CM head from [facility] 11/24 -> patient is able to return home prior to waiver being in place. A letter was filled out and signed 11/24 deeming her safe to return home with the support of home services by Christina Hoang PA-C and Dr. Rao. Follow up appointments were made for her PCP, psych, and cardiology upon discharge. Prescriptions also sent to [facility] to be placed in pill packs. When the prescriptions are delivered to her apartment, she is able to return home. Per [facility] this may take up to 5 days, will continue to check on this daily. Recommend checking labs (CBC, BMP) weekly while patient awaits placement --> CBC/BMP 11/21 stable. Dispo: medically stable for discharge. DVT prophylaxis: Lovenox Admission and Anticipated Discharge Date Admission Date: October 04, 2024 Subjective Patient seen and examined this morning. Patient denied any complaints today. She was resting comfortably in bed at time of encounter. Physical Exam Constitutional: WD/WN, vitals as above Eyes: PERRL, conjunctivae normal, anicteric sclerae Respiratory: breathing unlabored Cardiovascular: well perfused Psychiatric: A+Ox3, euthymic affect Results & Data Results & Data Vital Signs (Past 12 Hours) Vital Signs Temp Pulse Resp BP Pulse Ox O2 Del Method 11/24/24 14:07 36.4 C L 46 L 16 116/71 96 Room Air 11/24/24 07:06 36.7 C 42 L 16 110/66 97 Room Air PG Care Time/CCT Total # of Minutes Spent Total Time Spent with Patient: Total time spent is greater than 50% in coordination of care (as documented) at patient's floor/unit and/or counseling patient: Coding Level of Care Code 26207 SUB INP/OBS CARE 2/35MIN Diagnoses Gait instability R26.81 Depression F32.A Failure to thrive in adult R62.7 Bradycardia R00.1 Constipation K59.00
[2024-11-25] MEDS: MIDODRINE HCL 2.5 MG TAB PO SCH (16:46)
--- NOTE | 2024-11-25 18:13 | Hospitalist Progress Note ---
Date of Service November 25, 2024 Assessment & Plan (1) Gait instability: (2) Depression: Plan: (3) Failure to thrive in adult: (4) Bradycardia: (5) Constipation: Plan This is a 59 year old female with past medical history of major depressive disorder with psychotic features, iron deficiency anemia, hypothyroidism, atrial flutter, bipolar who presented to the ED on 10/04/24 after being brought in by the police after a wellfare check - with weakness and falling. Much of her care is managed through [employer]. Workup on admission without acute cause of her weakness (CXR, biofire, UA, Head CT, TSH, CK). Prolonged stay awaiting waivers prior to discharge so she is able to have more care at home. #Weakness Patient has been admitted to the hospital multiple times due to falls and injury. Her gait instability stems from bradykinesia and medications. Has been evaluated by neurology in the past for abnormal brain MRI - no MS or Parkinson's disease. No further neuro workup indicated. Encourage ambulation as much as possible. Encourage sitting in chair for meals, proper sleep-wake cycles, proper hygiene. (remind patient daily) PT/OT recommending home health, CM following #Hypotension Blood pressures run soft normally. Did have brief hypotension on 11/12 with blood pressure down to 76/40 but remained asymptomatic. She received fluid bolus IV and had improvement. She is not on any medications that could cause hypotension. Encouraged her to drink more fluids. Added Midodrine 2.5mg TID on 11/25. -> suspect this may help with her occasional dizziness. #Depression Medication adjustments: Depakote 1000mg HS. Risperidone discontinued. Melatonin increased to 9 mg 11/06. Psych re-eval patient 10/29 - deems she does have decision making capacity regarding disposition If depression doesn't improve consider SSRI Patient appears to be responding well to the changes in her psych medications. #Constipation / Decreased appetite Now with regular bowel movements. Colace and MiraLAX available PRN. Continue to encourage ambulation, activity, OOB for meals, etc. Diet changed from heart healthy to regular. Encourage PO intake. Monitor weights, would continue to weigh every few days. Prefer standing scale. #A fib/Bradycardia Continue amiodarone. No anticoagulation due to low enough [id number] score (gender only) Bradycardia is chronic - follows with Dr Saenz outpatient, appointment made sooner than 02/2025 on discharge. Patient asymptomatic CM head from [facility] 11/24 -> patient is able to return home prior to waiver being in place. A letter was filled out and signed 11/24 deeming her safe to return home with the support of home services by Christina Hoang PA-C and Dr. Rao. Follow up appointments were made for her PCP, psych, and cardiology upon discharge. Prescriptions also sent to [facility] to be placed in pill packs. When the prescriptions are delivered to her apartment, she is able to return home. Per [facility] this may take up to 5 days, will continue to check on this daily. Recommend checking labs (CBC, BMP) weekly while patient awaits placement --> CBC/BMP 11/21 stable. Dispo: medically stable for discharge. DVT prophylaxis: Lovenox Admission and Anticipated Discharge Date Admission Date: October 04, 2024 Subjective Patient seen and examined this morning. Discussed discharge planning. Patient reported to be feeling well today and denied any complaints. Did hear from patient's nurse this afternoon that she had an episode of dizziness in the bathroom and was concerned to get up again. Physical Exam Constitutional: WD/WN, vitals as above Eyes: PERRL, conjunctivae normal, anicteric sclerae Respiratory: breathing unlabored Cardiovascular: well perfused Psychiatric: A+Ox3, euthymic affect Results & Data Results & Data Vital Signs (Past 12 Hours) Vital Signs Temp Pulse Pulse Resp BP Pulse Ox O2 Del Method 11/25/24 14:54 62 16 87/55 L 99 Room Air 11/25/24 07:42 36.6 C 43 L 16 112/63 100 Room Air PG Care Time/CCT Total # of Minutes Spent Total Time Spent with Patient: Total time spent is greater than 50% in coordination of care (as documented) at patient's floor/unit and/or counseling patient: Coding Level of Care Code 72065 SUB INP/OBS CARE 2/35MIN Diagnoses Gait instability R26.81 Depression F32.A Failure to thrive in adult R62.7 Bradycardia R00.1 Constipation K59.00
--- NOTE | 2024-11-26 09:29 | Hospitalist Progress Note ---
Date of Service November 26, 2024 Assessment & Plan (1) Gait instability: (2) Depression: Plan: (3) Failure to thrive in adult: (4) Bradycardia: (5) Constipation: Plan This is a 59 year old female with past medical history of major depressive disorder with psychotic features, iron deficiency anemia, hypothyroidism, atrial flutter, bipolar who presented to the ED on 10/04/24 after being brought in by the police after a wellfare check - with weakness and falling. Much of her care is managed through [employer]. Workup on admission without acute cause of her weakness (CXR, biofire, UA, Head CT, TSH, CK). Prolonged stay awaiting waivers prior to discharge so she is able to have more care at home. #Weakness Patient has been admitted to the hospital multiple times due to falls and injury. Her gait instability stems from bradykinesia and medications. Has been evaluated by neurology in the past for abnormal brain MRI - no MS or Parkinson's disease. No further neuro workup indicated. Encourage ambulation as much as possible. Encourage sitting in chair for meals, proper sleep-wake cycles, proper hygiene. (remind patient daily) PT/OT recommending home health, CM following #Hypotension Blood pressures run soft normally. Did have brief hypotension on 11/12 with blood pressure down to 76/40 but remained asymptomatic. She received fluid bolus IV and had improvement. She is not on any medications that could cause hypotension. Encouraged her to drink more fluids. Added Midodrine 2.5mg TID on 11/25. -> suspect this may help with her occasional dizziness. #Depression Medication adjustments: Depakote 1000mg HS. Risperidone discontinued. Melatonin increased to 9 mg 11/06. Psych re-eval patient 10/29 - deems she does have decision making capacity regarding disposition If depression doesn't improve consider SSRI Patient appears to be responding well to the changes in her psych medications. #Constipation / Decreased appetite Now with regular bowel movements. Colace and MiraLAX available PRN. Continue to encourage ambulation, activity, OOB for meals, etc. Diet changed from heart healthy to regular. Encourage PO intake. Monitor weights, would continue to weigh every few days. Prefer standing scale. #A fib/Bradycardia Continue amiodarone. No anticoagulation due to low enough [id number] score (gender only) Bradycardia is chronic - follows with Dr Saenz outpatient, appointment made sooner than 02/2025 on discharge. Patient asymptomatic CM head from [facility] 11/24 -> patient is able to return home prior to waiver being in place. A letter was filled out and signed 11/24 deeming her safe to return home with the support of home services by Christina Hoang PA-C and Dr. Rao. Follow up appointments were made for her PCP, psych, and cardiology upon discharge. Prescriptions also sent to [facility] to be placed in pill packs. When the prescriptions are delivered to her apartment, she is able to return home. Per [facility] this may take up to 5 days, will continue to check on this daily. Recommend checking labs (CBC, BMP) weekly while patient awaits placement --> CBC/BMP 11/21 stable. Dispo: medically stable for discharge. DVT prophylaxis: Lovenox Admission and Anticipated Discharge Date Admission Date: October 04, 2024 Subjective Patient seen and examined this morning. Patient denies any complaints today, including dizziness. Discussed starting midodrine, patient states she has been on this before for her low BP. She is okay to try again. Physical Exam Constitutional: WD/WN, vitals as above Eyes: PERRL, conjunctivae normal, anicteric sclerae Respiratory: breathing unlabored Cardiovascular: well perfused Psychiatric: A+Ox3, euthymic affect Results & Data Results & Data Vital Signs (Past 12 Hours) Vital Signs Temp Pulse Resp BP Pulse Ox O2 Del Method 11/26/24 07:33 36.8 C 45 L 14 94/51 L 98 Room Air PG Care Time/CCT Total # of Minutes Spent Total Time Spent with Patient: Total time spent is greater than 50% in coordination of care (as documented) at patient's floor/unit and/or counseling patient: Coding Level of Care Code 36782 SUB INP/OBS CARE 10/03MIN Diagnoses Gait instability R26.81 Depression F32.A Failure to thrive in adult R62.7 Bradycardia R00.1 Constipation K59.00
--- NOTE | 2024-11-27 14:20 | Hospitalist Progress Note ---
Date of Service November 27, 2024 Assessment & Plan (1) Gait instability: (2) Depression: Plan: (3) Failure to thrive in adult: (4) Bradycardia: (5) Constipation: Plan This is a 59 year old female with past medical history of major depressive disorder with psychotic features, iron deficiency anemia, hypothyroidism, atrial flutter, bipolar who presented to the ED on 10/04/24 after being brought in by the police after a wellfare check - with weakness and falling. Much of her care is managed through [facility]. Workup on admission without acute cause of her weakness (CXR, biofire, UA, Head CT, TSH, CK). Prolonged stay awaiting waivers prior to discharge so she is able to have more care at home. #Weakness Patient has been admitted to the hospital multiple times due to falls and injury. Her gait instability stems from bradykinesia and medications. Has been evaluated by neurology in the past for abnormal brain MRI - no MS or Parkinson's disease. No further neuro workup indicated. Encourage ambulation as much as possible. Encourage sitting in chair for meals, proper sleep-wake cycles, proper hygiene. (remind patient daily) PT/OT recommending home health, CM following #Hypotension Blood pressures run soft normally. Did have brief hypotension on 11/12 with blood pressure down to 76/40 but remained asymptomatic. She received fluid bolus IV and had improvement. She is not on any medications that could cause hypotension. Encouraged her to drink more fluids. Added Midodrine 2.5mg TID on 11/25. -> pressures improved, no complaints of dizziness since starting midodrine. #Depression Medication adjustments: Depakote 1000mg HS. Risperidone discontinued. Melatonin increased to 9 mg 11/06. Psych re-eval patient 10/29 - deems she does have decision making capacity regarding disposition If depression doesn't improve consider SSRI Patient appears to be responding well to the changes in her psych medications. #Constipation / Decreased appetite Now with regular bowel movements. Colace and MiraLAX available PRN. Continue to encourage ambulation, activity, OOB for meals, etc. Diet changed from heart healthy to regular. Encourage PO intake. Monitor weights, would continue to weigh every few days. Prefer standing scale. #A fib/Bradycardia Continue amiodarone. No anticoagulation due to low enough [id number] score (gender only) Bradycardia is chronic - follows with Dr Saenz outpatient, appointment made sooner than 02/2025 on discharge. Patient asymptomatic CM head from [facility] 11/24 -> patient is able to return home prior to waiver being in place. A letter was filled out and signed 11/24 deeming her safe to return home with the support of home services by Christina Hoang PA-C and Dr. Rao. Follow up appointments were made for her PCP, psych, and cardiology upon discharge. Prescriptions also sent to [facility] to be placed in pill packs. When the prescriptions are delivered to her apartment, she is able to return home. Per O this may take up to 5 days, will continue to check on this daily. Recommend checking labs (CBC, BMP) weekly while patient awaits placement --> CBC/BMP 11/21 stable. Dispo: medically stable for discharge. DVT prophylaxis: Lovenox Admission and Anticipated Discharge Date Admission Date: October 04, 2024 Subjective Patient seen and examined this morning. Patient resting in bed. She denied any complaints including dizziness. Physical Exam Constitutional: WD/WN, vitals as above Eyes: PERRL, conjunctivae normal, anicteric sclerae Respiratory: breathing unlabored Cardiovascular: well perfused Psychiatric: A+Ox3, euthymic affect Results & Data Results & Data Vital Signs (Past 12 Hours) Vital Signs Temp Pulse Resp BP Pulse Ox O2 Del Method 11/27/24 08:18 36.5 C 45 L 16 94/59 L 100 Room Air PG Care Time/CCT Total # of Minutes Spent Total Time Spent with Patient: Total time spent is greater than 50% in coordination of care (as documented) at patient's floor/unit and/or counseling patient: Coding Level of Care Code 40965 SUB INP/OBS CARE 10/03MIN Diagnoses Gait instability R26.81 Depression F32.A Failure to thrive in adult R62.7 Bradycardia R00.1 Constipation K59.00
[2024-11-28 07:06] LABS: Hematocrit (blood only) 35.3 % (37.0-47.0); Hemoglobin 12.1 g/dl (12.0-16.0); Mean Corpuscular Hemoglobin 33.7 pg (25.0-34.0); Mean Corpuscular Hgb Conc 34.3 g/dL (32.0-36.0); Mean Corpuscular Volume 98.3 fL (80.0-100.0); Mean Platelet Volume 10.3 fL (9.4-12.4); Platelet Count 191 K/uL (130-400); RDW Coefficient of Variation 12.4 % (11.5-14.5); RDW Standard Deviation 45.1 fL (36.4-46.3); Red Blood Count 3.59 M/uL (4.20-5.40); White Blood Count 5.78 K/ul (4.8-10.8)
[2024-11-28 07:29] LABS: BUN Creatinine Ratio 20.8 (10-20); Calcium 8.8 mg/dl (8.6-10.3); Creatinine Clr Calc Pharmacy 60.4 ml/min; Potassium 4.3 mmol/L (3.5-5.1)
[2024-11-28] MEDS: LACTATED RINGER'S 500 ML IV ONE (10:11)
--- NOTE | 2024-11-28 12:44 | Hospitalist Progress Note ---
Date of Service November 28, 2024 Assessment & Plan (1) Gait instability: (2) Depression: Plan: (3) Failure to thrive in adult: (4) Bradycardia: (5) Constipation: Plan This is a 59 year old female with past medical history of major depressive disorder with psychotic features, iron deficiency anemia, hypothyroidism, atrial flutter, bipolar who presented to the ED on 10/04/24 after being brought in by the police after a wellfare check - with weakness and falling. Much of her care is managed through [facility]. Workup on admission without acute cause of her weakness (CXR, biofire, UA, Head CT, TSH, CK). Prolonged stay awaiting waivers prior to discharge so she is able to have more care at home. #Weakness Patient has been admitted to the hospital multiple times due to falls and injury. Her gait instability stems from bradykinesia and medications. Has been evaluated by neurology in the past for abnormal brain MRI - no MS or Parkinson's disease. No further neuro workup indicated. Encourage ambulation as much as possible. Encourage sitting in chair for meals, proper sleep-wake cycles, proper hygiene. (remind patient daily) PT/OT recommending home health, CM following #Hypotension Blood pressures run soft normally. Did have brief hypotension on 11/28 with blood pressure down to 81/48 but remained asymptomatic. She received fluid bolus IV and had improvement. She is not on any medications that could cause hypotension. Encouraged her to drink more fluids. Added Midodrine 2.5mg TID on 11/25. #Depression Medication adjustments: Depakote 1000mg HS. Risperidone discontinued. Melatonin increased to 9 mg 11/06. Psych re-eval patient 10/29 - deems she does have decision making capacity rega rding disposition If depression doesn't improve consider SSRI Patient appears to be responding well to the changes in her psych medications. #Constipation / Decreased appetite Now with regular bowel movements. Colace and MiraLAX available PRN. Continue to encourage ambulation, activity, OOB for meals, etc. Diet changed from heart healthy to regular. Encourage PO intake. Monitor weights, would continue to weigh every few days. Prefer standing scale. #A fib/Bradycardia Continue amiodarone. No anticoagulation due to low enough [id number] score (gender only) Bradycardia is chronic - follows with Dr Saenz outpatient, appointment made sooner than 02/2025 on discharge. Patient asymptomatic CM head from [facility] 11/24 -> patient is able to return home prior to waiver being in place. A letter was filled out and signed 11/24 deeming her safe to return home with the support of home services by Christina Hoang PA-C and Dr. Rao. Follow up appointments were made for her PCP, psych, and cardiology upon discharge. Prescriptions also sent to [facility] to be placed in pill packs. When the prescriptions are delivered to her apartment, she is able to return home. Per O this may take up to 5 days, will continue to check on this daily. Recommend checking labs (CBC, BMP) weekly while patient awaits placement --> CBC/BMP 11/28 stable. Dispo: medically stable for discharge. DVT prophylaxis: Lovenox Admission and Anticipated Discharge Date Admission Date: October 04, 2024 Subjective Patient seen and examined this morning. Patient had lower BP than usual this morning, denied any dizziness, weakness, CP, SOB. Reports she was scared to get up due to low BP but reassured her that she was receiving fluids and would be fine to ambulate today as long as she did not feel dizzy upon standing Physical Exam Constitutional: WD/WN, vitals as above Eyes: PERRL, conjunctivae normal, anicteric sclerae Respiratory: breathing unlabored Cardiovascular: well perfused Psychiatric: A+Ox3, euthymic affect Results & Data Results & Data Vital Signs (Past 12 Hours) Vital Signs Temp Pulse Pulse Resp BP Pulse Ox O2 Del Method 11/28/24 11:23 54 L 105/60 11/28/24 08:22 48 L 88/49 L 11/28/24 07:26 36.6 C 45 L 16 81/48 L 96 Room Air 11/28/24 06:22 36.8 C 42 L 109/53 L 97 Room Air PG Care Time/CCT Total # of Minutes Spent Total Time Spent with Patient: Total time spent is greater than 50% in coordination of care (as documented) at patient's floor/unit and/or counseling patient: Coding Level of Care Code 23039 SUB INP/OBS CARE 2/35MIN Diagnoses Gait instability R26.81 Depression F32.A Failure to thrive in adult R62.7 Bradycardia R00.1 Constipation K59.00
--- NOTE | 2024-11-29 13:00 | Hospitalist Progress Note ---
Date of Service November 29, 2024 Assessment & Plan (1) Gait instability: (2) Depression: Plan: (3) Failure to thrive in adult: (4) Bradycardia: (5) Constipation: Plan This is a 59 year old female with past medical history of major depressive disorder with psychotic features, iron deficiency anemia, hypothyroidism, atrial flutter, bipolar who presented to the ED on 10/04/24 after being brought in by the police after a wellfare check - with weakness and falling. Much of her care is managed through [facility]. Workup on admission without acute cause of her weakness (CXR, biofire, UA, Head CT, TSH, CK). Prolonged stay awaiting waivers prior to discharge so she is able to have more care at home. #Weakness Patient has been admitted to the hospital multiple times due to falls and injury. Her gait instability stems from bradykinesia and medications. Has been evaluated by neurology in the past for abnormal brain MRI - no MS or Parkinson's disease. No further neuro workup indicated. Encourage ambulation as much as possible. Encourage sitting in chair for meals, proper sleep-wake cycles, proper hygiene. (remind patient daily) PT/OT recommending home health, CM following #Hypotension Blood pressures run soft normally. Did have brief hypotension on 11/28 with blood pressure down to 81/48 but remained asymptomatic. She received fluid bolus IV and had improvement. She is not on any medications that could cause hypotension. Encouraged her to drink fluids. Added Midodrine 2.5mg TID on 11/25. #Depression Medication adjustments: Depakote 1000mg HS. Risperidone discontinued. Melatonin increased to 9 mg 11/06. Psych re-eval patient 10/29 - deems she does have decision making capacity regarding disposition If depression doesn't improve consider SSRI Patient appears to be responding well to the changes in her psych medications. #Constipation / Decreased appetite Now with regular bowel movements. Colace and MiraLAX available PRN. Continue to encourage ambulation, activity, OOB for meals, etc. Diet changed from heart healthy to regular. Encourage PO intake. Monitor weights, would continue to weigh every few days. Prefer standing scale. #A fib/Bradycardia Continue amiodarone. No anticoagulation due to low enough [id number] score (gender only) Bradycardia is chronic - follows with Dr Saenz outpatient, appointment made sooner than 02/2025 on discharge. Patient asymptomatic CM head from [facility] 11/24 -> patient is able to return home prior to waiver being in place. A letter was filled out and signed 11/24 deeming her safe to return home with the support of home services by Christina Hoang PA-C and Dr. Rao. Follow up appointments were made for her PCP, psych, and cardiology upon discharge. Prescriptions also sent to [facility] to be placed in pill packs. When the prescriptions are delivered to her apartment, she is able to return home. Per O this may take up to 5 days, will continue to check on this daily. Recommend checking labs (CBC, BMP) weekly while patient awaits placement --> CBC/BMP 11/28 stable. Dispo: medically stable for discharge. DVT prophylaxis: Lovenox Admission and Anticipated Discharge Date Admission Date: October 04, 2024 Subjective Patient seen and examined this morning. Patient reports she is feeling well today, denies weakness or dizziness. She states she did not sleep much last night. She states she was told to stay in bed all day yesterday so she did nap most of the day. Discussed ambulating in the halls & sitting in her chair today. Physical Exam Constitutional: WD/WN, vitals as above Eyes: PERRL, conjunctivae normal, anicteric sclerae Respiratory: breathing unlabored Cardiovascular: well perfused Psychiatric: A+Ox3, euthymic affect Results & Data Results & Data Vital Signs (Past 12 Hours) Vital Signs Temp Pulse Resp BP Pulse Ox O2 Del Method 11/29/24 11:42 59 L 86/46 L 11/29/24 07:58 37 C 48 L 17 89/55 L 97 Room Air PG Care Time/CCT Total # of Minutes Spent Total Time Spent with Patient: Total time spent is greater than 50% in coordination of care (as documented) at patient's floor/unit and/or counseling patient: Coding Level of Care Code 94946 SUB INP/OBS CARE 10/03MIN Diagnoses Gait instability R26.81 Depression F32.A Failure to thrive in adult R62.7 Bradycardia R00.1 Constipation K59.00
[2024-11-30] MEDS: LACTATED RINGER'S 1,000 ML IV ONE (08:50)
--- NOTE | 2024-11-30 14:40 | Hospitalist Progress Note ---
Date of Service November 30, 2024 Assessment & Plan (1) Gait instability: (2) Depression: Plan: (3) Failure to thrive in adult: (4) Bradycardia: (5) Constipation: Plan This is a 59 year old female with past medical history of major depressive disorder with psychotic features, iron deficiency anemia, hypothyroidism, atrial flutter, bipolar who presented to the ED on 10/04/24 after being brought in by the police after a wellfare check - with weakness and falling. Much of her care is managed through [facility]. Workup on admission without acute cause of her weakness (CXR, biofire, UA, Head CT, TSH, CK). Prolonged stay awaiting waivers prior to discharge so she is able to have more care at home. #Weakness Patient has been admitted to the hospital multiple times due to falls and injury. Her gait instability stems from bradykinesia and medications. Has been evaluated by neurology in the past for abnormal brain MRI - no MS or Parkinson's disease. No further neuro workup indicated. Encourage ambulation as much as possible. Encourage sitting in chair for meals, proper sleep-wake cycles, proper hygiene. (remind patient daily) PT/OT recommending home health, CM following #Hypotension Blood pressures run soft normally. She is not on any medications that could cause hypotension. Encouraged her to drink fluids. Continues to have occasional IVF boluses to aide with hypotension. Could consider up titrating midodrine if necessary however patient does remain asymptomatic. Added Midodrine 2.5mg TID on 11/25. #Depression Medication adjustments: Depakote 1000mg HS. Risperidone discontinued. Melatonin increased to 9 mg 11/06. Psych re-eval patient 10/29 - deems she does have decision making capacity regarding disposition If depression doesn't improve consider SSRI Patient appears to be responding well to the changes in her psych medications. #Constipation / Decreased appetite Now with regular bowel movements. Colace and MiraLAX available PRN. Continue to encourage ambulation, activity, OOB for meals, etc. Diet changed from heart healthy to regular. Encourage PO intake. Monitor weights, would continue to weigh every few days. Prefer standing scale. #A fib/Bradycardia Continue amiodarone. No anticoagulation due to low enough [id number] score (gender only) Bradycardia is chronic - follows with Dr Saenz outpatient, appointment made sooner than 02/2025 on discharge. Patient asymptomatic CM head from [facility] 11/24 -> patient is able to return home prior to waiver being in place. A letter was filled out and signed 11/24 deeming her safe to return home with the support of home services by Christina Hoang PA-C and Dr. Rao. Follow up appointments were made for her PCP, psych, and cardiology upon discharge. Prescriptions also sent to [facility] to be placed in pill packs. When the prescriptions are delivered to her apartment, she is able to return home. Per O this may take up to 5 days, will continue to check on this daily. Recommend checking labs (CBC, BMP) weekly while patient awaits placement --> CBC/BMP 11/28 stable. Dispo: medically stable for discharge. DVT prophylaxis: Lovenox Admission and Anticipated Discharge Date Admission Date: October 04, 2024 Subjective Patient seen and examined this morning. Patient w/ no symptoms today. She remains asymptomatic including dizziness. She reports that when she does get discharged from the hospital, she does not have a ride home. Informed her that case management would work this out. Physical Exam Constitutional: WD/WN, vitals as above Eyes: PERRL, conjunctivae normal, anicteric sclerae Respiratory: breathing unlabored Cardiovascular: well perfused Psychiatric: A+Ox3, euthymic affect Results & Data Results & Data Vital Signs (Past 12 Hours) Vital Signs Temp Pulse Resp BP Pulse Ox O2 Del Method 11/30/24 07:13 36.5 C 40 L 16 87/56 L 95 Room Air PG Care Time/CCT Total # of Minutes Spent Total Time Spent with Patient: Total time spent is greater than 50% in coordination of care (as documented) at patient's floor/unit and/or counseling patient: Coding Level of Care Code 09237 SUB INP/OBS CARE 10/03MIN Diagnoses Gait instability R26.81 Depression F32.A Failure to thrive in adult R62.7 Bradycardia R00.1 Constipation K59.00
--- NOTE | 2024-12-01 16:59 | Hospitalist Progress Note ---
Date of Service December 01, 2024 Assessment & Plan (1) Gait instability: (2) Depression: Plan: (3) Failure to thrive in adult: (4) Bradycardia: (5) Constipation: Plan This is a 59 year old female with past medical history of major depressive disorder with psychotic features, iron deficiency anemia, hypothyroidism, atrial flutter, bipolar who presented to the ED on 10/04/24 after being brought in by the police after a wellfare check - with weakness and falling. Much of her care is managed through [facility]. Workup on admission without acute cause of her weakness (CXR, biofire, UA, Head CT, TSH, CK). Prolonged stay awaiting waivers prior to discharge so she is able to have more care at home. #Weakness Patient has been admitted to the hospital multiple times due to falls and injury. Her gait instability stems from bradykinesia and medications. Has been evaluated by neurology in the past for abnormal brain MRI - no MS or Parkinson's disease. No further neuro workup indicated. Encourage ambulation as much as possible. Encourage sitting in chair for meals, proper sleep-wake cycles, proper hygiene. (remind patient daily) PT/OT recommending home health, CM following #Hypotension Blood pressures run soft normally. She is not on any medications that could cause hypotension. Encouraged her to drink fluids. Continues to have occasional IVF boluses to aide with hypotension. Could consider up titrating midodrine if necessary however patient does remain asymptomatic. Added Midodrine 2.5mg TID on 11/25. #Depression Medication adjustments: Depakote 1000mg HS. Risperidone discontinued. Melatonin increased to 9 mg 11/06. Psych re-eval patient 10/29 - deems she does have decision making capacity regarding disposition If depression doesn't improve consider SSRI Patient appears to be responding well to the changes in her psych medications. #Constipation / Decreased appetite Now with regular bowel movements. Colace and MiraLAX available PRN. Continue to encourage ambulation, activity, OOB for meals, etc. Diet changed from heart healthy to regular. Encourage PO intake. Monitor weights, would continue to weigh every few days. Prefer standing scale. #A fib/Bradycardia Continue amiodarone. No anticoagulation due to low enough [id number] score (gender only) Bradycardia is chronic - follows with Dr Saenz outpatient, appointment made sooner than 02/2025 on discharge. Patient asymptomatic CM heard from [facility] 11/24 -> patient is able to return home prior to waiver being in place. A letter was filled out and signed 11/24 deeming her safe to return home with the support of home services by Christina Hoang PA-C and Dr. Rao. Follow up appointments were made for her PCP, psych, and cardiology upon discharge. Prescriptions also sent to [facility] to be placed in pill packs. When the prescriptions are delivered to her apartment, she is able to return home. Per [facility] this may take up to 5 days, will continue to check on this daily. Recommend checking labs (CBC, BMP) weekly while patient awaits placement --> CBC/BMP 11/28 stable. Dispo: medically stable for discharge. DVT prophylaxis: Lovenox Admission and Anticipated Discharge Date Admission Date: October 04, 2024 Subjective Patient seen and evaluated at bedside. She is just finished walking laps in the dyer. She reports feeling well, denies any symptoms of hypotension or bradycardia including lightheadedness, dizziness, presyncope, SOB. She is eager to be discharged when ready. No acute complaints or concerns at this time. Physical Exam Physical Exam: General: No acute distress, nondiaphoretic. Cooperative and pleasant. Cardiac: Bradycardic rate in the 40s. Well-perfused. Pulm: Normal respiratory effort. 99% on room air. Neuro: A&O x3. No focal neurological deficits. Results & Data Results & Data Vital Signs (Past 12 Hours) Vital Signs Temp Pulse Pulse Resp BP Pulse Ox O2 Del Method 12/01/24 15:04 97.7 F 41 L 18 106/64 99 Room Air 12/01/24 09:41 49 L 12/01/24 07:17 98.1 F 38 L 14 109/58 L 94 Room Air PG Care Time/CCT Total # of Minutes Spent Total Time Spent with Patient: Total time spent is greater than 50% in coordination of care (as documented) at patient's floor/unit and/or counseling patient: Coding Level of Care Code 51306 SUB INP/OBS CARE 10/03MIN Diagnoses Gait instability R26.81 Depression F32.A Failure to thrive in adult R62.7 Bradycardia R00.1 Constipation K59.00
--- NOTE | 2024-12-02 18:31 | Hospitalist Progress Note ---
Date of Service December 02, 2024 Assessment & Plan (1) Gait instability: (2) Depression: Plan: (3) Failure to thrive in adult: (4) Bradycardia: (5) Constipation: Plan This is a 59 year old female with past medical history of major depressive disorder with psychotic features, iron deficiency anemia, hypothyroidism, atrial flutter, bipolar who presented to the ED on 10/04/24 after being brought in by the police after a wellfare check - with weakness and falling. Much of her care is managed through [facility]. Workup on admission without acute cause of her weakness (CXR, biofire, UA, Head CT, TSH, CK). Prolonged stay awaiting waivers prior to discharge so she is able to have more care at home. #Weakness Patient has been admitted to the hospital multiple times due to falls and injury. Her gait instability stems from bradykinesia and medications. Has been evaluated by neurology in the past for abnormal brain MRI - no MS or Parkinson's disease. No further neuro workup indicated. Encourage ambulation as much as possible. Encourage sitting in chair for meals, proper sleep-wake cycles, proper hygiene. (remind patient daily) PT/OT recommending home health, CM following #Hypotension Blood pressures run soft normally. She is not on any medications that could cause hypotension. Encouraged her to drink fluids. Continues to have occasional IVF boluses to aide with hypotension. Could consider up titrating midodrine if necessary however patient does remain asymptomatic. Added Midodrine 2.5mg TID on 11/25. #Depression Medication adjustments: Depakote 1000mg HS. Risperidone discontinued. Melatonin increased to 9 mg 11/06. Psych re-eval patient 10/29 - deems she does have decision making capacity regarding disposition If depression doesn't improve consider SSRI Patient appears to be responding well to the changes in her psych medications. #Constipation / Decreased appetite Now with regular bowel movements. Colace and MiraLAX available PRN. Continue to encourage ambulation, activity, OOB for meals, etc. Diet changed from heart healthy to regular. Encourage PO intake. Monitor weights, would continue to weigh every few days. Prefer standing scale. #A fib/Bradycardia Continue amiodarone. No anticoagulation due to low enough [id number] score (gender only) Bradycardia is chronic - follows with Dr Saenz outpatient, appointment made sooner than 02/2025 on discharge. Patient asymptomatic CM heard from [facility] 11/24 -> patient is able to return home prior to waiver being in place. A letter was filled out and signed 11/24 deeming her safe to return home with the support of home services by Christina Hoang PA-C and Dr. Rao. Follow up appointments were made for her PCP, psych, and cardiology upon discharge. Prescriptions also sent to [facility] to be placed in pill packs. When the prescriptions are delivered to her apartment, she is able to return home. Per [facility] this may take up to 5 days, will continue to check on this daily. Recommend checking labs (CBC, BMP) weekly while patient awaits placement --> CBC/BMP 11/28 stable. Dispo: medically stable for discharge. DVT prophylaxis: Lovenox Admission and Anticipated Discharge Date Admission Date: October 04, 2024 Subjective Patient seen and evaluated bedside. She reports that she is tired but otherwise denies any complaints or concerns. She notes that overall her sleep seems to be improved at night and she still has a fair appetite. She was about to do some laps in the hallway after my visit. Physical Exam Physical Exam: General: No acute distress, nondiaphoretic. Cooperative and pleasant. Cardiac: Bradycardic rate in the 40s. Well-perfused. Pulm: Normal respiratory effort. 100% on room air. Neuro: A&O x3. No focal neurological deficits. Results & Data Results & Data Vital Signs (Past 12 Hours) Vital Signs Temp Pulse Pulse Resp BP Pulse Ox O2 Del Method 12/02/24 16:08 98.1 F 43 L 17 115/67 100 Room Air 12/02/24 11:29 98.4 F 43 L 16 98/61 L 95 Room Air PG Care Time/CCT Total # of Minutes Spent Total Time Spent with Patient: Total time spent is greater than 50% in coordination of care (as documented) at patient's floor/unit and/or counseling patient: Coding Level of Care Code 89591 SUB INP/OBS CARE 10/03MIN Diagnoses Gait instability R26.81 Depression F32.A Failure to thrive in adult R62.7 Bradycardia R00.1 Constipation K59.00
--- NOTE | 2024-12-03 16:12 | Hospitalist Progress Note ---
Date of Service December 03, 2024 Assessment & Plan (1) Gait instability: (2) Depression: Plan: (3) Failure to thrive in adult: (4) Bradycardia: (5) Constipation: Plan This is a 59 year old female with past medical history of major depressive disorder with psychotic features, iron deficiency anemia, hypothyroidism, atrial flutter, bipolar who presented to the ED on 10/04/24 after being brought in by the police after a welfare check - with weakness and falling. Much of her care is managed through [facility]. Workup on admission without acute cause of her weakness (CXR, biofire, UA, Head CT, TSH, CK). Prolonged stay awaiting waivers prior to discharge so she is able to have more care at home. #Weakness Patient has been admitted to the hospital multiple times due to falls and injury. Her gait instability stems from bradykinesia and medications. Has been evaluated by neurology in the past for abnormal brain MRI - no MS or Parkinson's disease. No further neuro workup indicated. Encourage ambulation as much as possible. Encourage sitting in chair for meals, proper sleep-wake cycles, proper hygiene. (remind patient daily) PT/OT recommending home health, CM following #Hypotension Blood pressures run soft normally. She is not on any medications that could cause hypotension. Encouraged her to drink fluids. Continues to have occasional IVF boluses to aide with hypotension. Could consider up titrating midodrine if necessary however patient does remain asymptomatic. Added Midodrine 2.5mg TID on 11/25. #Depression Medication adjustments: Depakote 1000mg HS. Risperidone discontinued. Melatonin increased to 9 mg 11/06. Psych re-eval patient 10/29 - deems she does have decision making capacity regarding disposition If depression doesn't improve consider SSRI Patient appears to be responding well to the changes in her psych medications. #Constipation / Decreased appetite Now with regular bowel movements. Colace and MiraLAX available PRN. Continue to encourage ambulation, activity, OOB for meals, etc. Diet changed from heart healthy to regular. Encourage PO intake. Monitor weights, would continue to weigh every few days. Prefer standing scale. #Paroxysmal A fib/Bradycardia Remains in SB here. Continue amiodarone. No anticoagulation due to low enough [id number] score (gender only) Bradycardia is chronic - follows with Dr Saenz outpatient, appointment made sooner than 02/2025 on discharge. Patient asymptomatic Dispo-CM heard from [facility] 11/24 -> patient is able to return home prior to waiver being in place. A letter was filled out and signed 11/24 deeming her safe to return home with the support of home services by Christina Hoang PA-C and Dr. Rao. Follow up appointments were made for her PCP, psych, and cardiology upon discharge. [facility]. When the prescriptions are delivered to her apartment, she is able to return home. Per [facility] this may take up to 5 days, will continue to check on this daily. Recommend checking labs (CBC, BMP) weekly while patient awaits placement --> CBC/BMP 11/28 stable. Dispo: medically stable for discharge. DVT prophylaxis: Lovenox Discussed discharge planning with case management Admission and Anticipated Discharge Date Admission Date: October 04, 2024 Supervising Physician Co-Signing Physician Notes PA Supervision Note: I did not personally see or examine the patient today, but I verified all lucas points of PAZ Pablo's assessment and plan with the following exceptions/additions: B1 level normal in 10/2024--> can likely dc po thiamine or cut down dose Subjective Patient seen and evaluated at bedside. She reports feeling well, denies any complaints or concerns medically. She states she has an update about her discharge to discuss with case management. employee relations manager came to bedside to talk with Traci at the end of my visit. Physical Exam Physical Exam: General: No acute distress, nondiaphoretic. Cooperative and pleasant. Cardiac: Bradycardic rate in the 40s. Well-perfused. Pulm: Normal respiratory effort. 98% on room air. Neuro: A&O x3. No focal neurological deficits. Results & Data Results & Data Vital Signs (Past 12 Hours) Vital Signs Temp Pulse Resp BP Pulse Ox O2 Del Method 12/03/24 14:25 98.1 F 44 L 18 98/57 L 98 Room Air 12/03/24 07:59 98.2 F 49 L 16 90/59 L 96 Room Air PG Care Time/CCT Total # of Minutes Spent Total Time Spent with Patient: Total time spent is greater than 50% in coordination of care (as documented) at patient's floor/unit and/or counseling patient: Coding Level of Care Code 78647 SUB INP/OBS CARE Diagnoses Gait instability R26.81 Depression F32.A Failure to thrive in adult R62.7 Bradycardia R00.1 Constipation K59.00
--- NOTE | 2024-12-04 14:44 | Hospitalist Progress Note ---
Date of Service December 04, 2024 Assessment & Plan (1) Gait instability: (2) Depression: Plan: (3) Failure to thrive in adult: (4) Bradycardia: (5) Constipation: Plan This is a 59 year old female with past medical history of major depressive disorder with psychotic features, iron deficiency anemia, hypothyroidism, atrial flutter, bipolar who presented to the ED on 10/04/24 after being brought in by the police after a welfare check - with weakness and falling. Much of her care is managed through [facility]. Workup on admission without acute cause of her weakness (CXR, biofire, UA, Head CT, TSH, CK). Prolonged stay awaiting waivers prior to discharge so she is able to have more care at home. #Weakness Patient has been admitted to the hospital multiple times due to falls and injury. Her gait instability stems from bradykinesia and medications. Has been evaluated by neurology in the past for abnormal brain MRI - no MS or Parkinson's disease. No further neuro workup indicated. Encourage ambulation as much as possible. Encourage sitting in chair for meals, proper sleep-wake cycles, proper hygiene. (remind patient daily) PT/OT recommending home health, CM following #Hypotension Blood pressures run soft normally. She is not on any medications that could cause hypotension. Encouraged her to drink fluids. Continues to have occasional IVF boluses to aide with hypotension. Could consider up titrating midodrine if necessary however patient does remain asymptomatic. Added Midodrine 2.5mg TID on 11/25. #Depression Medication adjustments: Depakote 1000mg HS. Risperidone discontinued. Melatonin increased to 9 mg 11/06. Psych re-eval patient 10/29 - deems she does have decision making capacity regarding disposition If depression doesn't improve consider SSRI Patient appears to be responding well to the changes in her psych medications. #Constipation / Decreased appetite Now with regular bowel movements. Colace and MiraLAX available PRN. Continue to encourage ambulation, activity, OOB for meals, etc. Diet changed from heart healthy to regular. Encourage PO intake. Monitor weights, would continue to weigh every few days. Prefer standing scale. #Paroxysmal A fib/Bradycardia Remains in SB here. Continue amiodarone. No anticoagulation due to low enough [id number] score (gender only) Bradycardia is chronic - follows with Dr Saenz outpatient, appointment made sooner than 02/2025 on discharge. Patient asymptomatic Dispo-CM heard from [facility] 11/24 -> patient is able to return home prior to waiver being in place. A letter was filled out and signed 11/24 deeming her safe to return home with the support of home services by Christina Hoang PA-C and Dr. Rao. Follow up appointments were made for her PCP, psych, and cardiology upon discharge. Prescriptions also sent to [facility] to be placed in pill packs. When the prescriptions are delivered to her apartment, she is able to return home. Per [facility] this may take up to 5 days, will continue to check on this daily. Recommend checking labs (CBC, BMP) weekly while patient awaits placement --> CBC/BMP 11/28 stable. Dispo: medically stable for discharge. Plan to discharge 12/07/24 DVT prophylaxis: Lovenox Discussed discharge planning with case management Discussed outpatient appointments with psychiatry Admission and Anticipated Discharge Date Admission Date: October 04, 2024 Supervising Physician Co-Signing Physician Notes PA Supervision Note: I did not personally see or examine the patient today, but I verified all lucas points of PAZ Pablo's assessment and plan with the following exceptions/additions: none Subjective Patient seen and evaluated at bedside. She reports feeling well and is excited about being discharged soon. She reports her appetite has been good, she is dreaming overnight again and sleeping much better at night. Plan is for her to be discharged on 12/07/24. No complaints or concerns at this time. Physical Exam Physical Exam: General: No acute distress, nondiaphoretic. Cooperative and pleasant. Cardiac: Bradycardic rate in the 40s. Well-perfused. Pulm: Normal respiratory effort. 98% on room air. Neuro: A&O x3. No focal neurological deficits. Results & Data Results & Data Vital Signs (Past 12 Hours) Vital Signs Temp Pulse Resp BP Pulse Ox O2 Del Method 12/04/24 07:29 42 L 12/04/24 07:26 97.9 F 40 L 16 93/60 L 97 Room Air PG Care Time/CCT Total # of Minutes Spent Total Time Spent with Patient: Total time spent is greater than 50% in coordination of care (as documented) at patient's floor/unit and/or counseling patient: Coding Level of Care Code 89079 SUB INP/OBS CARE 2/35MIN Diagnoses Gait instability R26.81 Depression F32.A Failure to thrive in adult R62.7 Bradycardia R00.1 Constipation K59.00
--- NOTE | 2024-12-05 15:12 | Hospitalist Progress Note ---
Date of Service December 05, 2024 Assessment & Plan (1) Gait instability: (2) Depression: Plan: (3) Failure to thrive in adult: (4) Bradycardia: (5) Constipation: Plan This is a 59 year old female with past medical history of major depressive disorder with psychotic features, iron deficiency anemia, hypothyroidism, atrial flutter, bipolar who presented to the ED on 10/04/24 after being brought in by the police after a welfare check - with weakness and falling. Much of her care is managed through [facility]. Workup on admission without acute cause of her weakness (CXR, biofire, UA, Head CT, TSH, CK). Prolonged stay awaiting waivers prior to discharge so she is able to have more care at home. #Weakness Patient has been admitted to the hospital multiple times due to falls and injury. Her gait instability stems from bradykinesia and medications. Has been evaluated by neurology in the past for abnormal brain MRI - no MS or Parkinson's disease. No further neuro workup indicated. Encourage ambulation as much as possible. Encourage sitting in chair for meals, proper sleep-wake cycles, proper hygiene. (remind patient daily) PT/OT recommending home health, CM following #Hypotension Blood pressures run soft normally. She is not on any medications that could cause hypotension. Encouraged her to drink fluids. Continues to have occasional IVF boluses to aide with hypotension. Could consider up titrating midodrine if necessary however patient does remain asymptomatic. Added Midodrine 2.5mg TID on 11/25. #Depression/Insomnia Medication adjustments: Depakote 1000mg HS. Risperidone discontinued. Melatonin increased to 9 mg 11/06. Continue trazodone Psych re-eval patient 10/29 - deems she does have decision making capacity regarding disposition If depression doesn't improve consider SSRI Patient appears to be responding well to the changes in her psych medications. #Constipation / Decreased appetite Now with regular bowel movements. Colace and MiraLAX available PRN. Continue to encourage ambulation, activity, OOB for meals, etc. Diet changed from heart healthy to regular. Encourage PO intake. Monitor weights, would continue to weigh every few days. Prefer standing scale. #Paroxysmal A fib/Bradycardia Remains in SB here. Continue amiodarone. No anticoagulation due to low enough [id number] score (gender only) Bradycardia is chronic - follows with Dr Saenz outpatient, appointment made sooner than 02/2025 on discharge. Patient asymptomatic Recommend checking labs (CBC, BMP) weekly while patient awaits placement --> CBC/BMP 11/28 stable. DVT prophylaxis: Lovenox Dispo - All necessary outpatient appointments have been scheduled and additional services coordinated. Plan to discharged 12/07/24 in the morning. Admission and Anticipated Discharge Date Admission Date: October 04, 2024 Supervising Physician Co-Signing Physician Notes PAZ Supervision Note: I did not personally see or examine the patient today, but I verified all lucas points of PAZ Pablo's assessment and plan with the following exceptions/additions: none Subjective Patient seen and evaluated bedside. She reports that she is tired today but excited about her upcoming discharge on Saturday. She denies any acute complaints or concerns at this time. Physical Exam Physical Exam: General: No acute distress, nondiaphoretic. Cooperative and pleasant. Cardiac: Bradycardic rate in the 50s. Well-perfused. Pulm: Normal respiratory effort. 100% on room air. Neuro: A&O x3. No focal neurological deficits. Results & Data Results & Data Vital Signs (Past 12 Hours) Vital Signs Temp Pulse Resp BP Pulse Ox O2 Del Method 12/05/24 11:44 110/66 12/05/24 08:18 97.3 F L 52 L 16 88/58 L 100 Room Air PG Care Time/CCT Total # of Minutes Spent Total Time Spent with Patient: Total time spent is greater than 50% in coordination of care (as documented) at patient's floor/unit and/or counseling patient: Coding Level of Care Code 92162 SUB INP/OBS CARE 10/03MIN Diagnoses Gait instability R26.81 Depression F32.A Failure to thrive in adult R62.7 Bradycardia R00.1 Constipation K59.00
[2024-12-06 06:12] LABS: Hematocrit (blood only) 37.9 % (37.0-47.0); Hemoglobin 13.1 g/dl (12.0-16.0); Mean Corpuscular Hemoglobin 33.9 pg (25.0-34.0); Mean Corpuscular Hgb Conc 34.6 g/dL (32.0-36.0); Mean Corpuscular Volume 98.2 fL (80.0-100.0); Platelet Count 203 K/uL (130-400); RDW Coefficient of Variation 12.2 % (11.5-14.5); RDW Standard Deviation 44.2 fL (36.4-46.3); Red Blood Count 3.86 M/uL (4.20-5.40)
[2024-12-06 06:20] LABS: BUN Creatinine Ratio 26.8 (10-20); Creatinine Clr Calc Pharmacy 70.7 ml/min; Potassium 4.1 mmol/L (3.5-5.1)
--- NOTE | 2024-12-06 16:25 | Hospitalist Progress Note ---
Date of Service December 06, 2024 Assessment & Plan (1) Gait instability: (2) Depression: Plan: (3) Failure to thrive in adult: (4) Bradycardia: (5) Constipation: Plan This is a 59 year old female with past medical history of major depressive disorder with psychotic features, iron deficiency anemia, hypothyroidism, atrial flutter, bipolar who presented to the ED on 10/04/24 after being brought in by the police after a welfare check - with weakness and falling. Much of her care is managed through [facility]. Workup on admission without acute cause of her weakness (CXR, biofire, UA, Head CT, TSH, CK). Prolonged stay awaiting waivers prior to discharge so she is able to have more care at home. #Weakness Patient has been admitted to the hospital multiple times due to falls and injury. Her gait instability stems from bradykinesia and medications. Has been evaluated by neurology in the past for abnormal brain MRI - no MS or Parkinson's disease. No further neuro workup indicated. Encourage ambulation as much as possible. Encourage sitting in chair for meals, proper sleep-wake cycles, proper hygiene. (remind patient daily) PT/OT recommending home health, CM following #Hypotension Blood pressures run soft normally. She is not on any medications that could cause hypotension. Encouraged her to drink fluids. Continues to have occasional IVF boluses to aide with hypotension. Could consider up titrating midodrine if necessary however patient does remain asymptomatic. Added Midodrine 2.5mg TID on 11/25. #Depression/Insomnia Medication adjustments: Depakote 1000mg HS. Risperidone discontinued. Melatonin increased to 9 mg 11/06. Continue trazodone Psych re-eval patient 10/29 - deems she does have decision making capacity regarding disposition If depression doesn't improve consider SSRI Patient has responded well to the changes in her psych medications. #Constipation / Decreased appetite Now with regular bowel movements. Colace and MiraLAX available PRN. Continue to encourage ambulation, activity, OOB for meals, etc. Diet changed from heart healthy to regular. Encourage PO intake. Monitor weights, would continue to weigh every few days. Prefer standing scale. #Paroxysmal A fib/Bradycardia Remains in SB here. Continue amiodarone. No anticoagulation due to low enough [id number] score (gender only) Bradycardia is chronic - follows with Dr Nydegger outpatient, appointment made sooner than 02/2025 on discharge. Patient asymptomatic Recommend checking labs (CBC, BMP) weekly while patient awaits placement --> CBC/BMP 12/06 stable. DVT prophylaxis: Lovenox Dispo - All necessary outpatient appointments have been scheduled and additional services coordinated. Plan to discharged 12/07/24 in the morning. Admission and Anticipated Discharge Date Admission Date: October 04, 2024 Supervising Physician Co-Signing Physician Notes PA Supervision Note: I did not personally see or examine the patient today, but I verified all lucas points of PAZ Pablo's assessment and plan with the following exceptions/additions: none Subjective Patient seen and evaluated in hallway while walking laps. Offered to return to her room, she declined and wanted to continue walking together. She reports feeling well, and is eager for discharge tomorrow. She reports a good appetite, sleeping decently at night, and denies dizziness. No acute complaints or concerns at this time. Physical Exam Physical Exam: General: No acute distress, nondiaphoretic. Cooperative and pleasant. Cardiac: Bradycardic rate in the 50s. Well-perfused. Pulm: Normal respiratory effort. 97% on room air. Neuro: A&O x3. No focal neurological deficits. Results & Data Results & Data Vital Signs (Past 12 Hours) Vital Signs Temp Pulse Resp BP Pulse Ox O2 Del Method 12/06/24 14:49 97.5 F L 55 L 18 127/75 97 Room Air 12/06/24 07:30 Room Air 12/06/24 07:30 97.9 F 58 L 14 95/54 L 98 Room Air Laboratory Results Reviewed CBC Reviewed BMP PG Care Time/CCT Total # of Minutes Spent Total Time Spent with Patient: Total time spent is greater than 50% in coordination of care (as documented) at patient's floor/unit and/or counseling patient: Coding Level of Care Code 25667 SUB INP/OBS CARE 10/03MIN Diagnoses Gait instability R26.81 Depression F32.A Failure to thrive in adult R62.7 Bradycardia R00.1 Constipation K59.00
[2024-12-07 07:22] VITALS: BP 92/54; PULSE 43; RESP 16; TEMP 97.5; O2SAT 98
--- NOTE | 2024-12-07 17:42 | Discharge Summary ---
Discharge Summary Date of Service December 07, 2024 Principal Dx & Hospital Course #1 = Principal Diagnosis (1) Gait instability: (2) Depression: (3) Failure to thrive in adult: (4) Bradycardia: (5) Constipation: Plan This is a 59 year old female with past medical history of major depressive disorder with psychotic features, iron deficiency anemia, hypothyroidism, atrial flutter, bipolar who presented to the ED on 10/04/24 after being brought in by the police after a welfare check - with weakness and falling. Much of her care is managed through [email or web address]. Workup on admission without acute cause of her weakness (CXR, biofire, UA, Head CT, TSH, CK). Prolonged stay due to waivers process prior to discharge so she is able to have more care at home. #Weakness Patient has been admitted to the hospital multiple times due to falls and injury. Her gait instability stems from bradykinesia and medications. Has been evaluated by neurology in the past for abnormal brain MRI - no MS or Parkinson's disease. No further neuro workup indicated. Very motivated lately, would walk multiple laps in the hallways multiple times daily. Home health set up on discharge #Hypotension Blood pressures run soft normally. She is not on any medications that could cause hypotension. Encouraged her to drink fluids. Continue Midodrine 2.5mg TID. #Depression/Insomnia Medication adjustments: Depakote 1000mg HS. Risperidone discontinued. Melatonin increased to 9 mg 11/06. Continue trazodone Psych re-eval patient 10/29 - deems she does have decision making capacity regarding disposition Patient has responded well to the changes in her psych medications. #Constipation / Decreased appetite Now with regular bowel movements. Colace and MiraLAX available PRN. Continue to encourage ambulation, activity, OOB for meals, etc. Diet changed from heart healthy to regular. Encourage PO intake. #Paroxysmal A fib/Bradycardia Remains in SB here. Continue amiodarone. No anticoagulation due to low enough [id number] score (gender only) Bradycardia is chronic - follows with Dr Saenz outpatient, appointment made sooner than 02/2025 on discharge. Patient asymptomatic CBC/BMP 12/06 stable DVT prophylaxis: Lovenox Dispo - Discharged 12/07/24 with all needed appointments made and services set up Notes For Next Care Provider Medication Changes From Visit Please review new medication reconciliation listed below for newly started versus discontinuing medications Admission HPI Per Admitting Provider This is a 59 year old female with past medical history of depression, iron deficiency anemia, hypothyroidism, atrial flutter, bipolar who presented to the ED on 10/04/24 after being brought in by the police. Patient's showcase trimmer tried to contact the patient to make her aware that she has an appointment with her PCP tomorrow and she did not answer any of the phone calls. The police was then sent to the patient's house and she was found to be in disarray. She was then brought in the ED for further care. Patient's biggest complaint is that she feels weak. She feels it is difficult to take care of herself. She denies CP, SOB, urinary symptoms, N/V, abdominal pain. States she has constipation but unsure of her last bowel movement. States she lives alone but does have cats. Per showcase trimmer in ED, the police found her oven on in her house. Unsure of how long this has been on but the police did turn it off. Patient has been in our ED 5 times this month and was most recently admitted to the hospital on 09/26 and discharged on 09/28 with home health follow up. Per patient she does not believe home health has had a chance to establish care at her home. Discharge Exam General: No acute distress, nondiaphoretic. Cooperative and pleasant. Cardiac: Bradycardic rate in the 50s. Well-perfused. Pulm: Normal respiratory effort. 97% on room air. Neuro: A&O x3. No focal neurological deficits. Discharge Plan Discharge Items Patient Disposition: Home - Home Health Services Reason For Visit: WEAKNESS Discharge Diagnosis: Weakness Hypotension/Bradycardia Depression/insomnia Activity: Resume your previous activity Non-emergency contact: Primary Care Provider, Accounting Generalist, Psychiatrist and Therapist Call non-emergency contact if: you have any medication questions and your symptoms worsen Follow-up/Referrals: [facility] [Outside] - 12/09/24 10:40 am (Appointment with Dania Joyner.) Gucci Saenz MD [Physician] - 01/05/25 1:00 pm (Appointment with Anibal Cha PA-C) Spencer Saeed DO [Primary Care Provider] - 12/11/24 11:30 am Diet: Regular Addtl Attending Provider Instructions: Traci, The following appointments have been made - We have made appointments with the following providers: o [facility]12/09 at 10:40 am o Mechelle Jenkins day 12/09 at 12:00 (in office) o Dr. Saeed (primary care)12/11 at 11:[address] Saenz (boat tender) 01/05 at 1:00 pm [facility] is set to start up on Saturday, 12/08. [facility] at noon today, 12/07. [facility] Home Health will start care within 48 hours of discharge. It was a pleasure taking care of you while you were in the hospital! Pending Studies at Discharge: No Stand-Alone Forms: [facility], Smoking Cessation Medications and DC Order Prescriptions: New trazodone 50 mg Tablet 25 mg PO HS Qty: 30 0RF divalproex 500 mg Tablet Extended Release 24 Hr 1,000 mg PO HS Qty: 60 0RF pyridoxine (vitamin B6) [Vitamin B-6] 50 mg Tablet 25 mg PO QAM Qty: 30 0RF midodrine 2.5 mg Tablet 2.5 mg PO TID@0800,1200,1700 Qty: 90 0RF thiamine HCl (vitamin B1) 100 mg tablet 200 mg PO DAILY Qty: 120 0RF Continued epinephrine 0.3 mg/0.3 mL auto-injector 0.3 ml IM ONCE PRN (Reason: Anaphylaxis) amiodarone 200 mg Tablet 50 mg PO DAILY Qty: 30 0RF Discontinued divalproex 500 mg tablet extended release 24 hr 1,500 mg PO HS risperidone 2 mg tablet 2 mg PO HS trazodone 50 mg tablet 25 - 50 mg PO HS No Action (DME) diaper,brief,adult,disposable Misc See Rx Instructions .Route Qty: 126 3RF Rx Instructions: As directed, size medium Discharge Orders: Discharge Order (Routine); Ordered 12/07/24 Ordered By: Janie Pablo Admission Data Admit Date/Time: 10/04/24 16:32 Attending Provider: Inocente Trevino Admit Provider: Nickolas Uribe Primary Care Provider: Spencer Saeed Other Providers: Nickolas Uribe; Diandra Duron; Von Hunter; Mary Neville; Montse Mancia; Lawson Gil; Nohemy Monreal; [facility],Home Healthcare Other Interventions: Discharge Summary Assessment (RN) Last Done: 12/07/24 08:22 Hospital Stay Data Consultations 10/04/24 15:49 ED Decision to Admit Stat 10/12/24 09:28 Consult Psychiatry Routine Pending Results Patient Have Any Pending Studies at Discharge: No Discharge Instructions Given to Patient (Per Discharging Provider) Traci, The following appointments have been made - We have made appointments with the following providers: o [facility]12/09 at 10:40 am o Mechelle Culver 12/09 at 12:00 (in office) o Dr. Saeed (primary care)12/11 at 11:[address] Saenz (boat tender) 01/05 at 1:00 pm [facility] is set to start up on Saturday, 12/08. [facility] is going to deliver your medications at noon today, 12/07. [facility] Home Health will start care within 48 hours of discharge. It was a pleasure taking care of you while you were in the hospital! Total Time Total Time Spent Total Time Spent (In Minutes): Greater than 30 minutes spent completing this discharge process including direct patient care, medication reconciliation, documentation, review of labs and images, and coordination of care. Coding Level of Care Code 45252 INP/OBS DISCH >30 MIN Diagnoses Gait instability R26.81 Depression F32.A Failure to thrive in adult R62.7 Bradycardia R00.1 Constipation K59.00
== END 2024-12-07 10:02 | disposition home health service (06) | DRG 641 ==
LOC: ED 12:11 → SUATTDRO 16:32 → 3E 16:32
DX: I48.0 Paroxysmal atrial fibrillation; I95.9 Hypotension, unspecified; R62.7 Adult failure to thrive; R00.1 Bradycardia, unspecified; Z88.6 Allergy status to analgesic agent; Z88.0 Allergy status to penicillin; G47.00 Insomnia, unspecified; E03.9 Hypothyroidism, unspecified; D50.9 Iron deficiency anemia, unspecified; I48.92 Unspecified atrial flutter; Y92.039 Unspecified place in apartment as the place of occurrence of the external cause; F31.31 Bipolar disorder, current episode depressed, mild; R25.8 Other abnormal involuntary movements; Z60.2 Problems related to living alone; K59.00 Constipation, unspecified; T43.505A Adverse effect of unspecified antipsychotics and neuroleptics, initial encounter; R29.6 Repeated falls